=== PATIENT | male | born 1965 | race Caucasian/White ===

== ENCOUNTER 2017-01-27 12:58 | Inpatient (IN) | payer MEDICARE, BC ==
[~2017-01-27] VITALS: Ht 182.9 cm; Wt 111.8 kg
--- NOTE | ~2017-01-27 | HEMODYNAMI ---
PATIENT:RAE ARSHAD MEDICAL RECORD: [id number] : 61 LOCATION:[facility] D.[address] [facility] [id number] ADMISSION DATE: 01/27/17 Generatedon:01/29/201715:44 Patient name: RAE ARSHAD Patient #: [id number] : 1965 Date of study: 01/29/2017 Page: Of Hemodynamic Procedure Report Patient Data Patient Demographics Procedure consent was obtained First Name: RAE Gender: Male Last Name: JEANCARLOS : 1965 [facility] Initial: J Age: 51 year(s) Patient #: [id number] Race: SSN: [id number] Additional ID: [id number] Contact details Address: [address] [place] [address] State: [place] City: [place] Zip code: [address] Admission Admission Data Admission Date: 01/27/2017 Admission Time: 15:31 Arrival Date: 01/27/2017 Arrival Time: 15:31 Admit Source: Other Insurance Payor: Medicare Room #: D.2127 Weight (lbs.): 209.44 Weight (kg.): 95 Lab Results Lab Result Date: 01/29/2017 Lab Result Time: 0:00 Biochemistry Name Units Result Min Max BUN mg/dl 60 --(----)-* 7 18 Creatinine mg/dl 11.8 --(----)-* 0.6 1.3 CBC Name Units Result Min Max Hemoglobin g/dl 10.5 *-(----)-- 13.5 17.5 Procedure Procedure Types Cath Procedure Diagnostic Procedure LHC Coronaries only Aortic Root Angiography Miscellaneous Procedures Moderate Sedation up to 30 minutes Procedure Description Procedure Date Procedure Date: 01/29/2017 Procedure Start Time: 15:25 Procedure End Time: 15:39 Procedure Staff Name Function Thomas Han MD Performing Physician Cassidy Chu RT Scrub Santana Dotson RT Scrub Mariella Bonilla RN Nurse Wanda Ferreira RT Monitor Indication CHF Procedure Data Cath Procedure Fluoroscopy Diagnostic fluoroscopy Total fluoroscopy Time: 1.9 time: 1.9 min min Diagnostic fluoroscopy Total fluoroscopy dose: 897 dose: 897 mGy mGy Contrast Material Contrast Material Type Amount (ml) Isovue 300 105 Entry Location Entry Primary Successful Side Size Upsize Upsize Entry Closure Succes sful Closure Location (Fr) 1 (Fr) 2 (Fr) Remarks Device Remarks Femoral Right 5 Fr Exoseal artery Estimated blood loss: 5 ml Diagnostic catheters Device Type Used For End Catheter Placement Cordis 5Fr JL 4.0 Left Coronary Catheter (MP) Angiography Cordis 5Fr 3DRC Catheter Right Coronary (MP) Angiography Cordis 5Fr Pigtail LV Angiography Catheter (MP) Procedure Complications No complications Procedure Medications Medication Administration Route Dosage Oxygen NC 3 l/min Lidocaine 2% added to field 20 Heparin Flush Bag added to field 2 bags (1000units/500ml NS) 0.9% NaCl I.V. 100 ml/hr Versed I.V. 1 mg Fentanyl I.V. 50 mcg Versed I.V. 1 mg Fentanyl I.V. 50 mcg Versed I.V. 0.5 mg Hemodynamics Rest HGB: 10.5 (g/dl) Heart Rate: 76 (bpm) Snapshots Pre Cath Intra NCS Post Cath Vital Signs Time Heart Resp SPO2 etCO2 [id number] NIBP (mmHg) Rhythm Pain Sedation Rate (ipm) (%) (mmHg) (mmHg) Status Level (bpm) 15:11:04 75 18 97 0 0 150/94(115) NSR 0 (11) 10(A) , No pain 15:15:04 72 19 99 0 0 153/93(125) NSR 0 (11) 10(A) , No pain 15:19:01 73 21 97 0 0 134/89(111) NSR 0 (11) 9(A) , No pain 15:23:03 72 19 97 0 0 139/91(118) NSR 0 (11) 9(A) , No pain 15:27:11 72 19 98 0 0 142/84(111) NSR 0 (11) 9(A) , No pain 15:31:13 70 17 98 0 0 132/85(113) NSR 0 (11) 9(A) , No pain 15:35:16 73 16 96 0 0 126/86(109) NSR 0 (11) 9(A) , No pain 15:39:22 73 16 96 0 0 133/85(108) NSR 0 (11) 10(A) , No pain Medications Time Medication Route Dose Verified Delivered Reason Notes Effe ctiveness by by 15:12:38 Oxygen NC 3 Mariella Mariella used for l/min Irene Irene gate watch RN 15:12:45 Lidocaine 2% added 20ml Mariella Mariella used for to vial Irene Irene procedure field RN RN 15:12:53 Heparin Flush added 2 Mariella Mariella used for Bag to bags Irene Irene procedure (1000units/500ml field RN RN NS) 15:13:03 0.9% NaCl I.V. 100 Mariella Mariella used for ml/hr Irene Irene gate watch RN 15:18:36 Versed I.V. 1 mg Mariella Mariella for Irene Irene sedation RN RN 15:18:48 Fentanyl I.V. 50 Mariella Mariella for mcg Irene Irene sedation RN RN 15:23:23 Versed I.V. 1 mg Mariella Mariella for Irene Irene sedation RN RN 15:23:35 Fentanyl I.V. 50 Mariella Mariella for mcg Irene Irene sedation RN RN 15:27:44 Versed I.V. 0.5 Mariella Mariella for mg Irene Irene sedation RN special procedure technologist Log Time Note 14:50:10 Santana Dotson RT(R) sent for patient. Start room use. 14:57:50 Informed consent obtained and on chart 14:57:55 Diagnostic Cath Status : Elective 14:58:18 Indication : CHF 14:58:26 Admit Source: Other 14:58:30 Arrival Date: 01/27/2017 3:31:00 PM 14:58:37 Insurance Payor : Medicare 14:58:43 Patient Weight : 209.44 kg 15:00:01 Lab Result : BUN 60 mg/dl 15:00:01 Lab Result : Hemoglobin 10.5 g/dl 15:00:01 Lab Result : Creatinine 11.8 mg/dl 15:00:28 Time tracking: Regular hours 15:00:34 Plan of Care:Hemodynamics will remain stable., Cardiac rhythm will remain stable., Comfort level will be maintained., Respiratory function will remain adequate., Patient/ family verbilizes understanding of procedure., Procedure tolerated without complication., Recovers from procedure without complications.. 15:05:30 Patient received from Med II to CCL 1 Alert and oriented. Tansferred to table in Supine position. 15:05:32 Warm blankets applied, and naveen hugger turned on for patient comfort. 15:05:32 Correct patient and procedure confirmed by team. 15:05:32 ECG and BP/O2 sat monitors applied to patient. 15:10:08 Vital chart was started 15:10:10 Baseline sample Acquired. 15:10:13 Rhythm: sinus rhythm 15:10:15 Full Disclosure recording started 15:10:28 H&P Date Dictated: 01/27/2017 Within 30 days and on chart.. 15:10:29 Pre-procedure instructions explained to patient. 15:10:30 Pre-op teaching completed and patient verbalized understanding. 15:10:31 Family unavailable. 15:10:33 Patient NPO since Midnight. 15:10:44 Is the patient allergic to Iodine/contrast media? No. 15:10:46 Is patient on blood thinner?Yes 15:10:48 ACC The patient was administered the following blood thiners within the last 24 hours: ACCPlavix 15:10:50 Patient diabetic? Yes. 15:10:51 If diabetic: On Metformin? No 15:10:54 Previous problem with sedation/anesthesia? No ? 15:10:57 Snore? Yes 15:10:58 Sleep apnea? Yes 15:10:59 Deviated septum? No 15:10:59 Opens mouth fully? Yes 15:11:00 Sticks out tongue? Yes 15:11:03 Airway obstruction? No ? 15:11:05 Dentures? No ? 15:11:07 Pre procedure: right dorsailis pedis pulse 1+ Palpable, but thready & weak; easily obliterated 15:11:25 Pt has a RESERVED LEFT ARM. 15:11:34 IV patent on arrival in right forearm with 0.9% NaCl at KVO. 15:11:45 Lab results completed and on chart. 15:11:49 Right groin area was prepped with chlora-prep and draped in sterile fashion 15:11:50 Alarms reviewed by Kerry Wise 15:11:51 Sharps counted by scrub and verified by R.N. 15:11:55 Use device set Femoral Dx 15:11:56 Tegaderm 4 x 4 opened to sterile field. 15:11:58 Acist Hand Control opened to sterile field. 15:11:58 Acist Manifold opened to sterile field. 15:11:59 Acist Syringe opened to sterile field. 15:12:00 Bag Decanter opened to sterile field. 15:12:00 Medline Cath Pack opened to sterile field. 15:12:00 Terumo 5Fr Venus Sheath opened to sterile field. 15:12:01 St Ant 260cm J .035 wire opened to sterile field. 15:12:03 Diagnostic Infinity 5Fr Multipack catheter opened to sterile field. 15:12:38 Oxygen 3 l/min NC was administered by Mariella Bonilla RN; used for procedure; 15:12:45 Lidocaine 2% 20ml vial added to field was administered by Mariella Bonilla RN; used for procedure; 15:12:53 Heparin Flush Bag (1000units/500ml NS) 2 bags added to field was administered by Mariella Bonilla RN; used for procedure; 15:13:03 0.9% NaCl 100 ml/hr I.V. was administered by Mariella Bonilla RN; used for procedure; 15:17:51 Physician arrived 15:17:52 --------ALL STOP TIME OUT------ 15:17:53 Final Timeout: patient, procedure, and site verified with staff and physician. All members of the team are in agreement. 15:17:55 Right groin site verified by team. 15:17:58 Physical assessment completed. ASA score P 2 - A patient with mild systemic disease as per Thomas Han MD. 15:18:03 Sedation plan: IV Moderate Sedation Versed, Fentanyl 15:18:36 Versed 1 mg I.V. was administered by Mariella Bonilla RN; for sedation; 15:18:48 Fentanyl 50 mcg I.V. was administered by Mariella Bonilla RN; for sedation; 15:20:07 Zero performed for pressure channel P1 15:20:18 Zero performed for pressure channel P1 15:20:28 Zero performed for pressure channel P1 15:23:23 Versed 1 mg I.V. was administered by Mariella Bonilla RN; for sedation; 15::35 Fentanyl 50 mcg I.V. was administered by Mariella Bonilla RN; for sedation; 15::42 Procedure started. 15:25:45 Local anesthetic to right femoral artery with Lidocaine 2% by Thomas Han MD.INITIAL ACCESS ONLY 15:25:57 A 5 Fr sheath was inserted into the Right Femoral artery 15:27:14 A Cordis 5Fr JL 4.0 Catheter (MP) was advanced over the wire and used for Left Coronary Angiography. 15:27:44 Versed 0.5 mg I.V. was administered by Mariella Bonilla RN; for sedation; 15:30:10 LCA angiography performed. 15:30:15 Injector settings: Ml/sec: 3, Volume: 6, 15:33:04 Catheter removed. 15:33:10 A Cordis 5Fr 3DRC Catheter (MP) was advanced over the wire and used for Right Coronary Angiography. 15:34:11 RCA angiography performed. 15:34:32 Injector settings: Ml/sec: 3, Volume: 6, 15:34:56 Catheter removed. 15:35:02 A Cordis 5Fr Pigtail Catheter (MP) was advanced over the wire and used for LV Angiography. 15:35:37 Aortic Root visualized 15:35:42 Injector settings: Ml/sec: 10, Volume: 20, 15:36:52 Cordis 5Fr Exoseal opened to sterile field. 15:37:05 Sheath removed intact; hemostasis achieved with Exoseal to the Right Femoral artery. 15:37:08 Procedure ended.(Physican Out) 15:37:28 Fluoroscopy time 01.90 minutes. 15:37:34 Fluoroscopy dose: 897 mGy 15:37:34 Flurop Dose total: 897 15:37:40 Contrast amount:Isovue 300 105ml. 15:37:42 Sharps counted by scrub and verified by R.N. 15:37:50 Insertion/operative site no bleeding no hematoma. 15:37:53 Post-op/insertion site Right Femoral artery dressed using a 4 x 4 and Tegaderm. 15:37:57 Post right femoral artery:stable 15:37:59 Post Procedure Pulses reassessed and unchanged 15:38:05 Post procedure rhythm: unchanged. 15:38:41 Estimated blood loss: 5 ml 15:38:42 Post procedure instruction explained to patient.Patient verbalizes understanding. 15:38:43 Patient needs reinforcement of post procedure teaching. 15:38:59 Procedure type changed to Cath procedure, Diagnostic procedure, LHC, Coronaries only, Aortic Root Angiography, Miscellaneous Procedures, Moderate Sedation up to 30 minutes 15:39:00 Procedure and supply charges have been captured, reviewed, submitted and are correct. 15:39:06 Procedure Complication : No complications 15:39:08 Vital chart was stopped 15:39:09 See physician's report for complete and final results. 15:39:11 Report given to Med II. 15:39:14 Patient transfered to Med II with Stretcher. 15:39:17 Procedure ended. 15:39:17 Full Disclosure recording stopped 15:39:23 End room use (Document Last) Device Usage Item Name Manufacture Quantity Catalog Hospital Part Current Minimal Lo t# / Number Charge Number Stock Stock Serial# Code Tegaderm 4 3M 1 [id number] [id number] 5 x 4 Acist Hand Acist 1 52335 [id number] [id number] [id number] 5 Control [employer] Inc Acist Acist 1 02541 528102 092124 405643 5 Manifold Medical Systems Inc Acist Acist 1 86463 900648 030292 445149 20 Syringe Medical Systems Inc Bag Microtek 1 2002S 136693 90556 226808 5 Decanter Medical Inc. Medline Cardinal 1 [id number] 556052 12237 990978 5 Cath Pack Health Terumo 5Fr Terumo 1 [id number] 566341 783683 289409 [address] Ant St Ant 1 766989 729351 016481 383315 30 260cm J .035 wire Diagnostic Cardinal 1 [id number] 401257 19984 354067 30 Infinity Health 5Fr Multipack catheter Cordis 5Fr Cardinal 1 [id number] 5 JL 4.0 Health Catheter (MP) Cordis 5Fr Cardinal 1 801124 5 3DRC Health Catheter (MP) Cordis 5Fr Cardinal 1 319550 5 Pigtail Health Catheter (MP) Cordis 5Fr Cardinal 1 EX500 289104 539495 903404 10 Familytic Signature Audit Aragon Stage Time Signature Unsigned Intra-Procedure 01/29/2017 Wanda Ferreira 3:44:15 PM RT(R) Signatures Monitor : Wanda Ferreira RT Signature : Date : Time : [facility] [address] [place] [address]
[~2017-01-27 12:58] MED LIST: APRESOLINE50 MG PO; ASPIRIN325 MG PO; ATIVAN0.5 MG PO; CARDIZEM CD240 MG PO; CATAPRES-T1 PATCH.WK TD; COLACE100 MG PO; COMBIVENT INH14.7 GM INH; COREG25 MG PO; LANTUS INSULIN10 ML SC; LONITEN10 MG PO; MIRALAX17 GM PO; NEPHRO-VITE RX1 TAB PO; NEURONTIN 100100 MG PO; PAXIL20 MG PO; PLAVIX75 MG PO; RENVELA2.4 GM PO; SENSIPAR90 MG PO; TYLENOL 325 MG325 MG PO; ULTRAM50 MG PO; UROXATRAL10 MG PO; WELLBUTRIN75 MG PO; ZYLOPRIM100 MG PO
[2017-01-27 14:05] LABS: BASOPHILS 0.8 % (0-2); EOSINOPHILS 3.3 % (0-7); HEMATOCRIT 35.5 % (42.0-54.0); HEMOGLOBIN 11.8 g/dL (13.5-17.5); IMMATURE GRANULOCYTES 0.4 % (0-5); LYMPHOCYTES 4.7 % (15-50); MCH 31.8 pg (26.0-34.0); MCHC 33.2 g/dL (31.0-37.0); MCV 95.7 fL (80.0-100.0); MEAN PLATELET VOLUME 10.2 fL (7.4-10.4); MONOCYTES 11.1 % (2-11); NEUTROPHILS 79.7 % (40-80); RBC 3.71 10x6/uL (4.20-6.10); RDW 14.4 % (11.5-14.5); WBC 11.2 10x3/uL (4.8-10.8)
[2017-01-27 14:10] LABS: PLATELET COUNT 214 10x3/uL (130-400)
[2017-01-27 14:24] LABS: ALBUMIN 3.8 g/dL (3.4-5.0); ANION GAP 17.7 mmol/L (8-16); BILIRUBIN - TOTAL 0.9 mg/dL (0.2-1.3); CALCIUM 10.2 mg/dL (8.5-10.1); CARBON DIOXIDE 26.5 mmol/L (21.0-32.0); CREATININE - SERUM 10.8 mg/dL (0.6-1.3); POTASSIUM - SERUM 4.2 mmol/L (3.5-5.1); PROTEIN - SERUM 8.1 g/dL (6.4-8.2)
[2017-01-27 14:27] LABS: TROPONIN-I 0.056 ng/mL (0.000-0.060)
--- NOTE | 2017-01-27 17:53 | NUR ---
PT ARRIVED TO DIALYSIS SUITE VIA WHEEL CHAIR. AAOX3, VERBAL, O2@2L/NC, SAT 98%. PT TRANSFERRED TO CHAIR WITH MINIMAL ASSIST. NO COMPLAINTS.
[2017-01-27 20:00] VITALS: BP 176/104
[2017-01-27 21:58] VITALS: BP 176/104; BMI 26.2
[2017-01-27] MEDS ORDERED: TOPAMAX50 MG PO (22:21)
[2017-01-27] MEDS ORDERED: PEPCID20 MG PO (22:22)
[2017-01-27] MEDS ORDERED: SENSIPAR30 MG PO (22:22)
[2017-01-27] MEDS ORDERED: PAXIL40 MG PO (22:24)
[2017-01-27] MEDS ORDERED: BUPROPION HCL75 MG PO (22:24)
[2017-01-27] MEDS ORDERED: RENVELA800 MG PO (22:26)
--- NOTE | 2017-01-27 22:34 | NUR ---
PT ARRIVED VIA W/C FROM DIALYSIS AT 2043 HRS. NO DISTRESS NOTED. IV TO R HAND SL. ADMISSION ASSESSMENT, HISTORY AND HOME MED LIST COMPLETED AT THIS TIME. PT DOES NOT KNOW MEDS. STATES [facility] GETS THEM FOR HIM. WILL CONTACT [facility] IN AM. L FA AVF WITH GOOD BRUIT AND THRILL. LUNGS DIMINISHED IN BASES BILAT. O2 2LNC. MUMUR NOTED. WILL CONTINUE TO MONITOR. SR UP X2, CALL LIGHT WITHIN REACH.
[2017-01-28] VITALS: BP 110/66
--- NOTE | 2017-01-28 00:46 | NUR ---
VSS. PT DENIES ANY DISCOMFORT. WILL CONTINUE TO MONITOR.
--- NOTE | 2017-01-28 02:14 | NUR ---
PT RESTING WITH EYES CLOSED. RESP EVEN AND REGULAR. SR UP X2, CALL LIGHT WITHIN REACH.
[2017-01-28 04:00] VITALS: BP 114/65
--- NOTE | 2017-01-28 04:28 | NUR ---
PT RESTING WITH EYES CLOSED. RESP EVEN AND REGULAR. SR UP X2, CALL LIGHT WITHIN REACH.
--- NOTE | 2017-01-28 05:57 | NUR ---
VSS THIS AM. PT DENIES ANY DISCOMFORT. NEEDS MET; WILL CONTINUE TO MONITOR.
[2017-01-28 06:25] LABS: BASOPHILS 1.4 % (0-2); EOSINOPHILS 6.6 % (0-7); HEMATOCRIT 33.6 % (42.0-54.0); IMMATURE GRANULOCYTES 0.3 % (0-5); LYMPHOCYTES 9.4 % (15-50); MCH 31.3 pg (26.0-34.0); MCHC 32.7 g/dL (31.0-37.0); MCV 95.7 fL (80.0-100.0); MEAN PLATELET VOLUME 10.5 fL (7.4-10.4); MONOCYTES 11.7 % (2-11); NEUTROPHILS 70.6 % (40-80); PLATELET COUNT 205 10x3/uL (130-400); RBC 3.51 10x6/uL (4.20-6.10); RDW 14.4 % (11.5-14.5)
[2017-01-28 06:34] LABS: WBC 7.1 10x3/uL (4.8-10.8)
[2017-01-28 06:45] LABS: ANION GAP 17.5 mmol/L (8-16); CALCIUM 9.8 mg/dL (8.5-10.1); CARBON DIOXIDE 28.2 mmol/L (21.0-32.0); CREATININE - SERUM 9.7 mg/dL (0.6-1.3); POTASSIUM - SERUM 3.7 mmol/L (3.5-5.1)
[2017-01-28 08:00] VITALS: BP 143/89
--- NOTE | 2017-01-28 11:53 | NUR ---
PT IS AMBULATORY AND REFUSES TO WEAR SCDS.
[2017-01-28 12:00] VITALS: BP 113/78
--- NOTE | 2017-01-28 12:41 | NUR ---
PROVIDED PT WITH COFFEE REQUESTED. PT SITTING UP ON EDGE OF BED EATING LUNCH AND DENIES ANY CURRENT PAIN OR NEEDS AT THIS TIME. CL IN REACH, BED IN LOWEST, SIDE RAILS X2. WILL CPOC.
[2017-01-28 13:04] VITALS: Ht 182.9 cm; Wt 111.8 kg
--- NOTE | 2017-01-28 14:17 | NUR ---
Patient Name: RAE ARSHAD Admission Status: ER Accout number: [id number] Admission Date: 01-27-2017 : 1965 Admission Diagnosis: Attending: JO Current LOS: 1 Anticipated DC Date: 01-30-2017 Planned Disposition: Home Primary Insurance: MEDICARE A & B Discharge Planning Comments: * Is the patient Alert and Oriented? Yes 0 * How many steps to enter\exit or inside your home? 5 0 * PCP DR. KAUR 0 * Pharmacy [facility] [address] 0 * Preadmission Environment Home with Family 0 * ADLs Independent 0 * Equipment Walker 0 * Other Equipment NO MEDICAL EQUIPMENT PROVIDER PREFERNECE 0 * List name and contact numbers for known caregivers / representatives who currently or will assist patient after discharge: JC BRADSHAW, MOTHER, 0 * Community resources currently utilized Other 0 * Please name any agencies selected above. OUTPATIENT DIALYSIS, [facility], [facility], [address], [facility] 0 * Additional services required to return to the preadmission environment? No 0 * Can the patient safely return to the preadmission environment? Yes 0 * Has this patient been hospitalized within the prior 30 days at any hospital? No 0 CM RECEIVED DISCHARGE PLANNING ORDER AND ORDER TO ARRANGE 4X WEEK DIALYSIS. CM MET WITH PT IN ROOM TO DISCUSS DISCHARGE PLANNING AND NEEDS. PT REPORTS LIVING AT HOME INDEPENDENTLY WITH HIS MOTHER. PT HAS WALKER WITH 2 WHEELS HE USES ON MONDAYS BECAUSE THEY PULL SO MUCH FLUID OFF ON MONDAYS THAT HE HAS BALANCE ISSUES. PT GOES TO OUTPATIENT DIALYSIS AT [facility], [facility] AT 0600; PT RIDES [employer] [facility] TO AND FROM DIALYSIS. PT HAS NO MEDICAL EQUIPMENT PROVIDER PREFERENCE AND NO OUTSIDE SERVICES ASSISTING IN THE HOME. CM DISCUSSED AVAILABILITY OF HOME HEALTH, REHAB SERVICES AND MEDICAL EQUIPMENT. PT DENIES DISCHARGE NEEDS, REPORTS HIS MOTHER WILL PICK HIM UP FOR DISCHARGE HOME. IMPORTANT MESSAGE FROM MEDICARE PROVIDED AND EXPLAINED. CM CALLED PATIENT PATHWAYS COORDINATOR, KELLY MARTINEZ, , NOTIFIED OF ORDER TO RESUME DIALYSIS 4X PER WEEK, KELLY TO MAKE OUTPATIENT DIALYSIS ARRANGEMENTS. CM TO FOLLOW AND ASSIST NEEDED. User Experience Researcher: Chencho Baez
--- NOTE | 2017-01-28 17:30 | NUR ---
PT SITTING UP IN BED EATING DINNER. DENIES ANY CURRENT PAIN OR NEEDS STATES HE HAS HAD A GOOD DAY OVERALL. CL IN REACH, BED IN LOWEST, SIDE RAILS X2. WILL CPOC.
[2017-01-28 19:00] VITALS: BP 119/77
--- NOTE | 2017-01-28 19:23 | NUR ---
RECEIVED REPORT, WILL ASSUME CARE OF PT, PT DENIES ANY NEEDS AT THIS TIME, BED IS LOW, SRX2, CALL LIGHT IN REACH, WILL CONTINUE PLAN OF CARE
--- NOTE | 2017-01-28 23:23 | NUR ---
ASSESSMENT COMPLETE, SEE FLOWSHEET, PT SLEEPING ON L.SIDE, BED IS LOW, SRX2, CALL LIGHT IN REACH, WILL CONTINUE PLAN OF CARE
[2017-01-29] VITALS (9 sets, daily range): BP systolic 112–155; BP diastolic 34–86
[2017-01-29 05:37] LABS: BASOPHILS 1.5 % (0-2); EOSINOPHILS 7.9 % (0-7); HEMATOCRIT 32.4 % (42.0-54.0); HEMOGLOBIN 10.5 g/dL (13.5-17.5); IMMATURE GRANULOCYTES 0.3 % (0-5); LYMPHOCYTES 11.3 % (15-50); MCH 31.2 pg (26.0-34.0); MCHC 32.4 g/dL (31.0-37.0); MCV 96.1 fL (80.0-100.0); MEAN PLATELET VOLUME 10.5 fL (7.4-10.4); MONOCYTES 16.5 % (2-11); NEUTROPHILS 62.5 % (40-80); PLATELET COUNT 197 10x3/uL (130-400); RBC 3.37 10x6/uL (4.20-6.10); RDW 14.3 % (11.5-14.5); WBC 6.1 10x3/uL (4.8-10.8)
[2017-01-29 06:30] LABS: ANION GAP 17.3 mmol/L (8-16); CALCIUM 9.9 mg/dL (8.5-10.1); CARBON DIOXIDE 27.9 mmol/L (21.0-32.0); CREATININE - SERUM 11.8 mg/dL (0.6-1.3); PHOSPHOROUS 7.1 mg/dL (2.5-4.9); POTASSIUM - SERUM 4.2 mmol/L (3.5-5.1); THYROID STIMULATING HORMONE 1.75 uIU/mL (0.36-3.74)
--- NOTE | 2017-01-29 07:30 | NUR ---
INTRODUCED MYSELF TO PT PRIMARY RN FOR TODAYS SHIFT. AM ROUNDS COMPLETED. PT RESTING QUIETLY IN BED AT THIS TIME. CL IN REACH, BED IN LOWEST, SIDE RAILS X2. WILL CPOC.
--- NOTE | 2017-01-29 09:30 | NUR ---
PT LEAVING FOR DIALYSIS VIA W/C. PT DENIES ANY CURRENT PAIN OR NEEDS. WILL CTF.
[2017-01-29 11:17] LABS: HEPATITIS C ANTIBODY <0.1 (0.0-0.9)
--- NOTE | 2017-01-29 16:04 | NUR ---
PT BACK FROM [facility]. DRSG TO [facility]. NO S/S OF BLEEDING OR HEMATOMA NOTED. PERIPHERAL PULSES INTACT. VSS AND BEING RECORDED PER POST PROCEDURE POLICY. RR NONLABORED ON RA. PT IS TO LAY FLAT FOR 4 HOURS AND VERBALIZED UNDERSTANDING. CL IN REACH, BED IN LOWEST, SIDE RAILS X2. WILL CPOC.
--- NOTE | 2017-01-29 19:42 | NUR ---
RECEIVED REPORT, WILL ASSUME CARE OF PT, PT LAYING ON L.SIDE, DENIES ANY NEEDS, BED IS LOW, SRX2, CALL LIGHT IN REACH, WILL CONTINUE PLAN OF CARE
--- NOTE | 2017-01-30 03:30 | NUR ---
ASSESSMENT COMPLETE, SEE FLOWSHEET, PT SLEEPING, BED IS LOW, SRX2, CALL LIGHT IN REACH, WILL CONTINUE PLAN OF CARE
[2017-01-30 04:00] VITALS: BP 125/66
[2017-01-30 05:11] LABS: BASOPHILS 1.4 % (0-2); EOSINOPHILS 6.5 % (0-7); HEMATOCRIT 34.1 % (42.0-54.0); HEMOGLOBIN 11.1 g/dL (13.5-17.5); IMMATURE GRANULOCYTES 0.3 % (0-5); LYMPHOCYTES 7.9 % (15-50); MCH 31.3 pg (26.0-34.0); MCHC 32.6 g/dL (31.0-37.0); MCV 96.1 fL (80.0-100.0); MEAN PLATELET VOLUME 10.6 fL (7.4-10.4); MONOCYTES 15.2 % (2-11); NEUTROPHILS 68.7 % (40-80); PLATELET COUNT 209 10x3/uL (130-400); RBC 3.55 10x6/uL (4.20-6.10); RDW 14.1 % (11.5-14.5); WBC 7.2 10x3/uL (4.8-10.8)
[2017-01-30 05:27] LABS: ANION GAP 15.9 mmol/L (8-16); CALCIUM 8.3 mg/dL (8.5-10.1); CARBON DIOXIDE 29.3 mmol/L (21.0-32.0); CREATININE - SERUM 9.7 mg/dL (0.6-1.3); PHOSPHOROUS 5.6 mg/dL (2.5-4.9); POTASSIUM - SERUM 4.2 mmol/L (3.5-5.1)
--- NOTE | 2017-01-30 07:45 | NUR ---
AM ROUNDS COMPLETED. PT A&O RESTING QUIETLY IN BED. SHIFT ASSESSMENT COMPLETED, NO CHANGES NOTED FROM YESTERDAY. PT DENIES ANY CURRENT PAIN OR NEEDS. CL IN REACH, BED IN LOWEST, SIDE RAILS X2. WILL CPOC.
[2017-01-30 08:29] VITALS: BP 105/66
--- NOTE | 2017-01-30 09:23 | NUR ---
PROVIDED PT WITH MORNING MEDICATIONS. SOME DOSE CHANGES WERE DONE WITH MEDS AND EXPLAINED IT TO PT HE VERBALIZED UNDERSTANDING. PT SITTING UP IN BEDSIDE CHAIR RESTING QUIETLY. PT STATES HE SLEPT WELL. PERIPHERAL PULSES INTACT AND NORMAL. [facility] FROM CATH YESTERDAY STILL CDI AND NO S/S OF HEMATOMA NOTED. PT HASNT HAD A BM IN A COUPLE OF DAYS AND WAS PROVIDED WITH PRN STOOL SOFTNER. PT VOICED THANKS AND DENIES ANY CURRENT PAIN OR FURTHER NEEDS AT THIS TIME. CL IN REACH. WILL CPOC.
[2017-01-30 11:35] VITALS: BP 142/95
[2017-01-30 15:29] VITALS: BP 145/73
[2017-01-30 19:00] VITALS: BP 136/80
--- NOTE | 2017-01-30 19:26 | NUR ---
RECEIVED REPORT, WILL ASSUME CARE OF PT, PT LAYING IN BED, DENIES ANY NEEDS AT THIS TIME, CALL LIGHT IN REACH, WILL CONTINUE PLAN OF CARE
[2017-01-31] VITALS: BP 120/70
--- NOTE | 2017-01-31 03:39 | NUR ---
ASSESSMENT COMPLETE, SEE FLOWSHEET, PT SLEEPING, CALL LIGHT IN REACH, WILL CONTINUE PLAN OF CARE
[2017-01-31 06:19] LABS: BASOPHILS 1.5 % (0-2); EOSINOPHILS 7.4 % (0-7); HEMATOCRIT 31.3 % (42.0-54.0); HEMOGLOBIN 10.7 g/dL (13.5-17.5); IMMATURE GRANULOCYTES 0.3 % (0-5); LYMPHOCYTES 12.3 % (15-50); MCH 32.1 pg (26.0-34.0); MCHC 34.2 g/dL (31.0-37.0); MEAN PLATELET VOLUME 10.4 fL (7.4-10.4); MONOCYTES 13.7 % (2-11); NEUTROPHILS 64.8 % (40-80); PLATELET COUNT 206 10x3/uL (130-400); RBC 3.33 10x6/uL (4.20-6.10); RDW 14.1 % (11.5-14.5); WBC 7.2 10x3/uL (4.8-10.8)
[2017-01-31 06:45] LABS: ANION GAP 19.6 mmol/L (8-16); CALCIUM 8.9 mg/dL (8.5-10.1); CARBON DIOXIDE 25.8 mmol/L (21.0-32.0); CREATININE - SERUM 11.7 mg/dL (0.6-1.3); PHOSPHOROUS 6.9 mg/dL (2.5-4.9); POTASSIUM - SERUM 4.4 mmol/L (3.5-5.1)
--- NOTE | 2017-01-31 08:13 | NUR ---
AM ROUNDS - PT IS AWAKE AND SITTING ON THE SIDE OF THE BED. IV TO RIGHT HAND, SL. BED AT LOWEST POSITION. SIDE RAILS UP X2. CALL BARRAGAN IN USE/REACH. PT IS UP AD KAZ. NO NEEDS AT THIS TIME. WILL CONTINUE TO MONITOR
--- NOTE | 2017-01-31 08:59 | NUR ---
PT LEFT FLOOR VIA BED TO GO TO [facility].
[2017-01-31 09:12] VITALS: BP 162/93
--- NOTE | 2017-01-31 13:51 | NUR ---
Nutrition Follow Up: Chart reviewed. Pt is eating 83% meal avg on a renal ADA diet. No BM since admit. Meds and labs reviewed. Rec continue current diet. RD following.
--- NOTE | 2017-01-31 13:55 | OP ---
PATIENT NAME: RAE ARSHAD MEDICAL RECORD: [id number] :[birth year] LOCATION:D.M2 D.2107 ADMISSION DATE:01/27/17 SURGEON: DINO ZAMORA MD DATE OF OPERATION: 01/29/2017 PROCEDURE: Left heart catheterization, selective coronary angiography, right femoral artery approach. CATHETERS: A 5-Divehi sheath, 5/4 left and right Merry, 5/4 pig. The procedure was well tolerated. The patient returned to the yanes, sheath removed. ExoSeal device placed. FINDINGS: Left ventriculography in 30-degree MANCIA view, not performed. Aortic root injection shows normal size aortic root with minimal AI. CORONARY ANATOMY: LEFT MAIN: Left main is free of disease. LAD: Free of disease in the diagonal system. CIRCUMFLEX AND OM: There is OM2 that has about 70% stenosis in its proximal portion. RIGHT CORONARY ARTERY: Really more of a co-dominant system with a large marginal branch supplying parallel to the right coronary. The right coronary itself has about a 78% stenosis. IMPRESSION: Known critical , normal size aortic root. Possible graft to OM plus or minus right coronary artery as well. TRANSINT:[id number] Voice Confirmation ID: [id number] DOCUMENT ID: [id number] DINO ZAMORA MD at 1355 CC: [id number] DICTATION DATE: 01/29/17 1547 COAL HANDLING SUPERVISOR: 01/29/17 2145 ADM IN [facility] [address] [place] [address]
[2017-01-31 16:13] VITALS: BP 151/94
--- NOTE | 2017-01-31 18:15 | NUR ---
PT RESTING IN BED WITH NO NEEDS AT THIS TIME. WILL CONTINUE TO MONITOR
[2017-01-31 19:00] VITALS: BP 143/88
--- NOTE | 2017-01-31 19:00 | NUR ---
PT IN BED ATTENTION FOCUSED TOWARDS TELEVISION DENIES NEEDS AT THIS TIME WILL CONTINUE TO MONITOR
[2017-02-01] VITALS: BP 141/90
[2017-02-01 04:00] VITALS: BP 143/95
[2017-02-01 05:00] LABS: BASOPHILS 2.4 % (0-2); EOSINOPHILS 7.9 % (0-7); HEMATOCRIT 33.4 % (42.0-54.0); IMMATURE GRANULOCYTES 0.3 % (0-5); LYMPHOCYTES 15.5 % (15-50); MCH 30.9 pg (26.0-34.0); MCHC 32.9 g/dL (31.0-37.0); MCV 93.8 fL (80.0-100.0); MEAN PLATELET VOLUME 10.5 fL (7.4-10.4); NEUTROPHILS 60.9 % (40-80); PLATELET COUNT 220 10x3/uL (130-400); RBC 3.56 10x6/uL (4.20-6.10); RDW 13.8 % (11.5-14.5); WBC 6.7 10x3/uL (4.8-10.8)
[2017-02-01 05:19] LABS: ANION GAP 15.7 mmol/L (8-16); CALCIUM 9.1 mg/dL (8.5-10.1); CARBON DIOXIDE 29.5 mmol/L (21.0-32.0); CREATININE - SERUM 9.8 mg/dL (0.6-1.3); POTASSIUM - SERUM 4.2 mmol/L (3.5-5.1)
--- NOTE | 2017-02-01 07:45 | NUR ---
AM ROUNDING DONE WITH PATIENT SITTING IN CHAIR, DENIES NEEDS AT THIS TIME. ON HEART MONITOR SHOWING SR, HR 78. RIGHT HAND WITH SALINE LOCK. RESERVE LEFT ARM WITH AVF. ON ROOM AIR. PATIENT REPORTS THAT HE DOES NOT MAKE ANY URINE. WILL CPOC.
[2017-02-01 07:59] VITALS: BP 141/95
--- NOTE | 2017-02-01 08:41 | NUR ---
POC GLUCOSE THIS AM 107. LANTUS NOT GIVEN.
--- NOTE | 2017-02-01 11:29 | NUR ---
NURSE WENT IN TO TAKE VS AND FOUND PT ON THE FLOOR ON HIS KNEES. PT STATED "HIS LEGS GAVE OUT." NO APPARENT INJURY.
[2017-02-01 11:52] VITALS: BP 140/85
--- NOTE | 2017-02-01 15:45 | NUR ---
RESTING WITH EYES CLOSED ON RIGHT SIDE. RESP ARE EVEN AND NON LABORED. BED ALARM IS STILL SET.
[2017-02-01 16:12] VITALS: BP 117/72
[2017-02-01 19:00] VITALS: BP 149/98
--- NOTE | 2017-02-01 19:17 | NUR ---
PT IN CHAIR WATCHING TELEVISION PROVIDED DIET LEMON NOME PER REQUEST DENIES FURTHER NEEDS WILL CONTINUE TO MONITOR
[2017-02-02] VITALS: BP 135/89
[2017-02-02 04:00] VITALS: BP 131/95
--- NOTE | 2017-02-02 07:30 | NUR ---
REPORT RECIEVED. PT RESTING QUIELTY, RR EVEN AND UNLABORED. PT DENIES NEEDS AT THIS TIME. INTRODUCED SELF AND PLACED NAME ON WHITE BOARD, WILL CTM.
[2017-02-02 08:38] VITALS: BP 141/93
--- NOTE | 2017-02-02 12:25 | NUR ---
PT IN DIALYSIS.
--- NOTE | 2017-02-02 15:00 | NUR ---
PT RECIEVED FROM DIALYSIS. RR EVEN AND UNLABORED. PT DENIES NEEDS AT THIS TIME.
[2017-02-02 16:37] VITALS: BP 141/86
--- NOTE | 2017-02-02 18:00 | NUR ---
PT RESTING QUIETLY, RR EVEN AND UNLABORED, NO SIGNS OF DISTRESS. WILL GIVE REPORT ON PT CONDITION FOR THE DAY.
[2017-02-02 19:00] VITALS: BP 108/68
--- NOTE | 2017-02-02 19:08 | NUR ---
PT IN BED DENIES NEEDS AT THIS TIME WILL CONTINUE TO MONITOR
[2017-02-03] VITALS: BP 119/66
[2017-02-03 04:00] VITALS: BP 133/96
--- NOTE | 2017-02-03 07:45 | NUR ---
AM ROUNDS COMPLETED. INTRODUCED MYSELF TO PT PRIMARY RN FOR TODAYS SHIFT. PT A&O LYING BACK IN BED RESTING QUIETLY. SHIFT ASSESSMENT COMPLETED. PT STATES HE IS FEELING WELL OVERALL AND DENIES ANY CURRENT PAIN OR NEEDS AT THIS TIME. CL IN REACH, BED IN LOWEST, SIDE RAILS X2. WILL CPOC.
[2017-02-03 08:58] VITALS: BP 146/94
[2017-02-03 11:53] VITALS: BP 122/85
--- NOTE | 2017-02-03 12:04 | NUR ---
FSBS 101 NO COVERAGE REQUIRED PER SS. PT SITTING UP IN BEDSIDE CHAIR READY TO EAT LUNCH. PT HAD A SHOWER AND STATED HE ACCIDENTLY PULLED OUT HIS R.HAND PIV. WILL RESTART IV AFTER LUNCH REQUESTED BY PT. PT DENIES ANY FURTHER NEEDS AT THIS TIME. CL IN REACH. WILL CPOC.
--- NOTE | 2017-02-03 15:30 | NUR ---
PIV ATTEMPTED X2 VIA R.ARM WITHOUT SUCCESS. WILL ASK ANOTHER NURSE TO TRY. PT RESTING IN CHAIR AND DENIES ANY CURRENT NEEDS.
--- NOTE | 2017-02-03 15:57 | NUR ---
20 GAUGE IV PLACED TO RIGHT FOREARM. GOOD BLOOD RETURN, EASY FLUSH. TAPED, DATED AND SECURED. PATIENT TOLERATED IV PLACEMENT WELL. NO DISTRESS.
--- NOTE | 2017-02-03 16:33 | NUR ---
PT REFUSED DINNER AC FINGERSTICK AND STATES HE DOESNT CHECK BS AT HOME BUT OCCASIONALLY TWICE A DAY AND ITS ALWAYS IN RANGE. BLOOD SUGAR TRENDS HAVE BEEN IN RANGE SINCE ADMISSION AND TX OF LANTUS BID SO I WILL ALLOW HIM TO HOLD ON THIS STICK AND CONTINUE WITH PLAN OF CARE. PT SITTING UP IN BEDSIDE CHAIR READY FOR DINNER. CL IN REACH. WILL CPOC.
[2017-02-03 16:50] VITALS: BP 142/95
--- NOTE | 2017-02-03 18:21 | NUR ---
CLONIDINE PATCH APPLIED TO R.SHOULDER.
--- NOTE | 2017-02-03 18:23 | NUR ---
PT LYING IN BED ON HIS L.SIDE RESTING QUIETLY. PT STATES DINNER WAS GOOD AND DENIES ANY CURRENT PAIN OR NEEDS. WILL REPORT TO NIGHTSHIFT NURSE.
--- NOTE | 2017-02-03 19:49 | NUR ---
PT RESTING IN BED WITH COVERS PULLED OVER HIS HEAD. AWAKENS VERY EASILY. ALERT/ORIENTED. NONLABORED RESPIRATIONS ON ROOM AIR. SALINE LOCK TO RFA. RESERVE LEFT ARM FOR AVF. PT IS PENDING CABG SCHEDULED FOR Saturday WITH DR JAVED. NO NEEDS VOICED. SEE SHIFT ASSESSMENT AND CPOC.
[2017-02-03 20:00] VITALS: BP 123/78
--- NOTE | 2017-02-03 20:00 | NUR ---
TELEMETRY: 65/SR WITH 1ST DEGREE HB
--- NOTE | 2017-02-03 21:59 | NUR ---
BEDTIME MEDS GIVEN. FSBS 150, NO ACTION REQUIRED. IV LASIX ADMINISTERED. HS SNACK PROVIDED. XALATAN DROP TO EACH EYE. NO OTHER NEEDS. CPOC.
--- NOTE | 2017-02-03 22:03 | NUR ---
BEDTIME MEDS GIVEN. FSBS 133, NO SLIDING SCALE REQUIRED AND PT SAID HE WOULD PREFER TO NOT TAKE LANTUS ALSO. SALINE FLUSH TO PIV IN RFA. NO OTHER NEEDS. VSS. CPOC.
--- NOTE | 2017-02-03 23:33 | NUR ---
PT RESTING IN BED WITH NO DISTRESS. CALL LIGHT IN REACH. CPOC.
[2017-02-04] VITALS: BP 127/85
[2017-02-04 04:00] VITALS: BP 142/88
[2017-02-04 04:55] LABS: BASOPHILS 1.7 % (0-2); EOSINOPHILS 7.6 % (0-7); HEMATOCRIT 31.9 % (42.0-54.0); HEMOGLOBIN 10.7 g/dL (13.5-17.5); IMMATURE GRANULOCYTES 0.2 % (0-5); LYMPHOCYTES 14.8 % (15-50); MCH 31.2 pg (26.0-34.0); MCHC 33.5 g/dL (31.0-37.0); MEAN PLATELET VOLUME 10.4 fL (7.4-10.4); MONOCYTES 14.1 % (2-11); NEUTROPHILS 61.6 % (40-80); PLATELET COUNT 194 10x3/uL (130-400); RBC 3.43 10x6/uL (4.20-6.10); RDW 13.6 % (11.5-14.5); WBC 6.5 10x3/uL (4.8-10.8)
[2017-02-04 05:17] LABS: ALBUMIN 3.4 g/dL (3.4-5.0); ANION GAP 18.4 mmol/L (8-16); BILIRUBIN - TOTAL 0.5 mg/dL (0.2-1.3); CALCIUM 9.5 mg/dL (8.5-10.1); CARBON DIOXIDE 23.6 mmol/L (21.0-32.0); CREATININE - SERUM 11.6 mg/dL (0.6-1.3); MAGNESIUM - SERUM 2.5 mg/dL (1.8-2.4); PHOSPHOROUS 7.1 mg/dL (2.5-4.9); PROTEIN - SERUM 7.2 g/dL (6.4-8.2)
[2017-02-04 07:41] VITALS: BP 164/105
--- NOTE | 2017-02-04 07:59 | NUR ---
PT IN BED, AWAKE, CALL LIGHT IN PLACE, BED IN LOW POSITION. VITALS DONE. MONITOR SR WITH FIRST DEGREE BLOCK HR 73.
--- NOTE | 2017-02-04 09:55 | NUR ---
PT TAKEN TO DIALYSIS VIA BED
--- NOTE | 2017-02-04 13:43 | NUR ---
PT BACK TO ROOM FROM [place]. UP IN CHAIR EATING LUNCH. WILL ONTINUE TO MONITOR
--- NOTE | 2017-02-04 13:43 | NUR ---
PT BACK FROM DIALYSIS
[2017-02-04 16:00] VITALS: BP 135/97
--- NOTE | 2017-02-04 17:25 | NUR ---
PT EATING PM MEAL, DENIES NEEDS.
--- NOTE | 2017-02-04 19:10 | NUR ---
ALERT/AWAKE WATCHING TV. DENIES PAIN OR ANY NEEDS. L AVF WITH POSITIVE BRUIT/THRILL. TELEMETRY LEADS IN PLACE. ORIENTED TO CL FOR ANY NEEDS.
[2017-02-04 21:15] VITALS: BP 129/89
[2017-02-05 01:29] VITALS: BP 128/50
[2017-02-05 04:36] VITALS: BP 114/82
--- NOTE | 2017-02-05 07:43 | NUR ---
AM ROUNDING- RECEIVED REPORT FROM CANDLE WICKER NURSE JANELL. PT IS CURRENTLY SITTING UP ON SIDE OF BED WITH EYES OPEN RESTING. ON ROOM AIR. ON MONITOR SHOWING SR, HR 70 WTIH BBB AND FIRST DEGREE AV BLOCK PER LESLI IN TELEMETRY. IV SEEN TO RIGHT FOREARM THAT IS CURRENTLY SALINE LOCKED. RESERVE LEFT ARM FOR AVF (PT DIALYZES ON M, W, AND F) PER REPORT PT WILL DIALYZE TODAY. PT IS AWARE OF 1,000CC FLUID RESTRICTION. PT INFORMED TO LET THIS NURSE KNOW WHAT FLUID PT DRINKS TODAY ON SHIFT, PT AGREES. ON LOVENOX INJECTION FOR DVT PREVENTION. NO NEED AT THIS CURRENT TIME. INFORMED PT THAT HE WILL NEED TO BE SHAVED TODAY. WILL CONTINUE TO MONITOR AND CONTINUE WITH PLAN OF CARE.
[2017-02-05 08:00] VITALS: BP 132/94
--- NOTE | 2017-02-05 09:06 | NUR ---
BABAR FROM XRAY CALLED TO SEE WHEN PT IS GOING TO DIALYSIS SO SHE KNOWS WHEN TO COME DO XRAY. I INFORMED BABAR IN XRAY THAT PT IS GOING TO DIALYSIS RIGHT NOW. BABAR WITH XRAY STATES SHE WILL CALLBACK.
--- NOTE | 2017-02-05 09:07 | NUR ---
PT TO DIALYSIS VIA BED.
--- NOTE | 2017-02-05 09:38 | NUR ---
CALLED PHARMACY AND SPOKE WITH LIZBETH. INFORMED PHARMACY THAT ORDERED BACTROBAN OINTMENT IS TO BE GIVEN QHS ONCE ORDERED. ORDER STATES TO BE GIVEN AT 0846 HOWEVER ORDER SPECIFICALLY STATES TO GIVE AT NIGHT. LIZBETH IN PHARMACY STATES HE WILL RELAY INFORMATION TO PHARMACIST AND HAVE MEDICATION RE-TIMED ORDERED.
[2017-02-05 09:58] LABS: BASOPHILS 1.2 % (0-2); EOSINOPHILS 4.9 % (0-7); HEMATOCRIT 33.2 % (42.0-54.0); HEMOGLOBIN 11.1 g/dL (13.5-17.5); IMMATURE GRANULOCYTES 0.3 % (0-5); MCH 31.6 pg (26.0-34.0); MCHC 33.4 g/dL (31.0-37.0); MCV 94.6 fL (80.0-100.0); MEAN PLATELET VOLUME 10.3 fL (7.4-10.4); MONOCYTES 9.4 % (2-11); NEUTROPHILS 73.2 % (40-80); PLATELET COUNT 229 10x3/uL (130-400); RBC 3.51 10x6/uL (4.20-6.10); RDW 13.9 % (11.5-14.5); WBC 6.9 10x3/uL (4.8-10.8)
[2017-02-05 10:06] LABS: APTT 41.2 SECONDS (22.8-39.4); INR 1.14 (0.85-1.17); PROTIME 14.5 SECONDS (11.6-15.0)
--- NOTE | 2017-02-05 10:15 | NUR ---
0930- ADA, DR. JAVED'S NURSE ON UNIT. DAA GAVE ME CONSENT ORDERS PER DR. JAVED. WILL GET THEM SIGNED WHEN PT GETS BACK FROM DIALYSIS.
--- NOTE | 2017-02-05 10:17 | NUR ---
CLONIDINE PATCH ON ORDERED ("LEAVE CURRENT PATCH ON PRE-OP").
[2017-02-05 10:23] LABS: ALBUMIN 3.6 g/dL (3.4-5.0); ANION GAP 16.8 mmol/L (8-16); BILIRUBIN - TOTAL 0.51 mg/dL (0.2-1.3); CALCIUM 9.4 mg/dL (8.5-10.1); CARBON DIOXIDE 26.7 mmol/L (21.0-32.0); CREATININE - SERUM 10.1 mg/dL (0.6-1.3); PHOSPHOROUS 6.2 mg/dL (2.5-4.9); POTASSIUM - SERUM 4.5 mmol/L (3.5-5.1); PROTEIN - SERUM 8.2 g/dL (6.4-8.2); T4 THYROXIN - FREE 0.92 ng/dL (0.76-1.46); THYROID STIMULATING HORMONE 2.57 uIU/mL (0.36-3.74); URIC ACID 4.2 mg/dL (2.6-7.2)
--- NOTE | 2017-02-05 11:05 | NUR ---
Nutrition Follow Up: Pt is eating 98% meal avg on a renal ADA diet. Wt gain since admit noted. +BM 02/04/17. Meds and labs reviewed. Rec continue current diet. RD following.
[2017-02-05 12:37] LABS: COLD SCREEN @ 4 DEGREES NEGATIVE (NEGATIVE); COLD SCREEN ROOM TEMP NEGATIVE (NEGATIVE)
--- NOTE | 2017-02-05 14:09 | NUR ---
PT BACK FROM DIALYSIS VIA BED. PER JOSE ALBERTO IN DIALYSIS, THEY PULLED 5.5L OF FLUID OFF PT.
--- NOTE | 2017-02-05 14:25 | NUR ---
HEATING PAD APPLIED TO RIGHT GROIN ORDERED.
--- NOTE | 2017-02-05 14:39 | NUR ---
PT TO XRAY VIA WHEELCHAIR.
--- NOTE | 2017-02-05 15:03 | NUR ---
0830- DR. LUCILA CABALLERO NURSE ON UNIT. INFORMED ADA THAT PT IS ON PAXIL (ANTIDEPRESSANT). ABDIRAHMAN CABALLERO IS AWARE.
--- NOTE | 2017-02-05 15:04 | NUR ---
OLD CHARTS PLACED WITH PTS NEW CHART ORDERED IN DR. GAYTAN ORDERS.
--- NOTE | 2017-02-05 15:11 | NUR ---
PT BACK FROM [facility] VIA WHEELCHAIR.
[2017-02-05 16:00] VITALS: BP 104/76
--- NOTE | 2017-02-05 16:07 | NUR ---
CONSENTS FOR PROCEDURE SIGNED AND PLACED IN CHART. H & P ON CHART. CURRENT LIST OF MEDICATIONS PLACED ON CHART. EKG, XRAY, AND ECHO REPORT DONE AND PLACED IN CHART. WT AND HT ARE ON TOP OF CHART. ABDIRAHMAN CABALLERO (DR. GAYTAN NURSE) ALONG WITH DR. JAVED IN PTS ROOM PRIOR TO GETTING CONSENTS SIGNED. ABDIRAHMAN CABALLERO ASKED IF PT NEEDS HIBICLENS BATH TONIGHT AND IN AM, ADA STATES YES. ABDIRAHMAN CABALLERO ALREADY AWARE OF PT BEING ON PAXIL. WILL PASS THIS INFORMATION ALONG IN REPORT TO HEAT TREATING BLUER AND CONTINUE TO MONITOR.
--- NOTE | 2017-02-05 17:40 | NUR ---
PT IS CURRENTLY LAYING IN BED ON LEFT SIDE WITH EYES CLOSED RESTING. PT IS AWARE TO BE NPO AFTER MIDNIGHT. CONSENTS ARE SIGNED AND IN CHART. WILL CONTINUE TO MONITOR.
[2017-02-05 19:00] VITALS: BP 109/77
--- NOTE | 2017-02-05 20:44 | NUR ---
PT LYING IN BED RESTING COMFORTABLY, EASILY ROUSABLE TO VERBAL STIMULI, DENIES ANY NEEDS. CONTINUE TO MONITOR CLOSELY. PT UNDERSTANDS THAT HE IS NPO AFTER MIDNIGHT, AND DENIES ANY QUESTIONS ABOUT UPCOMING PROCEDURE. BED LOW, CALL LIGHT IN REACH, SIDE RAILS X 2, HOB FLAT.
--- NOTE | 2017-02-05 21:17 | NUR ---
PTS IV INFILTRATED DURING FLUSHING. IV REMOVED WITH CATH TIP INTACT, WILL RESITE. PT DENIES ANY NEEDS. CONTINUE TO MONITOR CLOSELY.
--- NOTE | 2017-02-05 23:34 | NUR ---
FROYLAN CORRECTIONAL COUNSELOR/CASE MANAGER CALLED @ 20:20: TO RELAY AN ORDER FROM DR. FAROOQ IN ANESTHESIA GIVEN TO HER R/T PT'S NITRO PASTE PRE-OP IN THE A.M. PER FROYLAN [place], NITRO PASTE TO BE PLACED RIGHT ON PTS BRACHIAL ARTERY PULSE. ORDER VERIFIED. NITRO PASTE WILL BE PLACED EXACTLY ON PTS BRACHIAL PULSE PER DR. FAROOQ.
[2017-02-06] VITALS (37 sets, daily range): BP systolic 91–186; BP diastolic 55–77
--- NOTE | 2017-02-06 01:43 | NUR ---
CECILLE VICENTE CLIPPED PT PER ORDER AND ASSISTED PT TO SHOWER FOR 1ST HIBICLENS BATH. PT BECAME WEAK AND SLID DOWN INTO THE FLOOR. PT DENIES ANY INJURIES, NO VISIBLE BRUISING, SKIN BREAKDOWN OR ANYTHING UNUSUAL SEEN AT THIS TIME. PT STATES HE IS NOT HURT, DID NOT HIT HIS HEAD, DENIES VISION CHANGES, DENIES DIZZINESS, DENIES PAIN. PT HAS BEEN TOLD TWICE BY ME THIS SHIFT THAT HE IS NOT TO AMBULATE OR EVEN ATTEMPT TO AMBULATE WITHOUT CALLING FOR ASSISTANCE FIRST. PT REFUSED TO LET CECILLE VICENTE STAY IN THE BATHROOM WITH HIM DURING THIS TIME. PT WAS ASSISTED BACK INTO BED X 2 ASSIST AND AGAIN TOLD THAT HE IS NOT TO AMBULATE OR TRANSFER WITHOUT ANY ASSISTANCE. THE BED ALARM WAS ON PRIOR TO THE SHOWER, AND THE BED ALARM IS ON NOW. PT VERBALLY STATED THAT HE WILL NOT ATTEMPT TO GET OUT OF BED WITHOUT CALLING FOR HELP FIRST. CECILLE VICENTE WAS TOLD THAT PT IS TO ALWAYS CALL FOR ASSISTANCE AND NEVER TO BE LEFT UNATTENDED R/T INCREASED FALL RISK. SAMANTHA, COLLEGE PROFESSOR, NOTIFIED. INCIDENT REPORT WILL BE FILED. FAMILY WILL BE CALLED AND NOTIFIED, ALONG WITH ADMITTING PHYSICIAN. PT DENIES ANY NEEDS AT THIS TIME. CONTINUE TO MONITOR PT CLOSELY. A SHOWER CHAIR AND BEDSIDE COMMODE WILL ALSO BE PLACED IN PTS ROOM FOR SAFETY MEASURES.
--- NOTE | 2017-02-06 02:29 | NUR ---
I HAVE ASKED PT FOR A URINE SAMPLE R/T UNCOLLECTED ORDER. PT STATES HE DOES NOT MAKE URINE. PT RESTING COMFORTABLY IN BED, BED ALARM ON, CALL LIGHT IN REACH. CONTINUE TO MONITOR CLOSELY.
--- NOTE | 2017-02-06 03:57 | NUR ---
PT HAS BEEN CLIPPED FROM CHIN TO TOES BY CECILLE VICENTE.
[2017-02-06 05:35] LABS: BASOPHILS 1.6 % (0-2); HEMATOCRIT 36.2 % (42.0-54.0); HEMOGLOBIN 12.1 g/dL (13.5-17.5); IMMATURE GRANULOCYTES 0.3 % (0-5); LYMPHOCYTES 11.6 % (15-50); MCH 31.8 pg (26.0-34.0); MCHC 33.4 g/dL (31.0-37.0); MCV 95.3 fL (80.0-100.0); MEAN PLATELET VOLUME 10.4 fL (7.4-10.4); MONOCYTES 12.3 % (2-11); NEUTROPHILS 67.2 % (40-80); PLATELET COUNT 252 10x3/uL (130-400); WBC 7.6 10x3/uL (4.8-10.8)
--- NOTE | 2017-02-06 06:03 | NUR ---
PT AWAKE, ALERT, ORIENTED, FAMILY AT BEDSIDE. I NOTIFIED HIS MOM AND BROTHER THAT PT DID FALL EARLIER THIS SHIFT. PT STILL DENIES ANY INJURIES OR COMPLICATIONS. PT HAS BEEN PRE-OP'D ORDERED, DENIES ANY NEEDS, REMAINS NPO SINCE MIDNIGHT, AND HAS A NEW 20 GAUGE IV TO RIGHT FOREARM. CONTINUE TO MONITOR PT CLOSELY. BED LOW, CALL LIGHT IN REACH, SIDE RAILS X 2, HOB 30 DEGREES, BED ALARM ON.
--- NOTE | 2017-02-06 06:25 | NUR ---
PT TAKEN VIA STRETCHER TO OR, FAMILY HAS ALL PERSONAL BELONGINGS. PRE-OP ASSESSMENT COMPLETE.
[2017-02-06 06:29] LABS: ANION GAP 18.1 mmol/L (8-16); CALCIUM 9.9 mg/dL (8.5-10.1); CARBON DIOXIDE 26.1 mmol/L (21.0-32.0); CREATININE - SERUM 8.5 mg/dL (0.6-1.3); PHOSPHOROUS 5.2 mg/dL (2.5-4.9); POTASSIUM - SERUM 4.2 mmol/L (3.5-5.1)
[2017-02-06 08:54] LABS: PLT FUNCT.(P2Y12) PLAVIX 256 PRU (194-418)
[2017-02-06 15:31] LABS: HEMOGLOBIN 10.4 g/dL (13.5-17.5); MCH 31.2 pg (26.0-34.0); MCHC 33.5 g/dL (31.0-37.0); MEAN PLATELET VOLUME 9.6 fL (7.4-10.4); RBC 3.33 10x6/uL (4.20-6.10); RDW 14.3 % (11.5-14.5)
[2017-02-06 15:36] LABS: ANION GAP 20.3 mmol/L (8-16); CALCIUM 8.3 mg/dL (8.5-10.1); CARBON DIOXIDE 22.8 mmol/L (21.0-32.0); CREATININE - SERUM 7.1 mg/dL (0.6-1.3)
[2017-02-06 15:37] LABS: APTT 46.4 SECONDS (22.8-39.4); PROTIME 17.1 SECONDS (11.6-15.0)
[2017-02-06 15:44] LABS: POTASSIUM - SERUM 5.1 mmol/L (3.5-5.1)
[2017-02-06 15:45] LABS: MCV 93.1 fL (80.0-100.0); WBC 14.8 10x3/uL (4.8-10.8)
--- NOTE | 2017-02-06 16:20 | NUR ---
PT RECEIVED TO ROOM VIA BED FROM O.R. MEDIASTINAL INCISION, DRESSING INTACT. CHEST TUBE X2. TEMP PACER, DDD 100, 10, 10. RIGHT LEG INCISIONS, DRESSING INTACT. JOHNNIE X1. PT VENTILATED. 8.0 TUBE AT 23CM. OGT. ROSALES. PT IS LEFT ARM RESERVE DUE TO AV FISTULA. BRUIT, THRILL. HAS RIGHT IJ SWAN, RIGHT SUBCLAVIAN CENTRAL LINE, RIGHT RADIAL ART LINE. SWAN IS AT 58CM. LOCKED POSITION.
--- NOTE | 2017-02-06 16:41 | NUR ---
Dialysis Coordinator: [facility]: [facility] Sat/Sat/Sat @ 6am. BMM GLO.
[2017-02-06 16:58] LABS: INR 1.4 (0.85-1.17)
--- NOTE | 2017-02-06 17:30 | NUR ---
FAMILY HAS BEEN IN TO SEE PATIENT. UPDATE PROVIDED. PHONE NUMBERS OBTAINED.
--- NOTE | 2017-02-06 18:50 | NUR ---
PT SBP DROPPING. FLUID CHALLENGE ORDERED. NS GIVEN, CALCIUM STARTED AND THEN ALBUMIN 100ML STARTED.
--- NOTE | 2017-02-06 19:25 | NUR ---
REPORT REC'D AND CARE ASSUMED, REC'D PT ON VENT VIA 8.0 ETT TAPED @ 23CM LIPLINE SEE FLOWSHEET FOR VENT SETTINGS, PT AWAKENS TO VERBAL STIMULI FOLLOWING COMMANDS AT THIS TIME, OGT TAPED SECURELY TO ETT PLACEMENT VERIFIED VIA SM AIR BOLUS AUSCULTATED OVER EPIGASTRIM, OGT TO MARAH MERCEDES DRSG CDI AT APPROX 55CM MANNIFOLD TO PROXIMAL INFUSION WITH NS @ 25CC/HR, DOPAMINE @ 31.5 CC OR 7.5 MCG/KG/MIN, ZINACEF @ 11.4CC/HR, INSULIN @ 4.5 UNITS/HR VIA DISTAL LIMB OF SWAN AND ALBUMIN INFUSING VIA PROXIMAL LIMB, RDLSCL DRSG CDI WITH BURETROL @ 5CC/HR AND NITROGLYCERIN ON HOLD, MIDSTERNAL DRSG CDI, SUBSTERNAL DRSG WITH CT'S X 2 TO 20CM H2O SUCTION, NO AIR LEAK NOTED, AND SANGUINOUS DRAINAGE PRESENT IN TUBING, EXTERNAL P/M DDD 100 AMA 10 VMA 10, CM-AV PACED AT 100, RIGHT RADIAL KIM WITH FLEXION BOARD IN USE, LINES LEVELED AND ZEROED WITH RETURN OF APPROPRIATE WAVEFORM, LEFT FOREARM AV FISTULA WITH PALPABLE THIRLL AND AUDIBLE BRUIT, CRIICORE ROSALES PATENT WITH SCANT AMOUNT OF YELLOW URINE, COBAN DRSG TO RIGHT LEG WITH JOHNNIE COMPRESSED X 1, MAMADOU AND SCD NOTED TO LEFT LEG, SCD ON, BILAT SOFT WRIST RESTRAINTS INTACT, 1:1 NURSE AT BS.
--- NOTE | 2017-02-06 19:50 | NUR ---
RT AT BS, PT FIO2 WEANED TO 40%
--- NOTE | 2017-02-06 20:40 | NUR ---
PT REPOSITIONED FOR COMFORT, RT AT BS RATE DECREASED TO 10, PT FOLLOWING COMMANDS.
--- NOTE | 2017-02-06 20:45 | NUR ---
EVENING MEDS GIVEN ORDERED, PT RESTING EYES CLOSED, CM-AV PACED, BP STABLE.
--- NOTE | 2017-02-06 21:15 | NUR ---
RT AT BS, PT CHANGED TO SIMV RATE 8 TV 700 FIO2 40% PEEP 5 PS 10, PT RESP RATE 10-12 AT THIS TIME.
--- NOTE | 2017-02-06 23:00 | NUR ---
REASSESSMENT COMPLETED, PT REMAINS ON VENT VIA SIMV, AWAKENS TO VERBAL STIMULI AND FOLLOWS COMMANDS, BUT GOES BACK TO SLEEP WITH RESP RATE 11 WITHOUT CONTINUOUS STIMULATION, ROUTINE MEDS GIVEN, LEVOPHED WEANED OFF, WEANING DOPAMINE TOLERATED, WILL CONT TO MONITOR CLOSELY FOR CHANGES.
[2017-02-07] VITALS (96 sets, daily range): BP systolic 96–129; BP diastolic 45–67
--- NOTE | 2017-02-07 00:30 | NUR ---
PT REPOSITIONED IN BED FOR COMFORT, PT APPEARS MORE AWAKE, RT AT BS TO PLACE PT ON CPAP, PT RESP RATE 11, BP STABLE.
--- NOTE | 2017-02-07 00:45 | NUR ---
PT RESTING EYES CLOSED ON CPAP, RESP RATE 11-14, O2 SAT 100%, WEANING DOPAMINE TOLERATED.
--- NOTE | 2017-02-07 01:36 | NUR ---
RT AT BS FOR ABG, PT RESTING EYES CLOSED, VSS.
--- NOTE | 2017-02-07 01:55 | NUR ---
NIF AND VC COMPLETED, PT EXTUBATED TO O2 2 4LITERS, ORAL CARE PROVIDED AND BILAT SOFT WRIST RESTRAINTS AND OGT DC'D, PT REPOSITIONED UP IN BED AND ONTO RIGHT SIDE SUPPORTED WITH PILLOW.
--- NOTE | 2017-02-07 02:15 | NUR ---
ICE CHIPS PROVIDED AT THIS TIME, PT DENIES NAUSEA OR PAIN, BP STABLE.
--- NOTE | 2017-02-07 03:40 | NUR ---
PT REPOSITIONED UP AND ONTO BACK FOR AM CXR, TOLERATED WELL, ICE CHIPS PROVIDED, PT DENIES PAIN OR NAUSEA.
--- NOTE | 2017-02-07 05:15 | NUR ---
PARTIAL BATH AND LINEN CHANGE PROVIDED, PT REPOSITIONED UP IN BED FOR COMFORT, VSS, ICE CHIPS PROVIDED, PT DENIES PAIN, BUPRENEX CORN SHELLER OPERATOR 10MCG/ML AVAILABLE, PT DENIES PAIN AT THIS TIME.
--- NOTE | 2017-02-07 05:55 | NUR ---
AM LAB DRAWN AND SENT TO LAB.
--- NOTE | 2017-02-07 06:00 | NUR ---
NO VISITORS IN AT THIS TIME.
[2017-02-07 06:29] LABS: ALBUMIN 3.8 g/dL (3.4-5.0); BILIRUBIN - TOTAL 0.8 mg/dL (0.2-1.3); CALCIUM 9.7 mg/dL (8.5-10.1); CARBON DIOXIDE 23.6 mmol/L (21.0-32.0); PROTEIN - SERUM 6.6 g/dL (6.4-8.2)
[2017-02-07 06:33] LABS: CREATININE - SERUM 9.1 mg/dL (0.6-1.3)
[2017-02-07 06:34] LABS: ANION GAP 20.3 mmol/L (8-16); POTASSIUM - SERUM 5.9 mmol/L (3.5-5.1)
--- NOTE | 2017-02-07 06:35 | NUR ---
DR. KAUR AT BS
--- NOTE | 2017-02-07 07:15 | NUR ---
REEPORT RECEIVED FROM ON CAR SUPERVISOR NURSE. FULL ASSESSMENT COMPLETE PER FLOWSHEET. CARE ASSUMED.
[2017-02-07 07:34] LABS: HEMATOCRIT 25.8 % (42.0-54.0); HEMOGLOBIN 8.5 g/dL (13.5-17.5); MCH 30.4 pg (26.0-34.0); MCHC 32.9 g/dL (31.0-37.0); MCV 92.1 fL (80.0-100.0); MEAN PLATELET VOLUME 10.9 fL (7.4-10.4); RBC 2.8 10x6/uL (4.20-6.10); RDW 15.8 % (11.5-14.5); WBC 12.7 10x3/uL (4.8-10.8)
--- NOTE | 2017-02-07 10:00 | NUR ---
DIALYSIS STARTED. WILL MONITOR.
--- NOTE | 2017-02-07 11:00 | NUR ---
DOPAMINE BEING TITRATED DOWN TOLERATED.
--- NOTE | 2017-02-07 12:49 | NUR ---
Nutrition Follow Up: Chart reviewed. Pt is POD 1 CABG. Diet has been advanced to clear liquids. +BM 02/04/17. Labs reviewed. Meds noted. Rec continue advancing TC. RD following.
--- NOTE | 2017-02-07 12:54 | NUR ---
Mr. Gabriel had bedside hemodialysis today via his left lower arm av fistula from 1000am until 1230pm. Average blood flow was 200 mls/minute as ordered. Net fluid removed was 1000 mls per orders. Post vital signs were: B/P:113/56, HR: 91, Temp: 98.3, Resps: 19. No problems.
--- NOTE | 2017-02-07 13:00 | NUR ---
IS COMPLETED WITH PT. PULLED 750-1000 ON IS. COUGH TRIGGERED. YAUNKER USED TO COLLECT AGUIRRE COLORED SPUTUM. WILL CONT TO ENCOURAGE.
--- NOTE | 2017-02-07 13:30 | NUR ---
COMPLETED DIALYSIS. VSS REMAINED STABLE. WILL GET ABG'S IN ONE HOUR.
--- NOTE | 2017-02-07 15:01 | NUR ---
Patient Name: RAE ARSHAD Encounter No: [id number] : 1965 Primary Insurance: MEDICARE A & B Anticipated DC Date: 01-29-2017 Planned Disposition: Home DCP follow-up note: Patient and family in agreement with discharge plan. No changes to plan. Case management will follow and assist as needed. Michelle Mcmillan
--- NOTE | 2017-02-07 15:15 | NUR ---
FAMILY AT BEDSIDE. UPDATE PROVIDED.
--- NOTE | 2017-02-07 15:40 | NUR ---
DR. JAVED AT BEDSIDE. STATED HE WANTED TO TRANSFUSE PT WITH TWO UNITS.
--- NOTE | 2017-02-07 16:00 | NUR ---
UNIT OF PRBC STARTED. VSS AT THIS TIME. WILL MONITOR.
--- NOTE | 2017-02-07 18:45 | NUR ---
UNIT OF BLOOD COMPLETE. NO TRANSFUSION REACTION NOTED. VS REMAINED STABLE.
--- NOTE | 2017-02-07 19:15 | NUR ---
PULLED UP IN BED WITH DAY SHIFT TEAM AND REPOSITIONED. RECONNECTED SWAN CONNECTED DUE TO COMING LOOSE. REPOSITIONED FOR COMFORT.
--- NOTE | 2017-02-07 21:25 | NUR ---
DR. JAVED CALLED AND MADE AWARE OF B/P IN THE 90'S SYSTOLIC. ABG RESULTS REPORTED. CURRENT HEMODYNAMICS INFORMED. NEW ORDERS TO INCREASE DOPAMINE TO 5MCG/KG/MIN. 2134: TURNED AND REPOSITIONED PER REQUEST TO LEFT SIDE. PA NUMBERS INCREASED. WILL MONITOR.
--- NOTE | 2017-02-07 23:05 | NUR ---
FSBS ASSESSED. NO CHANGE IN INSULIN GTT AT THIS TIME. REASSESSMENT COMPLETED. SEE ASSESSMENT FLOWSHEET. BREATHING TREATMENT IN PROGRESS. WANTING TO TURN MORE ONTO LEFT SIDE. PLACED A SECOND PILLOW BEHIND HIS BACK TO GET MORE ON HIS LEFT SIDE. WILL MONITOR.
--- NOTE | 2017-02-07 23:25 | NUR ---
REPORTED SOME NUMBNESS TO HIS LEFT LEG. REPOSITIONED LEG AND DECREASED HOB. WILL MONITOR.
[2017-02-08] VITALS (90 sets, daily range): BP systolic 98–128; BP diastolic 40–87
--- NOTE | 2017-02-08 | NUR ---
TURNED TO RT SIDE WITH ASSISTANCE WITH TWO PILLOWS. WILL MONITOR.
--- NOTE | 2017-02-08 01:50 | NUR ---
TURNED TO RT SIDE PER REQUEST. AFTER TURNING TO LEFT SIDE PA PRESSURES INCREASE. WANTS TO SIT UP ON SIDE OF BED. INFORMED OF BEDREST STATUS UNTIL LINES ARE PULLED. VERBALIZED UNDERSTANDING. WILL MONITOR.
--- NOTE | 2017-02-08 03:10 | NUR ---
BREATHING TREATMENT IN PROGRESS. ICE CHIPS GIVEN PER REQUEST. REASSESSMENT COMPLETED. SEE ASSESSMENT FOR DETAILS. I.S. COMPLETED 500-750ML. WILL MONITOR. 1:1 NURSING CARE IN PROGRESS.
--- NOTE | 2017-02-08 04:00 | NUR ---
RT UPPER THIGH INCISION DRSG CHANGED. UPPER ABD AREA OF CT & TPM WIRE INSERT SITE DRSG CHANGE COMPLETED. TOLERATED WELL. SITES WNL. WILL MONITOR.
--- NOTE | 2017-02-08 05:00 | NUR ---
SMALL CUP OF COFFEE GIVEN WITH FEW ICE CHIPS PER REQUEST TO COOL IT DOWN GIVEN. WILL MONITOR.
--- NOTE | 2017-02-08 05:43 | NUR ---
AM LABS DRAWN FROM RT RADIAL A-LINE. WANTED TO TURN TO LEFT SIDE. WITH ASSIST TURNED TO LEFT SIDE WITH 2 PILLOWS. WILL MONITOR.
[2017-02-08 06:15] LABS: BASOPHILS 0.5 % (0-2); EOSINOPHILS 3.9 % (0-7); HEMATOCRIT 25.8 % (42.0-54.0); HEMOGLOBIN 8.9 g/dL (13.5-17.5); IMMATURE GRANULOCYTES 0.2 % (0-5); LYMPHOCYTES 4.8 % (15-50); MCH 31.2 pg (26.0-34.0); MCHC 34.5 g/dL (31.0-37.0); MCV 90.5 fL (80.0-100.0); MEAN PLATELET VOLUME 10.3 fL (7.4-10.4); MONOCYTES 12.7 % (2-11); NEUTROPHILS 77.9 % (40-80); PLATELET COUNT 140 10x3/uL (130-400); RBC 2.85 10x6/uL (4.20-6.10); RDW 16.8 % (11.5-14.5); WBC 12.8 10x3/uL (4.8-10.8)
[2017-02-08 06:57] LABS: CALCIUM 9.5 mg/dL (8.5-10.1); CARBON DIOXIDE 23.9 mmol/L (21.0-32.0); CREATININE - SERUM 8.6 mg/dL (0.6-1.3); PHOSPHOROUS 6.3 mg/dL (2.5-4.9); POTASSIUM - SERUM 4.9 mmol/L (3.5-5.1)
[2017-02-08 06:58] LABS: ALBUMIN 3.3 g/dL (3.4-5.0); BILIRUBIN - TOTAL 0.63 mg/dL (0.2-1.3); PROTEIN - SERUM 6.7 g/dL (6.4-8.2)
--- NOTE | 2017-02-08 07:00 | NUR ---
DR. KAUR AT BEDSIDE.
--- NOTE | 2017-02-08 09:55 | NUR ---
0715-DR KAUR AT BEDSIDE-SPOKE WITH PT REGARDING STATUS AND PLAN OF TREATMENT 07-DR JAVED IN UNIT-PA/ CVP/ABP REZEROED TO CONFIRM WAVEFORM-SAME DONE WITH NO CHANGE 0745-RENAL SERVICES NOTIFIED BY DR JAVED OF NEED FOR HEMO DIALYSIS TODAY-PA 60/22-MEAN 38 0830-DIALYSIS SET-UP AT BEDSIDE IN PROGRESS 0850-NOTED ABP 98/48-FLORINEF PO GIVEN AND NEOSYNEPHRINE GTT AT 0.074/2.5ML STARTED FOR PRE DIALYSIS-CVP6- 0915-DIALYSIS STARTED UP-PRBC STARTED VIA DIALYSIS-NEOSYNEPHRINE AT 2.5ML/H 0930-ABP 142/67-CVP 4-PA 44/16-SVR 622-PRBC INFUSING-NEOSYNEPHRINE STOPPED 0950 ABP 144/72 CVP 3 PA 43/15-SVR 756-PRBC INFUSING-NTG STARTED AT 3ML/H 1000-ABP 110/67-CVP 3 PA 47/15
--- NOTE | 2017-02-08 11:12 | NUR ---
DIALYSIS IN PROGRESS-CVP READING 0-NTG AT 2.5ML/H -TFU523/66-PA 42/68
--- NOTE | 2017-02-08 13:58 | NUR ---
1250-DIALYSIS COMPLETED-RT NOTIFIED OF NEED FOR ABG IN 1HR-NTG INC TO 7.5ML/H
--- NOTE | 2017-02-08 18:24 | NUR ---
ORAL CARE PERFORMED WITH PERIDEX ORDERED
--- NOTE | 2017-02-08 18:38 | NUR ---
1600-DR JAVED AT BEDSIDE-PACER CHANGE TO VVI 60/0/10-NOTED SR ON MONITOR-PREMED 2MG VERSED IVP GIVEN BY DR JAVED-MEDIASTINAL CHEST TUBES PER PROTOCOL -SWAN MERRILL-D/C'D PER PROTOCOL-DOPAMINE INFUSING AT 5MCG/KG/MIN-NTG AT 9 ML/H-INSULIN PLACED ON HOLD-INFUSING IN R CVL-R IJ CORDIS D/C'D PER PROTOCOL-FOUND 2 SUTURE KNOTS AT CORDIS ENTRY SPOT-REMOVED -REMAINDER REMOVED WITHOUT DIFFICULTY-PER PROTOCOL-R RADIAL KIM D/C'D-HEMOSTASIS OBTAINED-NIBP IN PLACE ON R ARM -L ARM RESERVE-R LEG J MONDRAGON D/C'D WITH TIP INTACT-PER PROTOCOL-PACER WIRE DRG CHANGED BY DR JAVED -PACER WIRES INTACT-ORDER SENT FOR PHYSICAL THERAPY
--- NOTE | 2017-02-08 19:20 | NUR ---
REPORT RECVD. CARE ASSUMED. INITIAL ASSMNT COMPLETED. SEE FLOWSHEET FOR ALL FINDINGS. AWAKE AND AOX4. RESP SHALLOW, UNLABORED. LUNGS CTA, DIM IN HASES. SPO2 96% ON O2 AT 2LPM NC. OCC WEAK COUGH. PULLS 1000 ON IS. SR ON THE MONITOR. PULSES PALP. TEMP PM INTACT AT VVI 60. SENSING ONLY. TEDS/SCDS ON. STERNAL DRESSINGS CDI. ABD SOFT, BSA X4. BLADDER NON PALP. ANURIC. LEFT ARM FISTULA CDI. POSITIVE FOR BRUIT AND THRILL. INDOOR PLANT TECHNICIAN BUPRINEX PROVIDING PAIN CONTROL. HOB UP. REPOSITIONED FOR COMFORT. CONT CURRENT POC.
--- NOTE | 2017-02-08 21:30 | NUR ---
HS MEDS GIVEN NO DIFF. MINIMAL ASSIST TO REPOSITION. VSS. DENIES NEEDS. NO VISITORS. HOB UP. C/L IN REACH. CONT CURRENT POC.
--- NOTE | 2017-02-08 23:15 | NUR ---
REASSESSMENT COMPLETED. SEE FLOWSHEET FOR ALL FINDINGS. AWAKE AND AOX4. RESP SHALLOW, UNLABORED. LUNGS CTA, DIM IN HASES. SPO2 96% ON O2 AT 2LPM NC. OCC WEAK COUGH. PULLS 1000 ON IS. SR ON THE MONITOR. PULSES PALP. TEMP PM INTACT AT VVI 60. SENSING ONLY. TEDS/SCDS ON. STERNAL DRESSINGS CDI. ABD SOFT, BSA X4. BLADDER NON PALP. ANURIC. LEFT ARM FISTULA CDI. POSITIVE FOR BRUIT AND THRILL. VP CUSTOMER SERVICE BUPRINEX PROVIDING PAIN CONTROL. HOB UP. REPOSITIONED FOR COMFORT. CONT CURRENT POC.
[2017-02-09] VITALS (89 sets, daily range): BP systolic 91–140; BP diastolic 55–87
--- NOTE | 2017-02-09 01:05 | NUR ---
FSBS 90. INSULIN GTT HELD AT THIS VSS. SR ON THE MONITOR. DENIES NEEDS. HOB UP. C/L IN REACH. CONT CURRENT POC .
--- NOTE | 2017-02-09 03:30 | NUR ---
REASSESSMENT COMPLETED. SEE FLOWSHEET FOR ALL FINDINGS. RESTING. AOX4. RESP SHALLOW, UNLABORED. LUNGS CTA, DIM IN HASES. SPO2 96% ON O2 AT 2LPM NC. OCC WEAK COUGH. PULLS 1000 ON IS. SR ON THE MONITOR. PULSES PALP. TEMP PM INTACT AT VVI 60. SENSING ONLY. TEDS/SCDS ON. STERNAL DRESSINGS CDI. ABD SOFT, BSA X4. BLADDER NON PALP. ANURIC. LEFT ARM FISTULA CDI. POSITIVE FOR BRUIT AND THRILL. LIQUID SUGAR MELTER BUPRINEX PROVIDING PAIN CONTROL. HOB UP. REPOSITIONED FOR COMFORT. CONT CURRENT POC.
--- NOTE | 2017-02-09 05:15 | NUR ---
RESTING WITH EYES CLOSED. VSS. NO NEEDS VOICED. HOB UP. C/L IN REACH. PRINCIPAL SYSTEMS ENGINEER IN REACH. CONT CURRENT POC.
[2017-02-09 06:26] LABS: BASOPHILS 0.7 % (0-2); HEMATOCRIT 27.6 % (42.0-54.0); HEMOGLOBIN 9.4 g/dL (13.5-17.5); IMMATURE GRANULOCYTES 0.4 % (0-5); MCH 31.4 pg (26.0-34.0); MCHC 34.1 g/dL (31.0-37.0); MCV 92.3 fL (80.0-100.0); MEAN PLATELET VOLUME 9.9 fL (7.4-10.4); NEUTROPHILS 74.9 % (40-80); PLATELET COUNT 139 10x3/uL (130-400); RBC 2.99 10x6/uL (4.20-6.10); RDW 16.2 % (11.5-14.5); WBC 12.1 10x3/uL (4.8-10.8)
[2017-02-09 06:41] LABS: ALBUMIN 3.1 g/dL (3.4-5.0); ANION GAP 14.1 mmol/L (8-16); BILIRUBIN - TOTAL 0.7 mg/dL (0.2-1.3); CALCIUM 10.2 mg/dL (8.5-10.1); CARBON DIOXIDE 28.4 mmol/L (21.0-32.0); CREATININE - SERUM 7.8 mg/dL (0.6-1.3); PHOSPHOROUS 5.5 mg/dL (2.5-4.9); POTASSIUM - SERUM 4.5 mmol/L (3.5-5.1); PROTEIN - SERUM 6.7 g/dL (6.4-8.2)
--- NOTE | 2017-02-09 07:29 | NUR ---
recieved ASLEEP-RESP REG AND EVEN-NOTED SR ON [id number] 118/73-DOP AT 5MCG AND NTG AT 5ML/H FOR PARAMETER SYS<120-
--- NOTE | 2017-02-09 08:15 | NUR ---
REMAINS ASLEEP-SR ON [id number] 130/76-NTG GTT TITRATED TO 7.5ML TO MEET PARAMETER OF <120-RR 11
--- NOTE | 2017-02-09 10:32 | NUR ---
0930-AMBULATED IN RM WITH PHYSICAL THERAPY-ASSISTED TO BED-SET UP FOR DIALYSIS IN PROGRESS 1015-DIALYSIS STARTED
--- NOTE | 2017-02-09 11:55 | OP ---
PATIENT NAME: RAE ARSHAD MEDICAL RECORD: [id number] :61 LOCATION:[id number] ADMISSION DATE:01/27/17 SURGEON: CHRISTOPH JAVED MD DATE OF OPERATION: 02/06/2017 SURGEON: Christoph Javed MD ANESTHESIA: General endotracheal, Dr. Hodges. OPERATION PERFORMED: Aortic valve replacement utilizing a 27-mm St. Ant tissue valvular prosthesis. PREOPERATIVE DIAGNOSES: Critical aortic stenosis, congestive heart failure, occlusive coronary artery disease. POSTOPERATIVE DIAGNOSES: Critical aortic stenosis, congestive heart failure, occlusive coronary artery disease. INDICATION FOR OPERATION: Critical aortic stenosis. FINDINGS AT OPERATION: The patient had extremely dense pericarditis and adhesions throughout the pericardium. The coronary arteries were small and not found in the area of the posterolateral branch of the right and the second obtuse marginal coronary artery. The other vessels on the heart were extremely hard to identify including the left anterior descending. The saphenous vein was of good quality. DESCRIPTION OF PROCEDURE: After informed consent, adequate preoperative medication evaluation, the patient was brought to the operating room and placed on the table in the supine position. After induction of general endotracheal anesthesia and application of appropriate monitoring devices, the chest, neck, abdomen, and both legs were prepped and draped in a sterile field, utilizing Betadine scrub, alcohol, and Betadine solution. A Betadine-impregnated drape was also used. Saphenous vein was harvested from the right thigh and prepared for reverse saphenous vein graft. The leg was closed over drains utilizing 3-0 Vicryl and skin nhung. A median sternotomy incision was used and dissection carried down the fascia. Hemostasis maintained with electrocautery. Sternum was divided. Hemostasis was achieved. The pericardium was dense and thickened with chronic inflammation. An incision was made and incision had to be made with a knife. Once the epicardium was identified, the dissection was carried proximally and distally. Utilizing clamps, the pericardium was elevated. There were dense adhesions throughout the entire pericardium. The anterior adhesions were lysed as well as the right atrium and aorta. The patient was given a calculated dose of heparin, cannulated in a standard fashion utilizing 1 aortic, one two-stage cannula in the atrium and inferior vena cava. The patient was placed on cardiopulmonary bypass and the heart decompressed. The remainder of the adhesions were lysed over a long period of time. The patient was cooled to 32 degrees centigrade. A cross clamp was placed just proximal to the aortic cannula. The patient was given cardioplegic solution through the aortic root. The patient was given a cold induction and cold maintenance. The vent was placed in right superior pulmonary vein. The heart was elevated and attempts to find the posterolateral branch of the right or the posterior descending coronary artery was unsuccessful. Attempts were made from the second obtuse marginal which was also not found due to the dense adhesions on the epicardial surface. OPERATIVE REPORT [id number] RAE ARSHAD These 2 vessels were relatively small. Therefore, we proceeded with the aortic valve. The aorta was opened, the valve was examined, is extremely calcified trileaflet valve. The leaflets were removed and the annulus underwent extensive debridement. Care was taken not to lose any calcium. The aorta was irrigated. The aorta sized to a 27 St[address] Ant Trifecta. Circumferential valve sutures were then placed and then placed through the sewing ring of the valve. The valve lowered into position and secured. The valve was tested, there was no leak. The aorta was closed in 2 layers utilizing running 4-0 Prolene suture. All maneuvers to remove trapped air were performed. The patient was given warm cardioplegic reperfusion and controlled reperfusion. The patient rewarmed to 37 degrees centigrade. Two atrial and 2 ventricular pacing wires were placed on the heart and brought through the epigastric area. The patient was weaned cardiopulmonary bypass. After being stable off bypass, he was given a calculated dose of protamine to reverse the heparin. Hemostasis was achieved. A #40 right angle and #36 chest tubes were brought in through the epigastric area and placed in the mediastinum. The chest was again irrigated. Instrument count and sponge count were correct times 2. Chest was closed in layers utilizing #7 wire on the sternum, #2 Vicryl on the linea alba and pectoralis fascia. Subcutaneous tissue was approximated with 3-0 Vicryl and skin approximated with 3-0 subcuticular Vicryl. Sterile dressings were applied. The patient tolerated the procedure well and was transferred to the CV ICU in satisfactory condition. TRANSINT:[id number] Voice Confirmation ID: [id number] DOCUMENT ID: [id number] CHRISTOPH JAVED MD at 1157 CC: [id number] DICTATION DATE: 02/06/17 1631 SIGN LETTERER: 02/07/17 0053 ADM IN [facility] [address] [id number]
--- NOTE | 2017-02-09 13:49 | NUR ---
Mr. Gabriel had bedside hemodialysis today via his left lower arm av fistula from 1015 until 1315. Average blood flow was 300 mls/minute. Net fluid removed was 5000 mls. Post vital signs were: B/P: 113/60, HR: 89, Temp: 98.3, Resps: 19. No problems.
--- NOTE | 2017-02-09 17:37 | NUR ---
1430-AB DRAWN ORDERED-
--- NOTE | 2017-02-09 18:01 | NUR ---
ASSISTED UP TO CHAIR AND TOLERATED WELL -DOPAMINE REMAINS AT 3.5MCG/KG/MIN
--- NOTE | 2017-02-09 19:08 | NUR ---
ORAL CARE PERFORMED WITH PERIDEX ORDERED
--- NOTE | 2017-02-09 19:15 | NUR ---
REPORT RECVD. CARE ASSUMED. INITIAL ASSMNT COMPLETED. SEE FLOWSHEET FOR ALL FINDINGS. AWAKE AND AOX4. UP IN CHAIR AT BEDSIDE. RESP SHALLOW, UNLABORED. LUNGS CTA, DIM IN HASES. SPO2 96% ON O2 AT 2LPM NC. OCC WEAK COUGH. PULLS 1000 ON IS. SR ON THE MONITOR. PULSES PALP. TEMP PM INTACT AT VVI 60. SENSING ONLY. TEDS/SCDS ON. STERNAL DRESSINGS CDI. ABD SOFT, BSA X4. BLADDER NON PALP. ANURIC. LEFT ARM FISTULA CDI. POSITIVE FOR BRUIT AND THRILL. PAIN IS 3/10. C/L IN REACH. CONT CURRENT POC.
--- NOTE | 2017-02-09 23:15 | NUR ---
REASSESSMENT COMPLETED. SEE FLOWSHEET FOR ALL FINDINGS. AWAKE AND AOX4. RESP SHALLOW, UNLABORED. LUNGS CTA, DIM IN HASES. SPO2 96% ON RA. OCC WEAK COUGH. PULLS 1000 ON IS. SR ON THE MONITOR. PULSES PALP. TEMP PM INTACT AT VVI 60. SENSING ONLY. TEDS/SCDS ON. STERNAL DRESSINGS CDI. ABD SOFT, BSA X4. BLADDER NON PALP. ANURIC. LEFT ARM FISTULA CDI. POSITIVE FOR BRUIT AND THRILL. HOB UP. REPOSITIONED FOR COMFORT. DENIES NEEDS. CONT CURRENT POC.
[2017-02-10] VITALS (65 sets, daily range): BP systolic 82–122; BP diastolic 31–99
--- NOTE | 2017-02-10 01:05 | NUR ---
RESTING SIDE LYING WITH EYES CLOSED. VSS. NO NEEDS VOICED. HOB UP. BED ALARM ON . C/L IN REACH. CONT CURRENT POC.
--- NOTE | 2017-02-10 05:13 | NUR ---
REPOSITIONED FOR COMFORT. RIGHT LEG DRESSINGS CHANGED. VSS. NO NEEDS VOICED. HOB UP. BED ALARM ON. CONT CURRENT POC.
[2017-02-10 06:18] LABS: HEMATOCRIT 29.3 % (42.0-54.0); HEMOGLOBIN 9.7 g/dL (13.5-17.5); MCH 30.9 pg (26.0-34.0); MCHC 33.1 g/dL (31.0-37.0); MCV 93.3 fL (80.0-100.0); MEAN PLATELET VOLUME 10.2 fL (7.4-10.4); RBC 3.14 10x6/uL (4.20-6.10); RDW 16.2 % (11.5-14.5); WBC 13.3 10x3/uL (4.8-10.8)
[2017-02-10 06:38] LABS: BILIRUBIN - TOTAL 0.64 mg/dL (0.2-1.3); CREATININE - SERUM 7.7 mg/dL (0.6-1.3); PROTEIN - SERUM 7.2 g/dL (6.4-8.2)
--- NOTE | 2017-02-10 13:03 | NUR ---
0715-RECIEVED PER FLOW SHEET-AWAKE AND ALERT-SR ON MONITOR-R 2LCVL-DOPAMINE AT 3.5MCG/KG/MIN-N/S AT 5ML/H-INSULIN AT 3UNITS/H- 0830-UP FOR PHYSICAL THERAPY-AND AMBULATED ON ROOM AIR- 0930-SITTING UP IN CHAIR 1045-DR GARAY AT BEDSIDE-ORDER RECIEVED AND NOTED-INSULIN GTT STOPPED AND CHANGED TO LEVIMIR AND S/S AC AND HS 1215-DR JAVED IN UNIT-ORDER RECIEVED AND NOTED -DOPAMINE TO TITIRATE OFF OVER 12H -NIBP 100-120SYS
--- NOTE | 2017-02-10 17:59 | NUR ---
PROVIDED ORAL CARE PT TOLERATED WELL
--- NOTE | 2017-02-10 19:15 | NUR ---
REPORT RECVD. CARE ASSUMED. INITIAL ASSMNT COMPLETED. SEE FLOWSHEET FOR ALL FINDINGS. AWAKE AND AOX4. RESTING IN BED. RESP SHALLOW, UNLABORED. LUNGS CTA, DIM IN BASES. SPO2 96% ON RA. OCC WEAK COUGH. PULLS 1000 ON IS. SR ON THE MONITOR. PULSES PALP. TEMP PM INTACT AT VVI 60. SENSING ONLY. TEDS/SCDS ON. STERNAL DRESSINGS CDI. ABD SOFT, BSA X4. BLADDER NON PALP. ANURIC. LEFT ARM FISTULA CDI. POSITIVE FOR BRUIT AND THRILL. PAIN IS 3/10. C/L IN REACH. CONT CURRENT POC.
--- NOTE | 2017-02-10 21:10 | NUR ---
HS MEDS GIVEN. HS SNACK OFFERED. FSBS WITHIN PARAMETERS. DOPAMINE GTT WEANED OFF. SYS B/P WITHIN PARAMETERS. SR ON THE MONITOR. C/L IN REACH. CONT CURRENT POC.
--- NOTE | 2017-02-10 23:15 | NUR ---
REASSESSMENT COMPLETED. SEE FLOWSHEET FOR ALL FINDINGS. AWAKE AND AOX4. RESTING IN BED. RESP SHALLOW, UNLABORED. LUNGS CTA, DIM IN BASES. SPO2 96% ON RA. OCC WEAK COUGH. PULLS 1000 ON IS. SR ON THE MONITOR. PULSES PALP. TEMP PM INTACT AT VVI 60. SENSING ONLY. TEDS/SCDS ON. STERNAL DRESSINGS CDI. ABD SOFT, BSA X4. BLADDER NON PALP. ANURIC. LEFT ARM FISTULA CDI. POSITIVE FOR BRUIT AND THRILL. PAIN IS 3/10. C/L IN REACH. CONT CURRENT POC.
[2017-02-11] VITALS (24 sets, daily range): BP systolic 93–128; BP diastolic 42–81
--- NOTE | 2017-02-11 01:20 | NUR ---
RESTING IN BED. VSS. DENIES NEEDS. PRN ULTRAM EFFECTIVE WITH PAIN CONTROL. HOB UP. C/L IN REACH. CONT CURRENT POC.
--- NOTE | 2017-02-11 05:00 | NUR ---
UP TO BR FOR BM. MINIMAL ASSIST WITH BATH. ALL LINENS CHANGED. MINIMAL ASSIST TO AMB TO CHAIR AT BEDSIDE. VSS. SR ON THE MONITOR. SYS B/P WITHIN PARAMETERS. C/L IN REACH. CONT CURRENT POC.
[2017-02-11 06:37] LABS: HEMATOCRIT 29.5 % (42.0-54.0); HEMOGLOBIN 9.8 g/dL (13.5-17.5); MCH 31.1 pg (26.0-34.0); MCHC 33.2 g/dL (31.0-37.0); MCV 93.7 fL (80.0-100.0); MEAN PLATELET VOLUME 10.2 fL (7.4-10.4); RBC 3.15 10x6/uL (4.20-6.10); RDW 15.9 % (11.5-14.5); WBC 14.4 10x3/uL (4.8-10.8)
--- NOTE | 2017-02-11 07:00 | NUR ---
ASSESSMENT COMPLETE PER FLOW SHEET. SITTING UP IN CHAIR. VITAL SIGNS STABLE, NO NEEDS VOICED.
[2017-02-11 07:02] LABS: ALBUMIN 3.4 g/dL (3.4-5.0); ANION GAP 18.2 mmol/L (8-16); BILIRUBIN - TOTAL 0.6 mg/dL (0.2-1.3); CALCIUM 10.7 mg/dL (8.5-10.1); CARBON DIOXIDE 24.1 mmol/L (21.0-32.0); POTASSIUM - SERUM 4.3 mmol/L (3.5-5.1); PROTEIN - SERUM 7.4 g/dL (6.4-8.2)
[2017-02-11 07:03] LABS: PHOSPHOROUS 3.2 mg/dL (2.5-4.9)
--- NOTE | 2017-02-11 08:00 | NUR ---
UP TO RESTROOM WITH MINIMAL ASSIST. HAD LARGE BM AND ASSISTED BACK TO CHAIR.
--- NOTE | 2017-02-11 09:15 | NUR ---
AM MEDICATIONS GIVEN PER MAR WITHOUT PROBLEM.
--- NOTE | 2017-02-11 10:16 | NUR ---
Nutrition Follow Up: Pt is eating 100% meal avg on a renal ADA diet. Wt stable. +BM 02/11/17. Meds and labs reviewed. Rec continue current diet. RD following.
--- NOTE | 2017-02-11 11:30 | NUR ---
JO WITH P.T. ASSISTED PT TO AMBULATE 64FT AND BACK TO CHAIR. TOLERATED WELL.
--- NOTE | 2017-02-11 13:05 | NUR ---
SPOKE WITH DIALYSIS NURSE, THA, ABOUT ORDER FOR DIALYSIS TO BE DONE TODAY. RECEIVED CALL BACK FROM LAURITA TAYLOR APN. LAURITA STATED THAT HE WOULD NOT RECEIVE DIALYSIS TODAY AND THEY WOULD DO AN EXTRA TREATMENT THIS WEEK.
--- NOTE | 2017-02-11 13:15 | NUR ---
SITTING UP IN CHAIR. VITAL SIGNS STABLE. DENIES ANY NEEDS AT THIS TIME. WILL CONTINUE TO MONITOR.
--- NOTE | 2017-02-11 14:30 | NUR ---
Patient Name: RAE ARSHAD Encounter No: [id number] : 1965 Primary Insurance: MEDICARE A & B Anticipated DC Date: 01-29-2017 Planned Disposition: Home DCP follow-up note: Anticipate DC next 1-days. Waiting on HD schedule from [facility] with [facility] for 4 days per week. Patient and family in agreement with discharge plan. No changes to plan. Case management will follow and assist as needed. Michelle Mcmillan
--- NOTE | 2017-02-11 15:10 | NUR ---
JO WITH P.T. AT BEDSIDE. ASSISTED PT TO AMBULATE 119FT AND THEN HELPED BACK TO BED. TOLERATED WELL.
--- NOTE | 2017-02-11 17:25 | NUR ---
DINNER TRAY SERVED. ASSISTED PT TO SIDE OF BED TO EAT. NO OTHER NEEDS VOICED. VITAL SIGNS STABLE.
--- NOTE | 2017-02-11 19:20 | NUR ---
REPORT REC'D AND CARE ASSUMED, REC'D PT RESTING IN BED ON ROOM AIR WATCHING TV, AWAKE, ALERT, ORIENTED X 3, MIDSTERNAL DRSG CDI, RDLSCL DRSG CDI PORTS SALINE LOCKED, ABD SOFT, SUBSTERNAL DRSG WITH EXTERNAL P/M WIRES TAPED SECURELY, TEMP P/M VVI RATE 60 VMA 10, CM-SR @ 87, P/M SENSING, LEFT FOREARM AV FISTULA, PALPABLE THRILL AND AUDIBLE BRUIT, RIGHT LEG HARVEST SITES DRSG CDI, BILAT TEDS INTACT, PP WEAK TO PALPATION, SCDS OFF AT THIS TIME, SR UP X 2, PT DENIES PAIN OR NEEDS, CALL LIGHT IN REACH.
--- NOTE | 2017-02-11 20:40 | NUR ---
EVENING MEDS GIVEN, FSBS 168, 2 UNITS HUMALOG ADMINISTERED TO RIGHT ARM, PT DENIES FURTHER NEEDS.
--- NOTE | 2017-02-11 21:00 | NUR ---
NO VISITORS IN AT THIS TIME.
--- NOTE | 2017-02-11 23:00 | NUR ---
REASSESSMENT COMPLETED, PT RESTING NO LEFT SIDE EYES CLOSED, RESP EVEN AND UNLABORED, BP STABLE, PT DENIES PAIN, SR UP X 2, CALL LIGHT IN REACH.
[2017-02-12] VITALS (25 sets, daily range): BP systolic 96–134; BP diastolic 60–82
--- NOTE | 2017-02-12 01:23 | NUR ---
NO CHANGES IN STATUS AT THIS TIME.
--- NOTE | 2017-02-12 01:31 | NUR ---
PT AWAKE COMPLAINING OF TOOTHACHE, STATES " IT IS NOT CONSTANT BUT WHEN IT HURTS IT HURTS", TRAMADOL 50MG GIVEN PO FOR PAIN RATING "10" ON 0-10 PAIN SCALE, PT DOWN IN BED, DOES NOT WANT TO BE PULLED UP AT THIS TIME, VSS.
--- NOTE | 2017-02-12 03:40 | NUR ---
RADIOLOGY AT BS TO TAKE PT FOR PA AND LATERAL.
--- NOTE | 2017-02-12 04:15 | NUR ---
PT BACK FROM RADIOLOGY TO ROOM CVO2, PT ASSISTED X 2 RECLINER, CALL LIGHT IN REACH, PT INSTRUCTED NOT TO GET UP WITHOUT CALLING FOR ASSISTANCE, PT VERBALIZES UNDERSTANDING.
--- NOTE | 2017-02-12 05:00 | NUR ---
MIDSTERNAL DRSG LOOSE REMOVED INCISION PAINTED WITH BETADINE, SUBSTERNAL DRSG REMOVED PREVIOUS CT INSERTION SITES PAINTED WITH BETADINE, BIOPATCHES TO EXTERNAL P/M WIRE SITES, MEPILEX DRSG APPLIED TO MIDSTERNAL INCISION AND 4X4'S AND LARGE TEGADERMS APPLIED X 2 TO SUBSTERNAL AREA, PT TOLERATED WELL, ASSISTED TO RECLINE IN CHAIR, DENIES NEEDS.
--- NOTE | 2017-02-12 05:50 | NUR ---
PT SITTING ON SIDE OF BED, DID NOT CALL FOR ASSISTANCE, STATES " I GOT COLD IN THE CHAIR", ASSISTED PT BACK TO BED, EXPLAINED THAT PT WOULD BE RETURNING TO CHAIR FOR BREAKFAST, VERBALIZES UNDERSTANDING, AM LAB DRAWN FROM CVL AND SENT TO LAB, PT DENIES NEEDS, BED ALARM ON.
[2017-02-12 06:09] LABS: BASOPHILS 0.5 % (0-2); EOSINOPHILS 6.3 % (0-7); HEMATOCRIT 28.7 % (42.0-54.0); HEMOGLOBIN 9.4 g/dL (13.5-17.5); IMMATURE GRANULOCYTES 0.4 % (0-5); MCH 30.5 pg (26.0-34.0); MCHC 32.8 g/dL (31.0-37.0); MCV 93.2 fL (80.0-100.0); MEAN PLATELET VOLUME 10.2 fL (7.4-10.4); MONOCYTES 5.5 % (2-11); NEUTROPHILS 75.3 % (40-80); PLATELET COUNT 228 10x3/uL (130-400); RBC 3.08 10x6/uL (4.20-6.10); RDW 15.9 % (11.5-14.5); WBC 14.1 10x3/uL (4.8-10.8)
[2017-02-12 06:33] LABS: ANION GAP 23.4 mmol/L (8-16); CALCIUM 10.2 mg/dL (8.5-10.1); CARBON DIOXIDE 20.1 mmol/L (21.0-32.0); CREATININE - SERUM 11.6 mg/dL (0.6-1.3); PHOSPHOROUS 3.3 mg/dL (2.5-4.9); POTASSIUM - SERUM 4.5 mmol/L (3.5-5.1)
--- NOTE | 2017-02-12 07:00 | NUR ---
PT IN BED ALERT AND ORIENTED X3, VSS, NSR IN 80S, PUPILS EQUAL AND REACTIVE, ON ROOM AIR, R SUBCLAVIAN CVL SALINE LOCKED DRESSING CDI, TPM VVI 60, ALL STERNAL AND LEG DRESSINGS CDI, THRILL AND BRUIT PRESENT TO L FOREARM FISTULA, WILL CONTINUE TO MONITOR
--- NOTE | 2017-02-12 09:03 | NUR ---
PT UP IN BED FOR BREAKFAST, WALKED WITH PT, SOMEWHAT UNSTEADY UPON STANDING, VSS, WILL CONTINUE TO MONITOR
--- NOTE | 2017-02-12 10:27 | NUR ---
[facility] DC PER ORDER, TIP INTACT, PRESSURE HELD, DRESSING APPLIED, PT TOLERATED WELL, DAYOIES MIMI N
--- NOTE | 2017-02-12 12:40 | NUR ---
Rehab Note- Acute Rehab Prescreen order received. Visited with the patient, the patient is willing to participate in the required therapy, appears to be a good acute rehab candidate. Spoke with JUDITH Martinez and Dr Ernie Saha's nurse about the patient coming to [facility] acute rehab when medically stable and ready for discharge from the acute hospital. Will continue to follow at this time. Thank you for this referral! Tami Fierro RN Clinical Liaison, [facility] Re[facility]
--- NOTE | 2017-02-12 13:10 | NUR ---
PT MOVED TO BED, DIALYSIS NURSE IN ROOM TO BEGIN DIALYSIS, NO NEEDS NOTED
[2017-02-12 14:17] LABS: PLT FUNCT.(P2Y12) PLAVIX 188 PRU (194-418)
--- NOTE | 2017-02-12 15:00 | NUR ---
PT CONTINUES DIALYSIS, VSS, NO PAIN OR NEEDS NOTED, REPOSITIONED, WILL CONTINUE TO MONITOR
--- NOTE | 2017-02-12 17:00 | NUR ---
PT IN BED REPOSITIONED, VSS, DENIES PAIN, ALL DRESSINGS CDI, WILL CONTINUE TO MONITOR
--- NOTE | 2017-02-12 19:15 | NUR ---
PT ASSISTED TO BATHROOM, INSTRUCTED TO CALL FOR ASSISTANCE BEFORE RETURNING TO BED, VERBALIZES UNDERSTANDING.
--- NOTE | 2017-02-12 19:35 | NUR ---
PT ASSISTED BACK TO BED, GAIT STEADY, ALL MONITORS CONNECTED, MIDSTERNAL DRSG CDI, SUBSTERNAL DRSG CDI, EXTERNAL P/M VVI 60 VMA 10, CM-SR, P/M SENSING, PT DENIES PAIN AT THIS TIME, STATES "JUST SORE", RIGHT LEG DRSGS CDI, BILAT MAMADOU HOSE INTACT, PP WEAK TO PALPATION, PT DENIES NEEDS, SR UP X 2, CALL LIGHT IN REACH.
--- NOTE | 2017-02-12 20:40 | NUR ---
EVENING MEDS GIVEN, PT REFUSED STOOL SOFTENERS, FSBS 141 NO COVERAGE REQUIRED, PT COMPLAINS OF BEING COLD, WARM BLANKET PROVIDED.
--- NOTE | 2017-02-12 21:00 | NUR ---
NO VISITORS IN AT THIS TIME.
--- NOTE | 2017-02-12 23:00 | NUR ---
REASSESSMENT COMPLETED, PT RESTING IN BED EYES CLOSED, RESP EVEN AND UNLABORED, VSS, CM-SR, VISIBLE TO NURSES STATION.
[2017-02-13] VITALS (16 sets, daily range): BP systolic 102–120; BP diastolic 67–81
--- NOTE | 2017-02-13 01:05 | NUR ---
PT SITTING UP ON SIDE OF BED, STATES " I NEED TO GET OVER THERE TO THE CHAIR", PT ASSISTED OVER TO RECLINER, CALL LIGHT IN REACH, PT INSTRUCTED TO CALL FOR ASSISTANCE BEFORE ATTEMPTING TO RETURN TO BED, VERBALIZES UNDERSTANDING.
--- NOTE | 2017-02-13 02:30 | NUR ---
PT ASSISTED BACK TO BED AND REPOSITIONED UP IN BED COMFORT, DENIES FURTHER NEEDS.
--- NOTE | 2017-02-13 03:50 | NUR ---
RADIOLOGY AT BS TO TAKE PT FOR PA AND LATERAL, PT ASSISTED TO WHEELCHAIR X 2 ASSISTS.
--- NOTE | 2017-02-13 04:10 | NUR ---
PT RETURNED FROM RADIOLOGY WISHES TO RETURN TO BED, STATES " I WANT TO SLEEP UNTIL SUN UP", PT REPOSITIONED UP IN BED, CALL LIGHT IN REACH, SR UP X 2, BED IN LOW POSITION.
--- NOTE | 2017-02-13 06:10 | NUR ---
LAB AT FOR AM LAB DRAW.
--- NOTE | 2017-02-13 06:20 | NUR ---
DR. KAUR AT BS, NEW ORDERS REC'D, PT DENIES NEEDS AT THIS TIME.
[2017-02-13 06:49] LABS: BASOPHILS 0.4 % (0-2); EOSINOPHILS 5.9 % (0-7); HEMATOCRIT 27.6 % (42.0-54.0); HEMOGLOBIN 8.9 g/dL (13.5-17.5); IMMATURE GRANULOCYTES 0.8 % (0-5); LYMPHOCYTES 12.9 % (15-50); MCH 30.4 pg (26.0-34.0); MCHC 32.2 g/dL (31.0-37.0); MCV 94.2 fL (80.0-100.0); MEAN PLATELET VOLUME 10.3 fL (7.4-10.4); MONOCYTES 5.2 % (2-11); NEUTROPHILS 74.8 % (40-80); PLATELET COUNT 231 10x3/uL (130-400); RBC 2.93 10x6/uL (4.20-6.10); RDW 15.8 % (11.5-14.5); WBC 11.2 10x3/uL (4.8-10.8)
[2017-02-13 06:58] LABS: ANION GAP 17.8 mmol/L (8-16); CALCIUM 9.6 mg/dL (8.5-10.1); CARBON DIOXIDE 25.3 mmol/L (21.0-32.0); CREATININE - SERUM 9.3 mg/dL (0.6-1.3); PHOSPHOROUS 3.6 mg/dL (2.5-4.9); POTASSIUM - SERUM 4.1 mmol/L (3.5-5.1)
--- NOTE | 2017-02-13 07:15 | NUR ---
PT UP IN CHAIR, ALERT AND ORIENTED, RESPIRATIONS EVEN, VSS, ALL DRESSINGS CDI, TPM VVI 60, L FOREARM FISTULA BRUIT AND THRILL PRESENT, PULSES PALPABLE, DENIES PAIN, WILL CONTINUE TO MONITOR
--- NOTE | 2017-02-13 09:12 | NUR ---
PT UP IN CHAIR, EATING BREAKFAST, VSS, TOOK MEDS WITHOUT DIFFICULTY, VSS, DENIES PAIN, WILL CONTINUE TO MONITOR
[2017-02-13] MEDS ORDERED: HEMOCYTE PLUS C1 CAP PO (10:11)
[2017-02-13] MEDS ORDERED: ASPIRIN81 MG PO (10:12)
--- NOTE | 2017-02-13 11:00 | NUR ---
PT UP IN CHAIR, REPOSITIONS SELF, VSS, DENIES PAIN AND ALL NEEDS, WILL CONTINUE TO MONITOR
--- NOTE | 2017-02-13 12:56 | NUR ---
Reviewed patient's chart for IRF. He meets criteria for the acute rehab and will be accepted when physician feels he is medically stable to discharge to rehab. Discussed with the CM Michelle Mcmillan RN. Celine Ortega RN Clinical Liaison, Rehab
--- NOTE | 2017-02-13 12:57 | NUR ---
PT IN BED, TPM WIRES DC'D BY [facility]SON NURSE, NO SIGNS OF BLEEDING, VSS, DENIES PAIN, WILL CONTINUE TO MONITOR
--- NOTE | 2017-02-13 13:18 | NUR ---
SPOKE WITH SHANE IN REHAB DEPT, AWARE OF DC AND AWAITING A ROOM FOR PT
--- NOTE | 2017-02-13 14:59 | NUR ---
REPORT CALLED TO SUNG IN REHAB, WILL GO TO ROOM 1111B, AWAITING ROOM TO BE CLEANED,
--- NOTE | 2017-02-13 15:38 | NUR ---
PT ALERT AND ORIENTED, VSS, RESPIRATIONS EVEN, DENIES PAIN AND ALL NEEDS, DISCUSSED [facility] DC ORDERS AND WOUND CARE WITH SUNG IN REHAB.
--- NOTE | 2017-02-14 07:04 | DS ---
PATIENT:RAE GABRIEL :[birth year] MEDICAL RECORD: [id number] DISCHARGE SUMMARY ADMISSION DATE: 01/27/17 DISCHARGE DATE: 02/13/17 HISTORY OF PRESENT ILLNESS: Mr. Gabriel is a 51-year-old white male with end-stage renal disease, chronic dialysis, and chronic volume overload, admitted with another episode of shortness of breath and volume overload. HOSPITAL COURSE: The patient was emergently dialyzed. However, he only had initial UF of 2 liters and subsequently had an echocardiogram done that revealed a very tight aortic stenosis seen by cardiology doctors, [facility], and [facility] and was taken to the drop crew laborer where he was confirmed to have a very tight aortic stenosis along with diffuse coronary artery disease, seen by Dr. Klein who recommended an aortic valve replacement as well as coronary artery bypass grafting. Subsequently, he was taken to surgery where he was found to have a chronic pericarditis and Dr. Klein was unable to find any target vessels due to his chronic pericarditis. Therefore, he did not have coronary artery bypass grafting; however, he did have aortic valve repair. Postoperatively, he did well in the cardiovascular intensive care unit and now will be moved to rehab for continued physical therapy. DISCHARGE DIAGNOSES: 1. Biventricular congestive heart failure on the basis of coronary artery disease and aortic valvular stenosis. 2. Status post aortic valve replacement. 3. End-stage renal disease. 4. Chronic dialysis. 5. Chronic erythropoietin dependent anemia. PLAN: The patient will be transferred today to rehab. We will continue to follow him there. He will continue his current meds, diet and dialysis schedule. TRANSINT:[id number] Voice Confirmation ID: [id number] DOCUMENT ID: [id number] KHADRA KAUR MD at 0704 CC: [id number] DICTATION DATE: 02/13/17 0619 URINALYSIS TECHNICIAN: 02/13/17 0635 DIS IN 02/13/[id number] [place] [address]
--- NOTE | 2017-02-14 12:22 | TEE ---
PATIENT:RAE ARSHAD MEDICAL RECORD: [id number] LOCATION:[address] [place] [address] AGE OF PATIENT: 51 ADMISSION DATE: 01/27/17 SEX: M REFERRING PHYSICIAN: INTERPRETING PHYSICIAN: ANDREAS BOLTON MD TRANSESOPHAGEAL ECHOCARDIOGRAM MICKY CHARGE Y INDICATIONS: CABG/AVR PREMEDICATIONS: PATIENT'S RESPONSE PROCEDURE DOPPLER MEASUREMENTS: LVIT LA PA 201 RA LVOT 102 RVOT 93.0 Asc. Ao 538 AV Gradient Peak 116.0 AV Mean 75.0 AV Area 0.7 MV Gradient Peak 14.0 MV Mean 4.8 MV Area INTERPRETATION: LVd: 4.1 cm LVs: 2.5 cm Doppler: 2-D: COLOR FLOW DOPPLER NORMAL SALINE STUDY: MISCELLANOUS: DIAGNOSIS: PLAN: District Agent:3 Dr. Han Manager Pacu: Jw BANSAL COMMENTS: DATE OF SERVICE: 02/06/2017 Transesophageal echo evaluation of valvular structures during bypass surgery and aortic valve replacement. FINDINGS: 1. Left ventricular chamber size is within normal limits. Left ventricular systolic function is normal. Overall ejection fraction estimated at 55%. 2. Left atrium, right atrium, and right ventricle chamber sizes are within TRANSESOPHAGEAL ECHOCARDIOGRAM REPORT [id number] RAE ARSHAD normal limits. 3. Valvular structures: Aortic valve demonstrates severe calcific aortic stenosis; however, this is not a new finding. The patient is set for aortic valve replacement. The remaining valvular structures have normal structure and motion. 4. Doppler interrogation elsewise reveals moderate mitral regurgitation, [id number] aortic insufficiency. No other valvular insufficiency or stenosis. 5. No evidence of pericardial effusion or left ventricular thrombus. TRANSINT:[id number] Voice Confirmation ID: [id number] DOCUMENT ID: [id number] at 1222 CC: [id number] DICTATION DATE: 02/06/17 1056 SECOND COOK AND BAKER: 02/06/17 1140 DIS IN 02/13/[address] [address]
== END 2017-02-13 15:40 | DRG 216 ==
LOC: D.ER 12:58 → D.CVICU 15:31 → D.M2 15:31 → D.CVICU 02-06 11:25
PROVIDERS: Internal Medicine Cardiovascular Disease; Internal Medicine Interventional Cardiology; Internal Medicine Nephrology; Physician Assistant; ADMIT Internal Medicine Nephrology
PROC: 5A1D60Z (ICD-10-PCS; 2017-01-27)
PROC: B2151ZZ Fluoroscopy of Left Heart using Low Osmolar Contrast (ICD-10-PCS; 2017-01-29)
PROC: 02RF0JZ Replacement of Aortic Valve with Synthetic Substitute, Open Approach (ICD-10-PCS; 2017-01-29)
PROC: 4A023N7 Measurement of Cardiac Sampling and Pressure, Left Heart, Percutaneous Approach (ICD-10-PCS; 2017-01-29)
PROC: B2111ZZ Fluoroscopy of Multiple Coronary Arteries using Low Osmolar Contrast (ICD-10-PCS; principal; 2017-01-29 12:00)
PROC: B245ZZ4 Ultrasonography of Left Heart, Transesophageal (ICD-10-PCS; 2017-02-06)
DX: I35.0 Nonrheumatic aortic (valve) stenosis (principal); N18.6 End stage renal disease; I16.9 Hypertensive crisis, unspecified; I13.2 Hypertensive heart and chronic kidney disease with heart failure and with stage 5 chronic kidney disease, or end stage renal disease; I31.9 Disease of pericardium, unspecified; I25.10 Atherosclerotic heart disease of native coronary artery without angina pectoris; I50.9 Heart failure, unspecified; Z91.19 Patient's noncompliance with other medical treatment and regimen; E83.39 Other disorders of phosphorus metabolism; E11.22 Type 2 diabetes mellitus with diabetic chronic kidney disease; E11.40 Type 2 diabetes mellitus with diabetic neuropathy, unspecified; D63.1 Anemia in chronic kidney disease; F32.9 Major depressive disorder, single episode, unspecified; Z86.73 Personal history of transient ischemic attack (TIA), and cerebral infarction without residual deficits; Z79.4 Long term (current) use of insulin

== ENCOUNTER 2017-02-13 14:46 | Inpatient (IN) | payer MEDICARE, BC ==
[~2017-02-13] VITALS: Ht 182.9 cm; Wt 122.4 kg
[~2017-02-13 14:46] MED LIST changes: +ASPIRIN81 MG PO; +BUPROPION HCL75 MG PO; +HEMOCYTE PLUS C1 CAP PO; +PAXIL40 MG PO; +PEPCID20 MG PO; +RENVELA800 MG PO; +SENSIPAR30 MG PO; +TOPAMAX50 MG PO
--- NOTE | 2017-02-13 15:50 | NUR ---
PT ARRIVED TO UNIT AT THIS TIME VIA WHEELCHAIR ACCOMPANIED BY HOSPTAL STAFF. PT ALERT AND ORIENTED. DENIES ANY NEEDS. NO ACUTE DISTRESS NOTED. WILL CONTINUE PLAN OF CARE.
[2017-02-13 17:03] VITALS: BP 125/76; BMI 33.4
--- NOTE | 2017-02-13 17:10 | NUR ---
UP IN BED WATCHNG TV AT THIS TIME. NO ACUTE DISTRESS NOTED. WILL CONTINUE PLAN OF CARE.
--- NOTE | 2017-02-13 20:15 | NUR ---
PT. IN BED LYING ON HIS LEFT SIDE WITH EYES CLOSED AND RESP. EVEN. PT. AWAKENS EASILY FOR ASSESSMENT. NO VOICED NEEDS AT THIS TIME. CALL LIGHT WITHIN REACH.
[2017-02-13 20:45] VITALS: BP 101/64
--- NOTE | 2017-02-13 23:51 | NUR ---
PT. IN BED LYING ON HIS LEFT SIDE WITH EYES CLOSED AND RESP. DEEP AND EVEN. CALL LIGHT WITHIN REACH ON HIS BEDSIDE TABLE NEXT TO BED.
[2017-02-14 00:30] VITALS: BP 102/68
--- NOTE | 2017-02-14 03:18 | NUR ---
PT. REMAINS ON HIS LEFT SIDE WITH EYES CLOSED AND RESP. EVEN. CALL LIGHT ALSO REMAINS ON HIS BEDSIDE TABLE.
--- NOTE | 2017-02-14 05:14 | NUR ---
PT. WAS UNABLE TO SAFELY STAND TO GET AM WEIGHT THIS MORNING. INSTRUCTED PT. WILL HAVE THE THERAPIST HELP WITH DAILY WEIGHT WHEN THEY COME TO DO HIS EVAL. PT. AGREEABLE AND UNDERSTANDS.
[2017-02-14 06:04] VITALS: BP 102/62
--- NOTE | 2017-02-14 07:39 | NUR ---
SITTING UP IN BED ALERT AND ORIENTED. CALL LIGHT WITHIN REACH. OFFERS NO COMPLAINTS DENIES PAIN. WILL CONTINUE TO MONITOR
[2017-02-14 10:07] VITALS: Ht 182.9 cm; Wt 122.4 kg
--- NOTE | 2017-02-14 12:18 | NUR ---
SITTING UP IN WHEELCHAIR EATING LUNCH. C/O GENERALIZED PAIN AND REQUEST PAIN MEDS. ADMINISTERED 50MG ULTRAM PER REQUEST. OFFERS NO OTHER COMPLAINTS. CALL LIGHT WITHIN REACH. WILL CONTINUE TO MONITOR
--- NOTE | 2017-02-14 12:23 | NUR ---
EATING LUNCH. DENIES NEEDS OR C/O.
[2017-02-14 13:00] VITALS: BP 106/60
--- NOTE | 2017-02-14 13:30 | NUR ---
TRANSPORTED TO DIALYSIS VIA WHEELCHAIR.
[2017-02-14 18:28] VITALS: BP 119/71
--- NOTE | 2017-02-14 20:11 | NUR ---
PT IS RESTING QUIETLY IN BED WITH EYES OPEN. ALERT AND ORIENTED X 3. DENIES PAIN OR DISCOMFORT. INCISIONS TO CHEST AND ABD. ARE CDI. NO DRAINAGE NOTED. LEFT ARM FISTULA NOTED WITH GOOD BRUITT AND THRILL. SR'S ARE UP X 2 IN BED. CALL LIGHT AND BEDSIDE TABLE ARE WITHIN EASY REACH.
--- NOTE | 2017-02-14 22:01 | NUR ---
PT IS RESTING IN BED WITH EYES OPEN. NO NEEDS VOICED.
--- NOTE | 2017-02-14 23:52 | NUR ---
RESTING QUIETLY IN BED WITH EYES CLOSED.
[2017-02-14 23:55] VITALS: BP 91/53
--- NOTE | 2017-02-15 04:28 | NUR ---
UP IN W/C PROPELLING SELF AROUND UNIT. STATES "I ALWAYS GET UP AROUND 3 AM". FISTULA TO LEFT FA..
[2017-02-15 05:23] VITALS: BP 110/73
--- NOTE | 2017-02-15 05:59 | NUR ---
PT IS SITTING ON THE SIDE OF HIS BED. STATES HE CANNOT GO BACK TO SLEEP AFTER BEING WOKE UP SEVERAL TIMES THIS AM.
[2017-02-15 06:10] LABS: BASOPHILS 1.1 % (0-2); EOSINOPHILS 6.6 % (0-7); HEMATOCRIT 27.6 % (42.0-54.0); HEMOGLOBIN 8.9 g/dL (13.5-17.5); IMMATURE GRANULOCYTES 0.4 % (0-5); LYMPHOCYTES 15.3 % (15-50); MCH 30.7 pg (26.0-34.0); MCHC 32.2 g/dL (31.0-37.0); MCV 95.2 fL (80.0-100.0); MEAN PLATELET VOLUME 10.3 fL (7.4-10.4); MONOCYTES 4.9 % (2-11); NEUTROPHILS 71.7 % (40-80); RDW 15.6 % (11.5-14.5); WBC 9.2 10x3/uL (4.8-10.8)
[2017-02-15 06:13] LABS: PLATELET COUNT 289 10x3/uL (130-400)
[2017-02-15 07:22] LABS: ANION GAP 16.8 mmol/L (8-16); CALCIUM 9.5 mg/dL (8.5-10.1); CARBON DIOXIDE 26.9 mmol/L (21.0-32.0); CREATININE - SERUM 8.6 mg/dL (0.6-1.3); PHOSPHOROUS 4.2 mg/dL (2.5-4.9); POTASSIUM - SERUM 3.7 mmol/L (3.5-5.1)
[2017-02-15 12:10] VITALS: BP 110/66
--- NOTE | 2017-02-15 14:54 | NUR ---
PT CURRENTLY IN DIALYSIS.
[2017-02-15 18:13] VITALS: BP 120/78
--- NOTE | 2017-02-15 19:43 | NUR ---
PT IS SITTING IN HIS WC IN HIS ROOM. ALERT AND ORIENTED X 3. DENIES ACUTE PAIN OR DISCOMFORT AT THIS TIME. NO NEEDS VOICED. INCISIONS TO CHEST, ABD, AND RIGHT LEG ARE CDI. NO DRAINAGE NOTED. LEFT ARM FISTULA NOTED WITH GOOD BRUITT AND THRILL. CALL LIGHT AND BEDSIDE TABLE ARE WITHIN EASY REACH.
--- NOTE | 2017-02-15 22:22 | NUR ---
PT RESTING IN BED WITH EYES OPEN. NO DISTRESS NOTED.
[2017-02-15 23:51] VITALS: BP 105/68
--- NOTE | 2017-02-16 00:05 | NUR ---
RESTING IN BED, EYES CLOSED. AUDIBLE RESPIRATIONS ARE UNLABORED.
--- NOTE | 2017-02-16 00:20 | NUR ---
PT SITTING ON THE SIDE OF HIS BED IN THE DARK. NO NEEDS VOICED.
--- NOTE | 2017-02-16 03:47 | NUR ---
RESTING IN BED WITH EYES CLOSED.
[2017-02-16 05:48] VITALS: BP 89/51
--- NOTE | 2017-02-16 10:00 | NUR ---
PT DOWN IN THERAPY GYM. PT AM MEDS ADMINISTERED. PT DENEIS NEEDS AT THIS TIME.
[2017-02-16 11:56] VITALS: BP 115/70
--- NOTE | 2017-02-16 15:50 | NUR ---
PT RESTING, EYES CLOSED. RR EVEN AND UNLABORED. WCTM.
[2017-02-16 18:19] VITALS: BP 115/70
--- NOTE | 2017-02-16 19:20 | NUR ---
PT IN BED WITH HOB UP FOR COMOFRT. WATCHING TV. ALERT AND ORIENTED. DIALYSIS M,W,F. RESERVE LEFT ARM. NO O2. NO IV. LEFT ARM FISTULA. BED IN LOWEST POSITION AND CALL LIGHT WITHIN REACH.
--- NOTE | 2017-02-16 20:20 | NUR ---
PT IN BED WITH HOB UP FOR COMFORT. EYES CLOSED. CHEST RISING AND FALLING. BED IN LOWEST POSITION AND CALL LIGHT WITHIN REACH.
--- NOTE | 2017-02-16 23:20 | NUR ---
PT IN BED WITH HOB UP FOR COMFORT. EYES CLOSED. CHEST RISING AND FALLING. BED IN LOWEST POSITION AND CALL LIGHT WITHIN REACH.
--- NOTE | 2017-02-17 00:15 | NUR ---
RESTING QUIETLY IN BED, EYES CLOSED.
[2017-02-17 00:31] VITALS: BP 111/76
--- NOTE | 2017-02-17 04:15 | NUR ---
PT LYING IN BED. EYES CLOSED. RESPIRATIONS EVEN AND UNLABORED. BED IN LOWEST POSTION AND CALL LIGHT WITHIN REACH.
[2017-02-17 05:32] VITALS: BP 92/61
--- NOTE | 2017-02-17 07:41 | NUR ---
SITTING UP IN WHEELCHAIR WATCHING TV. OFFERS NO COMPLAINTS. ALERT AND ORIENTED X4. CALL LIGHT WITHIN REACH. WILL CONTINUE TO MONITOR
--- NOTE | 2017-02-17 09:40 | NUR ---
SITTING UP IN BED RESTING QUIELTY WATCHING TV. OFFERS NO COMPLAINTS. CALL LIGHT WITHIN REACH. WILL CONTINUE TO MONITOR
[2017-02-17 11:53] VITALS: BP 96/62
--- NOTE | 2017-02-17 14:32 | NUR ---
SITTING UP IN BED RESTING. OFFERS NO COMPLAINTS. DENIES PAIN. CALL LIGHT WITHIN REACH. WILL CONTINUE TO MONITOR
--- NOTE | 2017-02-17 18:22 | NUR ---
RESTING QUIETLY IN BED. DENIES NEEDS. CALL LIGHT IN REACH
[2017-02-17 18:49] VITALS: BP 106/79
--- NOTE | 2017-02-17 19:30 | NUR ---
PT IS UP IN WC IN HIS ROOM FILLING OUT HIS MENU. ALERT AND ORIENTED X 3. DENIES ANY PAIN OR DISCOMFORT AT THIS TIME. NO NEEDS VOICED. LEFT ARM FISTULA NOTED WITH GOOD BRUITT AND THRILL. CALL LIGHT AND BEDSIDE TABLE ARE WITHIN EASY REACH.
--- NOTE | 2017-02-17 20:58 | NUR ---
PT IS WATCHING TV IN HIS ROOM. NO NEEDS VOICED.
--- NOTE | 2017-02-17 23:19 | NUR ---
PT RESTING IN BED WITH EYES CLOSED.
[2017-02-18 00:01] VITALS: BP 113/51
--- NOTE | 2017-02-18 01:28 | NUR ---
PT IN BED WITH HOB SLIGHTLY ELEVATED. EYES CLOSED AND RESP. EVEN. CALL LIGHT WITHIN REACH.
--- NOTE | 2017-02-18 01:40 | NUR ---
UP IN ROOM IN W/C. NO COMPLAINTS AT THIS TIME.
--- NOTE | 2017-02-18 02:50 | NUR ---
PT IS UP IN WC PROPELLING SELF IN THE HALLS. STATES: " I JUST CANT SLEEP. IM FINE."
[2017-02-18 05:29] VITALS: BP 107/72
[2017-02-18 05:46] LABS: BASOPHILS 0.9 % (0-2); HEMATOCRIT 29.9 % (42.0-54.0); HEMOGLOBIN 9.4 g/dL (13.5-17.5); IMMATURE GRANULOCYTES 0.3 % (0-5); LYMPHOCYTES 7.7 % (15-50); MCH 30.2 pg (26.0-34.0); MCHC 31.4 g/dL (31.0-37.0); MCV 96.1 fL (80.0-100.0); MEAN PLATELET VOLUME 10.2 fL (7.4-10.4); MONOCYTES 7.6 % (2-11); NEUTROPHILS 77.5 % (40-80); PLATELET COUNT 313 10x3/uL (130-400); RBC 3.11 10x6/uL (4.20-6.10); RDW 15.7 % (11.5-14.5); WBC 12.9 10x3/uL (4.8-10.8)
[2017-02-18 05:56] LABS: ANION GAP 20.2 mmol/L (8-16); CALCIUM 8.9 mg/dL (8.5-10.1); CARBON DIOXIDE 26.4 mmol/L (21.0-32.0); CREATININE - SERUM 10.9 mg/dL (0.6-1.3); POTASSIUM - SERUM 4.6 mmol/L (3.5-5.1)
--- NOTE | 2017-02-18 06:04 | NUR ---
PT UP IN WC PROPELLING SELF IN THE HALLS. NO COMPLAINT VOICED.
--- NOTE | 2017-02-18 07:41 | NUR ---
SITTING UP IN W/C IN ROOM WAITING ON BREAKFAST. DENIES NEEDS. INCISION TO CHEST IS INTACT WITH FEW SMALL SCABS.
--- NOTE | 2017-02-18 07:49 | NUR ---
SITTING UP IN BED RESTING QUIETLY. BED IN LOWEST POSITION. CALL LIGHT IN REACH
[2017-02-18 12:18] VITALS: BP 112/74
[2017-02-18 18:11] VITALS: BP 114/68
--- NOTE | 2017-02-18 18:14 | NUR ---
SITTING IN W/C IN ROOM. JUST HAVE PT PAIN MEDICATION PER HIS REQUEST.
--- NOTE | 2017-02-18 20:30 | NUR ---
SITTING UP IN ROOM IN W/C. DENIES NEEDS.
[2017-02-18 20:41] VITALS: BP 110/57
--- NOTE | 2017-02-18 21:40 | NUR ---
Dialysis Coordinator: [facility]: [facility] Mon/Wed/Fri. Patient expected to return to home clinic at discharge from hospital. Medical records forwarded to the home unit for their records. ARLENE CODY.
--- NOTE | 2017-02-18 22:45 | NUR ---
PT. SITTING IN W/C CONVERSING WITH STAFF. ASSESSMENT COMPLETED. NO VOICED NEEDS AT THIS TIME. CALL LIGHT WITHIN REACH.
[2017-02-19 00:17] VITALS: BP 114/69
--- NOTE | 2017-02-19 04:15 | NUR ---
PT. IN BED LYING ON HIS LEFT SIDE. EYES CLOSED AND RESP. DEEP AND EVEN. CALL LIGHT WITHIN REACH.
[2017-02-19 06:01] VITALS: BP 110/70
--- NOTE | 2017-02-19 08:00 | NUR ---
SHIFT ASSMT COMPLETED.UP OOB TO CHAIR FOR BREAKFAST.INCISIONS INTACT.BREAKFAST GIVEN.
--- NOTE | 2017-02-19 12:00 | NUR ---
SITTING UP EATING LUNCH.
[2017-02-19 12:54] VITALS: BP 98/68
--- NOTE | 2017-02-19 13:36 | NUR ---
Nutrition Follow Up: Pt is eating 94% meal avg on a renal diet. Wt gain noted. +BM 02/18/17. Labs and meds reviewed. Rec continue current diet. RD following.
--- NOTE | 2017-02-19 16:00 | NUR ---
RESTING QUIETLY.CL IN REACH.
--- NOTE | 2017-02-19 18:07 | RHP ---
PATIENT: RAE ARSHAD MEDICAL RECORD: [id number] ACCOUNT: [id number] LOCATION:[facility]1117 : 61 ADMISSION DATE: 02/13/17 REHABILITATION HISTORY AND PHYSICAL EXAMINATION POST ADMISSION PHYSICIAN EXAMINATION Post-admission Physical Examination and History and Physical DATE OF ADMISSION: 02/13/2017 ADMITTING DIAGNOSES: Critical illness myopathy HISTORY OF PRESENT ILLNESS: The patient is a 51-year-old gentleman admitted with critical illness myopathy. He is status post aortic valve replacement due to severe aortic stenosis, end-stage renal disease and he is hemodialysis dependent. OTHER PAST MEDICAL HISTORY: Includes diabetes, congestive heart failure, chronic pericarditis, chronic volume overload, peripheral vascular disease, neuropathy and history of CVA. He was admitted to the hospital on January 27 with shortness of breath and volume overload. Chest x-ray showed congestive failure, cardiomegaly, pulmonary edema and fluid overload. He was emergently dialyzed. An echocardiogram was done, which showed a very tight aortic stenosis. He was seen by cardiology, was taken to the label cutter and was confirmed to have very severe aortic stenosis along with coronary artery disease. Dr. Klein was consulted and recommended aortic valve replacement as well as coronary artery bypass grafting. He was taken to surgery on February 06 and found to have chronic pericarditis. Dr. Klein was unable to find any vessels do this; therefore, he did not have coronary artery bypass grafting; however, he did have aortic valve replacement. Prior to surgery, he was independent with ADLs and mobility. He dialyzes at [facility] dialysis on Saturday, Saturday, Saturday, he rides a [employer] bus to and from dialysis, occasionally uses a walker after dialysis due to weakness. Currently, he is moderate to max assist for ADLs and mobility. He is wearing oxygen concentrator, tires easily, gets short of breath easily. He has proximal muscle weakness and difficulty arising from a chair or bed to a standing position, he wants to regain his strength and hopefully return home and get back to his prior level of functioning. COMORBIDITIES: Include status post aortic valve replacement, cardiomegaly, pulmonary edema, hypoxia, orthopnea, hypertensive crisis, hypertension, pericarditis, end-stage renal disease, hemodialysis dependency, biventricular CHF, electrolyte abnormalities, history of CVA, depression and cochlear implants. PAST MEDICAL HISTORY: Significant for CVA, neuropathy, cochlear problems, diabetes, peripheral vascular disease and depression. PAST SURGICAL HISTORY: Includes surgery on his foot, his arm. He has had a dialysis catheter placed and AVR replacement now. ALLERGIES: No known drug allergies. CURRENT MEDICATIONS: Include heparin 2000 units prior to dialysis. He is on a 500 units per hour pump, he is on topiramate or Topamax 25 mg b.i.d., Paxil 20 mg daily, Neurontin 100 mg b.i.d., Wellbutrin 75 mg daily, sevelamer 2.4 grams HISTORY AND PHYSICAL [id number] JEANCARLOS,RAE J t.i.d. with meals, polyethylene glycol 17 grams in 8 ounce of water daily, Lantus 10 units daily, folic acid 1 tab daily, Plavix 75 mg daily, Sensipar 30 mg daily. He is on aspirin chewable 81 mg daily, allopurinol 100 mg daily, tramadol 50 mg q.6 hours p.r.n. He is on Lantus 15 units at bedtime along with his a.m. dosage. He is on Pepcid 20 mg b.i.d., Colace 200 mg b.i.d. and Combivent as needed. HABITS: No tobacco use. FAMILY HISTORY: Noncontributory. SOCIAL HISTORY: The patient hopes to return back home and get back to his prior level of functioning. REVIEW OF SYSTEMS: GENERAL: Does complain of weakness. HEENT: Denies cold, cough, or congestion. CARDIOVASCULAR: Denies chest pain. PHYSICAL EXAMINATION: VITAL SIGNS: Stable, afebrile. GENERAL: Elderly gentleman in no acute distress, alert upon exam, he appears much older than his stated age of 51. HEENT: Normocephalic and atraumatic. Mucosa moist. NECK: Supple. No lymphadenopathy. LUNGS: Clear at this time. HEART: Regular rate and rhythm. ABDOMEN: Benign. EXTREMITIES: No clubbing, cyanosis or edema. NEUROLOGIC: Intact. He has been seen today by nephrology already. ASSESSMENT: This is a 51-year-old gentleman admitted to the rehab with a working diagnosis of critical illness myopathy. The patient has potential to make improvement. We instituted the following multidisciplinary therapies including to, but not limited to physical, occupational, respiratory, speech, nutritional services, prosthetics and orthotics. Given his complex condition and risk for more complications, rehabilitation services cannot be provided at a lower level of care such as a retirement facility. PLAN: 1. Admit to [facility] rehab for intensive inpatient therapy to include the following disciplines: A. Physical therapy to improve gait, all transfer skills and bed mobility to a modified independent level. B. Occupational therapy to improve activities of daily living to a modified independent level. C. Case management to assist with discharge planning and placement options. D. Nutrition to assist with nutritional needs. E. Rehabilitation nursing to assist in monitoring the patient's underlying medical conditions and to assist with any type of bowel or bladder management. 2. The patient's current medication and medical care will be continued. 3. The patient will be placed on standard fall precautions. 4. The patient's estimated length of stay is approximately 7-10 days. 5. Discuss this patient during care team staff meeting this week. HISTORY AND PHYSICAL [id number] RAE ARSHAD TRANSINT:[id number] Voice Confirmation ID: [id number] DOCUMENT ID: [id number] MICHELLE notes whether there has been none or any medical/functional change since admission: - No change since prescreen. MICHELLE attests patient continues to be appropriate for IRF: - Continues to be appropriate. PATRICK ABDI MD at 1807 CC: [id number] DICTATION DATE: 02/14/17 1619 AIR BREAKER OPERATOR: 02/14/17 1702 ADM IN [id number] [place] [address]
[2017-02-19 18:09] VITALS: BP 100/67
--- NOTE | 2017-02-19 19:15 | NUR ---
PT. SITTING UP IN W/C AND WATCHING TV. NO VOICED NEEDS. ASSESSMENT COMPLETED. CALL LIGHT WITHIN REACH.
[2017-02-19 19:45] VITALS: BP 118/79
--- NOTE | 2017-02-19 23:10 | NUR ---
PT. SITTING ON THE SIDE OF HIS BED WATCHING TV. NO VOICED NEEDS AND HIS CALL LIGHT IS WITHIN REACH.
[2017-02-20 00:30] VITALS: BP 86/55
--- NOTE | 2017-02-20 03:04 | NUR ---
PT. IN BED LYING ON HIS LEFT SIDE. EYES CLOSED AND RESP. EVEN. CALL LIGHT WITHIN REACH.
[2017-02-20 05:52] LABS: BASOPHILS 1.1 % (0-2); EOSINOPHILS 6.2 % (0-7); HEMATOCRIT 27.1 % (42.0-54.0); HEMOGLOBIN 8.7 g/dL (13.5-17.5); IMMATURE GRANULOCYTES 0.2 % (0-5); LYMPHOCYTES 9.3 % (15-50); MCH 30.6 pg (26.0-34.0); MCHC 32.1 g/dL (31.0-37.0); MCV 95.4 fL (80.0-100.0); MEAN PLATELET VOLUME 10.3 fL (7.4-10.4); MONOCYTES 8.9 % (2-11); NEUTROPHILS 74.3 % (40-80); PLATELET COUNT 257 10x3/uL (130-400); RBC 2.84 10x6/uL (4.20-6.10); RDW 15.5 % (11.5-14.5); WBC 8.5 10x3/uL (4.8-10.8)
[2017-02-20 06:10] VITALS: BP 106/68
[2017-02-20 06:15] LABS: ANION GAP 15.5 mmol/L (8-16); CREATININE - SERUM 9.9 mg/dL (0.6-1.3); PHOSPHOROUS 4.9 mg/dL (2.5-4.9); POTASSIUM - SERUM 4.5 mmol/L (3.5-5.1)
--- NOTE | 2017-02-20 08:00 | NUR ---
SHIFT ASSMT COMPLETED.INCISIONS TO CHEST AND RT LEG INTACT.UP OOB AND DRESSED.BREAKFAST TRAY GIVEN.
--- NOTE | 2017-02-20 12:00 | NUR ---
SITTING UP IN WC.LUNCH GIVEN.DENIES NEEDS.
[2017-02-20 13:17] VITALS: BP 116/77
--- NOTE | 2017-02-20 15:15 | NUR ---
TO HD/WC.
--- NOTE | 2017-02-20 16:39 | NUR ---
SPOKE WITH ADA JEAN BAPTISTE'S NURSE;STATED OK TO GIVE PROAMATINE.
[2017-02-20 18:00] VITALS: BP 127/72
--- NOTE | 2017-02-20 19:30 | NUR ---
PT RETURNED FROM DIALYSIS AT THIS TIME. ALERT AND ORIENTED X 3. DENIES ACUTE DISCOMFORT. NO NEEDS VOICED. INCISIONS TO CHEST ABD, AND RIGHT LEG ARE CDI. NO DRAINAGE NOTED. LEFT ARM FISTULA NOTED WITH GOOD BRUITT AND THRILL. SR'S ARE UP X 3 WHILE IN BED. CALL LIGHT AND BEDSIDE TABLE ARE WITHIN EASY REACH.
--- NOTE | 2017-02-20 22:00 | NUR ---
PT IS UP IN WC PROPELLING THE REHAB HALLS. NO NEEDS VOICED.
--- NOTE | 2017-02-21 00:01 | NUR ---
PT IS RESTING QUIETLY IN BED WITH EYES CLOSED. RESPS ARE EVEN AND UNLABORED. NO ACUTE DISTRESS NOTED.
[2017-02-21 00:10] VITALS: BP 101/68
--- NOTE | 2017-02-21 03:09 | NUR ---
RESTING IN BED WITH EYES CLOSED.
--- NOTE | 2017-02-21 04:10 | NUR ---
RESTING IN BED WITH EYES CLOSED. NO S/S OF DISTRESS OBSERVED. HOB ELEVATED TO 30 DEGRESS. CALL LIGHT AND OVERBED TABLE IN REACH.
[2017-02-21 05:26] VITALS: BP 107/61
--- NOTE | 2017-02-21 06:22 | NUR ---
PT INFORMED OF HAVING TO WAIT A FEW MINUTES ON HIS SHOWER THIS AM , DUE TO WAITING ON HOUSEKEEPING TO DELIVER TOWELS. PT STATED HE WAS NOT GOING TO TAKE A SHOWER THIS MORNING ANYWAY.
[2017-02-21 06:23] LABS: ANION GAP 15.2 mmol/L (8-16); CALCIUM 9.3 mg/dL (8.5-10.1); CARBON DIOXIDE 29.1 mmol/L (21.0-32.0); CREATININE - SERUM 7.9 mg/dL (0.6-1.3); POTASSIUM - SERUM 4.3 mmol/L (3.5-5.1)
--- NOTE | 2017-02-21 07:24 | NUR ---
ASSESSMENT DONE. DENIES NEEDS AT THIS TIME.
[2017-02-21 12:00] VITALS: BP 131/86
[2017-02-21 17:09] VITALS: BP 126/70
--- NOTE | 2017-02-21 17:11 | NUR ---
WITHOUT CHANGES OR DISTRESS NOTED AT THIS TIME. DENIES NEEDS.
--- NOTE | 2017-02-21 19:00 | NUR ---
RECIEVED PRPELLING SELF AROUND NURSING STATION. PLEASAANT AND SMILING. NO S/S OF DISTRESS OBSERVED.
[2017-02-21 20:31] VITALS: BP 121/76
--- NOTE | 2017-02-21 21:41 | NUR ---
UP SITTING IN W/C IN ROOM. PLEASANT AND COOPERATIVE. TAKES MEDICATION WITHOUT DIFFICULTY. DENIES ANY PAIN. FSBS MONITORED. CALL LIGHT AND OVERBED TABLE IN REACH.
[2017-02-22 00:09] VITALS: BP 122/71
--- NOTE | 2017-02-22 02:06 | NUR ---
RESTING IN BED WITH EYES CLOSED. NO S/S OF DISTRESS OBSERVED. HOB ELEVATED AND SIDE RAILS UP X2. CALL LIGHT AND OVERBED TABLE IN REACH.
[2017-02-22 06:08] VITALS: BP 106/68
--- NOTE | 2017-02-22 06:16 | NUR ---
CBG 64 THIS AM.ASYMPTOMATIC. STATES " I FEEL FINE". PLEASANT COOPERATIVE AND TALKATVE. GAVE MILK AND 2 PKS OF GRAHMCRACKER. WILL RECHECK CBG.
[2017-02-22 06:31] LABS: BASOPHILS 1.6 % (0-2); EOSINOPHILS 7.2 % (0-7); HEMATOCRIT 28.9 % (42.0-54.0); HEMOGLOBIN 9.2 g/dL (13.5-17.5); IMMATURE GRANULOCYTES 0.3 % (0-5); LYMPHOCYTES 8.9 % (15-50); MCH 30.8 pg (26.0-34.0); MCHC 31.8 g/dL (31.0-37.0); MCV 96.7 fL (80.0-100.0); MEAN PLATELET VOLUME 10.2 fL (7.4-10.4); MONOCYTES 12.6 % (2-11); NEUTROPHILS 69.4 % (40-80); PLATELET COUNT 256 10x3/uL (130-400); RBC 2.99 10x6/uL (4.20-6.10); WBC 7.3 10x3/uL (4.8-10.8)
[2017-02-22 06:44] LABS: ANION GAP 16.2 mmol/L (8-16); CALCIUM 8.6 mg/dL (8.5-10.1); CARBON DIOXIDE 28.3 mmol/L (21.0-32.0); CREATININE - SERUM 9.8 mg/dL (0.6-1.3); PHOSPHOROUS 5.2 mg/dL (2.5-4.9); POTASSIUM - SERUM 4.5 mmol/L (3.5-5.1)
--- NOTE | 2017-02-22 07:35 | NUR ---
REC'D IN REPORT PT HAS DEVELOPED RASH. DR KAUR IN TO SEE PT. DR NOTIFIED OF RASH.
--- NOTE | 2017-02-22 08:50 | NUR ---
AM MEDS ADMINISTERED. PT KELLEN NEEDS AT THIS TIME. BED LOW. CLIN REACH.
[2017-02-22 12:33] VITALS: BP 125/76
--- NOTE | 2017-02-22 12:34 | NUR ---
PT TAKEN TO DIALYSIS. PT EATING LUNCH IN DIALYSIS.
[2017-02-22 17:58] VITALS: BP 138/85
--- NOTE | 2017-02-22 19:30 | NUR ---
PT. SITTING UP IN W/C IN HALLWAY VISITING W/STAFF. ESCORTED TO ROOM. ASSESSMENT COMPLETED. NO VOICED NEEDS AND HIS CALL LIGHT IS WITHIN REACH.
--- NOTE | 2017-02-22 23:07 | NUR ---
PT. IN BED LYING ON HIS LEFT SIDE. EYES CLOSED AND RESP. EVEN. CALL LIGHT WITHIN REACH.
[2017-02-23 00:39] VITALS: BP 133/82
--- NOTE | 2017-02-23 03:00 | NUR ---
PT. IN BED LYING ON HIS LEFT SIDE WITH EYES CLOSED AND RESP. EVEN. CALL LIGHT WITHIN REACH.
[2017-02-23 05:30] VITALS: BP 128/77
[2017-02-23 06:39] LABS: BASOPHILS 1.6 % (0-2); HEMATOCRIT 28.6 % (42.0-54.0); HEMOGLOBIN 9.1 g/dL (13.5-17.5); IMMATURE GRANULOCYTES 0.4 % (0-5); LYMPHOCYTES 8.8 % (15-50); MCH 30.8 pg (26.0-34.0); MCHC 31.8 g/dL (31.0-37.0); MCV 96.9 fL (80.0-100.0); MEAN PLATELET VOLUME 10.1 fL (7.4-10.4); MONOCYTES 14.1 % (2-11); NEUTROPHILS 68.1 % (40-80); PLATELET COUNT 244 10x3/uL (130-400); RBC 2.95 10x6/uL (4.20-6.10); RDW 15.9 % (11.5-14.5); WBC 6.8 10x3/uL (4.8-10.8)
[2017-02-23 06:49] LABS: ANION GAP 12.8 mmol/L (8-16); CALCIUM 8.9 mg/dL (8.5-10.1); CARBON DIOXIDE 29.7 mmol/L (21.0-32.0); POTASSIUM - SERUM 4.5 mmol/L (3.5-5.1)
--- NOTE | 2017-02-23 06:56 | NUR ---
RECEIVED CALL FROM RIRIAnonymess WITH A COURTESY REPORT OF A BS OF 54. GAVE PT. APPLE JUICE AND BALTAZAR CRACKERS.
--- NOTE | 2017-02-23 08:00 | NUR ---
SITTING UP IN WC.DENIES NEEDS.CL IN REACH.
[2017-02-23 12:00] VITALS: BP 129/87
--- NOTE | 2017-02-23 12:00 | NUR ---
NAPPING,LUNCH GIVEN.CL IN REACH.
--- NOTE | 2017-02-23 16:00 | NUR ---
RESTING QUIETLY.CL IN REACH.DENIES NEEDS.
[2017-02-23 17:51] VITALS: BP 108/70
--- NOTE | 2017-02-23 20:00 | NUR ---
PT IS RESTING QUIETLY IN BED WITH EYES CLOSED. AWOKE EASILY TO VERBAL STIMULI. INCISIONS TO CHEST, ABD, AND RIGHT LEG ARE ALL CDI. NO DRAINAGE NOTED, AND HEALING WELL. LEFT ARM FISTULA NOTED WITH GOOD BRUITT AND THRILL. PT DENIES NEEDS. SR'S ARE UP X 2 IN BED. CALL LIGHT AND BEDSIDE TABLE ARE WITHIN EASY REACH.
--- NOTE | 2017-02-23 20:01 | NUR ---
PT. IN BED WITH HOB UP FOR COMFORT AND IS WATCHING TV. NO VOICED NEEDS AND HIS CALL LIGHT IS WITHIN REACH.
--- NOTE | 2017-02-23 21:33 | NUR ---
PT IS RESTING QUIETLY IN BED WITH EYES CLOSED.
[2017-02-24 00:19] VITALS: BP 107/59
--- NOTE | 2017-02-24 00:23 | NUR ---
RESTING IN BED WITH EYES CLOSED.
--- NOTE | 2017-02-24 04:19 | NUR ---
PT RESTING IN BED WITH EYES CLOSED. NO DISTRESS NOTED.
[2017-02-24 05:57] VITALS: BP 112/63
--- NOTE | 2017-02-24 09:00 | NUR ---
PATIENT IS ALERT/ORIENT X4 PATIENT HAS SIGNED A BED/CHAIR ALARM WAVIOR. GLUCOSE LEVEL 73. LANTUS INJECTION GIVEN THIS AM.
[2017-02-24 11:54] VITALS: BP 121/79
--- NOTE | 2017-02-24 13:55 | NUR ---
PATIENT ON A 1,000CC FLUID RESTRICTION. PATIENT HAS HAD OVE 650CC INTAKE. THIS NURSE HAS TALKED TO PATIENT IN REGARDS TO FLUID RESTRICTION. PATIENT HAS BEEN A DAILYSIS PATIENT FOR MANY YEARS. NONCOMPLINT WITH FLUID INTAKE.
[2017-02-24 18:23] VITALS: BP 128/73
--- NOTE | 2017-02-24 19:40 | NUR ---
PT. IN BED WITH HOB UP FOR COMFORT AND WATCHING TV. ASSESSMENT COMPLETED. NO VOICED NEEDS AT THIS TIME AND HIS CALL LIGHT IS WITHIN REACH.
[2017-02-24 19:55] VITALS: BP 137/87
--- NOTE | 2017-02-24 23:30 | NUR ---
PT. IN BED LYING ON HIS LEFT SIDE. EYES CLOSED AND RESP. EVEN. CALL LIGHT WITHIN REACH.
[2017-02-25 00:45] VITALS: BP 122/77
--- NOTE | 2017-02-25 03:07 | NUR ---
PT. IN BED LYING ON HIS LEFT SIDE WITH EYES CLOSED AND RESP. EVEN. CALL LIGHT WITHIN REACH.
[2017-02-25 05:07] VITALS: BP 134/81
[2017-02-25] MEDS ORDERED: Topamax PO (08:31)
[2017-02-25] MEDS ORDERED: PAXIL10 MG PO (08:31)
[2017-02-25] MEDS ORDERED: MIDODRINE HCL2.5 MG PO (08:31)
[2017-02-25] MEDS ORDERED: LANTUS INSULIN10 ML SC ×2 (08:32)
--- NOTE | 2017-02-25 10:20 | NUR ---
SITTING IN THERAPY GYM WORKING WITH Rios
[2017-02-25 10:37] VITALS: BP 133/86
[2017-02-25 18:20] VITALS: BP 115/60
--- NOTE | 2017-02-25 18:22 | NUR ---
ULTRA SOUND CALLED AND SAID THEY DO NOT DO BLADDER ULTRA SOUNDS, THE NURSES DO THEM ON THE FLOOR. A BLADDER SCAN WAS DONE ON PT WHILE HE WAS LAYING DOWN AND SCAN REVEALED NO URINE NOTED IN BLADDER.
--- NOTE | 2017-02-25 18:23 | NUR ---
URINE CULTURE ORDERED BUT PT DOES NOT MAKE ANY URINE. HE HAD DIALYSIS MWF
--- NOTE | 2017-02-25 18:35 | NUR ---
HE REMAINS GROSSLY NON COMPLIANT WITH FLUID RESTRICTION. NURSE REMINDED HIM OF FLUID RESTRICTION TO WHICH HE REPLIED "I NEVER PAY ATTENTION TO THAT"
--- NOTE | 2017-02-25 19:05 | NUR ---
PT IN BED WITH HOB UP FOR COMFORT. WATCHING TV. ALERT & ORIENTED, BUT FORGETFUL. DIALYSIS M,W,F. LEFT ARM FISTULA, LEFT ARM RESERVE. VITALS Q6H. DAILY WEIGHT. FSBS BID. 1000CC FLUID RESTRICTION, NONCOMPLIANT. BED/CHAIR ALARM WAIVER. BED IN LOWEST POSITION AND CALL LIGHT WITHIN REACH.
--- NOTE | 2017-02-25 21:45 | NUR ---
RESTING QUIETLY IN BED, EYES CLOSED.
[2017-02-25 23:46] VITALS: BP 126/84
--- NOTE | 2017-02-26 01:45 | NUR ---
PT LYING IN BED. EYES CLOSED. CHEST RISING AND FALLING. BED IN LOWEST POSITION AND CALL LIGHT WITHIN REACH.
--- NOTE | 2017-02-26 05:23 | NUR ---
PT UP IN BED WITH HOB UP FOR COMOFRT. WATCHING TV. BED IN LOWEST POSITION AND CALL LIGHT WITHIN REACH.
[2017-02-26 06:10] VITALS: BP 114/78
[2017-02-26 06:49] LABS: BASOPHILS 1.4 % (0-2); EOSINOPHILS 6.9 % (0-7); HEMATOCRIT 29.6 % (42.0-54.0); HEMOGLOBIN 9.4 g/dL (13.5-17.5); IMMATURE GRANULOCYTES 0.2 % (0-5); LYMPHOCYTES 10.7 % (15-50); MCH 30.6 pg (26.0-34.0); MCHC 31.8 g/dL (31.0-37.0); MCV 96.4 fL (80.0-100.0); MEAN PLATELET VOLUME 9.7 fL (7.4-10.4); MONOCYTES 12.5 % (2-11); NEUTROPHILS 68.3 % (40-80); RBC 3.07 10x6/uL (4.20-6.10); WBC 5.5 10x3/uL (4.8-10.8)
[2017-02-26 06:51] LABS: PLATELET COUNT 185 10x3/uL (130-400)
[2017-02-26 07:08] LABS: ANION GAP 13.1 mmol/L (8-16); CALCIUM 9.4 mg/dL (8.5-10.1); CARBON DIOXIDE 28.7 mmol/L (21.0-32.0); CREATININE - SERUM 9.4 mg/dL (0.6-1.3); PHOSPHOROUS 4.9 mg/dL (2.5-4.9); POTASSIUM - SERUM 4.8 mmol/L (3.5-5.1)
--- NOTE | 2017-02-26 08:17 | NUR ---
EATING BREAKFAST. CALL LIGHT IN REACH
[2017-02-26 11:45] VITALS: BP 124/76
--- NOTE | 2017-02-26 12:05 | NUR ---
SITTING IN W/C IN ROOM EATING LUNCH. SCHEDULED TO GO HOME TODAY.
--- NOTE | 2017-02-26 13:21 | NUR ---
PATIENT DISCHARGING HOME WITH FAMILY. [facility]PHEN AT HOME WILL FOLLOW WITH PATIENT AT HOME. NO NEW DME NEEDED AT THIS TIME. PATIENT WILL CONTINUE WITH SAME HD DAYS ( - @ 6:00AM AT [facility] ) DR. KAUR WILL SEE PATIENT AT HD CLINIC AND DR. JAVED 03/28/17 @ 10:45, [facility] OUTPATIENT 03/28/17 @ 9:45 FOR LAB AND XRAY. PATIENT CHOICE FORM FOR HOME HEALTH AND IMFM FORM SIGNED, EXPLAINED AND FILED IN CHART.
--- NOTE | 2017-02-26 16:02 | NUR ---
REVIEWED DISCHARGE INSTRUCTIONS AND MEDICATIONS WITH PATIENT. CHART COPY SIGNED AND COPY GIVEN TO PATIENT. NO CONCERNS VOICED. MEDICATIONS CALLED INTO [facility] ON [address]. TRANSPORTED VIA WHEELCHAIR OUT TO FRONT ACCOMPANIED BY FAMILY. BUCKLED UP IN FRONT OF PERSONAL VEHICLE AND PERSONAL BELONGINGS GIVEN TO FAMILY.
== END 2017-02-26 16:05 | disposition home health service (06) | DRG 91 ==
LOC: D.REHAB 14:46
PROVIDERS: Internal Medicine Nephrology; ADMIT Emergency Medicine
PROC: 5A1D60Z (ICD-10-PCS; principal; 2017-02-14)
DX: G72.81 Critical illness myopathy (principal); N18.6 End stage renal disease; I13.2 Hypertensive heart and chronic kidney disease with heart failure and with stage 5 chronic kidney disease, or end stage renal disease; J81.1 Chronic pulmonary edema; I31.9 Disease of pericardium, unspecified; Z95.2 Presence of prosthetic heart valve; I50.9 Heart failure, unspecified; Z99.2 Dependence on renal dialysis; R09.02 Hypoxemia; R06.01 Orthopnea; E87.8 Other disorders of electrolyte and fluid balance, not elsewhere classified; F32.9 Major depressive disorder, single episode, unspecified

== ENCOUNTER → 2017-03-28 09:54 | Outpatient (CLI) | payer MEDICARE, BC ==
[2017-02-14 10:07] VITALS: BMI 33.3
[~2017-03-28 09:54] MED LIST changes: +MIDODRINE HCL2.5 MG PO; +PAXIL10 MG PO; +Topamax PO
[2017-03-28 10:40] LABS: HEMATOCRIT 34.9 % (42.0-54.0); HEMOGLOBIN 10.9 g/dL (13.5-17.5); MCH 29.9 pg (26.0-34.0); MCHC 31.2 g/dL (31.0-37.0); MCV 95.6 fL (80.0-100.0); MEAN PLATELET VOLUME 9.6 fL (7.4-10.4); RBC 3.65 10x6/uL (4.20-6.10); WBC 6.2 10x3/uL (4.8-10.8)
[2017-03-28 11:02] LABS: ALBUMIN 3.3 g/dL (3.4-5.0); ANION GAP 13.3 mmol/L (8-16); BILIRUBIN - TOTAL 0.6 mg/dL (0.2-1.3); CALCIUM 8.7 mg/dL (8.5-10.1); CARBON DIOXIDE 29.8 mmol/L (21.0-32.0); CREATININE - SERUM 7.4 mg/dL (0.6-1.3); POTASSIUM - SERUM 4.1 mmol/L (3.5-5.1); PROTEIN - SERUM 7.9 g/dL (6.4-8.2)
== END | disposition home or self-care (01) ==
LOC: D.RAD 08:00
PROVIDERS: Internal Medicine Cardiovascular Disease
DX: J91.8 Pleural effusion in other conditions classified elsewhere (principal); D64.9 Anemia, unspecified

== ENCOUNTER 2017-06-11 20:16 | Emergency (ER) | payer MEDICARE, BC ==
[2017-02-14 10:07] VITALS: BMI 33.3
[2017-06-11 21:02] LABS: BASOPHILS 0.9 % (0-2); EOSINOPHILS 5.9 % (0-7); HEMATOCRIT 39.5 % (42.0-54.0); HEMOGLOBIN 12.6 g/dL (13.5-17.5); IMMATURE GRANULOCYTES 0.2 % (0-5); LYMPHOCYTES 10.2 % (15-50); MCH 30.1 pg (26.0-34.0); MCHC 31.9 g/dL (31.0-37.0); MCV 94.5 fL (80.0-100.0); MEAN PLATELET VOLUME 10.1 fL (7.4-10.4); MONOCYTES 17.3 % (2-11); NEUTROPHILS 65.5 % (40-80); PLATELET COUNT 218 10x3/uL (130-400); RBC 4.18 10x6/uL (4.20-6.10); RDW 16.6 % (11.5-14.5); WBC 9.1 10x3/uL (4.8-10.8)
[2017-06-11 21:28] LABS: ANION GAP 16.8 mmol/L (8-16); BILIRUBIN - TOTAL 0.57 mg/dL (0.2-1.3); CALCIUM 9.2 mg/dL (8.5-10.1); CARBON DIOXIDE 28.8 mmol/L (21.0-32.0); CREATININE - SERUM 11.4 mg/dL (0.6-1.3); PROTEIN - SERUM 8.5 g/dL (6.4-8.2)
[2017-06-11 21:34] LABS: POTASSIUM - SERUM 7.6 mmol/L (3.5-5.1)
== END 2017-06-12 18:35 | disposition home or self-care (01) ==
LOC: D.ER 20:16
PROVIDERS: Family Medicine
DX: R53.1 Weakness (principal); E87.5 Hyperkalemia; I12.0 Hypertensive chronic kidney disease with stage 5 chronic kidney disease or end stage renal disease; N18.6 End stage renal disease; D64.9 Anemia, unspecified

== ENCOUNTER 2017-09-08 21:14 | Inpatient (IN) | payer MEDICARE, BC ==
[~2017-09-08] VITALS: Ht 182.9 cm; Wt 112.9 kg
[2017-09-08 21:43] LABS: BASOPHILS 1.2 % (0-2); EOSINOPHILS 6.1 % (0-7); HEMATOCRIT 43.9 % (42.0-54.0); HEMOGLOBIN 14.9 g/dL (13.5-17.5); IMMATURE GRANULOCYTES 0.2 % (0-5); LYMPHOCYTES 11.4 % (15-50); MCH 32.3 pg (26.0-34.0); MCHC 33.9 g/dL (31.0-37.0); MCV 95.2 fL (80.0-100.0); MEAN PLATELET VOLUME 10.4 fL (7.4-10.4); MONOCYTES 10.7 % (2-11); NEUTROPHILS 70.4 % (40-80); RBC 4.61 10x6/uL (4.20-6.10); RDW 15.2 % (11.5-14.5); WBC 9.1 10x3/uL (4.8-10.8)
[2017-09-08 21:44] LABS: PLATELET COUNT 150 10x3/uL (130-400)
[2017-09-08 22:07] LABS: ALBUMIN 4.2 g/dL (3.4-5.0); BILIRUBIN - TOTAL 0.53 mg/dL (0.2-1.3); CALCIUM 9.2 mg/dL (8.5-10.1); CARBON DIOXIDE 22.5 mmol/L (21.0-32.0); PROTEIN - SERUM 8.9 g/dL (6.4-8.2)
[2017-09-08 22:34] LABS: POTASSIUM - SERUM 7.5 mmol/L (3.5-5.1)
[2017-09-08 22:35] LABS: MAGNESIUM - SERUM 2.9 mg/dL (1.8-2.4)
[2017-09-08] MEDS ORDERED: TOPAMAX50 MG PO (23:33)
[2017-09-09 00:11] VITALS: BP 128/56
[2017-09-09 00:31] VITALS: BMI 34.5
[2017-09-09 01:47] LABS: ANION GAP 25.6 mmol/L (8-16); CALCIUM 9.1 mg/dL (8.5-10.1); CARBON DIOXIDE 22.5 mmol/L (21.0-32.0); CREATININE - SERUM 14.1 mg/dL (0.6-1.3)
[2017-09-09 01:49] LABS: POTASSIUM - SERUM 7.1 mmol/L (3.5-5.1)
[2017-09-09 05:50] VITALS: BP 143/79
[2017-09-09 06:53] LABS: ANION GAP 25.7 mmol/L (8-16); CALCIUM 8.8 mg/dL (8.5-10.1); CARBON DIOXIDE 22.9 mmol/L (21.0-32.0); CREATININE - SERUM 14.4 mg/dL (0.6-1.3)
[2017-09-09 06:54] LABS: POTASSIUM - SERUM 5.6 mmol/L (3.5-5.1)
[2017-09-09 07:40] VITALS: BP 142/80
[2017-09-09 14:21] VITALS: Ht 182.9 cm; Wt 112.9 kg
[2017-09-09 14:57] VITALS: BP 136/72
[2017-09-09 19:00] VITALS: BP 110/71
[2017-09-10 04:00] VITALS: BP 143/91
[2017-09-10 05:49] LABS: BASOPHILS 1.1 % (0-2); EOSINOPHILS 6.5 % (0-7); HEMATOCRIT 41.7 % (42.0-54.0); HEMOGLOBIN 13.9 g/dL (13.5-17.5); IMMATURE GRANULOCYTES 0.1 % (0-5); LYMPHOCYTES 10.8 % (15-50); MCH 31.8 pg (26.0-34.0); MCHC 33.3 g/dL (31.0-37.0); MCV 95.4 fL (80.0-100.0); MEAN PLATELET VOLUME 10.4 fL (7.4-10.4); MONOCYTES 9.4 % (2-11); NEUTROPHILS 72.1 % (40-80); PLATELET COUNT 133 10x3/uL (130-400); RBC 4.37 10x6/uL (4.20-6.10); WBC 7.4 10x3/uL (4.8-10.8)
[2017-09-10 06:24] LABS: ALBUMIN 3.6 g/dL (3.4-5.0); BILIRUBIN - TOTAL 0.5 mg/dL (0.2-1.3); CALCIUM 8.2 mg/dL (8.5-10.1); CARBON DIOXIDE 28.1 mmol/L (21.0-32.0); CREATININE - SERUM 10.9 mg/dL (0.6-1.3); PROTEIN - SERUM 7.9 g/dL (6.4-8.2)
[2017-09-10 06:28] LABS: ANION GAP 21.7 mmol/L (8-16)
[2017-09-10 06:30] LABS: PHOSPHOROUS 10.6 mg/dL (2.5-4.9); POTASSIUM - SERUM 2.8 mmol/L (3.5-5.1)
[2017-09-10 08:04] VITALS: BP 136/88
[2017-09-10 15:06] VITALS: BP 131/70
== END 2017-09-10 19:17 | disposition home or self-care (01) | DRG 640 ==
LOC: D.ER 21:14 → D.M2 23:12
PROVIDERS: Emergency Medicine; Internal Medicine Nephrology
PROC: 5A1D70Z Performance of Urinary Filtration, Intermittent, Less than 6 Hours Per Day (ICD-10-PCS; principal; 2017-09-09)
DX: E87.5 Hyperkalemia (principal); N18.6 End stage renal disease; I13.2 Hypertensive heart and chronic kidney disease with heart failure and with stage 5 chronic kidney disease, or end stage renal disease; I16.9 Hypertensive crisis, unspecified; E11.22 Type 2 diabetes mellitus with diabetic chronic kidney disease; I50.9 Heart failure, unspecified; Z99.2 Dependence on renal dialysis; E11.40 Type 2 diabetes mellitus with diabetic neuropathy, unspecified; K21.9 Gastro-esophageal reflux disease without esophagitis; F32.9 Major depressive disorder, single episode, unspecified; Z87.891 Personal history of nicotine dependence; I25.10 Atherosclerotic heart disease of native coronary artery without angina pectoris; Z95.2 Presence of prosthetic heart valve; E11.51 Type 2 diabetes mellitus with diabetic peripheral angiopathy without gangrene

== ENCOUNTER 2017-12-08 19:56 | Inpatient (IN) | payer MEDICARE, BC ==
[~2017-12-08] VITALS: Ht 182.9 cm; Wt 109.8 kg
--- NOTE | ~2017-12-08 | DS ---
PATIENT:RAE GABRIEL :61 MEDICAL RECORD: [id number] DISCHARGE SUMMARY ADMISSION DATE: 12/08/17 DISCHARGE DATE: 12/11/17 HISTORY OF PRESENT ILLNESS: Mr. Gabriel is a 52-year-old white male with end-stage renal disease, poor dietary compliance, who has recurrent admissions with volume overload and hyperkalemia. He has recently been reduced due to improved behavior to 3 times a week dialysis, seen monthly in the dialysis unit and stable. Current history dates to the evening of admission with progression of weakness and inability to walk, some shortness of breath, comes to Emergency Room with finding of a potassium of 7.3. The patient underwent emergent medical, followed by dialysis. The patient was admitted for the above. HOSPITAL COURSE: The patient underwent emergent medical and dialysis treatment for his hyperkalemia. Following that, he was markedly improved. He was begun on Veltassa therapy and will resume 4 time a week dialysis. He had no other major intercurrent issues during this admission. His last potassium at the time of discharge was 4.5 and he was reviewed about the risks of hyperkalemia. DISCHARGE DIAGNOSES: 1. Acute hyperkalemia due to dietary indiscretion, now resolved. 2. Mild pulmonary edema biventricular due to increased fluid intake. 3. End-stage renal disease. 4. Poor compliance. 5. Chronic anemia. PLAN: The patient will be discharged today. He will be seen weekly in the dialysis unit. I will see him next week. He will now be elevated to 4 time a week dialysis schedule. His discharge meds will be Veltassa 8.4 daily, amlodipine 10 bedtime, Renagel 1600 t.i.d., allopurinol 100 mg daily, Nephro-Hudson 1 daily, Lantus 5 units daily, Sensipar 30 mg daily, Pepcid 20 mg b.i.d., Topamax 50 b.i.d., Paxil 10 bedtime, Wellbutrin 75 b.i.d., baby aspirin 1 daily, Plavix 75 mg daily. TRANSINT:[id number] Voice Confirmation ID: [id number] DOCUMENT ID: [id number] KHADRA KAUR MD at 0653 CC: [id number] DICTATION DATE: 12/11/17 0746 EARLY INTERVENTION SPECIALIST: 12/11/17 1155 DIS IN 12/11/17 [facility] [address] [place] [address]
[2017-12-08 21:33] LABS: BASOPHILS 0.6 % (0-2); EOSINOPHILS 3.9 % (0-7); HEMATOCRIT 44.3 % (42.0-54.0); IMMATURE GRANULOCYTES 0.3 % (0-5); LYMPHOCYTES 5.7 % (15-50); MCH 34.4 pg (26.0-34.0); MCHC 33.9 g/dL (31.0-37.0); MCV 101.6 fL (80.0-100.0); MEAN PLATELET VOLUME 10.7 fL (7.4-10.4); NEUTROPHILS 78.5 % (40-80); RBC 4.36 10x6/uL (4.20-6.10); RDW 13.6 % (11.5-14.5); WBC 16.2 10x3/uL (4.8-10.8)
[2017-12-08 21:34] LABS: PLATELET COUNT 194 10x3/uL (130-400)
[2017-12-08 21:46] VITALS: BP 143/93
[2017-12-08 21:48] LABS: ALBUMIN 4.2 g/dL (3.4-5.0); ALKALINE PHOSPHATASE 102 U/L (46-116); ALT (SGPT) 14 U/L (10-68); CALC OSMOLALITY 288 mosm/kg (275-300); CALCIUM 7.9 mg/dL (8.5-10.1); CARBON DIOXIDE 22.7 mmol/L (21.0-32.0); CHLORIDE - SERUM 92 mmol/L (98-107); CREATINE KINASE 69 UL (21-232); GLUCOSE 123 mg/dL (74-106); PROTEIN - SERUM 9.1 g/dL (6.4-8.2); SODIUM 132 mmol/L (136-145); UREA NITROGEN 77 mg/dL (7-18); eGFR NON AFRICAN AMERICAN 4 mL/min (90-120)
[2017-12-08 22:12] LABS: POTASSIUM - SERUM 7.3 mmol/L (3.5-5.1); TROPONIN-I < 0.017 ng/mL (0.000-0.060)
[2017-12-09] VITALS (20 sets, daily range): BP systolic 143–188; BP diastolic 84–119; Ht 182.9 cm; Wt 109.8 kg
[2017-12-09] MEDS ORDERED: RENVELA800 MG PO (02:39)
[2017-12-09 06:25] LABS: ANION GAP 26.2 mmol/L (8-16); CARBON DIOXIDE 22.8 mmol/L (21.0-32.0)
[2017-12-10 00:02] VITALS: BP 141/87
[2017-12-10 05:59] LABS: BASOPHILS 0.8 % (0-2); EOSINOPHILS 6.6 % (0-7); HEMATOCRIT 37.8 % (42.0-54.0); HEMOGLOBIN 12.7 g/dL (13.5-17.5); IMMATURE GRANULOCYTES 0.2 % (0-5); LYMPHOCYTES 11.9 % (15-50); MCH 33.3 pg (26.0-34.0); MCHC 33.6 g/dL (31.0-37.0); MEAN PLATELET VOLUME 10.5 fL (7.4-10.4); MONOCYTES 13.4 % (2-11); NEUTROPHILS 67.1 % (40-80); PLATELET COUNT 162 10x3/uL (130-400); RBC 3.81 10x6/uL (4.20-6.10); RDW 13.6 % (11.5-14.5)
[2017-12-10 06:00] LABS: MCV 99.2 fL (80.0-100.0); WBC 9.7 10x3/uL (4.8-10.8)
[2017-12-10 06:07] VITALS: BP 143/97
[2017-12-10 06:16] LABS: ANION GAP 20.6 mmol/L (8-16); CALCIUM 7.6 mg/dL (8.5-10.1); CARBON DIOXIDE 24.6 mmol/L (21.0-32.0); CREATININE - SERUM 11.5 mg/dL (0.6-1.3); PHOSPHOROUS 8.2 mg/dL (2.5-4.9)
[2017-12-10 06:22] LABS: POTASSIUM - SERUM 4.2 mmol/L (3.5-5.1)
[2017-12-10 11:23] VITALS: BP 125/84
[2017-12-10 15:09] VITALS: BP 142/89
[2017-12-10 20:52] VITALS: BP 136/92
[2017-12-11 01:42] VITALS: BP 161/104
[2017-12-11 06:13] VITALS: BP 135/99
[2017-12-11 06:48] LABS: ANION GAP 22.4 mmol/L (8-16); CALCIUM 7.3 mg/dL (8.5-10.1); CARBON DIOXIDE 23.1 mmol/L (21.0-32.0); CREATININE - SERUM 13.4 mg/dL (0.6-1.3); POTASSIUM - SERUM 4.5 mmol/L (3.5-5.1)
[2017-12-11 06:52] LABS: PHOSPHOROUS 11.3 mg/dL (2.5-4.9)
[2017-12-11 07:11] LABS: BASOPHILS 1.7 % (0-2); EOSINOPHILS 13.2 % (0-7); HEMATOCRIT 37.7 % (42.0-54.0); HEMOGLOBIN 12.9 g/dL (13.5-17.5); IMMATURE GRANULOCYTES 0.1 % (0-5); LYMPHOCYTES 12.1 % (15-50); MCH 33.4 pg (26.0-34.0); MCHC 34.2 g/dL (31.0-37.0); MCV 97.7 fL (80.0-100.0); MEAN PLATELET VOLUME 10.9 fL (7.4-10.4); MONOCYTES 12.7 % (2-11); NEUTROPHILS 60.2 % (40-80); PLATELET COUNT 159 10x3/uL (130-400); RBC 3.86 10x6/uL (4.20-6.10); RDW 13.3 % (11.5-14.5); WBC 7.7 10x3/uL (4.8-10.8)
[2017-12-11 08:17] VITALS: BP 140/91
[2017-12-11] MEDS ORDERED: NORVASC10 MG PO (12:05)
[2017-12-11] MEDS ORDERED: VELTASSA8.4 GM PO (12:06)
== END 2017-12-11 15:50 | disposition home or self-care (01) | DRG 640 ==
LOC: D.ER 19:56 → D.ICU 23:17 → D.EDHOLD 23:17 → D.M2 23:17 → D.ICU 12-09 01:02 → D.M2 12-09 19:31
PROVIDERS: Emergency Medicine; Internal Medicine Nephrology
PROC: 5A1D70Z Performance of Urinary Filtration, Intermittent, Less than 6 Hours Per Day (ICD-10-PCS; principal; 2017-12-09)
DX: E87.5 Hyperkalemia (principal); N18.6 End stage renal disease; I13.2 Hypertensive heart and chronic kidney disease with heart failure and with stage 5 chronic kidney disease, or end stage renal disease; E11.22 Type 2 diabetes mellitus with diabetic chronic kidney disease; I50.9 Heart failure, unspecified; Z99.2 Dependence on renal dialysis; Z91.11 Patient's noncompliance with dietary regimen; Z86.73 Personal history of transient ischemic attack (TIA), and cerebral infarction without residual deficits; I45.10 Unspecified right bundle-branch block

== ENCOUNTER → 2018-01-06 11:31 | Outpatient (CLI) | payer MEDICARE, BC ==
[2017-12-09 08:58] VITALS: BMI 32.8
[~2018-01-06 11:31] MED LIST changes: +NORVASC10 MG PO; +VELTASSA8.4 GM PO
== END | disposition home or self-care (01) ==
LOC: D.US 11:00
DX: M79.632 Pain in left forearm (principal)

== ENCOUNTER 2018-08-03 20:35 | Inpatient (IN) | payer MEDICARE, BC ==
[~2018-08-03] VITALS: Ht 182.9 cm; Wt 113.6 kg
[2018-08-03 21:15] LABS: BASOPHILS 0.4 % (0-2); EOSINOPHILS 1.3 % (0-7); HEMATOCRIT 42.4 % (42.0-54.0); HEMOGLOBIN 14.1 g/dL (13.5-17.5); IMMATURE GRANULOCYTES 0.4 % (0-5); LYMPHOCYTES 5.7 % (15-50); MCHC 33.3 g/dL (31.0-37.0); MCV 99.3 fL (80.0-100.0); MEAN PLATELET VOLUME 10.4 fL (7.4-10.4); MONOCYTES 6.8 % (2-11); NEUTROPHILS 85.4 % (40-80); PLATELET COUNT 162 10x3/uL (130-400); RBC 4.27 10x6/uL (4.20-6.10); RDW 14.1 % (11.5-14.5); WBC 14.4 10x3/uL (4.8-10.8)
[2018-08-03 21:23] LABS: INR 1.19 (0.85-1.17); PROTIME 14.6 SECONDS (11.6-15.0)
[2018-08-03 21:24] LABS: APTT 31.7 SECONDS (22.8-39.4)
[2018-08-03 21:27] LABS: ALBUMIN 3.8 g/dL (3.4-5.0); ALKALINE PHOSPHATASE 86 U/L (46-116); ALT (SGPT) 12 U/L (10-68); BILIRUBIN - TOTAL 0.44 mg/dL (0.2-1.3); CALC OSMOLALITY 298 mosm/kg (275-300); CALCIUM 8.6 mg/dL (8.5-10.1); CARBON DIOXIDE 21.4 mmol/L (21.0-32.0); CHLORIDE - SERUM 95 mmol/L (98-107); CREATININE - SERUM 11.6 mg/dL (0.6-1.3); POTASSIUM - SERUM 4.5 mmol/L (3.5-5.1); PROTEIN - SERUM 8.4 g/dL (6.4-8.2); SODIUM 136 mmol/L (136-145); UREA NITROGEN 71 mg/dL (7-18); eGFR NON AFRICAN AMERICAN 5 mL/min (90-120)
[2018-08-03 21:32] LABS: GLUCOSE 199 mg/dL (74-106)
[2018-08-03 21:40] LABS: CKMB 1.4 U/L (0.0-3.6); CREATINE KINASE 67 UL (21-232); PRO BNP 17514 pg/mL (0-125)
[2018-08-03 21:59] VITALS: BP 142/93
[2018-08-03 22:28] VITALS: BP 125/93
[2018-08-03 23:35] VITALS: BP 120/76
[2018-08-03 23:50] VITALS: BP 124/80
--- NOTE | 2018-08-04 00:35 | NUR ---
PT ARRIVEDVIA W/C FROM ER WITH DX OF PNEUMONIA, ESRD. O2 2LNC. NO DISTRESS NOTED. ZITHROMAX INFUSING ON ARRIVAL. LFA FISTULA WITH GOOG BRUIT AND THRILL. TELEMETRY NOT AVAILABLE AT THIS TIME. CALL LIGHT WITHIN REACH.
[2018-08-04] MEDS ORDERED: LEVEMIR IN100 UNITS/ SC ×2 (00:49→00:50)
[2018-08-04] MEDS ORDERED: ZYLOPRIM100 MG PO (01:05)
[2018-08-04] MEDS ORDERED: CARDIZEM120 MG PO (01:07)
[2018-08-04] MEDS ORDERED: COREG6.25 MG PO (01:07)
[2018-08-04] MEDS ORDERED: LIPITOR20 MG PO (01:08)
[2018-08-04] MEDS ORDERED: LONITEN10 MG PO (01:09)
[2018-08-04] MEDS ORDERED: PEPCID AC20 MG PO (01:11)
[2018-08-04] MEDS ORDERED: BUPROPION HCL75 MG PO (01:14)
[2018-08-04] MEDS ORDERED: CARDIZEM CD240 MG PO (01:17)
[2018-08-04 01:22] VITALS: BP 124/81; BMI 35.9
--- NOTE | 2018-08-04 01:30 | NUR ---
ADMISSION ASSESSMENT, HISTORY AND HOME MED LIST COMPLETED. PT DENIES ANY DISCOMFORT. IV TO RFA SL. DISTAL DIGIT OF 3RD AND 4TH FINGER ON R HAND MISSING. LFA AVF WITH GOOD BRUIT AND THRILL. SR UP X1, CALL LIGHT WITHIN REACH.
--- NOTE | 2018-08-04 03:12 | NUR ---
PT RESTING WITH EYES CLOSED. RESP EVEN AND REGULAR. SR UP X2, CALL LIGHT WITHIN REACH.
[2018-08-04 03:45] VITALS: BP 127/81
--- NOTE | 2018-08-04 04:09 | NUR ---
PT RESTING WITH EYES CLOSED. RESP EVEN AND REGULAR. SR UP X1, CALL LIGHT WITHIN REACH.
[2018-08-04 05:47] LABS: BASOPHILS 0.7 % (0-2); EOSINOPHILS 1.4 % (0-7); HEMATOCRIT 38.6 % (42.0-54.0); HEMOGLOBIN 12.7 g/dL (13.5-17.5); IMMATURE GRANULOCYTES 0.2 % (0-5); LYMPHOCYTES 10.7 % (15-50); MCH 32.7 pg (26.0-34.0); MCHC 32.9 g/dL (31.0-37.0); MCV 99.5 fL (80.0-100.0); MEAN PLATELET VOLUME 10.3 fL (7.4-10.4); PLATELET COUNT 159 10x3/uL (130-400); RBC 3.88 10x6/uL (4.20-6.10); RDW 14.3 % (11.5-14.5); WBC 11.1 10x3/uL (4.8-10.8)
--- NOTE | 2018-08-04 06:13 | NUR ---
VSS THROUGHOUT NIGHT. PT DENIED ANY DISCOMFORT. NEEDS MET; WILL CONTINUE TO MONITOR.
[2018-08-04 06:44] LABS: CALCIUM 7.8 mg/dL (8.5-10.1); CARBON DIOXIDE 18.7 mmol/L (21.0-32.0); CREATININE - SERUM 12.6 mg/dL (0.6-1.3); POTASSIUM - SERUM 4.7 mmol/L (3.5-5.1)
[2018-08-04 08:51] VITALS: BP 147/87
--- NOTE | 2018-08-04 09:34 | NUR ---
SPOKE WITH SALVATORE FROM PHARMACY AND ASKED IF I COULD GET THE HERON AND LANG AND SHE STATED SHE WILL TELL THEM.
--- NOTE | 2018-08-04 10:47 | NUR ---
NO TELEMETRY MONITORS AVAILABLE.
[2018-08-04 12:39] VITALS: BP 119/76
[2018-08-04 13:46] VITALS: Ht 182.9 cm; Wt 113.6 kg
--- NOTE | 2018-08-04 14:41 | NUR ---
PT TAKEN TO DIALYSIS VIA WC.
[2018-08-04 20:00] VITALS: BP 109/79
--- NOTE | 2018-08-04 21:40 | NUR ---
AMBULATING IN ROOM. ADMIN SCHED MEDS AND INSULINS FOR BS 247. GAVE DIABETIC SNACK OF VANILLA WAFTERS AND APPLESAUCE. STATED HE WAS HOT, ADJ THE THERMOSTAT DOWN COOLER FOR HIM. NO OTHER NEEDS VOICED.
[2018-08-05] VITALS: BP 125/61; BP 138/92
--- NOTE | 2018-08-05 02:30 | NUR ---
RESTING WITH EYES CLOSED. RR 18 EVEN U/L. NO S/S OF DISCOMFORT. BED IS LOW WITH SR UP X2, CL IN REACH.
[2018-08-05 04:00] VITALS: BP 132/81
--- NOTE | 2018-08-05 05:30 | NUR ---
SITTING ON SIDE OF BED. DENIES ANY NEEDS.
[2018-08-05 09:57] VITALS: BP 148/79
[2018-08-05 18:48] VITALS: BP 121/71
[2018-08-05 20:00] VITALS: BP 126/82
--- NOTE | 2018-08-06 03:57 | NUR ---
RN NOTE: PATIENT RESTING COMFORTABLY IN BED. RESPIRATIONS ARE EVEN AND UNLABORED. NO S/S OF DISTRESS. NO C/O PAIN. CALL LIGHT WITHIN REACH. WILL CPOC.
[2018-08-06 04:00] VITALS: BP 134/88
[2018-08-06 06:46] LABS: BASOPHILS 0.6 % (0-2); EOSINOPHILS 3.2 % (0-7); HEMATOCRIT 36.5 % (42.0-54.0); HEMOGLOBIN 12.4 g/dL (13.5-17.5); IMMATURE GRANULOCYTES 0.4 % (0-5); LYMPHOCYTES 7.4 % (15-50); MCH 33.2 pg (26.0-34.0); MCV 97.9 fL (80.0-100.0); MONOCYTES 10.3 % (2-11); NEUTROPHILS 78.1 % (40-80); PLATELET COUNT 175 10x3/uL (130-400); RBC 3.73 10x6/uL (4.20-6.10); RDW 13.8 % (11.5-14.5); WBC 10.3 10x3/uL (4.8-10.8)
[2018-08-06 07:16] LABS: ANION GAP 24.8 mmol/L (8-16); CALCIUM 8.4 mg/dL (8.5-10.1); CARBON DIOXIDE 21.1 mmol/L (21.0-32.0); CREATININE - SERUM 11.7 mg/dL (0.6-1.3); POTASSIUM - SERUM 3.9 mmol/L (3.5-5.1)
--- NOTE | 2018-08-06 07:46 | NUR ---
ROUNDING DONE WITH PATIENT SITTING ON SIDE OF BED, DENIES NEEDS AT THIS TIME. GLASSES ON. RESEVR. LEFT ARM WITH AVF, + BRUIT AND THRILL. RIGHT FA PIV SEEN WITH SALINE LOCK AND ORANGE SWAB CAP IN USE. ON ROOM AIR. FOR DIALYSIS TODAY.
--- NOTE | 2018-08-06 08:43 | NUR ---
TO DIALYSIS VIA WHEELCHAIR WITH LAURITA TAYLOR APN.
--- NOTE | 2018-08-06 09:42 | MORECARE ---
CASE MANAGEMENT DISCHARGE SUMMARY PATIENT: RAE ARSHAD UNIT: [id number] ADM DATE: 08/03/18 AGE: 53 : 61 SEX: M ROOM/BED: D.2140 AUTHOR: NIC RIVERA PHYSICIAN: REFERRING PHYSICIAN: RAFFI POSADAS MD DATE OF SERVICE: 08/06/18 Discharge Plan Patient Name: RAE ARSHAD Facility: [facility]:[place] : 1965 Planned Disposition: Home Anticipated Discharge Date: 08/06/18 Discharge Date: Expected LOS: 3 Initial Reviewer: [email or web address] Initial Review Date: 08/06/2018 Generated: 08/06/18 10:42 am Coverage Notice Reviewer: [email or web address] - Chencho Baez Notice Issued Date-Time: 08/06/2018 8:40 Notice Type: IM Discharge Notice Notice Delivered To: Patient Relationship to Patient: Sock Liner Name: Delivery Method: HAND - Hand Delivered Lianet Days: Prior Verbal Notification: Recipient Understood Notice: Yes Recipient Signature: Yes Med Rec Note Co-signed by Attending: Coverage Notice Comment: Patient Name: RAE ARSHAD Page [phone] at 0942 All edits/amendments must be made on the electronic document DICTATION DATE: 08/06/18940 LUMBER PULLER: TEENA 08/06/18940 RPT#: [id number] DC DATE: STATUS: ADM IN [place] [place] [address] [place] [address] END OF REPORT
--- NOTE | 2018-08-06 09:49 | MORECARE ---
CASE MANAGEMENT DISCHARGE SUMMARY PATIENT: RAE ARSHAD UNIT: [id number] ADM DATE: 08/03/18 AGE: 53 : 61 SEX: M ROOM/BED: D.2140 AUTHOR: MIGUEL,DOC PHYSICIAN: REFERRING PHYSICIAN: RAFFI POSADAS MD DATE OF SERVICE: 08/06/18 Discharge Plan Patient Name: RAE ARSHAD Facility: [facility]:[place] : 1965 Planned Disposition: Home Anticipated Discharge Date: 08/06/18 Discharge Date: Expected LOS: 3 Initial Reviewer: [email or web address] Initial Review Date: 08/06/2018 Generated: 08/06/18 10:49 am DCPIA - Discharge Planning Initial Assessment Updated by DOUG: Chencho Baez on 08/06/18 9:43 am * Is the patient Alert and Oriented? Yes * How many steps to enter\exit or inside your home? * PCP DR. KAUR * Pharmacy [facility] * Preadmission Environment Home with Family * ADLs Independent * Equipment Walker * Other Equipment [facility] - MEDICAL EQUIPMENT PROVIDER * List name and contact numbers for known caregivers / representatives who currently or will assist patient after discharge: JC BRADSHAW, MOTHER, GEOVANY ARSHAD, BROTHER, * Verbal permission to speak to the caregivers and representatives has been obtained from the patient. N/A * Community resources currently utilized Other * Please name any agencies selected above. OUTPATIENT DIALYSIS, [facility], MWF, 0600, [facility] (PAYING FOR SERVICE, DOES NOT HAVE MEDICAID) * Additional services required to return to the preadmission environment? No * Can the patient safely return to the preadmission environment? Yes * Has this patient been hospitalized within the prior 30 days at any hospital? No Coverage Notice Reviewer: [id number] - Chencho Baez Notice Issued Date-Time: 08/06/2018 8:40 Notice Type: IM Discharge Notice Notice Delivered To: Patient Relationship to Patient: Fire Investigation Manager Name: Delivery Method: HAND - Hand Delivered Lianet Days: Prior Verbal Notification: Recipient Understood Notice: Yes Recipient Signature: Yes Med Rec Note Co-signed by Attending: Coverage Notice Comment: Last DP export: 08/06/18 8:42 am Patient Name: RAE ARSHAD Page [phone] at 0949 All edits/amendments must be made on the electronic document DICTATION DATE: 08/06/18947 MAINTENANCE PARTS TECHNICIAN: TEENA 08/06/18947 RPT#: [id number] DC DATE: STATUS: ADM IN [facility] [address] [place] [address] END OF REPORT
--- NOTE | 2018-08-06 09:57 | MORECARE ---
CASE MANAGEMENT DISCHARGE SUMMARY PATIENT: RAE ARSHAD UNIT: [id number] ADM DATE: 08/03/18 AGE: 53 : 61 SEX: M ROOM/BED: D.2140 AUTHOR: NIC RIVERA PHYSICIAN: REFERRING PHYSICIAN: RAFFI POSADAS MD DATE OF SERVICE: 08/06/18 Discharge Plan Patient Name: RAE ARSHAD Facility: [facility]:[place] : 1965 Planned Disposition: Home Anticipated Discharge Date: 08/06/18 Discharge Date: Expected LOS: 3 Initial Reviewer: [email or web address] Initial Review Date: 08/06/2018 Generated: 08/06/18 10:57 am Comments DCP- Discharge Planning Updated by [email or web address]: Chencho Baez on 08/06/18 8:[address] Patient Name: RAE ARSHAD Admission Status: ER Accout number: [id number] Admission Date: 08-03-2018 : 1965 Admission Diagnosis:COUGH Attending: RAFFI POSADAS Current LOS: 3 Anticipated DC Date: 08-06-2018 Planned Disposition: Home Primary Insurance: MEDICARE A & B Discharge Planning Comments: CM MET WITH PT IN ROOM TO DISCUSS DISCHARGE PLANNING AND NEEDS. PT REPORTS LIVING AT HOME INDEPENDENTLY WITH HIS MOTHER AND ADULT BROTHER. PT HAS WALKER THAT HE USES SOMETIME, MEDICAL EQUIPMENT PROVIDER IS [employer]. PT HAS NO OUTSIDE SERVICES ASSISTING IN THE HOME. PT GOES TO OUTPATIENT DIALYSIS AT [facility], MWF, 0600, UTILIZES MEDICAID TRANSPORT ORTA PAY PATIENT. CM DISCUSSED AVAILABILITY OF HOME HEALTH, REHAB SERVICES AND MEDICAL EQUIPMENT. PT DENIES DISCHARGE NEEDS, REPORTS HE WILL BE TAKING [facility] ([facility]) BUS FOR DISCHARGE HOME TODAY. IMPORTANT MESSAGE FROM MEDICARE PROVIDED AND EXPLAINED. CM CALLED MEDICAID TRANSPORTATION, , SPOKE TO KEN WHO INFORMED CM THAT ALL THAT WE NEED TO DO IS CALL AND THEY WILL COME AND DRAWING CHECKER, THEY KNOW PT VERY WELL. SENIOR MANAGER QUALITY ASSURANCE NURSE NOTIFIED. CALL MEDICAID TRANSPORTATION, , WHEN PT IS READY FOR DRAWING CHECKER TODAY FOR TRANSPORT HOME. Quantitative Research Analyst: Chencho Baez DCPIA - Discharge Planning Initial Assessment Updated by [email or web address]: Chencho Baez on 08/06/18 9:43 am * Is the patient Alert and Oriented? Yes * How many steps to enter\exit or inside your home? * PCP DR. KAUR * Pharmacy [facility] ON [address] * Preadmission Environment Home with Family * ADLs Independent * Equipment Walker * Other Equipment [facility] - MEDICAL EQUIPMENT PROVIDER * List name and contact numbers for known caregivers / representatives who currently or will assist patient after discharge: JC BRADSHAW, MOTHER, GEOVANY ARSHAD, BROTHER, * Verbal permission to speak to the caregivers and representatives has been obtained from the patient. N/A * Community resources currently utilized Other * Please name any agencies selected above. OUTPATIENT DIALYSIS, [facility], MWF, 0600, [facility] (PAYING FOR SERVICE, DOES NOT HAVE MEDICAID) * Additional services required to return to the preadmission environment? No * Can the patient safely return to the preadmission environment? Yes * Has this patient been hospitalized within the prior 30 days at any hospital? No Coverage Notice Reviewer: [id number] Barbara Baez Notice Issued Date-Time: 08/06/2018 8:40 Notice Type: IM Discharge Notice Notice Delivered To: Patient Relationship to Patient: Automobile Contract Clerk Name: Delivery Method: HAND - Hand Delivered Lianet Days: Prior Verbal Notification: Recipient Understood Notice: Yes Recipient Signature: Yes Med Rec Note Co-signed by Attending: Coverage Notice Comment: Last DP export: 08/06/18 8:49 am Patient Name: RAE ARSHAD Page 40931 at 0957 All edits/amendments must be made on the electronic document DICTATION DATE: 08/06/18955 ELECTROTHERAPIST: TEENA 08/06/18955 RPT#: [id number] DC DATE: STATUS: ADM IN [facility] [address] [place] [address] END OF REPORT
[2018-08-06] MEDS ORDERED: ZPAK PO (11:27)
--- NOTE | 2018-08-06 12:27 | NUR ---
PATIENT IS STILL IN DIALYSIS.
--- NOTE | 2018-08-06 13:43 | NUR ---
STILL IN DIALYSIS.
--- NOTE | 2018-08-06 14:33 | NUR ---
STILL OFF FLOOR IN DIALYSIS.
--- NOTE | 2018-08-06 15:01 | NUR ---
RETURNS FROM DIALYSIS.
--- NOTE | 2018-08-06 15:34 | NUR ---
SALINE LOCK REMOVED WITH CATH TIP INTACT. VERBAL AND WRITTEN DISCHARGE GIVEN TO PATIENT. AWAITING [facility] FOR TRANSPORT.
--- NOTE | 2018-08-06 15:58 | NUR ---
DISCHARGED HOME VIA WHEELCHAIR PER [facility] BUS.
== END 2018-08-06 15:58 | disposition home or self-care (01) | DRG 291 ==
LOC: D.ER 20:35 → D.M2 22:43 → D.EDHOLD 22:43 → D.M2 23:48
PROVIDERS: Family Medicine; Internal Medicine Nephrology; ADMIT Internal Medicine Nephrology; ATTEND Internal Medicine Nephrology
PROC: 5A1D70Z Performance of Urinary Filtration, Intermittent, Less than 6 Hours Per Day (ICD-10-PCS; principal; 2018-08-04)
DX: I50.9 Heart failure, unspecified (principal); J18.9 Pneumonia, unspecified organism; N18.6 End stage renal disease; E11.22 Type 2 diabetes mellitus with diabetic chronic kidney disease; Z99.2 Dependence on renal dialysis; E11.40 Type 2 diabetes mellitus with diabetic neuropathy, unspecified; I73.9 Peripheral vascular disease, unspecified; F32.9 Major depressive disorder, single episode, unspecified; Z86.73 Personal history of transient ischemic attack (TIA), and cerebral infarction without residual deficits

== ENCOUNTER 2018-09-14 20:54 | Inpatient (IN) | payer MEDICARE, BC ==
[~2018-09-14] VITALS: Ht 182.9 cm; Wt 119.3 kg
--- NOTE | ~2018-09-14 | HEMODYNAMI ---
PATIENT:RAE ARSHAD MEDICAL RECORD: [id number] : 61 [id number] ADMISSION DATE: 09/14/18 Generatedon:09/19/201812:43 Patient name: RAE ARSHAD Patient #: [id number] SSN: [id number] : 1965 Date of study: 09/19/2018 Page: Of Hemodynamic Procedure Report Patient Data Patient Demographics Procedure consent was obtained First Name: RAE Gender: Male Last Name: JEANCARLOS : 1965 [facility] Initial: Sánchez Age: 53 year(s) Patient #: [id number] Race: SSN: [id number] Additional ID: [id number] Contact details [address]: [address] [place] [address] State: [place] City: [place] Zip code: [address] Admission Admission Data Admission Date: 09/14/2018 Admission Time: 22:42 Room #: D.2104 Procedure Procedure Types Cath Procedure Diagnostic Procedure MICKY Procedure Description Procedure Date Procedure Date: 09/19/2018 Procedure Start Time: 12:14 Procedure Staff Name Function Hermes Gray MD Performing Physician Santana Dotson RT Monitor Kartik Polk RN Nurse Pradip Durbin Jr BUSINESS SERVICES VICE PRESIDENT Additional personnel Robert Bills Drier And Evaporator Operator Yanet Adams RT Monitor Procedure Medications Medication Administration Route Dosage Oxygen etCO2 Nasal cannula 2 l/min Refer to Anesthesia Notes for Sedation Medications Hemodynamics Rest Heart Rate: 75 (bpm) Snapshots Pre Cath Intra NCS Post Cath Vital Signs Time Heart Resp SPO2 etCO2 NIBP (mmHg) Rhythm Pain Sedation Rate (ipm) (%) (mmHg) Status Level (bpm) 12:34:06 76 20 96 28.4 167/104(135) NSR 0 (11) 10(A) , No pain 12:38:24 75 25 97 28.3 151/108(134) NSR 0 (11) 10(A) , No pain 12:43:23 77 16 97 29.8 Measuring NSR 0 (11) 10(A) , No pain Medications Time Medication Route Dose Verified Delivered Reason Notes Effective ness by by 12:39:19 Oxygen etCO2 2 Hermes Verdugo used for Nasal l/min Marina Polk rug dyer helper cannula 12:39:29 Refer to Hermes Verdugo Anesthesia Marina Polk RN Notes for Sedation Medications Procedure Log Time Note 12:10:31 Santana Dotson RT(R) sent for patient. Start room use. 12:19:31 Time tracking: Regular hours (M-F 7:00 - 5:00) 12:19:35 Plan of Care:Hemodynamics will remain stable., Cardiac rhythm will remain stable., Comfort level will be maintained., Respiratory function will remain adequate., Patient/ family verbilizes understanding of procedure., Procedure tolerated without complication., Recovers from procedure without complications.. 12:32:38 Patient arrived from Med II to CCL 3. Patient remains on bed/stretcher for procedure. 12:32:41 Warm blankets applied, and naveen hugger turned on for patient comfort. 12:32:41 Correct patient and procedure confirmed by team. 12:32:44 Signed procedure consent form obtained from patient. 12:32:49 ECG and BP/O2 sat monitors applied to patient. 12:32:58 Vital chart was started 12:33:23 Pradip Durbin Jr, CRNA present and monitoring patient for TIVA. 12:33:34 Baseline sample Acquired. 12:33:37 Rhythm: sinus rhythm 12:33:39 Full Disclosure recording started 12:34:06 H&P Date Dictated: 09/14/2018 Within 30 days and on chart.. 12:34:07 Pre-procedure instructions explained to patient. 12:34:07 Pre-op teaching completed and patient verbalized understanding. 12:34:09 Family unavailable. 12:34:11 Patient NPO since Breakfast. 12:34:13 Is the patient allergic to Iodine/contrast media? No. 12:34:31 Is patient on blood thinner?Unknown 12:34:33 Patient diabetic? Yes. 12:34:34 If diabetic: On Metformin? Unknown 12:34:45 Previous problem with sedation/anesthesia? No ? 12:34:46 Snore? Yes 12:34:47 Sleep apnea? Yes 12:34:50 Deviated septum? No 12:34:51 Opens mouth fully? Yes 12:34:52 Sticks out tongue? Yes 12:35:00 Airway obstruction? Yes COPD 12:35:06 Dentures? Yes IN 12:35:09 Patient pain scale 0/10 ?. 12:35:14 IV patent on arrival in right forearm with 0.9% NaCl at O. 12:35:16 Lab results completed and on chart. 12:35:37 Robert Bills Cleat Layer present for MICKY. 12:36:36 --------ALL STOP TIME OUT------ 12:36:36 Final Timeout: patient, procedure, and site verified with staff and physician. All members of the team are in agreement. 12:36:53 Fire Safety Assessment: C--Open oxygen or nitrous oxide is being used. 12:36:57 Physical assessment completed. ASA score P 4 - A patient with severe systemic disease that is a constant threat to life as per Hermes Gray MD. 12:37:00 Sedation plan: TIVA Medication:Propofol 12:39:19 Oxygen 2 l/min etCO2 Nasal cannula was administered by Kartik Polk RN; used for procedure; 12:39:29 Refer to Anesthesia Notes for Sedation Medications was administered by Kartik Polk RN; ; 12:42:12 procedure cancelled by anesthesia and Dr. Gray, DUE TO PATIENT NOT KEPT NPO 12:43:55 Vital chart was stopped Signature Audit Koppel Stage Time Signature Unsigned Intra-Procedure 09/19/2018 Yanet 12:43:51 PM Counts RT(R) Signatures Monitor : Santana Dotson RT Signature : Date : Time : Monitor : Yanet Signature : Counts RT Date : Time : [place] [address] [place] [address]
--- NOTE | ~2018-09-14 | DS ---
PATIENT:RAE GABRIEL :[birth year] MEDICAL RECORD: [id number] DISCHARGE SUMMARY ADMISSION DATE: 09/14/18 DISCHARGE DATE: HISTORY OF PRESENT ILLNESS: Mr. Gabriel is a 53-year-old white male with end-stage renal disease and poor dietary compliance on dialysis 4 times weekly due to his large interdialytic volume gains, was admitted short of breath and was admitted with development of shortness of breath. HOSPITAL COURSE: The patient underwent recurrent acute dialysis. His initial blood cultures were positive for Staph epi. He has a history of a prosthetic aortic valve and was begun on vancomycin therapy. His initial 2D echocardiogram was negative for any have evidence of endocarditis. Consulted by Dr. Brennan of infectious disease who recommended repeat cultures and MICKY. Consequently had a MICKY done by Dr. Han that was essentially negative. His second set of blood cultures were negative at 6 days. At the time of discharge, he was down approximating his dry weight. He was not short of breath and his telemetry strips were stable. DISCHARGE DIAGNOSES: 1. Shortness of breath, probably on the basis of volume overload in a hemodialysis patient. 2. Positive blood culture with Staphylococcus epidermidis a probable contaminant with negative echocardiography. 3. End-stage renal disease. 4. Diabetes mellitus. 5. Chronic anemia. 6. History of hypertension. PLAN: The patient will be discharged today. He will be in dialysis tomorrow. He will resume his dialysis schedule. DISCHARGE MEDICATIONS: Will be Levemir 20 at bedtime, Levemir 20 every morning. He will have Renvela 3200 t.i.d., folic acid 1 daily, minoxidil 5 b.i.d., allopurinol 100 mg daily, Lipitor 20 mg daily, Wellbutrin 75 bedtime, Pepcid 20 b.i.d., Neurontin 200 b.i.d., Coreg 6.25 b.i.d., diltiazem 240 b.i.d., hydralazine on a p.r.n. basis. TRANSINT:[id number] Voice Confirmation ID: [id number] DOCUMENT ID: [id number] KHADRA KAUR MD CC: [id number] DICTATION DATE: 09/23/18621 GASSER MACHINE OPERATOR: 09/23/18 08 [facility] IN [place] [address] [place] [address]
--- NOTE | ~2018-09-14 | HEMODYNAMI ---
PATIENT:RAE ARSHAD MEDICAL RECORD: [id number] : [birth year] [id number] ADMISSION DATE: 09/14/18 Generatedon:09/22/201815:59 Patient name: RAE ARSHAD Patient #: [id number] SSN: [id number] : 1965 Date of study: 09/22/2018 Page: Of Hemodynamic Procedure Report Patient Data Patient Demographics Procedure consent was obtained First Name: RAE Gender: Male Last Name: JEANCARLOS : 1965 [facility] Initial: Sánchez Age: 53 year(s) Patient #: [id number] Race: SSN: [id number] Additional ID: [id number] Contact details Address: [address] [place] [address] State: [place] City: [place] Zip code: [address] Admission Admission Data Admission Date: 09/14/2018 Admission Time: 22:42 Room #: D2104 Procedure Procedure Types Cath Procedure Diagnostic Procedure MICKY Procedure Description Procedure Date Procedure Date: 09/22/2018 Procedure Start Time: 15:47 Procedure End Time: 15:58 Procedure Staff Name Function Thomas Li MD Performing Physician Santana Dotson RT Monitor Wanda Ferreira RT Scrub Kartik Polk RN Nurse Courtney Aleman CRNA Additional personnel Gómez Fuentes Senior Environmental Practice Leader Kierra Franco Senior Environmental Practice Leader Procedure Data Cath Procedure Fluoroscopy Diagnostic fluoroscopy Total fluoroscopy Time: 0 time: 0 min min Diagnostic fluoroscopy Total fluoroscopy dose: 0 dose: 0 mGy mGy Contrast Material Contrast Material Type Amount (ml) Isovue 300 0 Estimated blood loss: 0 ml Procedure Complications No complications Hemodynamics Rest Heart Rate: 77 (bpm) Snapshots Pre Cath Intra NCS Post Cath Vital Signs Time Heart Resp SPO2 etCO2 NIBP (mmHg) Rhythm Pain Sedation Rate (ipm) (%) (mmHg) Status Level (bpm) 15:42:29 74 15 95 0 148/91(126) NSR 0 (11) 10(A) , No pain 15:46:47 78 30 92 0 Aborted NSR 0 (11) 10(A) , No pain 15:50:38 79 23 92 0 130/66(96) NSR 0 (11) 10(A) , No pain 15:54:55 77 14 97 0 115/68(89) NSR 0 (11) 10(A) , No pain 15:57:50 68 14 98 0 109/66(80) NSR 0 (11) 10(A) , No pain Procedure Log Time Note 15:36:01 Santana Dotson RT(R) sent for patient. Start room use. 15:36:02 Time tracking: Regular hours (M-F 7:00 - 5:00) 15:36:09 Plan of Care:Hemodynamics will remain stable., Cardiac rhythm will remain stable., Comfort level will be maintained., Respiratory function will remain adequate., Patient/ family verbilizes understanding of procedure., Procedure tolerated without complication., Recovers from procedure without complications.. 15:38:40 Patient received from Med II to [facility] 3 Alert and oriented. Tansferred to table in Supine position. 15:38:41 Warm blankets applied, and naveen hugger turned on for patient comfort. 15:38:42 Correct patient and procedure confirmed by team. 15:38:44 Signed procedure consent form obtained from patient. 15:38:45 ECG and BP/O2 sat monitors applied to patient. 15:41:17 Vital chart was started 15:41:18 Baseline sample Acquired. 15:41:40 Rhythm: atrial fibrillation 15:41:43 Full Disclosure recording started 15:41:47 H&P Date Dictated: 09/22/2018 New H&P dictated by physician.. 15:41:49 Pre-procedure instructions explained to patient. 15:41:49 Pre-op teaching completed and patient verbalized understanding. 15:41:52 Family unavailable. 15:41:53 Patient NPO since Midnight. 15:41:55 Is the patient allergic to Iodine/contrast media? No. 15:41:56 Was the patient premedicated? Yes 15:42:10 Patient diabetic? Yes. 15:42:11 If diabetic: On Metformin? No 15:42:14 Previous problem with sedation/anesthesia? No ? 15:42:16 Snore? Yes 15:42:17 Sleep apnea? No 15:42:18 Deviated septum? No 15:42:19 Opens mouth fully? Yes 15:42:20 Sticks out tongue? Yes 15:42:22 Airway obstruction? No ? 15:42:25 Dentures? No ? 15:42:29 Pre procedure: right dorsailis pedis pulse 2+ Normal; easily identifiable; not easily obliterated 15:42:32 Pre procedure: left dorsailis pedis pulse 2+ Normal; easily identifiable; not easily obliterated 15:42:34 Patient pain scale 0/10 ?. 15:42:40 IV patent on arrival in left forearm with 0.9% NaCl at [facility]. 15:42:42 Lab results completed and on chart. 15:42:49 Alarms reviewed by RRanjit N. 15:42:49 Sharps counted by scrub and verified by R.N. 15:43:13 ACC The patient was administered the following blood thiners within the last 24 hours: ACCLovenox 15:43:22 Physician arrived 15:43:23 --------ALL STOP TIME OUT------ 15:43:23 Final Timeout: patient, procedure, and site verified with staff and physician. All members of the team are in agreement. 15:43:31 Fire Safety Assessment: A--An alcohol-based skin anteseptic being used preoperatively., C--Open oxygen or nitrous oxide is being used., D--An ESU, laser, or fiber-optic light is being used. 15:43:42 Physical assessment completed. ASA score P 4 - A patient with severe systemic disease that is a constant threat to life as per Thomas Li MD. 15:43:47 Sedation plan: TIVA Medication:Propofol 15:47:04 Courtney Aleman CRNA present and monitoring patient for TIVA. 15:47:08 Procedure started. 15:47:09 MICKY started. 15:47:26 Gómez Gina Window Shade Ring Sewer present for MICKY. 15:55:50 MICKY completed. 15:55:55 Procedure ended.(Physican Out) 15:56:08 Fluoroscopy time 00.00 minutes. 15:56:11 Fluoroscopy dose: 0 mGy 15:56:11 Flurop Dose total: 0 15:56:15 Contrast amount:Isovue 300 0ml. 15:56:25 Sharps counted by scrub and verified by R.N. 15:56:28 Insertion/operative site no bleeding no hematoma. 15:56:30 Post Procedure Pulses reassessed and unchanged 15:56:33 Post procedure rhythm: unchanged. 15:56:38 Estimated blood loss: 0 ml 15:56:43 Post procedure instruction explained to patient.Patient verbalizes understanding. 15:56:43 Patient needs reinforcement of post procedure teaching. 15:57:06 Procedure and supply charges have been captured, reviewed, submitted and are correct. 15:57:19 Procedure Complication : No complications 15:57:34 Vital chart was stopped 15:57:38 See physician's report for complete and final results. 15:57:50 Report given to Med II. 15:58:01 Procedure ended. 15:58:01 Full Disclosure recording stopped 15:58:06 End room use (Document Last) Signature Audit Beaver Stage Time Signature Unsigned Intra-Procedure 09/22/2018 Wanda Ferreira 3:59:10 PM RT(R) Signatures Monitor : Santana Dotson RT Signature : Date : Time : [place] [id number] [place] [address]
[~2018-09-14 20:54] MED LIST changes: +CARDIZEM120 MG PO; +COREG6.25 MG PO; +LEVEMIR IN100 UNITS/ SC; +LIPITOR20 MG PO; +PEPCID AC20 MG PO; +ZPAK PO
[2018-09-14 21:41] LABS: BASOPHILS 0.8 % (0-2); EOSINOPHILS 3.4 % (0-7); HEMATOCRIT 40.6 % (42.0-54.0); IMMATURE GRANULOCYTES 0.3 % (0-5); LYMPHOCYTES 7.3 % (15-50); MCH 33.9 pg (26.0-34.0); MCHC 34.5 g/dL (31.0-37.0); MCV 98.3 fL (80.0-100.0); MEAN PLATELET VOLUME 10.5 fL (7.4-10.4); MONOCYTES 6.5 % (2-11); NEUTROPHILS 81.7 % (40-80); PLATELET COUNT 207 10x3/uL (130-400); RBC 4.13 10x6/uL (4.20-6.10); RDW 15.2 % (11.5-14.5)
[2018-09-14 21:46] LABS: INR 1.18 (0.85-1.17); PROTIME 14.4 SECONDS (11.6-15.0)
[2018-09-14 21:47] LABS: APTT 32.4 SECONDS (22.8-39.4)
[2018-09-14 22:05] LABS: ALKALINE PHOSPHATASE 105 U/L (46-116); ALT (SGPT) 20 U/L (10-68); BILIRUBIN - TOTAL 0.41 mg/dL (0.2-1.3); CALC OSMOLALITY 298 mosm/kg (275-300); CALCIUM 7.6 mg/dL (8.5-10.1); CARBON DIOXIDE 21.8 mmol/L (21.0-32.0); CHLORIDE - SERUM 91 mmol/L (98-107); CREATININE - SERUM 11.5 mg/dL (0.6-1.3); POTASSIUM - SERUM 3.8 mmol/L (3.5-5.1); PROTEIN - SERUM 8.8 g/dL (6.4-8.2); SODIUM 133 mmol/L (136-145); UREA NITROGEN 88 mg/dL (7-18); eGFR NON AFRICAN AMERICAN 5 mL/min (90-120)
[2018-09-14 22:10] LABS: CKMB 2.4 U/L (0.0-3.6); CREATINE KINASE 108 UL (21-232); PRO BNP 12772 pg/mL (0-125); TROPONIN-I 0.021 ng/mL (0.000-0.060)
[2018-09-14 22:12] LABS: GLUCOSE 207 mg/dL (74-106)
[2018-09-14 22:35] VITALS: BP 153/101
[2018-09-14 23:23] VITALS: BP 192/72
--- NOTE | 2018-09-14 23:53 | NUR ---
REPORT RECEIVED FROM MURPHY PERRY RN, PT ARRIVED TO FLOOR BY WHEELCHAIR. VITALS STABLE. ORIENTED TO ROOM. DENIES FURTHER NEEDS AT THIS TIME. CALL LIGHT IN REACH. WILL CTM.
--- NOTE | 2018-09-15 03:09 | NUR ---
I have reviewed this patient and I concur with the Shift Assessment completed by the Licensed Practical Nurse today this shift.
--- NOTE | 2018-09-15 03:25 | NUR ---
ADMISSION ASSESSMENT COMPLETED AT THIS TIME. PT ALERT/ORIENTED AND RESTING WITH NO DISTRESS.
[2018-09-15 03:26] VITALS: BP 192/72; BMI 36.0
[2018-09-15 04:00] VITALS: BP 134/64
[2018-09-15 07:53] VITALS: BP 144/88
--- NOTE | 2018-09-15 07:53 | NUR ---
PT STATES HE HAS ALREADY TAKEN HIS AM HOME MEDS.
[2018-09-15 11:19] VITALS: BP 116/75
--- NOTE | 2018-09-15 12:19 | NUR ---
I have reviewed this patient and I concur with the Shift Assessment completed by the Licensed Practical Nurse today this shift.
[2018-09-15 12:44] VITALS: BMI 35.9
--- NOTE | 2018-09-15 13:02 | NUR ---
SPOKE WITH IVA FRANCIS ABOUT DR. PUTNAM'S NOTE ABOUT STARTING LOVENOX AND HD TOMORROW ALSO BUT IT NOT BEING ORDERED AND PT'S HOME MEDS NOT BEING RESTARTED. SHE STATES ORDER LOVENOX SUBQ 30 DAILY AND RESTART BP MEDS, NEURONTIN, AND LEVEMIR AND SHE WILL LET THE NURSE PRACTIONER KNOW TO LOOK OVER HIS CHART ABOUT THE HD TOMORROW.
[2018-09-15 14:46] VITALS: BP 126/73
--- NOTE | 2018-09-15 17:04 | NUR ---
PT SITTING ON SIDE OF BED. EATING DINNER TRAY BEFORE BEING TAKEN DOWN TO HD.
--- NOTE | 2018-09-15 17:15 | NUR ---
PT TAKEN TO DIALYSIS VIA WC.
--- NOTE | 2018-09-15 19:32 | NUR ---
PT NOT IN ROOM AT THIS TIME. PT IS UP AD KAZ AND A WALKIE TALKIE.
--- NOTE | 2018-09-15 20:52 | NUR ---
PT STILL NOT IN ROOM AT THIS TIME. NOTIFIED, IT INFRASTRUCTURE ARCHITECT, CHARGE NURSE AND SECURITY.
--- NOTE | 2018-09-15 21:05 | NUR ---
PT IN DIALYSIS. WILL CPOC. CL IN REACH, BED IN LOW, SR UP X2.
--- NOTE | 2018-09-15 21:43 | NUR ---
DIALYSIS NURSE STATES PT PUT OUT 5 1/2 LITERS. VSS. RICHIE FROM DIALYSIS REPORTED THAT PT TOOK A BUNCH OF MEDS WHILE IN DIALYSIS. PT STATES THAT HER DIALYSIS NURSE IN OUTPATIENT USUALLY GIVES HER THIS MEDS. I ASKED THE PT WHAT MEDS HE TOOK, PT STATES "I DON'T KNOW, I JUST TAKE THEM." PT STATES I DON'T WANT TO TAKE ANYMORE MEDICINE FROM THE HOSPITAL, BE CAUSE THEY ARE SO EXPENSIVE, AND THAT IS WHY I TAKE MY OWN MEDS FROM HOME. HELD PT MEDS AT THIS TIME. PT FSBS 166. 1OUNITS OF LEVEMIR GIVEN. PT CURRENLTY RESTING IN BED . VSS BP 116/76, P 95, SPO2 95, RR 18, T.98.9. CL IN REACH, BED IN LOW, SR UP X2.
--- NOTE | 2018-09-16 00:01 | NUR ---
FIELD NURSE CASE MANAGER REPORT PT TEMP 100.1 REASSESED TEMP. NOW 100.4. 1 TAB 325MG TYLENOL GIVEN AT THIS TIME. WILL CTM.
--- NOTE | 2018-09-16 00:34 | NUR ---
REASSESS PT TEMP. PT TEMP NOW 98.7 WILL CPOC. CL IN REACH, BED IN LOW, SR UP X2. PT CURRENTLY RESTING IN BED WITH EYES CLOSE.
[2018-09-16 00:59] VITALS: BP 113/81
[2018-09-16 05:49] VITALS: BP 98/60
--- NOTE | 2018-09-16 07:00 | NUR ---
RECEIVED REPORT. ASSUMED CARE OF PATIENT. CALL LIGHT WITHIN REACH. NO DISTRESS. PATIENT REPORTS THAT STATED HE WILL NOT GET DIALYSIS THIS AM DUE TO HIS BLOOD PRESSURE BEING LOW. DENIES PAIN OR NEEDS AT THIS TIME.
--- NOTE | 2018-09-16 09:23 | NUR ---
PATIENT SITTING IN CHAIR AT BEDSIDE. PATIENT CONSUMED AM MEAL AND TOOK MEDICATION WITHOUT DIFFICULTY. NO DIALYSIS TODAY PER DR. KAUR.
[2018-09-16 10:25] VITALS: BP 142/88
--- NOTE | 2018-09-16 11:54 | NUR ---
PATIENT SITTING IN CHAIR AT BEDSIDE WITH ATTENTION TOWARD TELEVISION. NO DISTRESS. DENIES NEEDS.
[2018-09-16 15:55] VITALS: BP 146/87
--- NOTE | 2018-09-16 16:00 | NUR ---
SHOWER COMPLETE. NO DISTRESS. DENIES NEEDS.
[2018-09-16 18:30] VITALS: BP 140/84
--- NOTE | 2018-09-16 18:40 | NUR ---
PATIENT SITTING TO SIDE OF BED. CALL LIGHT WITHIN REACH. NO DISTRESS. DENIES NEEDS AT THIS TIME.
[2018-09-16 20:48] VITALS: BP 141/80
--- NOTE | 2018-09-16 21:35 | NUR ---
RECIEVED BEDSIDE REPORT. VSS, [id number]. RR EVEN AND UNLABORED. NO S/S OF RR DISTRESS. PT HAD NO DIALYSIS TODAY, DUE TO LOW BP. PT CURRENTLY RESTING IN BED. ALLM MEDS GIVEN AT THIS TIME WILL CPOC. CL IN REACH, BED IN LOW SR UP X2.
--- NOTE | 2018-09-16 22:10 | NUR ---
PT C/O IV LEAKING. REMOVED THE IV, CLEAN THE SITE AND APPLIED A 2X2 GAUZE AND TAPE. RE START A NEW IV ON PT'S RIGHT FORE ARM 20G. PT TOLERATE WELL. PT FSBS 200 10 UNITS OF LEVEMIR GIVEN AT THIS TIME. WILL CPOC. CL IN REACH, BED HEATHER LOW, SR UP X2.
[2018-09-17 00:47] VITALS: BP 130/80
[2018-09-17 04:00] VITALS: BP 105/73
[2018-09-17 06:24] LABS: ANION GAP 23.5 mmol/L (8-16); CARBON DIOXIDE 21.6 mmol/L (21.0-32.0); PHOSPHOROUS 7.7 mg/dL (2.5-4.9); POTASSIUM - SERUM 4.1 mmol/L (3.5-5.1); VANCOMYCIN - RANDOM 9.7 ug/mL (10.0-20.0)
[2018-09-17 06:31] LABS: BASOPHILS 0.9 % (0-2); EOSINOPHILS 4.7 % (0-7); HEMATOCRIT 38.4 % (42.0-54.0); HEMOGLOBIN 13.2 g/dL (13.5-17.5); IMMATURE GRANULOCYTES 0.4 % (0-5); LYMPHOCYTES 8.6 % (15-50); MCH 33.7 pg (26.0-34.0); MCHC 34.4 g/dL (31.0-37.0); MEAN PLATELET VOLUME 11.2 fL (7.4-10.4); MONOCYTES 11.3 % (2-11); NEUTROPHILS 74.1 % (40-80); PLATELET COUNT 189 10x3/uL (130-400); RBC 3.92 10x6/uL (4.20-6.10); RDW 14.9 % (11.5-14.5)
[2018-09-17 11:00] VITALS: BP 133/85
--- NOTE | 2018-09-17 13:04 | NUR ---
Nutrition follow-up: Diet: Renal PO intake 100% of last 3 meals Labs reviewed Wt: 261# No BM charted since admit RDN following.
[2018-09-17 15:52] VITALS: BP 131/71
[2018-09-17 17:28] VITALS: Ht 182.9 cm; Wt 119.3 kg
[2018-09-17 18:17] VITALS: BP 142/84
--- NOTE | 2018-09-17 19:45 | NUR ---
RECIEVED BEDSIDE REPORT. ROUNDS COMPLETED. VSS, AAOX4. 6 1/2 LITERS DIALYZED TODAY. PT ABDOMEN APPEARS FIRM AND DISTENDED. PT STATES "I A HAVE BEEN UP AND WALKING ALL DAY" DENIES ANY FURTHER NEED AT THIS TIME. WILL CPOC. CL IN REACH.
[2018-09-17 20:00] VITALS: BP 135/91
--- NOTE | 2018-09-17 22:00 | NUR ---
MEDS GIVEN. PT FSBS 211. 12UNITS LEVEMIR GIVEN PER PROVIDERS ORDER. WILL CPOC.
[2018-09-18] VITALS: BP 123/62
[2018-09-18 04:00] VITALS: BP 114/66
[2018-09-18 05:34] LABS: BASOPHILS 1.6 % (0-2); EOSINOPHILS 6.3 % (0-7); HEMATOCRIT 35.4 % (42.0-54.0); HEMOGLOBIN 12.1 g/dL (13.5-17.5); IMMATURE GRANULOCYTES 0.4 % (0-5); LYMPHOCYTES 12.9 % (15-50); MCH 33.2 pg (26.0-34.0); MCHC 34.2 g/dL (31.0-37.0); MCV 97.3 fL (80.0-100.0); MEAN PLATELET VOLUME 10.8 fL (7.4-10.4); MONOCYTES 13.4 % (2-11); NEUTROPHILS 65.4 % (40-80); PLATELET COUNT 198 10x3/uL (130-400); RBC 3.64 10x6/uL (4.20-6.10); RDW 14.6 % (11.5-14.5)
[2018-09-18 05:43] LABS: WBC 8.2 10x3/uL (4.8-10.8)
[2018-09-18 06:00] LABS: ANION GAP 21.5 mmol/L (8-16); CREATININE - SERUM 10.4 mg/dL (0.6-1.3); PHOSPHOROUS 8.2 mg/dL (2.5-4.9); POTASSIUM - SERUM 3.5 mmol/L (3.5-5.1); VANCOMYCIN - RANDOM 14.2 ug/mL (10.0-20.0)
--- NOTE | 2018-09-18 07:10 | NUR ---
REPORT RECEIVED FROM DIVISION FIELD INSPECTOR AND PATIENT CARE ASSUMED. PATIENT SITTING UP IN BEDSIDE CHAIR. PATIENT IS AWAKE, ALERT AND ORIENTED X 4. VSS. PATIENT DENIES ANY NEEDS OR PAIN. WILL CONTINUE WITH PLAN OF CARE. CALL LIGHT IN REACH.
[2018-09-18 07:26] VITALS: BP 145/90
[2018-09-18 11:30] VITALS: BP 139/77
[2018-09-18 11:44] VITALS: BP 139/77
--- NOTE | 2018-09-18 15:53 | NUR ---
PATIENT SITTNG UP IN BEDSIDE CHAIR WATCHING TV. PATIENT DENIES ANY NEEDS OR PAIN. WILL CONTINUE TO MONITOR. CALL LIGHT IN REACH.
--- NOTE | 2018-09-18 18:41 | NUR ---
DIALYSIS COORDINATOR: [facility] [address].
[2018-09-18 20:00] VITALS: BP 151/85
--- NOTE | 2018-09-18 20:06 | NUR ---
RECIEVED BEDSIDE REPORT. ROUNDS COMPLETED. VSS, AAOX4. RR EVEN AND UNLABORED. PT SITTING UP INN BED. REQUESTED FOR STOMACH ULCER MEDICINE. PT DENEIS ANY FURTHER NEEDS AT THIS TIME WILL CTM.
[2018-09-19 04:00] VITALS: BP 122/95
[2018-09-19 04:47] LABS: EOSINOPHILS 5.4 % (0-7); HEMOGLOBIN 12.7 g/dL (13.5-17.5); IMMATURE GRANULOCYTES 0.3 % (0-5); LYMPHOCYTES 7.5 % (15-50); MCH 33.4 pg (26.0-34.0); MCHC 34.3 g/dL (31.0-37.0); MCV 97.4 fL (80.0-100.0); MEAN PLATELET VOLUME 10.5 fL (7.4-10.4); MONOCYTES 14.1 % (2-11); NEUTROPHILS 71.7 % (40-80); PLATELET COUNT 200 10x3/uL (130-400); RDW 14.6 % (11.5-14.5)
[2018-09-19 04:57] LABS: WBC 10.7 10x3/uL (4.8-10.8)
[2018-09-19 05:12] LABS: ANION GAP 24.3 mmol/L (8-16); CALCIUM 7.7 mg/dL (8.5-10.1); CARBON DIOXIDE 21.1 mmol/L (21.0-32.0); CREATININE - SERUM 12.7 mg/dL (0.6-1.3); VANCOMYCIN - RANDOM 21.7 ug/mL (10.0-20.0)
[2018-09-19 05:19] LABS: PHOSPHOROUS 10.7 mg/dL (2.5-4.9); POTASSIUM - SERUM 4.4 mmol/L (3.5-5.1)
--- NOTE | 2018-09-19 05:34 | NUR ---
HELD PT VANCOMYCIN. PT'S RANDOM VANC TROUGH 21.7. WILL CPOC.
--- NOTE | 2018-09-19 07:29 | NUR ---
PT AWAKE AND ORIENTED. BAGS PACKED, SAID HE'S READY TO GO AFTER DIALYSIS. TOLD PT HE HAS NO D/C ORDERS AT THIS TIME, BUT I WILL LET HIM KNOW SOON I KNOW ANYTHING. CL IN REACH .SRX2. NO FURTHER COMLAINTS/CONCERNS AT THIS TIME.
[2018-09-19 07:44] VITALS: BP 111/86
[2018-09-19 16:12] VITALS: BP 144/99
--- NOTE | 2018-09-19 19:26 | NUR ---
PATIENT IN RECLINER. NO COMPLAINTS AT THIS TIME. NO DISTRESS NOTED.
[2018-09-19 21:01] VITALS: BP 151/59
--- NOTE | 2018-09-19 22:35 | NUR ---
PATIENT LAYING IN BED. NO COMPLAINTS AT THIS TIME. NO DISTRESS NOTED.
[2018-09-20] VITALS (7 sets, daily range): BP systolic 117–162; BP diastolic 67–97
--- NOTE | 2018-09-20 02:58 | NUR ---
I have reviewed this patient and I concur with the Shift Assessment completed by the Licensed Practical Nurse today this shift.
[2018-09-20 05:22] LABS: ANION GAP 21.9 mmol/L (8-16); CREATININE - SERUM 11.5 mg/dL (0.6-1.3); PHOSPHOROUS 8.5 mg/dL (2.5-4.9); POTASSIUM - SERUM 3.9 mmol/L (3.5-5.1); VANCOMYCIN - RANDOM 16.5 ug/mL (10.0-20.0)
--- NOTE | 2018-09-20 07:14 | NUR ---
PT ASLEEP, DID NOT WAKE I ENTERED. DID NOT FURTHER DISTURB AT THIS TIME. CL IN REACH, SRX2
--- NOTE | 2018-09-20 18:05 | NUR ---
I have reviewed this patient and I concur with the Shift Assessment completed by the Licensed Practical Nurse today this shift.
--- NOTE | 2018-09-20 20:50 | NUR ---
SITTING IN RECLINER. ALERT/ORIENTED X4. ADMIN SCHED PO MEDS AND LEVEMIR INSULIN 15 UNITS PER ORDER. CHECKED BS AT 251. DID NOT WANT A SNACK. STATED HE HAD EATEN A PIE.
--- NOTE | 2018-09-21 02:37 | NUR ---
RESTING WITH EYES CLOSED. RR 18 EVEN U/L ON ROOM AIR. NO S/S OF DISCOMFORT. CL IN REACH.
[2018-09-21 05:45] LABS: BASOPHILS 1.5 % (0-2); EOSINOPHILS 7.2 % (0-7); HEMATOCRIT 35.5 % (42.0-54.0); HEMOGLOBIN 12.3 g/dL (13.5-17.5); IMMATURE GRANULOCYTES 0.4 % (0-5); LYMPHOCYTES 9.2 % (15-50); MCH 33.5 pg (26.0-34.0); MCHC 34.6 g/dL (31.0-37.0); MCV 96.7 fL (80.0-100.0); MEAN PLATELET VOLUME 10.7 fL (7.4-10.4); MONOCYTES 14.9 % (2-11); NEUTROPHILS 66.8 % (40-80); PLATELET COUNT 216 10x3/uL (130-400); RBC 3.67 10x6/uL (4.20-6.10); RDW 14.3 % (11.5-14.5); WBC 10.2 10x3/uL (4.8-10.8)
[2018-09-21 05:51] VITALS: BP 132/80
[2018-09-21 06:10] LABS: ANION GAP 24.3 mmol/L (8-16); CALCIUM 8.3 mg/dL (8.5-10.1); CARBON DIOXIDE 20.1 mmol/L (21.0-32.0); CREATININE - SERUM 13.2 mg/dL (0.6-1.3); POTASSIUM - SERUM 4.4 mmol/L (3.5-5.1); VANCOMYCIN - RANDOM 18.7 ug/mL (10.0-20.0)
--- NOTE | 2018-09-21 07:31 | NUR ---
PT AWAKE AND ORIENTED, HAS NO COMPLAINTS OR CONCERNS AT THIS TIME. CL IN REACH, SRX2.
[2018-09-21 09:54] VITALS: BP 156/92
--- NOTE | 2018-09-21 10:38 | MORECARE ---
CASE MANAGEMENT DISCHARGE SUMMARY PATIENT: RAE ARSHAD UNIT: [id number] ADM DATE: 09/14/18 AGE: 53 : 61 SEX: M ROOM/BED: D.2104 AUTHOR: NIC RIVERA PHYSICIAN: REFERRING PHYSICIAN: KHADRA KAUR MD DATE OF SERVICE: 09/21/18 Discharge Plan Patient Name: RAE ARSHAD [facility] [facility] 1965 Planned Disposition: Home Anticipated Discharge Date: 09/23/18 Discharge Date: Expected LOS: 9 Initial Reviewer: [email or web address] Initial Review Date: 09/21/2018 Generated: 09/21/18 11:38 am DCPIA - Discharge Planning Initial Assessment Updated by [email or web address]: Kimberly Zapata on 09/21/18 10:37 am * Is the patient Alert and Oriented? Yes * How many steps to enter\exit or inside your home? * PCP DR. KAUR * Pharmacy [facility] * Preadmission Environment Home with Family * ADLs Partial Dependent * Partial ADLs (Assistance needed) Medication Management * Equipment CPAP Shower Chair Walker * Other Equipment PATIENT DOES NOT HAVE A GLUCOMETER STATED DR. KAUR KNOWS THIS * List name and contact numbers for known caregivers / representatives who currently or will assist patient after discharge: JC BRADSHAW [facility] [place] [phone] * Verbal permission to speak to the caregivers and representatives has been obtained from the patient. Yes * Community resources currently utilized Other * Please name any agencies selected above. HD ON MWF 4 HOURS AND THURS AT [facility] * Additional services required to return to the preadmission environment? Yes * Can the patient safely return to the preadmission environment? Yes * Has this patient been hospitalized within the prior 30 days at any hospital? No Patient Name: RAE ARSHAD Page [phone] at 1038 All edits/amendments must be made on the electronic document DICTATION DATE: 09/21/18 1037 OTHER SPORTS COACH OR INSTRUCTOR: TEENA 09/21/18 1037 RPT#: [id number] DC DATE: STATUS: ADM IN [facility] [address] [place] [address] END OF REPORT
--- NOTE | 2018-09-21 10:45 | MORECARE ---
CASE MANAGEMENT DISCHARGE SUMMARY PATIENT: RAE ARSHAD UNIT: [id number] ADM DATE: 09/14/18 AGE: 53 : 61 SEX: M ROOM/BED: D.2104 AUTHOR: NIC RIVERA PHYSICIAN: REFERRING PHYSICIAN: KHADRA KAUR MD DATE OF SERVICE: 09/21/18 Discharge Plan Patient Name: RAE ARSHAD Facility: [facility]:[place] : 1965 Planned Disposition: Home Anticipated Discharge Date: 09/23/18 Discharge Date: Expected LOS: 9 Initial Reviewer: [email or web address] Initial Review Date: 09/21/2018 Generated: 09/21/18 11:45 am Comments DCP- Discharge Planning Updated by [email or web address]: Kimberly Zapata on 09/21/18 9:[address] Patient Name: RAE ARSHAD Admission Status: ER Accout number: [id number] Admission Date: 09-14-2018 : 1965 Admission Diagnosis:FLUID OVERLOAD, UNSPECIFIED Attending: KHADRA KAUR Current LOS: 7 Anticipated DC Date: 09-23-2018 Planned Disposition: Home Primary Insurance: MEDICARE A & B Discharge Planning Comments: CM MET WITH PATIENT REGARDING D/C NEEDS AND PLANS. PATIENT STATED HIS FAMILY WILL DRIVE HIM HOME OR THE [facility] BUS. PATIENT HAS 5 STEPS TO ENTER HOME AND NO STAIRS INSIDE. PATIENT STATED HE IS INDEPENDENT WITH HIS CARE AND HAS A WALKER, SHOWER CHAIR, AND CPAP AT HOME. PATIENT STATED HE DOES NOT HAVE A GLUCOMETER AND DR. KAUR KNOWS THAT. PATIENTS PCP IS DR. KAUR AND PHARMACY IS [facility] ON [address] PATIENT REFUSED HOME HEALTH AND FORM SIGNED ALSO THE IMM WAS SERVED. CM WILL CONTINUE TO FOLLOW PATIENT WITH D/C NEEDS AND PLANS. [facility] [address] Floor Sweeper: Kimberly Zapata DCPIA - Discharge Planning Initial Assessment Updated by [id number]: Kimberly Zapata on 09/21/18 10:37 am * Is the patient Alert and Oriented? Yes * How many steps to enter\exit or inside your home? * PCP DR. KAUR * Pharmacy [facility] [address] * Preadmission Environment Home with Family * ADLs Partial Dependent * Partial ADLs (Assistance needed) Medication Management * Equipment CPAP Shower Chair Walker * Other Equipment PATIENT DOES NOT HAVE A GLUCOMETER STATED DR. KAUR KNOWS THIS * List name and contact numbers for known caregivers / representatives who currently or will assist patient after discharge: JC BRADSHAW [facility] [phone] * Verbal permission to speak to the caregivers and representatives has been obtained from the patient. Yes * Community resources currently utilized Other * Please name any agencies selected above. HD ON MWF 4 HOURS AND THURS AT [facility] * Additional services required to return to the preadmission environment? Yes * Can the patient safely return to the preadmission environment? Yes * Has this patient been hospitalized within the prior 30 days at any hospital? No Coverage Notice Reviewer: [id number] Barbara Zapata Notice Issued Date-Time: 09/21/2018 9:08 Notice Type: IM Discharge Notice Notice Delivered To: Patient Relationship to Patient: Production Supply Equipment Tender Name: Delivery Method: HAND - Hand Delivered Linaet Days: Prior Verbal Notification: Recipient Understood Notice: Yes Recipient Signature: Yes Med Rec Note Co-signed by Attending: Coverage Notice Comment: Reviewer: [id number] Barbara Zapata Notice Issued Date-Time: 09/21/2018 9:08 Notice Type: Patient Choice Letter Notice Delivered To: Patient Relationship to Patient: Production Supply Equipment Tender Name: Delivery Method: HAND - Hand Delivered Lianet Days: Prior Verbal Notification: Recipient Understood Notice: Yes Recipient Signature: Yes Med Rec Note Co-signed by Attending: Coverage Notice Comment: REFUSAL OF HOME HEALTH FORM SIGNED Last DP export: 09/21/18 9:38 a Patient Name: RAE ARSHAD Page [phone] at 1045 All edits/amendments must be made on the electronic document DICTATION DATE: 09/21/18 1045 STOCK DRIER TENDER: TEENA 09/21/18 1045 RPT#: [id number] DC DATE: STATUS: [facility] [address] [place] [address] END OF REPORT
[2018-09-21 12:46] VITALS: BP 175/94
--- NOTE | 2018-09-21 13:36 | NUR ---
I have reviewed this patient and I concur with the Shift Assessment completed by the Licensed Practical Nurse today this shift.
[2018-09-21 18:31] VITALS: BP 134/73
--- NOTE | 2018-09-21 18:40 | NUR ---
NPO SIGN ON DOOR. PT AWARE. NO COMPLAINTS/CONCNERNS, CL IN REACH, SRX1
--- NOTE | 2018-09-21 19:15 | NUR ---
ALERT/AWAKE ORIENTED X4. AMBULATING IN ROOM. DENIES PAIN OR ANY NEEDS. IV IN RT FA INTACT SL. TELEMETRY SHOWS 72 SR. LT ARM FISTULA NOTED WITH A POSITIVE BRUIT/THRILL. REQUESTED DOOR CLOSED.
[2018-09-21 20:07] VITALS: BP 143/91
--- NOTE | 2018-09-21 21:10 | NUR ---
RETURNING TO BED FROM BATHROOM. STATED HE HAD A SHOWER. ADMIN SCHED MEDS AND LEVEMIR INSULIN 15 UNITS FOR BS 224. REATTACHED TELEMETRY LEADS.
[2018-09-22 00:02] VITALS: BP 162/94
--- NOTE | 2018-09-22 01:56 | NUR ---
LYING ON RIGHT SIDE WITH EYES CLOSED. RR 18 EVEN U/L ON ROOM AIR. NO SIGNS OR SYMPTOMS OF DISCOMFORT. BED IS LOW WITH CALL LIGHT IN [facility].
[2018-09-22 04:49] LABS: HEMOGLOBIN 12.3 g/dL (13.5-17.5); MCH 33.9 pg (26.0-34.0); MCHC 35.1 g/dL (31.0-37.0); MCV 96.4 fL (80.0-100.0); MEAN PLATELET VOLUME 10.2 fL (7.4-10.4); PLATELET COUNT 188 10x3/uL (130-400); RBC 3.63 10x6/uL (4.20-6.10); RDW 14.3 % (11.5-14.5); WBC 9.7 10x3/uL (4.8-10.8)
[2018-09-22 04:54] LABS: ANION GAP 23.2 mmol/L (8-16); CALCIUM 8.5 mg/dL (8.5-10.1); CARBON DIOXIDE 22.6 mmol/L (21.0-32.0); CREATININE - SERUM 14.6 mg/dL (0.6-1.3); POTASSIUM - SERUM 4.8 mmol/L (3.5-5.1); VANCOMYCIN - RANDOM 22.2 ug/mL (10.0-20.0)
[2018-09-22 06:01] VITALS: BP 146/92
--- NOTE | 2018-09-22 06:17 | NUR ---
FLUSHED IV. ASSISTED INTO GOWN FOR PROCEDURE TODAY.
--- NOTE | 2018-09-22 07:14 | NUR ---
CALLED RIRI IN DIALYSIS AND TOLD HIM THAT DR CANALES WANTS HIM DONE FIRST FOR DIALYSIS BEFORE MICKY. HE SAID THAT HE WILL TELL THEM WHEN THEY GET HERE. PATIENT IS SITTING ON SIDE OF BED, OBESE. GLASSES ON. PATIENT STATES HE IS SHORT OF BREATH. ON ROOM AIR. O2 SAT IS 91%. PLACED ON 2L PER NC. NOW O2 SAT IS 98%. ON HEART MONITOR SHOWING CAF, HR 54. RES. LEFT ARM WITH AVF, + BRUIT AND THRILL. RIGHT FA PIV SEEN WITH SALINE LOCK.
[2018-09-22 07:48] VITALS: BP 132/68
--- NOTE | 2018-09-22 08:25 | NUR ---
I CALLED AGAIN TO DIALYSIS AND SPOKE WITH LEI. SHE SAID THAT SHE WILL GET IT GOING.
[2018-09-22 08:36] LABS: EOSINOPHILS 4 % (0-7); LYMPHOCYTES 3 % (15-50); MONOCYTES 10 % (2-11); NEUTROPHILS 81 % (40-80)
[2018-09-22 08:37] LABS: PLATELET ESTIMATE NORMAL
--- NOTE | 2018-09-22 08:59 | NUR ---
TO DIALYSIS VIA WHEELCHAIR.
--- NOTE | 2018-09-22 09:20 | NUR ---
BED LINENS CHANGED.
--- NOTE | 2018-09-22 10:54 | NUR ---
Nutrition Follow Up: Pt is NPO past MN Previously on Renal diet with 100% intake of meals Reviewed labs: BG 201 Once medically able to advance diet recommend a Renal ADA diet Weight 286lb today RD following per protocol
--- NOTE | 2018-09-22 12:07 | NUR ---
STILL IN DIALYSIS.
--- NOTE | 2018-09-22 12:41 | NUR ---
LEI FROM DIALYSIS TO CALL AND TELL ME THAT SHE TOOK 6 LITERS OFF PATIENT AND HE IS READY TO COME BACK.
--- NOTE | 2018-09-22 12:46 | NUR ---
RETURNS FROM DIALYSIS, STILL NPO FOR MICKY.
--- NOTE | 2018-09-22 12:50 | NUR ---
NO WHEEZES HEARD TO LUNGS NOW POST DIALYSIS.
--- NOTE | 2018-09-22 14:29 | NUR ---
PATIENT IS STILL NPO AWAITING MICKY. I CALLED MANAGEMENT COORDINATOR AND SPOKE TO ABDIRAHMAN MOLINA TO SEE HOW MUCH LONGER. HE SAID THAT DR BOLTON IS IN CLINIC AND WILL ASK DR ZAMORA IF HE CAN DO THE PROCEDURE. THIS IS RELAYED TO THE PATIENT. AWAITING CALL BACK.
[2018-09-22 14:41] VITALS: BP 147/89
--- NOTE | 2018-09-22 15:19 | NUR ---
ABDIRAHMAN MOLINA TO CALL ME AND TELL ME THAT DR ZAMORA WILL DO PROCEDURE TODAY. THIS IS RELAYED TO THE PATIENT. STILL NPO.
--- NOTE | 2018-09-22 15:37 | NUR ---
TO RESEARCH ENGINEER VIA BED FOR MICKY.
--- NOTE | 2018-09-22 16:18 | NUR ---
1615-RETURNS FROM DYE MIXER POST MICKY. NPO FOR ONE HOUR.
--- NOTE | 2018-09-22 16:55 | NUR ---
WALKED IN TO CHECK PATIENT POST MICKY AND HE IS SITTING UP IN THE BED EATING HIS SUPPER TRAY. I TOOK IT FROM HIM HE IS SUPPOSE TO BE NPO X 1 HOUR (NOT TILL 1714 CAN HE EAT).
--- NOTE | 2018-09-22 17:18 | NUR ---
ASSISTED TO SIDE OF BED FOR SUPPER. EVENING MEDS GIVEN.
--- NOTE | 2018-09-22 19:10 | NUR ---
LYING IN BED. ALERT/ORIENTED X3. DENIES ANY NEEDS OR DISCOMFORTS.
--- NOTE | 2018-09-22 20:40 | NUR ---
ADMIN SCHED PO MEDS AND LEVEMIR INSULIN 20 UNITS FOR BS 254. DENIES ANY NEEDS.
[2018-09-22 21:48] VITALS: BP 119/63
[2018-09-23 01:34] VITALS: BP 105/62
[2018-09-23 05:55] VITALS: BP 142/92
[2018-09-23 06:32] LABS: ANION GAP 22.8 mmol/L (8-16); CALCIUM 8.4 mg/dL (8.5-10.1); CARBON DIOXIDE 23.8 mmol/L (21.0-32.0); CREATININE - SERUM 12.2 mg/dL (0.6-1.3); PHOSPHOROUS 8.9 mg/dL (2.5-4.9); POTASSIUM - SERUM 4.6 mmol/L (3.5-5.1)
[2018-09-23 06:34] LABS: BASOPHILS 1.1 % (0-2); EOSINOPHILS 4.8 % (0-7); HEMATOCRIT 33.9 % (42.0-54.0); HEMOGLOBIN 11.5 g/dL (13.5-17.5); IMMATURE GRANULOCYTES 0.2 % (0-5); LYMPHOCYTES 7.1 % (15-50); MCH 33.1 pg (26.0-34.0); MCHC 33.9 g/dL (31.0-37.0); MCV 97.7 fL (80.0-100.0); MEAN PLATELET VOLUME 10.5 fL (7.4-10.4); MONOCYTES 13.9 % (2-11); NEUTROPHILS 72.9 % (40-80); PLATELET COUNT 215 10x3/uL (130-400); RBC 3.47 10x6/uL (4.20-6.10); RDW 14.7 % (11.5-14.5); WBC 9.1 10x3/uL (4.8-10.8)
--- NOTE | 2018-09-23 07:32 | NUR ---
ROUNDING DONE WITH PATIENT DRESSED IN STREET CLOTHES AWAITNG DISCHAGE. GLASSES ON. OBESE ABDOMEN. ON HEART MONITOR SHOWING CAF, HR 75. ON ROOM AIR. LEFT AVF WITH + BRUIT AND THRILL. SALONE LOCK PIV SEEN TO RIGHT FA.
[2018-09-23 08:07] VITALS: BP 155/98
--- NOTE | 2018-09-23 09:41 | MORECARE ---
CASE MANAGEMENT DISCHARGE SUMMARY PATIENT: RAE ARSHAD UNIT: [id number] ADM DATE: 09/14/18 AGE: 53 : 61 SEX: M ROOM/BED: D.2104 AUTHOR: NIC RIVERA PHYSICIAN: REFERRING PHYSICIAN: KHADRA KAUR MD DATE OF SERVICE: 09/23/18 Discharge Plan Patient Name: RAE ARSHAD Facility[facility]:[place] : 1965 Planned Disposition: Home Anticipated Discharge Date: 09/23/18 Discharge Date: Expected LOS: 9 Initial Reviewer: [id number] Initial Review Date: 09/21/2018 Generated: 09/23/18 10:41 am Comments DCP- Discharge Planning Updated by [email or web address]: Kimberly Zapata on 09/21/18 9:[address] Patient Name: RAE ARSHAD Admission Status: ER Accout number: [id number] Admission Date: 09-14-2018 : 1965 Admission Diagnosis:FLUID OVERLOAD, UNSPECIFIED Attending: KHADRA KAUR Current LOS: 7 Anticipated DC Date: 09-23-2018 Planned Disposition: Home Primary Insurance: MEDICARE A & B Discharge Planning Comments: CM MET WITH PATIENT REGARDING D/C NEEDS AND PLANS. PATIENT STATED HIS FAMILY WILL DRIVE HIM HOME OR THE [employer] BUS. PATIENT HAS 5 STEPS TO ENTER HOME AND NO STAIRS INSIDE. PATIENT STATED HE IS INDEPENDENT WITH HIS CARE AND HAS A WALKER, SHOWER CHAIR, AND CPAP AT HOME. PATIENT STATED HE DOES NOT HAVE A GLUCOMETER AND DR. KAUR KNOWS THAT. PATIENTS PCP IS DR. KAUR AND PHARMACY IS [facility] ON [address] PATIENT REFUSED HOME HEALTH AND FORM SIGNED ALSO THE IMM WAS SERVED. CM WILL CONTINUE TO FOLLOW PATIENT WITH D/C NEEDS AND PLANS. [facility] [address] Non Morse Intercept Technician: Kimberly Zapata DCPIA - Discharge Planning Initial Assessment Updated by [id number]: Kimberly Zapata on 09/21/18 10:37 am * Is the patient Alert and Oriented? Yes * How many steps to enter\exit or inside your home? * PCP DR. KAUR * Pharmacy [facility] [address] * Preadmission Environment Home with Family * ADLs Partial Dependent * Partial ADLs (Assistance needed) Medication Management * Equipment CPAP Shower Chair Walker * Other Equipment PATIENT DOES NOT HAVE A GLUCOMETER STATED DR. KAUR KNOWS THIS * List name and contact numbers for known caregivers / representatives who currently or will assist patient after discharge: JC BRADSHAW [facility] [place] [phone] * Verbal permission to speak to the caregivers and representatives has been obtained from the patient. Yes * Community resources currently utilized Other * Please name any agencies selected above. HD ON MWF 4 HOURS AND THURS AT [facility] * Additional services required to return to the preadmission environment? Yes * Can the patient safely return to the preadmission environment? Yes * Has this patient been hospitalized within the prior 30 days at any hospital? No Coverage Notice Reviewer: [id number] Barbara Zapata Notice Issued Date-Time: 09/21/2018 9:08 Notice Type: IM Discharge Notice Notice Delivered To: Patient Relationship to Patient: Rail Detector Car Operator Name: Delivery Method: HAND - Hand Delivered Lianet Days: Prior Verbal Notification: Recipient Understood Notice: Yes Recipient Signature: Yes Med Rec Note Co-signed by Attending: Coverage Notice Comment: Reviewer: [id number] Barbara Zapata Notice Issued Date-Time: 09/21/2018 9:08 Notice Type: Patient Choice Letter Notice Delivered To: Patient Relationship to Patient: Rail Detector Car Operator Name: Delivery Method: HAND - Hand Delivered Lianet Days: Prior Verbal Notification: Recipient Understood Notice: Yes Recipient Signature: Yes Med Rec Note Co-signed by Attending: Coverage Notice Comment: REFUSAL OF HOME HEALTH FORM SIGNED Last DP export: 09/21/18 9:45 a Patient Name: RAE ARSHAD Page [phone] at 0941 All edits/amendments must be made on the electronic document DICTATION DATE: 09/23/18940 CYLINDER PRESS FEEDER: TEENA 09/23/18940 RPT#: [id number] DC DATE: STATUS: ADM IN [facility] [address] [place] [address] END OF REPORT
--- NOTE | 2018-09-23 11:47 | NUR ---
HEART MONITOR TURNED IN PATIENT IS BEING DISCHARGED.
--- NOTE | 2018-09-23 11:49 | MORECARE ---
CASE MANAGEMENT DISCHARGE SUMMARY PATIENT: RAE ARSHAD UNIT: [id number] ADM DATE: 09/14/18 AGE: 53 : 61 SEX: M ROOM/BED: D.2104 AUTHOR: NIC RIVERA PHYSICIAN: REFERRING PHYSICIAN: KHADRA KAUR MD DATE OF SERVICE: 09/23/18 Discharge Plan Patient Name: RAE ARSHAD Facility: [facility]:[place] : 1965 Planned Disposition: Home Anticipated Discharge Date: 09/23/18 Discharge Date: Expected LOS: 9 Initial Reviewer: [email or web address] Initial Review Date: 09/21/2018 Generated: 09/23/18 12:49 pm Comments DCP- Discharge Planning Updated by [email or web address]: Chencho Baez on 09/23/18 10:[address] Patient Name: RAE ARSHAD Encounter No: [id number] : 1965 Primary Insurance: MEDICARE A & B Anticipated DC Date: 09-23-2018 Planned Disposition: Home DCP follow-up note: CM MET WITH PT IN ROOM TO DISCUSS DISCHARGE NEEDS AND PLANNING. CM DISCUSSED AVAILABILITY OF HOME HEALTH, REHAB SERVICES AND MEDICAL EQUIPMENT. PT DECLINES HOME HEALTH BUT WOULD LIKE OUTPATIENT PHYSICAL THERAPY. CM REVIEWED CHART, PT IS UP INDEPENDENTLY. CM SPOKE TO PENNY TAYLOR WHO INFORMED CM THAT PT IS INDEPENDENT AND WALKING AROUND THE HOSPITAL WITHOUT PROBLEM OR DEVICE; PT DOES NOT QUALIFY FOR REHAB. CM NOTIFIED PT. PT CALLING A FRIEND TO PICK HIM UP TODAY FOR TRANSPORT HOME AT DISCHARGE. PT DENIES DISCHARGE NEEDS. KARLI Porter DCP- Discharge Planning Updated by [id number]: Kimberly Zapata on 09/21/18 9:[address] Patient Name: RAE ARSHAD Admission Status: ER Accout number: [id number] Admission Date: 09-14-2018 : 1965 Admission Diagnosis:FLUID OVERLOAD, UNSPECIFIED Attending: KHADRA KAUR Current LOS: 7 Anticipated DC Date: 09-23-2018 Planned Disposition: Home Primary Insurance: MEDICARE A & B Discharge Planning Comments: CM MET WITH PATIENT REGARDING D/C NEEDS AND PLANS. PATIENT STATED HIS FAMILY WILL DRIVE HIM HOME OR THE [place] BUS. PATIENT HAS 5 STEPS TO ENTER HOME AND NO STAIRS INSIDE. PATIENT STATED HE IS INDEPENDENT WITH HIS CARE AND HAS A WALKER, SHOWER CHAIR, AND CPAP AT HOME. PATIENT STATED HE DOES NOT HAVE A GLUCOMETER AND DR. KAUR KNOWS THAT. PATIENTS PCP IS DR. KAUR AND PH[facility]Y IS [facility] [address] PATIENT REFUSED HOME HEALTH AND FORM SIGNED ALSO THE IMM WAS SERVED. CM WILL CONTINUE TO FOLLOW PATIENT WITH D/C NEEDS AND PLANS. [facility] [address] Factory Expert: Kimberly Zapata DCPIA - Discharge Planning Initial Assessment Updated by [id number]: Kimberly Zapata on 09/21/18 10:37 am * Is the patient Alert and Oriented? Yes * How many steps to enter\exit or inside your home? * PCP DR. KAUR * Pharmacy [facility] [address] * Preadmission Environment Home with Family * ADLs Partial Dependent * Partial ADLs (Assistance needed) Medication Management * Equipment CPAP Shower Chair Walker * Other Equipment PATIENT DOES NOT HAVE A GLUCOMETER STATED DR. KAUR KNOWS THIS * List name and contact numbers for known caregivers / representatives who currently or will assist patient after discharge: JC BRADSHAW [facility] [place] [phone] * Verbal permission to speak to the caregivers and representatives has been obtained from the patient. Yes * Community resources currently utilized Other * Please name any agencies selected above. HD ON MWF 4 HOURS AND THURS AT [facility] * Additional services required to return to the preadmission environment? Yes * Can the patient safely return to the preadmission environment? Yes * Has this patient been hospitalized within the prior 30 days at any hospital? No Coverage Notice Reviewer: [id number] Barbara Zapata Notice Issued Date-Time: 09/21/2018 9:08 Notice Type: IM Discharge Notice Notice Delivered To: Patient Relationship to Patient: Director Inpatient Headache Program Name: Delivery Method: HAND - Hand Delivered Lianet Days: Prior Verbal Notification: Recipient Understood Notice: Yes Recipient Signature: Yes Med Rec Note Co-signed by Attending: Coverage Notice Comment: Reviewer: [id number] Barbara Zapata Notice Issued Date-Time: 09/21/2018 9:08 Notice Type: Patient Choice Letter Notice Delivered To: Patient Relationship to Patient: Director Inpatient Headache Program Name: Delivery Method: HAND - Hand Delivered Lianet Days: Prior Verbal Notification: Recipient Understood Notice: Yes Recipient Signature: Yes Med Rec Note Co-signed by Attending: Coverage Notice Comment: REFUSAL OF HOME HEALTH FORM SIGNED Last DP export: 09/23/18 8:41 a Patient Name: RAE ARSHAD Page [phone] at 1149 All edits/amendments must be made on the electronic document DICTATION DATE: 09/23/18 114 REAL TIME TRADER: TEENA 09/23/18 1149 RPT#: [id number] DC DATE: STATUS: ADM IN [facility] [address] [place] [address] END OF REPORT
--- NOTE | 2018-09-23 12:09 | NUR ---
PATIENT HAS BEEN INFORMED OF DISCHARGE.
--- NOTE | 2018-09-23 12:36 | NUR ---
PATIENT STATES THAT HE IS WAITING ON HIS BROTHER FOR HIS RIDE. STATES THAT HE DOES NOT GET OFF WORK UNTIL 5 PM.
--- NOTE | 2018-09-23 13:46 | NUR ---
VERBAL AND WRITTEN DISCHARGE INSTRUCTIONS GIVEN TO PATIENT. PATIENT TELLS ME NOW THAT HE IS RIDING THE [employer] BUS. I INFORMED JUDITH MAYORGA AND HE CALLED THEM. SALINE LOCK REMOVED WITH CATH TIP INTACT.
--- NOTE | 2018-09-23 13:54 | NUR ---
DISCHARGED HOME VIA WHEELCHAIR.
--- NOTE | 2018-09-23 14:10 | MORECARE ---
CASE MANAGEMENT DISCHARGE SUMMARY PATIENT: RAE ARSHAD UNIT: [id number] ADM DATE: 09/14/18 AGE: 53 : 61 SEX: M ROOM/BED: D.2104 AUTHOR: MIGUEL,DOC PHYSICIAN: REFERRING PHYSICIAN: KHADRA KAUR MD DATE OF SERVICE: 09/23/18 Discharge Plan Patient Name: RAE ARSHAD Facility: [facility]:[place] : 1965 Planned Disposition: Home Anticipated Discharge Date: 09/23/18 Discharge Date: 09/23/2018 Expected LOS: 9 Initial Reviewer: [id number] Initial Review Date: 09/21/2018 Generated: 09/23/18 3:09 pm Comments DCP- Discharge Planning Updated by [id number]: Chencho Baez on 09/23/18 1:[address] Patient Name: RAE ARSHAD Encounter No: [id number] : 1965 Primary Insurance: MEDICARE A & B Anticipated DC Date: 09-23-2018 Planned Disposition: Home DCP follow-up note: BEDSIDE NURSE INFORMED CM THAT PT COULD NOT FIND A RIDE TO GET HOME AND REQUESTED CM CALL MEDICAID TRANSPORTATION. PT PAYS FOR MEDICAID BUS TRANSPORT MONTHLY AND IS NOT MEDICAID ELIGIBLE. 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 CM NOTIFIED BEDSIDE NURSE AND PT THAT THE VAN WILL PICK PT UP [place] [address]. Chencho Baez, KARLI SCHREIBER DCP- Discharge Planning Updated by [id number]: Chencho Baez on 09/23/18 10:[address] Patient Name: RAE ARSHAD Encounter No: [id number] : 1965 Primary Insurance: MEDICARE A & B Anticipated DC Date: 09-23-2018 Planned Disposition: Home DCP follow-up note: CM MET WITH PT IN ROOM TO DISCUSS DISCHARGE NEEDS AND PLANNING. CM DISCUSSED AVAILABILITY OF HOME HEALTH, REHAB SERVICES AND MEDICAL EQUIPMENT. PT DECLINES HOME HEALTH BUT WOULD LIKE OUTPATIENT PHYSICAL THERAPY. CM REVIEWED CHART, PT IS UP INDEPENDENTLY. CM SPOKE TO PENNY TAYLOR WHO INFORMED CM THAT PT IS INDEPENDENT AND WALKING AROUND THE HOSPITAL WITHOUT PROBLEM OR DEVICE; PT DOES NOT QUALIFY FOR REHAB. CM NOTIFIED PT. PT CALLING A FRIEND TO PICK HIM UP TODAY FOR TRANSPORT HOME AT DISCHARGE. PT DENIES DISCHARGE NEEDS. Chencho Baez, CASE MANAGEMENT DCP- Discharge Planning Updated by [email or web address]: Kimberly Zapata on 09/21/18 9:[address] Patient Name: RAE ARSHAD Admission Status: ER Accout number: [id number] Admission Date: 09-14-2018 : 1965 Admission Diagnosis:FLUID OVERLOAD, UNSPECIFIED Attending: KHADRA KAUR Current LOS: 7 Anticipated DC Date: 09-23-2018 Planned Disposition: Home Primary Insurance: MEDICARE A & B Discharge Planning Comments: CM MET WITH PATIENT REGARDING D/C NEEDS AND PLANS. PATIENT STATED HIS FAMILY WILL DRIVE HIM HOME OR THE [address] BUS. PATIENT HAS 5 STEPS TO ENTER HOME AND NO STAIRS INSIDE. PATIENT STATED HE IS INDEPENDENT WITH HIS CARE AND HAS A WALKER, SHOWER CHAIR, AND CPAP AT HOME. PATIENT STATED HE DOES NOT HAVE A GLUCOMETER AND DR. KAUR KNOWS THAT. PATIENTS PCP IS DR. KAUR AND PH[facility] [address] PATIENT REFUSED HOME HEALTH AND FORM SIGNED ALSO THE IMM WAS SERVED. CM WILL CONTINUE TO FOLLOW PATIENT WITH D/C NEEDS AND PLANS. [facility] [address] Special Education Teacher: Kimberly Zapata DCPIA - Discharge Planning Initial Assessment Updated by [id number]: Kimberly Zapata on 09/21/18 10:37 am * Is the patient Alert and Oriented? Yes * How many steps to enter\exit or inside your home? * PCP DR. KAUR * [facility] [address] * Preadmission Environment Home with Family * ADLs Partial Dependent * Partial ADLs (Assistance needed) Medication Management * Equipment CPAP Shower Chair Walker * Other Equipment PATIENT DOES NOT HAVE A GLUCOMETER STATED DR. KAUR KNOWS THIS * List name and contact numbers for known caregivers / representatives who currently or will assist patient after discharge: JC BRADSHAW [facility] [phone] * Verbal permission to speak to the caregivers and representatives has been obtained from the patient. Yes * Community resources currently utilized Other * Please name any agencies selected above. HD ON MWF 4 HOURS AND THURS [facility] [address] [facility] * Additional services required to return to the preadmission environment? Yes * Can the patient safely return to the preadmission environment? Yes * Has this patient been hospitalized within the prior 30 days at any hospital? No Coverage Notice Reviewer: [id number] Zapata Notice Issued Date-Time: 09/21/2018 9:08 Notice Type: IM Discharge Notice Notice Delivered To: Patient Relationship to Patient: Substation Operator Name: Delivery Method: HAND - Hand Delivered Linaet Days: Prior Verbal Notification: Recipient Understood Notice: Yes Recipient Signature: Yes Med Rec Note Co-signed by Attending: Coverage Notice Comment: Reviewer: [email or web address] Zapata Notice Issued Date-Time: 09/21/2018 9:08 Notice Type: Patient Choice Letter Notice Delivered To: Patient Relationship to Patient: Substation Operator Name: Delivery Method: HAND - Hand Delivered Lianet Days: Prior Verbal Notification: Recipient Understood Notice: Yes Recipient Signature: Yes Med Rec Note Co-signed by Attending: Coverage Notice Comment: REFUSAL OF HOME HEALTH FORM SIGNED Last DP export: 09/23/18 10:49 a Patient Name: RAE ARSHAD Page [phone] at 1410 All edits/amendments must be made on the electronic document DICTATION DATE: 09/23/181408 FOOD BEVERAGE SERVER: TEENA 09/23/18 140 RPT#: [id number] DC DATE:09/23/18 STATUS: DIS IN [facility] [address] [place] [address] END OF REPORT
--- NOTE | 2018-09-24 13:33 | TEE ---
PATIENT:RAE ARSHAD MEDICAL RECORD: [id number] LOCATION:D.M2 D.210 AGE OF PATIENT: 53 ADMISSION DATE: 09/14/18 SEX: M REFERRING PHYSICIAN: INTERPRETING PHYSICIAN: DINO ZAMORA MD TRANSESOPHAGEAL ECHOCARDIOGRAM Date: 09/22/18 MICKY CHARGE Y INDICATIONS: EVALUATE FOR VEGETATION PREMEDICATIONS: PATIENT'S RESPONSE PROCEDURE DOPPLER MEASUREMENTS: LVIT LA PA 132 RA LVOT 162 RVOT 95 Asc. Ao 215 AV Gradient Peak 18.43 AV Mean 10.23AV Area 2.9 MV Gradient Peak 21.26 MV Mean 7.45 MV Area INTERPRETATION: Doppler: 2-D: COLOR FLOW DOPPLER NORMAL SALINE STUDY: MISCELLANOUS: DIAGNOSIS: PLAN: Orthopaedic Technologist:3 Dr. Han Category Development Analyst: 1 RICHIE BANSAL COMMENTS: DATE OF SERVICE: 09/22/2018 TRANSESOPHAGEAL NOTE After general sedation via TIVA via anesthesia, transesophageal Omniplane probe placed in the distal esophagus and proximal stomach without difficulty. FINDINGS: As follows; LVH is present. LV internal dimensions are normal. Wall motion is normal. EF is greater than or equal to 55%. Tissue prosthetic aortic TRANSESOPHAGEAL ECHOCARDIOGRAM REPORT [id number] RAE ARSHAD valve is well visualized. This has good valve excursion. No evidence of vegetation. Left atrium appears dilated. The left atrial appendage is well visualized with good contractility. No evidence of thrombus. Mitral valve again well visualized with sdac-hp-adjadohu MR, but no evidence of vegetation. Right-sided chambers appear grossly normal. Mild TR. No evidence of vegetation in right-sided valves. TRANSINT:[id number] Voice Confirmation ID: [id number] DOCUMENT ID: [id number] at 1333 CC: [id number] DICTATION DATE: 09/22/18 1614 BODY COMPONENT ENGINEER: 09/22/18 1741 DIS IN 09/23/18 [place] [id number] [place] [id number]
== END 2018-09-23 13:54 | disposition home or self-care (01) | DRG 871 ==
LOC: D.ER 20:54 → D.M2 22:42 → D.SDCHOLD 09-16 14:58 → D.M2 09-16 15:01
PROVIDERS: Family Medicine; Internal Medicine Nephrology; ADMIT Internal Medicine Nephrology; ATTEND Internal Medicine Nephrology
PROC: 5A1D70Z Performance of Urinary Filtration, Intermittent, Less than 6 Hours Per Day (ICD-10-PCS; principal; 2018-09-15)
DX: A41.9 Sepsis, unspecified organism (principal); J18.9 Pneumonia, unspecified organism; J81.0 Acute pulmonary edema; N18.6 End stage renal disease; I13.2 Hypertensive heart and chronic kidney disease with heart failure and with stage 5 chronic kidney disease, or end stage renal disease; E11.22 Type 2 diabetes mellitus with diabetic chronic kidney disease; I50.9 Heart failure, unspecified; E11.51 Type 2 diabetes mellitus with diabetic peripheral angiopathy without gangrene; F32.9 Major depressive disorder, single episode, unspecified; I25.10 Atherosclerotic heart disease of native coronary artery without angina pectoris; E87.5 Hyperkalemia; Z86.73 Personal history of transient ischemic attack (TIA), and cerebral infarction without residual deficits; Z72.0 Tobacco use

== ENCOUNTER 2019-01-08 06:19 | Emergency (ER) | payer MEDICARE, BC ==
[2018-09-17 17:28] VITALS: Ht 182.9 cm; Wt 113.6 kg
[~2019-01-08] VITALS: Ht 182.9 cm; Wt 113.6 kg
[2019-01-08 07:25] LABS: EOSINOPHILS 2.4 % (0-7); HEMATOCRIT 39.6 % (42.0-54.0); HEMOGLOBIN 13.3 g/dL (13.5-17.5); IMMATURE GRANULOCYTES 0.3 % (0-5); LYMPHOCYTES 9.7 % (15-50); MCH 32.5 pg (26.0-34.0); MCHC 33.6 g/dL (31.0-37.0); MCV 96.8 fL (80.0-100.0); MEAN PLATELET VOLUME 11.3 fL (7.4-10.4); MONOCYTES 13.1 % (2-11); NEUTROPHILS 73.5 % (40-80); RBC 4.09 10x6/uL (4.20-6.10); RDW 14.6 % (11.5-14.5)
[2019-01-08 07:30] LABS: APTT 32.1 SECONDS (22.8-39.4); INR 1.47 (0.85-1.17); PROTIME 17.2 SECONDS (11.6-15.0)
[2019-01-08 07:47] LABS: ALKALINE PHOSPHATASE 44 U/L (46-116); ALT (SGPT) 10 U/L (10-68); BILIRUBIN - TOTAL 0.54 mg/dL (0.2-1.3); CALC OSMOLALITY 285 mosm/kg (275-300); CARBON DIOXIDE 19.6 mmol/L (21.0-32.0); CHLORIDE - SERUM 100 mmol/L (98-107); CKMB 1.1 U/L (0.0-3.6); CREATINE KINASE 89 UL (21-232); CREATININE - SERUM 7.3 mg/dL (0.6-1.3); GLUCOSE 93 mg/dL (74-106); MAGNESIUM - SERUM 1.9 mg/dL (1.8-2.4); POTASSIUM - SERUM 3.5 mmol/L (3.5-5.1); PROTEIN - SERUM 6.6 g/dL (6.4-8.2); SODIUM 136 mmol/L (136-145); TROPONIN-I 0.033 ng/mL (0.000-0.060); UREA NITROGEN 53 mg/dL (7-18); eGFR NON AFRICAN AMERICAN 8 mL/min (90-120)
[2019-01-08 07:48] LABS: PLATELET COUNT 160 10x3/uL (130-400)
[2019-01-08 07:54] LABS: CALCIUM 6.7 mg/dL (8.5-10.1)
[2019-01-08 10:47] VITALS: BP 102/64
== END 2019-01-08 10:48 | disposition home or self-care (01) ==
LOC: D.ER 06:19
PROVIDERS: Family Medicine
DX: R55 Syncope and collapse (principal); I95.9 Hypotension, unspecified; S01.81XA Laceration without foreign body of other part of head, initial encounter; Z86.73 Personal history of transient ischemic attack (TIA), and cerebral infarction without residual deficits; E11.9 Type 2 diabetes mellitus without complications; I50.9 Heart failure, unspecified; F17.210 Nicotine dependence, cigarettes, uncomplicated; W18.30XA Fall on same level, unspecified, initial encounter

== ENCOUNTER → 2019-05-28 | Emergency (ER) | payer MEDICARE, BC ==
[~2019-05-28] VITALS: Ht 182.9 cm; Wt 111.4 kg
[2019-05-28 07:43] VITALS: Ht 182.9 cm; Wt 111.4 kg
[2019-05-28 08:16] LABS: BASOPHILS 0.3 % (0-2); EOSINOPHILS 0.1 % (0-7); HEMATOCRIT 46.3 % (42.0-54.0); HEMOGLOBIN 15.5 g/dL (13.5-17.5); IMMATURE GRANULOCYTES 0.3 % (0-5); LYMPHOCYTES 3.4 % (15-50); MCH 34.9 pg (26.0-34.0); MCHC 33.5 g/dL (31.0-37.0); MCV 104.3 fL (80.0-100.0); MEAN PLATELET VOLUME 10.6 fL (7.4-10.4); MONOCYTES 7.1 % (2-11); NEUTROPHILS 88.8 % (40-80); PLATELET COUNT 192 10x3/uL (130-400); RBC 4.44 10x6/uL (4.20-6.10); RDW 16.1 % (11.5-14.5); WBC 19.3 10x3/uL (4.8-10.8)
[2019-05-28 08:23] LABS: ALBUMIN 3.8 g/dL (3.4-5.0); ANION GAP 26.1 mmol/L (8-16); BILIRUBIN - TOTAL 0.8 mg/dL (0.2-1.3); CARBON DIOXIDE 19.8 mmol/L (21.0-32.0); CREATININE - SERUM 13.8 mg/dL (0.6-1.3); PROTEIN - SERUM 8.6 g/dL (6.4-8.2)
[2019-05-28 08:44] LABS: POTASSIUM - SERUM 6.9 mmol/L (3.5-5.1)
[2019-05-28 09:38] VITALS: BP 131/84
== END ==
LOC: D.ER 07:41
PROVIDERS: Family Medicine
DX: Z91.15 Patient's noncompliance with renal dialysis (principal); E87.5 Hyperkalemia; E11.22 Type 2 diabetes mellitus with diabetic chronic kidney disease; I12.0 Hypertensive chronic kidney disease with stage 5 chronic kidney disease or end stage renal disease; N18.6 End stage renal disease; N17.9 Acute kidney failure, unspecified; Z99.2 Dependence on renal dialysis; Z72.0 Tobacco use; K21.9 Gastro-esophageal reflux disease without esophagitis; Z95.5 Presence of coronary angioplasty implant and graft

== ENCOUNTER 2019-06-07 21:42 | Inpatient (IN) | payer MEDICARE, BC ==
[~2019-06-07] VITALS: Ht 182.9 cm; Wt 118.4 kg
--- NOTE | ~2019-06-07 | HEMODYNAMI ---
PATIENT:RAE ARSHAD MEDICAL RECORD: [id number] : 61 [facility] [id number] ADMISSION DATE: 06/07/19 Generatedon:06/09/201915:19 Patient name: RAE ARSHAD Patient #: [id number] : 1965 Date of study: 06/09/2019 Page: Of Hemodynamic Procedure Report Patient Data Patient Demographics Procedure consent was obtained First Name: RAE Gender: Male Last Name: JEANCARLOS : 1965 [facility] Initial: Sánchez Age: 53 year(s) Patient #: [id number] Race: SSN: [id number] Additional ID: [id number] Contact details Address: [address] [place] [address] State: [place] City: [place] Zip code: [address] Past Medical History Allergies: No known allergies Admission Admission Data Admission Date: 06/07/2019 Admission Time: 23:39 Admit Source: Other Room #: D.2 Lab Results Lab Result Date: 06/09/2019 Lab Result Time: 0:00 Biochemistry Name Units Result Min Max BUN mg/dl 63 --(----)-* 7 18 Creatinine mg/dl 10.6 --(----)-* 0.6 1.3 eGFR ml/min 5 *-(----)-- 90 120 NONAFRICAN Troponin l ng/ml 1.496 --(----)-* 0 0.06 CBC Name Units Result Min Max Hematocrit % 42.7 --(*---)-- 42 54 Hemoglobin g/dl 13.8 --(*---)-- 13.5 17.5 Procedure Procedure Types Cath Procedure Diagnostic Procedure LHC Coronaries only Aortic Root Angiography Sedation Charges Moderate Sedation up to 45 minutes PCI Procedure Coronary Stent Coronary Stent Initial PTCA PTCA Additional Hemochron ACT Test Procedure Description Procedure Date Procedure Date: 06/09/2019 Procedure Start Time: 14:11 Procedure End Time: 15:17 Procedure Staff Name Function Thomas Li MD Performing Physician Cassidy Chu RT Monitor Ira Akbar RT Monitor Laurel Knight RN Nurse Maria A Miranda RT Scrub Santana Dotson RT Scrub Procedure Data Cath Procedure Fluoroscopy Diagnostic fluoroscopy Total fluoroscopy Time: time: 12.6 min 12.6 min Diagnostic fluoroscopy Total fluoroscopy dose: dose: 2738 mGy 2738 mGy Contrast Material Contrast Material Type Amount (ml) Isovue 370 234 Entry Location Entry Primary Successful Side Size Upsize Upsize Entry Closure Succes sful Closure Location (Fr) 1 (Fr) 2 (Fr) Remarks Device Remarks Femoral Left 5 Fr artery Femoral Right 5 Fr 7 Fr Exoseal artery Short Estimated blood loss: 10 ml Diagnostic catheters Device Type Used For End Catheter Placement MULTIPACK JL 4.0 5Fr Procedure catheter MULTIPACK 3DRC 5Fr Procedure catheter MULTIPACK Pigtail 5 Fr Procedure catheter Procedure Complications No complications Procedure Medications Medication Administration Route Dosage 0.9% NaCl I.V. Oxygen etCO2 Nasal cannula 2 l/min Lidocaine 2% added to field 20 Heparin Flush Bag added to field 2 bags (1000units/500ml NS) Versed I.V. 2 mg Fentanyl I.V. 50 mcg Fentanyl I.V. 50 mcg Versed I.V. 2 mg Heparin Bolus I.V. 5000 units Integrilin (Bolus I.V. 10.7 ml 2mg/ml) Plavix P.O. 600 mg Hemodynamics Rest HGB: 13.8 (g/dl) Heart Rate: 110 (bpm) Snapshots Pre Cath Intra NCS Post Cath Vital Signs Time Heart Resp SPO2 etCO2 NIBP (mmHg) Rhythm Pain Sedation Rate (ipm) (%) (mmHg) Status Level (bpm) 13:30:25 98 16 100 31 138/92(110) NSR 0 (11) 10(A) , No pain 13:34:33 101 23 99 24.9 128/98(109) NSR 0 (11) 10(A) , No pain 13:38:41 98 20 98 24.2 134/93(118) NSR 0 (11) 10(A) , No pain 13:42:51 98 18 95 28 125/93(105) NSR 0 (11) 10(A) , No pain 13:47:33 95 19 94 28.7 133/93(106) NSR 0 (11) 10(A) , No pain 13:51:41 95 17 94 29.5 127/94(102) NSR 0 (11) 10(A) , No pain 13:55:45 93 19 95 26.4 120/91(104) NSR 0 (11) 10(A) , No pain 13:59:53 94 18 96 28.7 124/85(102) NSR 0 (11) 10(A) , No pain 14:04:03 94 18 96 24.2 125/85(103) NSR 0 (11) 10(A) , No pain 14:08:11 94 18 96 23.4 113/88(98) NSR 0 (11) 10(A) , No pain 14:12:14 93 17 96 24.2 120/89(96) NSR 0 (11) 9(A) , No pain 14:16:22 93 18 97 26.4 118/86(104) NSR 0 (11) 9(A) , No pain 14:20:30 95 16 96 24.2 113/84(100) NSR 0 (11) 9(A) , No pain 14:24:36 94 14 97 24.9 110/82(97) NSR 0 (11) 9(A) , No pain 14:28:38 92 14 96 24.9 122/91(101) NSR 0 (11) 9(A) , No pain 14:32:46 89 15 96 20.4 116/81(97) NSR 0 (11) 9(A) , No pain 14:36:53 90 17 96 28 105/70(89) NSR 0 (11) 9(A) , No pain 14:40:59 91 17 95 23.4 96/73(81) NSR 0 (11) 9(A) , No pain 14:45:03 92 18 97 22.6 97/68(84) NSR 0 (11) 9(A) , No pain 14:49:00 88 16 97 27.9 113/85(96) NSR 0 (11) 9(A) , No pain 14:53:10 88 16 95 28.7 113/73(97) NSR 0 (11) 9(A) , No pain 14:57:18 86 16 95 27.2 110/78(83) NSR 0 (11) 9(A) , No pain 15:01:26 86 17 96 13.6 95/74(84) NSR 0 (11) 10(A) , No pain 15:05:24 86 16 96 9.8 113/83(93) NSR 0 (11) 10(A) , No pain 15:09:29 86 24 99 22.6 97/79(89) NSR 0 (11) 10(A) , No pain 15:13:29 19 98 26.4 112/77(92) NSR 0 (11) 10(A) , No pain 15:17:35 86 13 98 27.9 122/89(100) NSR 0 (11) 10(A) , No pain Medications Time Medication Route Dose Verified Delivered Reason Notes Effectiveness by by 13:29:42 0.9% NaCl I.V. kvo Thomas Laurel used for [facility] procedure MD GARY 13:29:48 Oxygen etCO2 2 Thomas Laurel used for Nasal l/min [facility] procedure cannula MD GARY 13:29:54 Lidocaine 2% added 20ml Thomas Guzman for local to vial [facility] anesthetic field MD GREEN 13:29:57 Heparin Flush added 2 Thomas Thomas used for Bag to bags [facility] procedure (1000units/500ml field MD GREEN NS) 14:08:03 Fentanyl I.V. 50 Thomas Laurel for sedation mcg [facility] Knight MD, RN 14:08:54 Versed I.V. 2 mg Thomas Laurel for sedation [facility] Knight MD, RN 14:33:30 Fentanyl I.V. 50 Thomas Laurel for sedation [facility] [place] [facility] Brady Knight MD, RN 14:33:34 Versed I.V. 2 mg Thomas Laurel for sedation [facility] Brady Knight MD, RN 14:33:40 Heparin Bolus I.V. 5000 Thomas Laurel for verif ied units [facility] anticoagulation with Dr. MD GARY [facility] 14:33:53 Integrilin I.V. 10.7 Thomas Laurel for 10.7m L (Bolus 2mg/ml) ml [facility] antiplatelet given via MD GARY therapy one vial of 20mg/10ml Integrilin. No second vial needed. 15:05:07 Plavix P.O. [address] mg [facility] Knight antiplatelet RN therapy Procedure Log Time Note 12:50:07 Lab results completed and on chart. 12:50:12 Stress Test: no; N/A ? 12:50:15 Risk of Mortality: 1.1 12:50:19 Risk of blood transfusion: 1.6 12:50:23 Risk of HEATHER: 18.3 12:50:30 Informed consent obtained and on chart 12:50:44 Diagnostic Cath Status : Urgent 12:51:29 Admit Source: Other 12:51:32 Procedure Status Urgent Heart Cath (IP). 12:51:37 Time tracking: Regular hours (M-F 7:00 - 5:00) 12:51:43 Plan of Care:Hemodynamics will remain stable., Cardiac rhythm will remain stable., Comfort level will be maintained., Respiratory function will remain adequate., Patient/ family verbilizes understanding of procedure., Procedure tolerated without complication., Recovers from procedure without complications.. 13:15:40 Lab Result : Hemoglobin 13.8 g/dl 13:15:40 Lab Result : eGFR NONAFRICAN 5 ml/min 13:15:40 Lab Result : Troponin l 1.496 ng/ml 13:15:40 Lab Result : BUN 63 mg/dl 13:15:40 Lab Result : Creatinine 10.6 mg/dl 13:15:40 Lab Result : Hematocrit 42.7 % 13:15:57 Cassidy Chu RT(R) sent for patient. Start room use. 13:23:28 Patient received from Med II to CCL 1 Alert and oriented. Tansferred to table in Supine position. 13:23:29 Warm blankets applied, and naveen hugger turned on for patient comfort. 13:23:30 Correct patient and procedure confirmed by team. 13:23:31 ECG and BP/O2 sat monitors applied to patient. 13:23:34 Pre-procedure instructions explained to patient. 13:23:35 Pre-op teaching completed and patient verbalized understanding. 13:23:37 Family in waiting room. 13:23:39 Patient NPO since Midnight. 13:23:45 Is the patient allergic to Iodine/contrast media? No. 13:23:48 Was the patient premedicated? Yes 13:27:21 Is patient on blood thinner?No 13:27:24 Patient diabetic? Yes. 13:27:26 If diabetic: On Metformin? No 13:27:28 ----Pre-sedation anethsthesia assessment.---- 13:27:32 Previous problem with sedation/anesthesia? No ? 13:27:36 Snore? Yes 13:27:41 Sleep apnea? Yes 13:27:43 Deviated septum? No 13:27:44 Opens mouth fully? Yes 13:27:46 Sticks out tongue? Yes 13:27:48 Airway obstruction? No ? 13:27:50 Dentures? No ? 13:29:26 Pre procedure: right dorsailis pedis pulse 1+ Palpable, but thready & weak; easily obliterated 13:29:27 Vital chart was started 13:29:31 Patient pain scale 0/10 ?. 13:29:36 IV patent on arrival in right hand with 0.9% NaCl at KVO. 13:29:42 0.9% NaCl kvo I.V. was administered by Laurel Knight RN; used for procedure; Verbal order read back and verified. 13:29:48 Oxygen 2 l/min etCO2 Nasal cannula was administered by Laurel Knight RN; used for procedure; Verbal order read back and verified. 13:29:50 Patient allergic to No known allergies 13:29:54 Lidocaine 2% 20ml vial added to field was administered by Thomas Li MD; for local anesthetic; Verbal order read back and verified. 13:29:56 Alarms reviewed by R. N. 13:29:57 Heparin Flush Bag (1000units/500ml NS) 2 bags added to field was administered by Thomas Li MD; used for procedure; Verbal order read back and verified. 13:29:57 Sharps counted by scrub and verified by R.N. 13:30:03 Full Disclosure recording started 13:30:56 Baseline sample Acquired. 13:35:40 Use device set Femoral Dx 13:35:41 ACIST Syringe (27503) opened to sterile field. 13:35:42 Bag Decanter (2002) opened to sterile field. 13:35:43 Medline Cath Pack ([id number]) opened to sterile field. 13:35:44 ACIST Hand Control (33248) opened to sterile field. 13:35:45 ACIST Manifold (85664) opened to sterile field. 13:35:46 DIAGNOSTIC Multipack 5Fr catheter set ([id number]) opened to sterile field. 13:35:47 EXOSEAL 5Fr (EX500) opened to sterile field. 13:35:48 SHEATH 5FR Monroe (UPV157) opened to sterile field. 13:36:18 Rhythm: sinus tachycardia 13:39:59 H&P Date Dictated: 06/07/2019 New H&P dictated by physician.. 14:07:44 --------ALL STOP TIME OUT------ 14:07:45 Final Timeout: patient, procedure, and site verified with staff and physician. All members of the team are in agreement. 14:07:48 Right groin site verified by team. 14:07:53 Fire Safety Assessment: A--An alcohol-based skin anteseptic being used preoperatively., C--Open oxygen or nitrous oxide is being used., D--An ESU, laser, or fiber-optic light is being used. 14:08:01 Physical assessment completed. ASA score P 2 - A patient with mild systemic disease as per Thomas Li MD. 14:08:03 Fentanyl 50 mcg I.V. was administered by Laurel Knight RN; for sedation; Verbal order read back and verified. 14:08:05 5) <15 or on dialysis Very severe, or end stage kidney failure. 14:08:11 Maximum allowable contrast dose (3.7 X eGFR X 0.75)14 ml. 14:08:20 Sedation plan: IV Moderate Sedation Medication:Versed, Fentanyl 14:08:54 Versed 2 mg I.V. was administered by Laurel Knight RN; for sedation; Verbal order read back and verified. 14:11:41 Procedure started. 14:11:45 Local anesthetic to right femoral artery with Lidocaine 2% by Thomas Li MD.INITIAL ACCESS ONLY 14:14:21 j wire used for inital access. 14:15:57 A MULTIPACK JL 4.0 5Fr catheter was advanced over the wire and used for Procedure. 14:16:29 LCA angiography performed. 14:18:31 Catheter removed. 14:19:20 A MULTIPACK 3DRC 5Fr catheter was advanced over the wire and used for Procedure. 14:19:53 RCA angiography performed. 14:21:33 CLARK to LAD angiography performed. 14:21:54 Catheter removed. 14:22:05 A MULTIPACK Pigtail 5 Fr catheter was advanced over the wire and used for Procedure. 14:25:49 Aortic Root visualized 14:27:05 NO LV DONE. 14:27:09 Catheter removed. 14:27:11 Proceeding to intervention. 14:27:26 A 5 Fr sheath was inserted into the Left Femoral artery 14:30:11 Local anesthetic to left femerol artery with Lidocaine 2% by Thomas Li MD.ADDITIONAL ACCESS 14:32:13 A 5 Fr sheath was inserted into the Right Femoral artery 14:32:19 Sheath upsized to a 7 Fr Short. 14:32:24 SHEATH 7FR Monroe (TBO908) opened to sterile field. 14:32:26 WHISPER 300cm guide wire ([id number]) opened to sterile field. 14:32:27 WHISPER 300cm guide wire ([id number]) opened to sterile field. 14:32:28 INFLATOR Merit BasixCompak (WO0396) opened to sterile field. 14:33:30 Fentanyl 50 mcg I.V. was administered by Laurel Knight RN; for sedation; Verbal order read back and verified. 14:33:34 Versed 2 mg I.V. was administered by Laurel Knight RN; for sedation; Verbal order read back and verified. 14:33:40 Heparin Bolus 5000 units I.V. was administered by Laurel Knight RN; for anticoagulation; verified with Dr. Han Verbal order read back and verified. 14:33:53 Integrilin (Bolus 2mg/ml) 10.7 ml I.V. was administered by Laurel Knight RN; for antiplatelet therapy; 10.7mL given via one vial of 20mg/10ml Integrilin. No second vial needed. Verbal order read back and verified. 14:34:42 GUIDE 7FR EBU 3.5 catheter ([id number]) opened to sterile field. 14:34:49 7 Fr EBU 3.5 guide catheter was inserted over the wire 14:36:07 WHISPER 300 wire advanced. 14:36:17 Wire advanced across lesion. 14:36:56 Pre PCI Site: [place] pLAD has 99% stenosis. 14:39:53 2ND WIRE ADNVACED ACROSS DIAG.. 14:41:25 Inflate balloon Inflation number: 1 A EMERGE OTW 3.0 x 15 balloon ([id number]) was prepped and advanced across the 1st Diag , then inflated to 10 TED for 0:00 (min:sec) . 14:42:01 Inflation number: 2 The EMERGE OTW 3.0 x 15 balloon ([id number]) was reinflated across the 1st Diag , to 10 TED for 0:00 (min:sec) . 14:42:27 Balloon removed over the wire. 14:44:44 Inflation number: 1 The EMERGE OTW 3.0 x 15 balloon ([id number]) was reinflated across the Prox LAD , to 14 TED for 0:00 (min:sec) . 14:45:23 Balloon removed over the wire. 14:46:06 WIRE REMOVED FROM DIAG. 14:55:07 Inflate balloon Inflation number: 1 A EMERGE OTW 2.0 x 20 balloon ([id number]) was prepped and advanced across the Dist LAD , then inflated to 10 TED for 0:00 (min:sec) . 14:57:01 Balloon removed over the wire. 15:00:50 Place stent Inflation Number: 2 A INTEGRITY 4.0 x 18 stent ([id number]) was prepped and advanced across the Prox LAD . The stent was deployed at 12 TED for 0:00 (min:sec) . 15:02:26 Stent catheter was removed intact over wire. 15:02:26 Wire removed. 15:02:27 Guide catheter removed. 15:02:55 EXOSEAL 7Fr (EX700) opened to sterile field. 15:02:56 EXOSEAL 5Fr (EX500) opened to sterile field. 15:03:13 Sheath removed intact; hemostasis achieved with Exoseal to the Right Femoral artery. 15:04:20 Fluoroscopy time 12.60 minutes. 15:04: Fluoroscopy dose: 2738 mGy 15:: Flurop Dose total: 2738 15:04:43 Dose Area Product 603969 mGy/cm. 15:04:53 Contrast amount:Isovue 370 234ml. 15:04:56 Maximum allowable dose exceeded? Yes. 15:04:57 Sharps counted by scrub and verified by R.N. 15:05:07 Plavix 600 mg P.O. was administered by Laurel Knight RN; for antiplatelet therapy; Verbal order read back and verified. 15:07:18 5FR SHEATH TO LEFT SIDE CHANGED OUT DUE TO KINK IN SHEATH TO ANOTHER 5FR SHEATH. 15:07:45 SHEATH 5FR Monroe (SDL049) opened to sterile field. 15:08:39 [place] TO DEPLOY 5FR EXOSEAL WILL PULL AND HOLD MANUAL PRESSURE ON LT SIDE AND FEMSTOP.. 15:08:42 ACT drawn and resulted at 236 seconds. (normal therapeutic range 180-240 seconds). 15:08:57 Procedure ended.(Physican Out) 15:09:26 FEMSTOP Gold (O79255) opened to sterile field. 15:09:40 Post right femoral artery:stable, soft, clean and dry 15:10:05 Post Procedure Pulses reassessed and unchanged 15:10:10 Post procedure: right dorsailis pedis pulse 1+ Palpable, but thready & weak; easily obliterated. 15:10:14 Post-procedure physical assessment completed. ASA score P 2 - A patient with mild systemic disease as per Thomas Li MD. 15:10:17 Post procedure rhythm: unchanged. 15:10:20 Estimated blood loss: 10 ml 15:10:22 Post procedure instruction explained to patient.Patient verbalizes understanding. 15:10:24 Patient needs reinforcement of post procedure teaching. 15:12:19 Procedure type changed to Cath procedure, Diagnostic procedure, C, Coronaries only, Aortic Root Angiography, Sedation Charges, Moderate Sedation up to 45 minutes, PCI procedure, Coronary Stent, Coronary Stent Initial, PTCA, PTCA Additional, Hemochron ACT Test 15:14:13 Procedure Complication : No complications 15:14:17 [facility] Findings: MVD- PCI performed (see procedure note) 15:14:20 Operative report dictated upon procedure completion. 15:14:21 See physician's report for complete and final results. 15:17:12 Femstop placed over the left femerol artery at 162 mmHg. Hemostasis achieved. 15:17:20 Procedure and supply charges have been captured, reviewed, submitted and are correct. 15:17:21 Vital chart was stopped 15:17:24 Report given to [facility] II. 15:17:27 Patient transfered to [facility] with Bed. 15:17:29 Procedure ended. 15:17:29 Full Disclosure recording stopped 15:18:07 End room use (Document Last) 15:18:19 End room use (Document Last) 15:18:53 End room use (Document Last) Intervention Summary Intervention Notes Time ActionType Lesion and Equipment Action# Pressure Duration Attributes Used 14:41:25 Inflate 1st Diag EMERGE OTW 1 10 00:00 balloon 3.0 x 15 balloon ([id number]) 14:42:01 Reinflate 1st Diag EMERGE OTW 2 10 00:00 balloon 3.0 x 15 balloon ([id number]) 14:44:44 Reinflate Prox LAD EMERGE OTW 1 14 00:00 balloon 3.0 x 15 balloon ([id number]) 14:55:07 Inflate Dist LAD EMERGE OTW 1 10 00:00 balloon 2.0 x 20 balloon ([id number]) 15:00:50 Place stent Prox LAD INTEGRITY 2 12 00:00 4.0 x 18 stent ([id number]) Device Usage Item Name Manufacture Quantity Catalog Number Hospital Part Current Min imal Lot# / Charge Number Stock Stock Serial# Code ACIST Acist 1 04169 054251 534340 502582 20 Syringe Medical (12950) Systems Inc Bag Decanter Microtek 1 2002S 674204 65274 225305 5 (2001S) Medical Inc. Medline Cath Medline 1 [id number] 848471 99904 062100 5 Pack ([id number]) ACIST Hand Acist 1 23214 973031 538467 795644 5 Control Medical (51932) Systems Inc ACIST Acist 1 96391 890054 097753 241653 5 Manifold Medical (20113) Systems Inc DIAGNOSTIC Cardinal 1 [id number] 561651 64987 380211 30 Multipack Health 5Fr catheter set (UY2956) EXOSEAL 5Fr Cardinal 2 EX500 773915 416921 013170 10 (EX500) Health SHEATH 5FR Terumo 2 UUK309 986238 637725 763581 5 Monroe (DRI349) MULTIPACK JL Cardinal 1 328446 5 4.0 5Fr Health catheter MULTIPACK Cardinal 1 572241 5 3DRC 5Fr Health catheter MULTIPACK Cardinal 1 723435 5 Pigtail 5 Fr Health catheter SHEATH 7FR Terumo 1 ENR393 108688 506440 632942 5 Monroe (BSC404) WHISPER Brewer 2 [id number] 247469 161840 105388 5 300cm guide Vascular wire ([id number]) INFLATOR Merit 1 EC8292 845964 557856 693957 15 [facility] Medical BasixCompak (CH9529) GUIDE 7FR Medtronic 1 [id number] 983834 105342 645207 0 EBU 3.5 catheter ([id number]) EMERGE OTW Rollins 1 [id number] 669126 082346 331461 5 [id number] 3.0 x 15 Scientific balloon ([id number]) EMERGE OTW Rollins 1 [id number] 885940 021019 546088 5 [id number] 2.0 x 20 Scientific balloon ([id number]) INTEGRITY Medtronic 1 [id number] 781378 898904 220250 5 [id number] 4.0 x 18 stent ([id number]) EXOSEAL 7Fr Cardinal 1 EX700 664280 805237 774922 5 (EX700) Health FEMSTOP Gold St Ant 1 [id number] 518721 636814 612449 5 ([id number]) Signature Audit [place] Stage Time Signature Unsigned Intra-Procedure 06/09/2019 Ira Akbar 3:18:19 PM RT(R) Intra-Procedure 06/09/2019 Laurel Knight 3:18:53 PM RN Intra-Procedure 06/09/2019 Thomas Paz 3:19:14 PM [facility] [address] [place] [address]
[2019-06-07 22:20] LABS: BASOPHILS 0.4 % (0-2); HEMATOCRIT 43.4 % (42.0-54.0); HEMOGLOBIN 14.3 g/dL (13.5-17.5); IMMATURE GRANULOCYTES 0.3 % (0-5); LYMPHOCYTES 4.5 % (15-50); MCH 34.9 pg (26.0-34.0); MCHC 32.9 g/dL (31.0-37.0); MCV 105.9 fL (80.0-100.0); MONOCYTES 7.8 % (2-11); PLATELET COUNT 167 10x3/uL (130-400); RDW 16.3 % (11.5-14.5); WBC 12.9 10x3/uL (4.8-10.8)
[2019-06-07 22:22] LABS: CALC OSMOLALITY 287 mosm/kg (275-300); CALCIUM 8.6 mg/dL (8.5-10.1); CARBON DIOXIDE 21.9 mmol/L (21.0-32.0); CHLORIDE - SERUM 92 mmol/L (98-107); CREATININE - SERUM 11.3 mg/dL (0.6-1.3); POTASSIUM - SERUM 4.5 mmol/L (3.5-5.1); SODIUM 131 mmol/L (136-145); UREA NITROGEN 70 mg/dL (7-18); eGFR NON AFRICAN AMERICAN 5 mL/min (90-120)
[2019-06-07 22:24] LABS: APTT 31.1 SECONDS (22.8-39.4); INR 1.26 (0.85-1.17); PROTIME 15.3 SECONDS (11.6-15.0)
[2019-06-07 22:25] LABS: GLUCOSE 170 mg/dL (74-106)
[2019-06-07 22:44] LABS: ALBUMIN 3.5 g/dL (3.4-5.0); ALKALINE PHOSPHATASE 63 U/L (46-116); ALT (SGPT) 23 U/L (10-68); BILIRUBIN - TOTAL 0.85 mg/dL (0.2-1.3); CKMB 4.2 U/L (0.0-3.6); CREATINE KINASE 77 UL (21-232); PROTEIN - SERUM 8.1 g/dL (6.4-8.2)
[2019-06-07 22:45] VITALS: BP 111/83
[2019-06-07 22:45] LABS: PRO BNP 64162 pg/mL (0-125)
[2019-06-07 22:48] LABS: TROPONIN-I 1.122 ng/mL (0.000-0.060)
--- NOTE | 2019-06-07 23:45 | NUR ---
PT AWAKE AND ALERT. NO S/S OF ACUTE DISTRESS NOTED. PT UPDATED ON PLAN OF CARE.
--- NOTE | 2019-06-08 00:40 | NUR ---
ADMITED BY WC TO ROOM TWO BED LOW AND LOCKED AND CALL LIGHT PROVIDED EFFORTS FOR COMFORT AND SCDS REFUSED TELE ESTABLISHED
[2019-06-08] MEDS ORDERED: LEVEMIR FL100 UNIT/1 SC ×2 (01:13→01:14)
[2019-06-08 03:15] VITALS: BP 129/93
[2019-06-08 04:25] VITALS: BP 89/59
[2019-06-08 05:07] LABS: EOSINOPHILS 2.3 % (0-7); HEMATOCRIT 42.3 % (42.0-54.0); HEMOGLOBIN 13.7 g/dL (13.5-17.5); IMMATURE GRANULOCYTES 0.2 % (0-5); LYMPHOCYTES 14.8 % (15-50); MCH 34.5 pg (26.0-34.0); MCHC 32.4 g/dL (31.0-37.0); MCV 106.5 fL (80.0-100.0); MEAN PLATELET VOLUME 10.9 fL (7.4-10.4); MONOCYTES 9.6 % (2-11); NEUTROPHILS 72.1 % (40-80); PLATELET COUNT 177 10x3/uL (130-400); RBC 3.97 10x6/uL (4.20-6.10); RDW 16.3 % (11.5-14.5); WBC 9.7 10x3/uL (4.8-10.8)
[2019-06-08 05:47] LABS: ANION GAP 22.6 mmol/L (8-16); CALCIUM 8.5 mg/dL (8.5-10.1); CARBON DIOXIDE 23.1 mmol/L (21.0-32.0); CREATININE - SERUM 12.1 mg/dL (0.6-1.3); MAGNESIUM - SERUM 2.3 mg/dL (1.8-2.4); POTASSIUM - SERUM 4.7 mmol/L (3.5-5.1)
[2019-06-08 05:50] LABS: TROPONIN-I 1.393 ng/mL (0.000-0.060)
--- NOTE | 2019-06-08 07:19 | NUR ---
PT SITTING UP ON SIDE OF BED. AXO. DENIES NEEDS OR PAIN AT THIS TIME. RR EVEN AND UNLABORED ON 2L NC. BED IN LOWEST POSITION. CALL LIGHT WITHIN REACH. WILL CONTINUE TO MONITOR.
[2019-06-08 08:00] VITALS: BP 110/86
--- NOTE | 2019-06-08 09:32 | NUR ---
PT DEEMED FALL RISK. UPON WALKING INTO ROOM TO PLACE BED ALARM ON, PT REFUSED. WAIVER SIGNED AND PLACED IN CHART.
--- NOTE | 2019-06-08 09:59 | NUR ---
PT LEFT FOR DIALYSIS VIA WHEELCHAIR
[2019-06-08 13:16] VITALS: Ht 182.9 cm; Wt 118.4 kg
[2019-06-08 17:42] VITALS: BP 119/84
--- NOTE | 2019-06-08 17:45 | NUR ---
I have reviewed this patient and I concur with the Shift Assessment completed by the Licensed Practical Nurse today this shift.
--- NOTE | 2019-06-08 19:05 | NUR ---
AWAKE AND ALERT AND DENIES NEEDS AT THIS TIME TELEMETRY HAS BEEN REAPPLIED BED LOW AND LOCKED CALL LIGHT IS WITH PT
[2019-06-08 20:30] VITALS: BP 112/89
[2019-06-09 00:25] VITALS: BP 95/66
[2019-06-09 04:27] VITALS: BP 118/93
[2019-06-09 06:39] LABS: BASOPHILS 1.2 % (0-2); EOSINOPHILS 3.4 % (0-7); HEMATOCRIT 42.7 % (42.0-54.0); HEMOGLOBIN 13.8 g/dL (13.5-17.5); IMMATURE GRANULOCYTES 0.4 % (0-5); LYMPHOCYTES 15.5 % (15-50); MCH 34.5 pg (26.0-34.0); MCHC 32.3 g/dL (31.0-37.0); MCV 106.8 fL (80.0-100.0); MEAN PLATELET VOLUME 10.7 fL (7.4-10.4); MONOCYTES 11.4 % (2-11); NEUTROPHILS 68.1 % (40-80); PLATELET COUNT 158 10x3/uL (130-400); RDW 16.6 % (11.5-14.5); WBC 9.6 10x3/uL (4.8-10.8)
[2019-06-09 06:42] LABS: ANION GAP 21.8 mmol/L (8-16); CALCIUM 8.3 mg/dL (8.5-10.1); CARBON DIOXIDE 25.2 mmol/L (21.0-32.0); CREATININE - SERUM 10.6 mg/dL (0.6-1.3); PHOSPHOROUS 5.7 mg/dL (2.5-4.9)
--- NOTE | 2019-06-09 07:10 | NUR ---
PATIENT LAYING IN BED AWAKE, ALERT AND ORIENTED X 4. PATIENT IS STABLE AND VSS. PATIENT DENIES ANY NEEDS OR PAIN. INSTRUCTED PATIENT THAT A URINE SPECIMEN IS NEEDED. AT BS. WILL CONTINUE WITH PLAN OF CARE. SR UP X2 BED IN LOW POSITIOPN AND CALL LIGHT IN REACH.
[2019-06-09 09:04] LABS: CHOL - HDL RATIO 2.3 ratio (2.3-4.9); LDL-HDL RATIO 0.9 ratio (1.5-3.5)
--- NOTE | 2019-06-09 09:15 | NUR ---
PATIENT IS STABLE AND VSS. PATIENT TO DIALYSIS VIA WC ACCOMPANIED BY HOSPITAL STAFF.
--- NOTE | 2019-06-09 10:42 | NUR ---
PATIENT IS STABLE AND VSS. PATIENT NPO AWAITING HEART CATH. PATIENT DENIES ANY NEEDS OR PAIN. WILL CONTINUE TO MONITOR. SR UP X 2 BED IN LOW POSITION AND CALL LIGHT IN REACH.
[2019-06-09 11:01] VITALS: BP 109/71
--- NOTE | 2019-06-09 12:50 | NUR ---
PATIENT RETURNED FROM DIALYSIS. PATIENT IS STABLE AND VSS. PER CATH TEAM PATIENT PREOP ACCORDING TO MELODY. SR UP X 2 BED IN LOW POSTION AND CALL LIGHT IN REACH.
--- NOTE | 2019-06-09 13:15 | NUR ---
PATIENT IS STABLE AND VSS. PATIENT TO DIALYSIS VIA HOPSITAL BED ACCOMPANIED BY MEASUREMENT AND VERIFICATION ENGINEER TEAM.
--- NOTE | 2019-06-09 15:30 | NUR ---
PATIENT RETURNED TO ROOM VIA HOSPITAL BED ACCOMPANIED BY ROOM SERVICE ASSOCIATE TEAM. PATIENT WITH EYES CLOSED AND BREATHING EVENLY. PATIENT AROUSES TO VOICE EASILY. RT GROIN DRESSING C/D/I. LT GROIN WITH FEMSTOP IN PLACE C/D./I. ADAL PEDAL PULSES PRESENT. FREQUENT VITALS SET UP. WILL CONTINUE TO MONITOR. SR UP X 2 BED IN LOW POSITION AND CALL LIGHT IN PLACE.
--- NOTE | 2019-06-09 17:30 | NUR ---
PATIENT CONTINUES TO LAY FLAT WITH EYES CLOSED AND BREATHING EVENLY . PATIENT AROUSES TO VOICE EASILY. VSS. PATIENT DENIES ANY PAIN OR NEEDS. RT GROIN DSG C/D/I. NO SIGNS OF HEMATOMA, BLEEDING OR BRUISING. ATTMEPTED TO DECREASE AIR IN FEMSTOP. HAD IMMEDIATE BRIGHT RED BLOOD. IMMEDIATLEY INCREASED AIR BACK TO 78. NO SIGN S OF BLEEDING, BRUISING OR HEMATOMA NOTED. WILL CONTINUE TO MONITOR. SR UPX 2 BED IN LOW POSITION AND CALL LIGHT IN REACH.
--- NOTE | 2019-06-09 18:30 | NUR ---
PATIENT CONTINUES TO LAY FLAT WITH BOTH LEGS STRAIGHT . RT GROIN DRSG C/D/I. LT GROIN WITH FEMSTOP. ATTEMPTED TO TO REMOVE 20 CC OF AIR AND BRIGHT RED BLEEDING STARTED. IMMEDIATELY REINFLATED TO 78. NO BLEEDING, BRUISNG OR HEMATOMA NOTED. WILL CONTINUE TO MONITOR. SR UP X 2 BED IN LOW POSTION AND CALL LIGHT IN REACH.
--- NOTE | 2019-06-09 19:11 | NUR ---
PT LAYING FLAT IN BED FEMSTOP IN PLACE BANDAGE TO RT GROIN DRY AND INTACT BED LOW AND LOCKED CALL LIGHT WITH PT DENIES OTHER NEEDS IN ONE HOUR I WILL SLOWLY BEGIN TO RELIEVE PRESSURE FROM FEM STOP
[2019-06-09 20:00] VITALS: BP 119/77
--- NOTE | 2019-06-09 22:07 | NUR ---
HAVE BEEN SLOWLY DECREASING PRESSURE THIS SHIFT AND NOW HAVE COMPLETELY REMOVED FEMSTOP NO ACTIVE BLEEDING COVERED WITH DRY STERILE GUAZE
--- NOTE | 2019-06-10 00:30 | NUR ---
DRSG TO BOTH GROINS REMAIN DRY AND INTACT
[2019-06-10 00:40] VITALS: BP 173/91; BP 98/64
--- NOTE | 2019-06-10 02:35 | NUR ---
I have reviewed this patient and I concur with the Shift Assessment completed by the Licensed Practical Nurse today this shift.
[2019-06-10 05:43] VITALS: BP 113/84
[2019-06-10 06:25] LABS: EOSINOPHILS 3.4 % (0-7); HEMATOCRIT 39.9 % (42.0-54.0); HEMOGLOBIN 12.8 g/dL (13.5-17.5); IMMATURE GRANULOCYTES 0.2 % (0-5); LYMPHOCYTES 8.8 % (15-50); MCH 34.3 pg (26.0-34.0); MCHC 32.1 g/dL (31.0-37.0); MEAN PLATELET VOLUME 11.2 fL (7.4-10.4); MONOCYTES 11.3 % (2-11); NEUTROPHILS 75.3 % (40-80); PLATELET COUNT 161 10x3/uL (130-400); RBC 3.73 10x6/uL (4.20-6.10); RDW 16.6 % (11.5-14.5); WBC 8.8 10x3/uL (4.8-10.8)
[2019-06-10 06:37] LABS: ANION GAP 19.4 mmol/L (8-16); CARBON DIOXIDE 25.7 mmol/L (21.0-32.0); CREATININE - SERUM 9.6 mg/dL (0.6-1.3); PHOSPHOROUS 5.9 mg/dL (2.5-4.9); POTASSIUM - SERUM 4.1 mmol/L (3.5-5.1)
[2019-06-10 07:54] VITALS: BP 102/70
--- NOTE | 2019-06-10 09:10 | OP ---
PATIENT NAME: RAE ARSHAD MEDICAL RECORD: [id number] :61 LOCATION:D.M2 D.2102 ADMISSION DATE:06/07/19 SURGEON: DINO ZAMORA MD DATE OF OPERATION: 06/09/2019 PROCEDURE: Left heart catheterization, selective coronary angiography, right femoral artery approach. CATHETERS: A 5-Togolese sheath, 5/4 left and right Merry, 5/4 pig. The procedure was well tolerated and the patient returned to yanes, sheath moved. 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 AORTIC ROOT: Aortic root injection shows no bypass grafts and mild AI. CLARK injection shows a patent CLARK, this attaches to no coronary artery. CORONARY ANATOMY: LEFT MAIN: Left main basically tapers to an ostial stenosis, the LAD, and ramus branch, both greater than 90+ percent. CIRCUMFLEX: Free of disease. RIGHT CORONARY ARTERY: Somewhat codominant system has moderate disease throughout its course. IMPRESSION: Critical disease of the ramus, LAD. DESCRIPTION OF PROCEDURE: After a 5-Togolese sheath was exchanged for a 7-Togolese sheath using an EBU guide catheter and double wired with a Whisper wire placed down the ramus and Whisper wire placed down the LAD proper. Next a 3.0 x 15 balloon was placed down the ramus/high diagonal inflated up to 15 atmospheres, showed marked improvement in flow and proximal lesion was 10%. This entire apparatus was withdrawn and we placed a 4.0 x 15 mm Integrity nondrug eluting stent up to 14 atmospheres in the proximal LAD. Final angiography shows no snow plowing into the high D1 ramus branch with marked improvement of flow and less than 10% residual. The LAD itself less than 90% stenosis, no significant residual in the area of stenting. Sheath closed with ExoSeal device. Plavix was loaded in the lab. TRANSINT:[id number] Voice Confirmation ID: [id number] DOCUMENT ID: [id number] DINO ZAMORA MD at 0910 CC: [id number] DICTATION DATE: 06/09/19 1518 INDUSTRIAL ENGINEERING: 06/10/19 0242 ADM IN [place] [id number] [place] [address]
[2019-06-10 14:57] VITALS: BP 124/93
--- NOTE | 2019-06-10 17:36 | MORECARE ---
CASE MANAGEMENT DISCHARGE SUMMARY PATIENT: RAE ARSHAD UNIT: [id number] ADM DATE: 06/07/19 AGE: 53 : 61 SEX: M ROOM/BED: D.2102 AUTHOR: NIC RIVERA PHYSICIAN: REFERRING PHYSICIAN: CHET JOHNSON DO DATE OF SERVICE: 06/10/19 Discharge Plan Patient Name: RAE ARSHAD Facility: [facility]:[place] : 1965 Planned Disposition: Home Anticipated Discharge Date: 06/11/19 Discharge Date: Expected LOS: 4 Initial Reviewer: [email or web address] Initial Review Date: 06/10/2019 Generated: 06/10/19 6:36 pm DCPIA - Discharge Planning Initial Assessment Updated by [email or web address]: Chencho Baez on 06/10/19 5:36 pm * Is the patient Alert and Oriented? Yes * How many steps to enter\exit or inside your home? NONE * PCP DR. KAUR * Pharmacy [facility] [address] * Preadmission Environment Home with Family * ADLs Independent * Equipment CPAP Shower Chair Walker * Other Equipment NO MEDICAL EQUIPMENT PROVIDER PREFERENCE * List name and contact numbers for known caregivers / representatives who currently or will assist patient after discharge: JC BRADSHAW, MOTHER, * Verbal permission to speak to the caregivers and representatives has been obtained from the patient. N/A * Community resources currently utilized Other * Please name any agencies selected above. OUTPATIENT DIALYSIS, [facility]DC, MWF, [facility] * Additional services required to return to the preadmission environment? No * Can the patient safely return to the preadmission environment? Yes * Has this patient been hospitalized within the prior 30 days at any hospital? No Patient Name: RAE ARSHAD Page [phone] at 1736 All edits/amendments must be made on the electronic document DICTATION DATE: 06/10/191735 HEBREW TEACHER: TEENA 06/10/191735 RPT#: [id number] DC DATE: STATUS: ADM IN [facility] [address] [id number] END OF REPORT
--- NOTE | 2019-06-10 17:44 | MORECARE ---
CASE MANAGEMENT DISCHARGE SUMMARY PATIENT: RAE ARSHAD UNIT: [id number] ADM DATE: 06/07/19 AGE: 53 : 61 SEX: M ROOM/BED: D.2102 AUTHOR: MIGUEL,DOC PHYSICIAN: REFERRING PHYSICIAN: CHET JOHNSON DO DATE OF SERVICE: 06/10/19 Discharge Plan Patient Name: RAE ARSHAD Facility: [facility]:[place] : 1965 Planned Disposition: Home Anticipated Discharge Date: 06/11/19 Discharge Date: Expected LOS: 4 Initial Reviewer: [email or web address] Initial Review Date: 06/10/2019 Generated: 06/10/19 6:44 pm Comments DCP- Discharge Planning Updated by [email or web address]: Chencho Baez on 06/10/19 4:[address] Patient Name: RAE ARSHAD Admission Status: ER Accout number: [id number] Admission Date: 06-07-2019 : 1965 Admission Diagnosis: Attending: ELIESER Current LOS: 3 Anticipated DC Date: 06-11-2019 Planned Disposition: Home Primary Insurance: MEDICARE A & B Discharge Planning Comments: CM MET WITH PT IN ROOM TO DISCUSS DISCHARGE PLANNING AND NEEDS. PT REPORTS LIVING AT HOME INDEPENDENTLY WITH HIS FAMILY. PT HAS CPAP, SHOWER CHAIR AND WALKER WITH NO MEDICAL EQUIPMENT PROVIDER PREFERENCE. PT HAS NO OUTSIDE SERVICES ASSISTING IN THE HOME. CM DISCUSSED AVAILABILITY OF HOME HEALTH, REHAB SERVICES AND MEDICAL EQUIPMENT. PT RIDES SCAT BUS TO DIALYSIS AT [facility] ON AND THURSDAYS. PT DENIES DISCHARGE NEEDS, REPORTS HE WILL HAVE FAMILY PICK HIM UP OR FAMILY WILL PICK HIM UP FOR DISCHARGE HOME. IMPORTANT MESSAGE FROM MEDICARE PROVIDED AND EXPLAINED. Software Applications Architect: Checnho Baez DCPIA - Discharge Planning Initial Assessment Updated by [email or web address]: Chencho Baez on 06/10/19 5:36 pm * Is the patient Alert and Oriented? Yes * How many steps to enter\exit or inside your home? NONE * PCP DR. KAUR * Pharmacy [facility] [address] * Preadmission Environment Home with Family * ADLs Independent * Equipment CPAP Shower Chair Walker * Other Equipment NO MEDICAL EQUIPMENT PROVIDER PREFERENCE * List name and contact numbers for known caregivers / representatives who currently or will assist patient after discharge: JC BRADSHAW, MOTHER, * Verbal permission to speak to the caregivers and representatives has been obtained from the patient. N/A * Community resources currently utilized Other * Please name any agencies selected above. OUTPATIENT DIALYSIS, ORDC, MWF, [facility] * Additional services required to return to the preadmission environment? No * Can the patient safely return to the preadmission environment? Yes * Has this patient been hospitalized within the prior 30 days at any hospital? No Coverage Notice Reviewer: [id number] Barbara Baez Notice Issued Date-Time: 06/10/2019 14:55 Notice Type: IM Discharge Notice Notice Delivered To: Patient Relationship to Patient: Supervisor Public Message Service Name: Delivery Method: HAND - Hand Delivered Lianet Days: Prior Verbal Notification: Recipient Understood Notice: Yes Recipient Signature: Yes Med Rec Note Co-signed by Attending: Coverage Notice Comment: Last DP export: 06/10/19 4:36 pm Patient Name: RAE ARSHAD Page [phone] at 1744 All edits/amendments must be made on the electronic document DICTATION DATE: 06/10/191743 DICTAPHONE TRANSCRIBER: TEENA 06/10/191743 RPT#: [id number] DC DATE: STATUS: ADM IN [facility] [address] [place] [address] END OF REPORT
[2019-06-10 20:00] VITALS: BP 116/76
--- NOTE | 2019-06-10 22:00 | NUR ---
RPEORT RECIEVD AND ROUNDING COMPLETE. PATIENT IN SHOWER AT THIS TIME. PATIENT STATES HE IS FINE AN NEEDS NO ASSISTANCE.
[2019-06-10 23:30] VITALS: BP 104/68
[2019-06-11 04:00] VITALS: BP 128/92
[2019-06-11 06:21] LABS: BASOPHILS 1.2 % (0-2); EOSINOPHILS 5.6 % (0-7); HEMATOCRIT 42.7 % (42.0-54.0); HEMOGLOBIN 13.7 g/dL (13.5-17.5); IMMATURE GRANULOCYTES 0.5 % (0-5); LYMPHOCYTES 14.9 % (15-50); MCH 34.4 pg (26.0-34.0); MCHC 32.1 g/dL (31.0-37.0); MCV 107.3 fL (80.0-100.0); MEAN PLATELET VOLUME 11.4 fL (7.4-10.4); MONOCYTES 11.5 % (2-11); NEUTROPHILS 66.3 % (40-80); PLATELET COUNT 191 10x3/uL (130-400); RBC 3.98 10x6/uL (4.20-6.10); RDW 16.9 % (11.5-14.5); WBC 8.2 10x3/uL (4.8-10.8)
[2019-06-11 06:40] LABS: ANION GAP 18.9 mmol/L (8-16); CALCIUM 8.4 mg/dL (8.5-10.1); CARBON DIOXIDE 26.6 mmol/L (21.0-32.0); CREATININE - SERUM 9.1 mg/dL (0.6-1.3); PHOSPHOROUS 5.3 mg/dL (2.5-4.9); POTASSIUM - SERUM 3.5 mmol/L (3.5-5.1)
--- NOTE | 2019-06-11 07:13 | NUR ---
REPORT RECEVED FROM MANAGER POOL AND PATIENT CARE ASSUMED. PATIENT KAWAKE, ALERT AND ORIENTED X 4. PATIENT AMB IN ROOM. PATIENT STATES HE GOING HOME TODAY AND READY TO GO. WILL CFONTINUE WITH PLAN OF CARE.
--- NOTE | 2019-06-11 07:46 | NUR ---
NO FLU SHOT SEEN ON ADMIT STATUS. WHEN QUESTIONED, PATIENT STATES HE GOT ONE IN THE DIALYSIS UNIT.
[2019-06-11] MEDS ORDERED: BAYER CHEWABLE81 MG PO (08:12)
[2019-06-11 08:27] VITALS: BP 125/94
--- NOTE | 2019-06-11 09:08 | NUR ---
PATIENT IS STABLE AND VSS. PATIENT DENIES ANY NEEDS OR PAIN. ORDERS RECIEVED FOR DC. WRITTEN AND VERBAL INSTRUCTIONS GIVEN TO PT AND PT VERBALIZES UNDERSTANDING AND SIGNED PAPERS. IV DCD WITHOUT DIFFICULTY WITH ENTIRE CATHETER INTCT. AND PRESSURE DSG APPILED. PATIENT TO FRONT DOOR VIA WC ACCOMPANIED BY HOSPITAL STAFF TO PRIVATE VEHICLE DRIVEN BY FAMILY MEMBER. PATIENT IS DCD HOME FOR SELF CARE.
--- NOTE | 2019-06-11 12:14 | MORECARE ---
CASE MANAGEMENT DISCHARGE SUMMARY PATIENT: RAE ARSHAD UNIT: [id number] ADM DATE: 06/07/19 AGE: 53 : 61 SEX: M ROOM/BED: D.2102 AUTHOR: NIC RIVERA PHYSICIAN: REFERRING PHYSICIAN: CHET JOHNSON DO DATE OF SERVICE: 06/11/19 Discharge Plan Patient Name: RAE ARSHAD Facility: [facility]:[place] : 1965 Planned Disposition: Home Anticipated Discharge Date: 06/11/19 Discharge Date: 06/11/2019 Expected LOS: 4 Initial Reviewer: [email or web address] Initial Review Date: 06/10/2019 Generated: 06/11/19 1:13 pm Comments DCP- Discharge Planning Updated by [id number]: Chencho Baez on 06/10/19 4:[address] Patient Name: RAE ARSHAD Admission Status: ER Accout number: [id number] Admission Date: 06-07-2019 : 1965 Admission Diagnosis: Attending: ELIESER Current LOS: 3 Anticipated DC Date: 06-11-2019 Planned Disposition: Home Primary Insurance: MEDICARE A & B Discharge Planning Comments: CM MET WITH PT IN ROOM TO DISCUSS DISCHARGE PLANNING AND NEEDS. PT REPORTS LIVING AT HOME INDEPENDENTLY WITH HIS FAMILY. PT HAS CPAP, SHOWER CHAIR AND WALKER WITH NO MEDICAL EQUIPMENT PROVIDER PREFERENCE. PT HAS NO OUTSIDE SERVICES ASSISTING IN THE HOME. CM DISCUSSED AVAILABILITY OF HOME HEALTH, REHAB SERVICES AND MEDICAL EQUIPMENT. PT RIDES SCAT BUS TO DIALYSIS AT [facility] ON AND THURSDAYS. PT DENIES DISCHARGE NEEDS, REPORTS HE WILL HAVE FAMILY PICK HIM UP OR FAMILY WILL PICK HIM UP FOR DISCHARGE HOME. IMPORTANT MESSAGE FROM MEDICARE PROVIDED AND EXPLAINED. Veterinarian Assistant: Chencho Baez DCPIA - Discharge Planning Initial Assessment Updated by [email or web address]: Chencho Baez on 06/10/19 5:36 pm * Is the patient Alert and Oriented? Yes * How many steps to enter\exit or inside your home? NONE * PCP DR. KAUR * Pharmacy [facility] [address] * Preadmission Environment Home with Family * ADLs Independent * Equipment CPAP Shower Chair Walker * Other Equipment NO MEDICAL EQUIPMENT PROVIDER PREFERENCE * List name and contact numbers for known caregivers / representatives who currently or will assist patient after discharge: JC BRADSHAW, MOTHER, * Verbal permission to speak to the caregivers and representatives has been obtained from the patient. N/A * Community resources currently utilized Other * Please name any agencies selected above. OUTPATIENT DIALYSIS, [facility]DC, MWF, [facility] * Additional services required to return to the preadmission environment? No * Can the patient safely return to the preadmission environment? Yes * Has this patient been hospitalized within the prior 30 days at any hospital? No Coverage Notice Reviewer: [email or web address] Barbara Baez Notice Issued Date-Time: 06/10/2019 14:55 Notice Type: IM Discharge Notice Notice Delivered To: Patient Relationship to Patient: Ventilation Equipment Tender Name: Delivery Method: HAND - Hand Delivered Lianet Days: Prior Verbal Notification: Recipient Understood Notice: Yes Recipient Signature: Yes Med Rec Note Co-signed by Attending: Coverage Notice Comment: Last DP export: 06/10/19 4:44 pm Patient Name: RAE ARSHAD Page [phone] at 1214 All edits/amendments must be made on the electronic document DICTATION DATE: 06/11/19 1213 POLITICAL RESEARCH SCIENTIST: TEENA 06/11/19 1213 RPT#: [id number] DC DATE:06/11/19 STATUS: DIS IN [facility] [address] [place] [address] END OF REPORT
== END 2019-06-11 09:05 | disposition home or self-care (01) | DRG 248 ==
LOC: D.ER 21:42 → D.M2 23:39
PROVIDERS: Family Medicine; Internal Medicine Interventional Cardiology; ADMIT Internal Medicine; ATTEND Internal Medicine
PROC: B2181ZZ Fluoroscopy of Left Internal Mammary Bypass Graft using Low Osmolar Contrast (ICD-10-PCS; 2019-06-09)
PROC: B2111ZZ Fluoroscopy of Multiple Coronary Arteries using Low Osmolar Contrast (ICD-10-PCS; 2019-06-09)
PROC: 02703DZ Dilation of Coronary Artery, One Artery with Intraluminal Device, Percutaneous Approach (ICD-10-PCS; principal; 2019-06-09 13:15)
PROC: 4A023N7 Measurement of Cardiac Sampling and Pressure, Left Heart, Percutaneous Approach (ICD-10-PCS; 2019-06-09 13:15)
DX: I21.A1 Myocardial infarction type 2 (principal); J18.9 Pneumonia, unspecified organism; N18.6 End stage renal disease; I13.2 Hypertensive heart and chronic kidney disease with heart failure and with stage 5 chronic kidney disease, or end stage renal disease; E11.22 Type 2 diabetes mellitus with diabetic chronic kidney disease; Z99.2 Dependence on renal dialysis; I50.9 Heart failure, unspecified; I34.0 Nonrheumatic mitral (valve) insufficiency; I25.10 Atherosclerotic heart disease of native coronary artery without angina pectoris; Z86.73 Personal history of transient ischemic attack (TIA), and cerebral infarction without residual deficits; Z72.0 Tobacco use

== ENCOUNTER 2019-11-08 21:16 | Inpatient (IN) | payer MEDICARE, BC ==
[~2019-11-08] VITALS: Ht 182.9 cm; Wt 111.4 kg
--- NOTE | ~2019-11-08 | HEMODYNAMI ---
PATIENT:RAE ARSHAD MEDICAL RECORD: [id number] : 61 LOCATION[id number] ADMISSION DATE: 11/08/19 Generatedon:11/10/20198:31 Patient name: RAE ARSHAD Patient #: [id number] : 1965 Date of study: 11/10/2019 Page: Of Hemodynamic Procedure Report Patient Data Patient Demographics Procedure consent was obtained First Name: RAE Gender: Male Last Name: JEANCARLOS : 1965 [facility] Initial: J Age: 54 year(s) Patient #: [id number] Race: SSN: [id number] Additional ID: [id number] Contact details Address: [address] [place] [address] State: [place] City: [place] Zip code: [address] Past Medical History Allergies: No known allergies Admission Admission Data Admission Date: 11/08/2019 Admission Time: 22:36 Arrival Date: 11/10/2019 Arrival Time: 0:00 Admit Source: Other Insurance Payor: Medicare Room #: D.2139 [facility] #: [id number] Height (in.): 72 BSA: 2.38 (m2) Height (cm.): 182.88 BMI: 35.13 (kg/m2) Weight (lbs.): 259 Weight (kg.): 117.48 Lab Results Lab Result Date: 11/10/2019 Lab Result Time: 0:00 Biochemistry Name Units Result Min Max BUN mg/dl 81 --(----)-* 7 18 Creatinine mg/dl 13.6 --(----)-* 0.6 1.3 eGFR ml/min 4 *-(----)-- 90 120 NONAFRICAN Troponin l ng/ml 0.381 --(----)-* 0 0.06 CBC Name Units Result Min Max Hematocrit % 41 -*(----)-- 42 54 Hemoglobin g/dl 13.3 -*(----)-- 13.5 17.5 Procedure Procedure Types Cath Procedure Diagnostic Procedure [facility] w/Coronaries Aortic Root Angiography Sedation Charges Moderate Sedation up to 15 minutes Procedure Description Procedure Date Procedure Date: 11/10/2019 Procedure Start Time: 8:09 Procedure End Time: 8:29 Procedure Staff Name Function Edgar Christina MD Performing Physician Ira Akbar RT Monitor Mino Espinoza RN Nurse Wanda Ferreira RT Scrub Procedure Data Cath Procedure Fluoroscopy Diagnostic fluoroscopy Total fluoroscopy Time: 2.6 time: 2.6 min min Diagnostic fluoroscopy Total fluoroscopy dose: 775 dose: 775 mGy mGy Contrast Material Contrast Material Type Amount (ml) Isovue 370 81 Entry Location Entry Primary Successful Side Size Upsize Upsize Entry Closure Succes sful Closure Location (Fr) 1 (Fr) 2 (Fr) Remarks Device Remarks Femoral Right 5 Fr Exoseal artery Estimated blood loss: 5 ml Diagnostic catheters Device Type Used For End Catheter Placement MULTIPACK JL 4.0 5Fr Procedure catheter MULTIPACK 3DRC 5Fr Procedure catheter MULTIPACK Pigtail 5 Fr Procedure catheter Procedure Complications No complications Procedure Medications Medication Administration Route Dosage Oxygen etCO2 Nasal cannula 3 l/min Lidocaine 2% added to field 20 Heparin Flush Bag added to field 2 bags (1000units/500ml NS) 0.9% NaCl I.V. Versed I.V. 1 mg Fentanyl 25 mcg Versed I.V. 0.5 mg Hemodynamics Rest BSA: 2.38 (m2) HGB: 13.3 (g/dl) O2 Consumption: Estimated: 269.89 (ml/min) O2 Co nsumption indexed: Estimated:113.4 (ml/min/m) Heart Rate: 57 (bpm) Snapshots Pre Cath Intra NCS Post Cath Vital Signs Time Heart Resp SPO2 etCO2 NIBP (mmHg) Rhythm Pain Sedation Rate (ipm) (%) (mmHg) Status Level (bpm) 8:03:21 103 29 96 21.5 Measuring NSR 0 (11) 10(A) , No pain 8:03:41 100 24 98 19.2 148/115(131) NSR 0 (11) 10(A) , No pain 8:08:09 110 29 95 14 162/78(125) NSR 0 (11) 10(A) , No pain 8:12:36 102 21 94 23.7 153/111(129) NSR 0 (11) 9(A) , No pain 8:16:52 100 28 92 11.1 131/110(119) NSR 0 (11) 9(A) , No pain 8:21:45 107 28 93 9.6 145/97(114) NSR 0 (11) 9(A) , No pain 8:26:38 106 24 96 15.5 146/112(122) NSR 0 (11) 10(A) , No pain Medications Time Medication Route Dose Verified Delivered Reason Notes Effe ctiveness by by 8:03:40 Oxygen etCO2 3 Edgar Buffie used for Nasal l/min Sanford Espinoza RN procedure cannula 8:03:45 Lidocaine 2% added 20ml Edgar Edgar for local to vial Sanford Christina MD anesthetic field 8:03:51 Heparin Flush added 2 Edgar Edgar used for Bag to bags Sanford Christina MD procedure (1000units/500ml field NS) 8:04:01 0.9% NaCl I.V. kvo Edgar Buffie Per ml/hr Sanford Espinoza RN physician 8:06:12 Versed I.V. 1 mg Edgar Buffie for Sanford Espinoza RN sedation 8:14:37 Fentanyl 25 Edgar Buffie mcg Sanford Espinoza RN 8:14:42 Versed I.V. 0.5 Edgar Buffie for mg Sanford Espinoza RN sedation Procedure Log Time Note 7:39:53 Informed consent obtained and on chart 7:42:00 Mino Espinoza RN sent for patient. Start room use. 7:42:33 Diagnostic Cath Status : Urgent 7:43:27 Arrival Date: 11/10/2019 12:00:00 AM 7:43:28 Admit Source: Other 7:43:31 Patient Height : 72 inches 7:43:35 Patient Weight : 259 lbs 7:43:47 Insurance Payor : Medicare 7:44:48 Lab Result : Hemoglobin 13.3 g/dl 7:44:48 Lab Result : eGFR NONAFRICAN 4 ml/min 7:44:48 Lab Result : BUN 81 mg/dl 7:44:48 Lab Result : Creatinine 13.6 mg/dl 7:44:48 Lab Result : Hematocrit 41 % 7:45:56 Patient allergic to No known allergies 7:46:03 Procedure Status Urgent Heart Cath (IP). 7:48:45 Stress Test: no; N/A ? 7:48:47 Risk of Mortality: 3.2 7:48:52 Risk of blood transfusion: 2.9 7:48:56 Risk of HEATHER: 24.4 7:49:02 Lab results completed and on chart. 7:49:16 Lab Result : Troponin l 0.381 ng/ml 7:49:32 H&P Date Dictated: 11/08/2019 Within 30 days and on chart.. 7:49:33 Pre-procedure instructions explained to patient. 7:49:33 Pre-procedure instructions explained to patient. 7:49:35 Pre-op teaching completed and patient verbalized understanding. 7:49:38 Family in patients room. 7:49:40 Patient NPO since Midnight. 7:49:41 Is the patient allergic to Iodine/contrast media? No. 7:49:43 Was the patient premedicated? N/A 7:49:53 Time tracking: Regular hours (M-F 7:00 - 5:00) 7:49:58 Plan of Care:Hemodynamics will remain stable., Cardiac rhythm will remain stable., Comfort level will be maintained., Respiratory function will remain adequate., Patient/ family verbilizes understanding of procedure., Procedure tolerated without complication., Recovers from procedure without complications.. 7:50:08 Patient received from Med II to CCL 1 Alert and oriented. Tansferred to table in Supine position. 7:50:09 Warm blankets applied, and naveen hugger turned on for patient comfort. 7:50:10 Correct patient and procedure confirmed by team. 7:50:10 ECG and BP/O2 sat monitors applied to patient. 7:50:48 Is patient on blood thinner?No 7:50:50 Patient diabetic? Yes. 7:50:52 If diabetic: On Metformin? No 7:50:54 ----Pre-sedation anethsthesia assessment.---- 7:50:57 Previous problem with sedation/anesthesia? No ? 7:50:58 Snore? Yes 7:50:59 Sleep apnea? Yes 7:51:00 Deviated septum? No 7:51:01 Opens mouth fully? Yes 7:51:02 Sticks out tongue? Yes 7:51:06 Airway obstruction? Yes CHF 7:51:08 Dentures? No ? 7:51:12 Alarms reviewed by R. N. 7:51:13 Sharps counted by scrub and verified by R.N. 8:00:31 Injector settings: Ml/sec: 3, Volume: 6, 8:01:33 Vital chart was started 8:01:42 Baseline sample Acquired. 8:01:43 Full Disclosure recording started 8:01:48 Rhythm: sinus rhythm 8:01:57 Patient pain scale 0/10 ?. 8:02:02 IV patent on arrival in right hand with 0.9% NaCl at [facility]. 8:02:08 Right groin area was prepped with chlora-prep and draped in sterile fashion 8:02:29 Use device set Femoral Dx 8:02:31 ACIST Syringe ([id number]) opened to sterile field. 8:02:31 Bag Decanter (2002S) opened to sterile field. 8:02:32 Medline Cath Pack ([id number]) opened to sterile field. 8:02:33 ACIST Hand Control (05795) opened to sterile field. 8:02:34 ACIST Manifold (57613) opened to sterile field. 8:02:35 DIAGNOSTIC Multipack 5Fr catheter set ([id number]) opened to sterile field. 8:02:36 SHEATH 5FR [place] ([id number]) opened to sterile field. 8:02:36 EMERALD Guide Wire (661-966) opened to sterile field. 8:02:44 --------ALL STOP TIME OUT------ 8:02:45 Final Timeout: patient, procedure, and site verified with staff and physician. All members of the team are in agreement. 8:02:46 Right groin site verified by team. 8:02:55 Fire Safety Assessment: A--An alcohol-based skin anteseptic being used preoperatively., C--Open oxygen or nitrous oxide is being used., D--An ESU, laser, or fiber-optic light is being used. 8:02:58 Physical assessment completed. ASA score P 3 - A patient with severe systemic disease as per Edgar Christina MD. 8:03:02 5) <15 or on dialysis Very severe, or end stage kidney failure. 8:03:04 Maximum allowable contrast dose (3.7 X eGFR X 0.75)11 ml. 8:03:09 Sedation plan: IV Moderate Sedation Medication:Versed, Fentanyl 8:03:40 Oxygen 3 l/min etCO2 Nasal cannula was administered by Mino Espinoza RN; used for procedure; Verbal order read back and verified. 8:03:45 Lidocaine 2% 20ml vial added to field was administered by Edgar Christina MD; for local anesthetic; Verbal order read back and verified. 8:03:51 Heparin Flush Bag (1000units/500ml NS) 2 bags added to field was administered by Edgar Christina MD; used for procedure; Verbal order read back and verified. 8:04:01 0.9% NaCl kvo ml/hr I.V. was administered by Mino Espinoza RN; Per physician; Verbal order read back and verified. 8:06:12 Versed 1 mg I.V. was administered by Mino Espinoza RN; for sedation; Verbal order read back and verified. 8:07:19 Procedure started. 8:09:50 Local anesthetic to right femoral artery with Lidocaine 2% by Edgar Christina MD.INITIAL ACCESS ONLY 8:13:31 A 5 Fr sheath was inserted into the Right Femoral artery 8:13:41 J WIRE USED FOR ACCESS OF THE SHEATH. 8:13:58 A MULTIPACK JL 4.0 5Fr catheter was advanced over the wire and used for Procedure. 8:14:37 Fentanyl 25 mcg was administered by Mino Espinoza RN; ; Verbal order read back and verified. 8:14:42 Versed 0.5 mg I.V. was administered by Mino Espinoza RN; for sedation; Verbal order read back and verified. 8:15:27 LCA angiography performed. 8:15:29 Pt having increased sob, and work of breathing noted, denies CP at this time. 8:15:53 Injector settings: Ml/sec: 3, Volume: 6, 8:18:15 Catheter exchanged over wire. 8:19:06 A MULTIPACK 3DRC 5Fr catheter was advanced over the wire and used for Procedure. 8:19:19 RCA angiography performed. 8:19:22 Injector settings: Ml/sec: 3, Volume: 6, 8:19:40 ACCDominant side:Co-Dominant 8:20:27 Catheter exchanged over wire. 8:20:51 A MULTIPACK Pigtail 5 Fr catheter was advanced over the wire and used for Procedure. 8::36 Injector settings: Ml/sec: 10, Volume: 30, 8:21:40 Aortic Root visualized 8:23:58 Catheter removed. 8:24:05 EXOSEAL 5Fr (EX500) opened to sterile field. 8:25:23 Sheath removed intact; hemostasis achieved with Exoseal to the Right Femoral artery. 8:25:25 Procedure ended.(Physican Out) 8:25:34 Fluoroscopy time 02.60 minutes. 8:25:39 Fluoroscopy dose: 775 mGy 8:25:39 Flurop Dose total: 775 8:25:47 Dose Area Product 72987 mGy/cm. 8:25:50 Contrast amount:Isovue 370 81ml. 8:25:52 Maximum allowable dose exceeded? Yes. 8:25:54 Sharps counted by scrub and verified by R.N. 8:25:59 Post-op/insertion site Right Femoral artery dressed using a 4 x 4 and Tegaderm. 8:26:04 Post right femoral artery:stable, soft, clean and dry 8:26:06 Post Procedure Pulses reassessed and unchanged 8:26:10 Post procedure: right dorsailis pedis pulse 2+ Normal; easily identifiable; not easily obliterated. 8:27:13 Post-procedure physical assessment completed. ASA score P 3 - A patient with severe systemic disease as per Edgar Christina MD. 8:27:58 Post procedure rhythm: unchanged. 8:28:01 Estimated blood loss: 5 ml 8:28:02 Post procedure instruction explained to patient.Patient verbalizes understanding. 8:28:02 Patient needs reinforcement of post procedure teaching. 8:28:22 Procedure type changed to Cath procedure, Diagnostic procedure, LHC, C w/Coronaries, Aortic Root Angiography, Sedation Charges, Moderate Sedation up to 15 minutes 8:28:38 Procedure and supply charges have been captured, reviewed, submitted and are correct. 8:28:41 Procedure Complication : No complications 8:28:48 [facility] Findings: MVD- MD will discuss options w/ pt 8:28:50 Operative report dictated upon procedure completion. 8:28:50 See physician's report for complete and final results. 8:28:53 Report given to [facility]. 8:28:57 Patient transfered to [facility] with Bed. 8:29:32 Vital chart was stopped 8:29:35 Procedure ended. 8:29:35 Full Disclosure recording stopped 8:30:38 End room use (Document Last) 8:30:49 End room use (Document Last) 8:31:07 End room use (Document Last) Device Usage Item Name Manufacture Quantity Catalog Hospital Part Current Minimal L ot# / Number Charge Number Stock Stock Serial# Code ACIST Acist 1 17045 431999 [id number] 20 Syringe Medical (02605) Systems Inc Bag Microtek 1 192519 80954 301771 5 Decanter Medical Inc. () Medline Medline 1 [id number] 543518 62266 [id number] 5 Cath Pack ([id number]) ACIST Hand Acist 1 33600 317008 378896 878511 5 Control Medical (82338) Systems Inc ACIST Acist 1 00410 590233 109513 804486 5 Manifold Medical (29611) Systems Inc DIAGNOSTIC Cardinal 1 [id number] 971298 58197 034927 30 Multipack Health 5Fr catheter set (UV2336) SHEATH 5FR Terumo 1 [id number] 614428 974900 049861 5 [place] ([id number]) EMERALD Cardinal 1 502-455 407037 086935 559580 5 Guide Wire Health (502-455) MULTIPACK Cardinal 1 701339 5 JL 4.0 5Fr Health catheter MULTIPACK Cardinal 1 267185 5 3DRC 5Fr Health catheter MULTIPACK Cardinal 1 [id number] 5 Pigtail 5 Health Fr catheter EXOSEAL 5Fr Cardinal 1 EX500 123697 [id number] [id number] 10 (EX500) Health Signature Audit [place] Echo Stage Time Signature Unsigned Intra-Procedure 11/10/2019 Ira Akbar 8:30:49 AM RT(R) Intra-Procedure 11/10/2019 Mino Espinoza RN 8:31:07 AM Intra-Procedure 11/10/2019 Edgar Christina MD 8:31:[address] [place] [address]
--- NOTE | ~2019-11-08 | HEMODYNAMI ---
PATIENT:RAE ARSHAD MEDICAL RECORD: [id number] : 61 [id number] ADMISSION DATE: 11/08/19 Generatedon:11/11/201916:07 Patient name: RAE ARSHAD Patient #: [id number] : 1965 Date of study: 11/11/2019 Page: Of Hemodynamic Procedure Report Patient Data Patient Demographics Procedure consent was obtained First Name: RAE Gender: Male Last Name: JEANCARLOS : 1965 [facility] Initial: J Age: 54 year(s) Patient #: [id number] Race: SSN: [id number] Additional ID: [id number] Contact details Address: [address] [place] [address] State: [place] City: [place] Zip code: [address] Past Medical History Allergies: No known allergies Admission Admission Data Admission Date: 11/08/2019 Admission Time: 22:36 Arrival Date: 11/10/2019 Arrival Time: 0:00 Admit Source: Other Insurance Payor: Medicare Room #: D.2139 [facility] #: [id number] Height (in.): 72 BSA: 2.38 (m2) Height (cm.): 182.88 BMI: 35.13 (kg/m2) Weight (lbs.): 259 Weight (kg.): 117.48 Lab Results Lab Result Date: 11/10/2019 Lab Result Time: 0:00 Biochemistry Name Units Result Min Max BUN mg/dl 81 --(----)-* 7 18 Creatinine mg/dl 13.6 --(----)-* 0.6 1.3 eGFR ml/min 4 *-(----)-- 90 120 NONAFRICAN Troponin l ng/ml 0.381 --(----)-* 0 0.06 CBC Name Units Result Min Max Hematocrit % 41 -*(----)-- 42 54 Hemoglobin g/dl 13.3 -*(----)-- 13.5 17.5 Procedure Procedure Types Cath Procedure PCI Procedure PTCA PTCA Initial x2 Procedure Description Procedure Date Procedure Date: 11/11/2019 Procedure Start Time: 15:00 Procedure End Time: 15:43 Procedure Staff Name Function Edgar Christina MD Performing Physician Wanda Ferreira RT Monitor Ira Akbar RT Scrub Mino Espinoza RN Nurse Procedure Data Cath Procedure Fluoroscopy Diagnostic fluoroscopy Total fluoroscopy Time: 9.9 time: 9.9 min min Diagnostic fluoroscopy Total fluoroscopy dose: dose: 1893 mGy 1893 mGy Contrast Material Contrast Material Type Amount (ml) Isovue 300 116 Entry Location Entry Primary Successful Side Size Upsize Upsize Entry Closure Succes sful Closure Location (Fr) 1 (Fr) 2 (Fr) Remarks Device Remarks Femoral Left 7 Fr Exoseal artery Short Estimated blood loss: 5 ml Procedure Complications No complications Procedure Medications Medication Administration Route Dosage Oxygen 8 l/min Lidocaine 2% added to field 20 Heparin Flush Bag added to field 2 bags (1000units/500ml NS) 0.9% NaCl I.V. Refer to Anesthesia Notes for Sedation Medications Heparin Bolus I.V. 13428 units Nitroglycerin IC/IA I.C. 100 mcg Integrilin (Bolus I.V. 10.7 ml 2mg/ml) Plavix P.O. 600 mg Morphine I.V. 2 mg Zofran I.V. 4 mg Integrilin Drip I.V. drip 9.4 ml/hr (75mg/100ml) Hemodynamics Rest BSA: 2.38 (m2) HGB: 13.3 (g/dl) O2 Consumption: Estimated: 301.93 (ml/min) O2 Co nsumption indexed: Estimated:126.86 (ml/min/m) Heart Rate: 93 (bpm) Snapshots Pre Cath Intra NCS Post Cath Vital Signs Time Heart Resp SPO2 etCO2 NIBP (mmHg) Rhythm Pain Status Sedation Rate (ipm) (%) (mmHg) Level (bpm) 14:31:22 106 21 98 29.2 144/113(126) NSR 0 (11) , No 10(A) pain 14:36:03 91 20 99 29.2 143/109(124) NSR 0 (11) , No 10(A) pain 14:40:13 91 19 98 29.9 143/106(124) NSR 0 (11) , No 10(A) pain 14:44:53 99 20 100 29.2 148/112(130) NSR 0 (11) , No 10(A) pain 14:49:38 104 20 99 28.4 147/109(128) NSR 0 (11) , No 10(A) pain 14:54:23 91 19 99 28.5 148/110(131) NSR 0 (11) , No 10(A) pain 14:59:07 106 21 99 29.2 146/111(124) NSR 0 (11) , No 10(A) pain 15:03:17 95 23 97 22.5 130/102(118) NSR 0 (11) , No 9(A) pain 15:07:23 92 21 98 15.7 127/99(116) NSR 0 (11) , No 9(A) pain 15:11:27 93 21 98 11.2 119/92(102) NSR 0 (11) , No 9(A) pain 15:15:31 91 18 97 6 109/87(95) NSR 0 (11) , No 9(A) pain 15:19:32 107 19 97 3 109/80(92) NSR 0 (11) , No 9(A) pain 15:24:07 96 19 97 10.5 112/91(100) NSR 0 (11) , No 9(A) pain 15:28:08 110 19 98 7.5 116/86(103) NSR 0 (11) , No 9(A) pain 15:32:43 108 23 98 23.2 119/91(103) NSR 0 (11) , No 9(A) pain 15:37:15 95 20 99 21 125/95(106) NSR 0 (11) , No 9(A) pain 15:41:19 95 24 99 30 120/94(112) NSR 0 (11) , No 10(A) pain 15:48:11 93 17 99 24.7 131/102(117) NSR 4 (11) , 10(A) Distressing Medications Time Medication Route Dose Verified Delivered Reason Notes Effectiveness by by 14:42:54 Oxygen NC- 8 Edgar Buffie used for simple l/min Sanford Espinoza overnight babysitter mask 14:43:00 Lidocaine 2% added 20ml Edgar Edgar for local to vial Sanford Christina MD anesthetic field 14:43:08 Heparin Flush added 2 bags Edgar Edgar used for Bag to Sanford Christina MD procedure (1000units/500ml field NS) 14:43:18 0.9% NaCl I.V. kvo Edgar Buffie Per physician ml/hr Sanford Espinoza RN 14:43:29 Refer to Edgar Buffie Anesthesia Notes Sanford Espinoza RN for Sedation Medications 15:07:43 Heparin Bolus I.V. 10,000 Edgar Buffie for verif ied units Sanford Espinoza RN anticoagulation with dr christina 15:18:41 Nitroglycerin I.C. 100 Edgar Edgar for IC/IA mcg Sanford Christina MD vasodilation 15:34:05 Integrilin I.V. 10.7 Edgar Buffie for waste d (Bolus 2mg/ml) ml Sanford Espinoza RN antiplatelet 9.3 ml therapy of vial 15:42:40 Plavix P.O. 600 mg Edgar Buffie for Sanford Espinoza RN antiplatelet therapy 15:52:48 Morphine I.V. 2 mg Edgar Buffie for chest pain Sanford Espinoza RN 15:54:42 Zofran I.V. 4 mg Edgar Buffie Per physician for Sanford Espinoza RN nausea 15:57:46 Integrilin Drip I.V. 9.4 Edgar Buffie for to ru n (75mg/100ml) drip ml/hr Sanford Espinoza RN antiplatelet for 12 therapy hrs Procedure Log Time Note 13:59:36 Patient Height : 72 inches 13:59:36 Patient Weight : 259 lbs 14:09:29 Informed consent obtained and on chart 14:09:34 Diagnostic Cath Status : Urgent 14:10:28 Procedure Status Urgent Heart Cath (IP). 14:10:30 Mino Espinoza RN sent for patient. Start room use. 14:10:31 Time tracking: Regular hours (M-F 7:00 - 5:00) 14:10:36 Plan of Care:Hemodynamics will remain stable., Cardiac rhythm will remain stable., Comfort level will be maintained., Respiratory function will remain adequate., Patient/ family verbilizes understanding of procedure., Procedure tolerated without complication., Recovers from procedure without complications.. 14:19:25 Patient received from Med II to CCL 2 Alert and oriented. Tansferred to table in Supine position. 14:19:26 Warm blankets applied, and naveen hugger turned on for patient comfort. 14:19:27 Correct patient and procedure confirmed by team. 14:19:27 ECG and BP/O2 sat monitors applied to patient. 14:30:22 Vital chart was started 14:37:31 Baseline sample Acquired. 14:37:33 Rhythm: sinus rhythm 14:37:35 Full Disclosure recording started 14:37:39 H&P Date Dictated: 11/11/2019 Within 30 days and on chart.. 14:37:40 Pre-procedure instructions explained to patient. 14:37:41 Pre-op teaching completed and patient verbalized understanding. 14:37:42 Family unavailable. 14:37:44 Patient NPO since Midnight. 14:37:46 Is the patient allergic to Iodine/contrast media? No. 14:37:47 Was the patient premedicated? Yes 14:37:50 Is patient on blood thinner?No 14:39:03 Patient diabetic? Yes. 14:39:04 If diabetic: On Metformin? No 14:39:07 Previous problem with sedation/anesthesia? No ? 14:39:13 Snore? Yes 14:39:14 Sleep apnea? Yes 14:39:15 Deviated septum? No 14:39:16 Opens mouth fully? Yes 14:39:16 Sticks out tongue? Yes 14:39:22 Airway obstruction? Yes CHF 14:39:41 Dentures? No ? 14:39:45 Pre procedure: right dorsailis pedis pulse 2+ Normal; easily identifiable; not easily obliterated 14:39:47 Pre procedure: left dorsailis pedis pulse 2+ Normal; easily identifiable; not easily obliterated 14:39:49 Patient pain scale 0/10 ?. 14:39:55 IV patent on arrival in right forearm with 0.9% NaCl at [facility]. 14:39:59 Lab results completed and on chart. 14:40:03 Risk of Mortality: 0.4 14:40:07 Risk of blood transfusion: 1.6 14:40:17 Risk of HEATHER: 20.0 14:40:37 Left groin area was prepped with chlora-prep and draped in sterile fashion 14:40:38 Alarms reviewed by Antonio. N. 14:40:38 Sharps counted by scrub and verified by R.N. 14:40:50 Physician arrived 14:42:54 Oxygen 8 l/min NC- simple mask was administered by Mino Espinoza RN; used for procedure; Verbal order read back and verified. 14:43:00 Lidocaine 2% 20ml vial added to field was administered by Edgar Christina MD; for local anesthetic; Verbal order read back and verified. 14:43:08 Heparin Flush Bag (1000units/500ml NS) 2 bags added to field was administered by Edgar Christina MD; used for procedure; Verbal order read back and verified. 14:43:18 0.9% NaCl kvo ml/hr I.V. was administered by Mino Espinoza RN; Per physician; Verbal order read back and verified. 14:43:29 Refer to Anesthesia Notes for Sedation Medications was administered by Mino Espinoza RN; ; Verbal order read back and verified. 14:56:33 --------ALL STOP TIME OUT------ 14:56:33 Final Timeout: patient, procedure, and site verified with staff and physician. All members of the team are in agreement. 14:56:35 Left groin site verified by team. 14:56:37 Fire Safety Assessment: A--An alcohol-based skin anteseptic being used preoperatively., C--Open oxygen or nitrous oxide is being used., D--An ESU, laser, or fiber-optic light is being used. 14:56:40 Physical assessment completed. ASA score P 2 - A patient with mild systemic disease as per Edgar Christina MD. 14:56:44 5) <15 or on dialysis Very severe, or end stage kidney failure. 14:56:47 Maximum allowable contrast dose (3.7 X eGFR X 0.75)11 ml. 14:56:52 Sedation plan: TIVA Medication:Propofol 14:58:16 Use device set Acist 14:58:17 ACIST Syringe (15145) opened to sterile field. 14:58:17 ACIST Hand Control (67413) opened to sterile field. 14:58:18 ACIST Manifold (23327) opened to sterile field. 14:58:44 SHEATH 7FR Bendena (ETH867) opened to sterile field. 14:58:45 INFLATOR Merit Slava (LU0543) opened to sterile field. 14:58:45 WHISPER 300cm guide wire ([id number]) opened to sterile field. 14:58:46 WHISPER 300cm guide wire ([id number]) opened to sterile field. 14:58:46 GUIDE 7FR EBU 3.5 catheter ([id number]) opened to sterile field. 14:59:20 EMERALD Guide Wire (502-455) opened to sterile field. 15:00:50 Procedure started. 15:00:54 Local anesthetic to left femerol artery with Lidocaine 2% by Edgar Christina MD.INITIAL ACCESS ONLY 15:01:04 A 7 Fr Short sheath was inserted into the Left Femoral artery 15:03:55 7 Fr ebu 3.5 guide catheter was inserted over the wire 15:04:06 ACC Pre-intervention BENNY Flow is 3. 15:04:12 Pre PCI Site: [place] pLAD has 95% stenosis. 15:06:00 bmw wire advanced. 15:07:43 Heparin Bolus 10,000 units I.V. was administered by Mino Espinoza RN; for anticoagulation; verified with dr christina Verbal order read back and verified. 15:08:54 TUBING High Pressure Extension Tubing (Sanford) ([id number]) opened to sterile field. 15:12:13 one Bmw wire advanced down LAD; another Bmw wire advanced down LCX 15:15:39 Inflate balloon Inflation number: 1 A EMERGE OTW 3.5 x 15 balloon ([id number]) was prepped and advanced across the Prox LAD 95, then inflated to 8 TED for 0:10 (min:sec) . 15:16:06 Inflation number: 2 The EMERGE OTW 3.5 x 15 balloon ([id number]) was reinflated across the Prox LAD , to 10 TED for 0:10 (min:sec) . 15:16:35 Inflation number: 3 The EMERGE OTW 3.5 x 15 balloon ([id number]) was reinflated across the Prox LAD , to 12 TED for 0:10 (min:sec) . 15:18:31 Balloon removed over the wire. 15:18:41 Nitroglycerin IC/IA 100 mcg I.C. was administered by Edgar Christina MD; for vasodilation; Verbal order read back and verified. 15:21:44 Inflation number: 4 The EMERGE OTW 3.5 x 15 balloon ([id number]) was reinflated across the Prox LAD 95, to 13 TED for 0:10 (min:sec) . 15:22:12 Inflation number: 5 The EMERGE OTW 3.5 x 15 balloon ([id number]) was reinflated across the Prox LAD , to 12 TED for 0:10 (min:sec) . 15:24:42 Balloon removed over the wire. 15:30:37 Inflate balloon Inflation number: 1 A EMERGE OTW 3.0 x 12 balloon ([id number]) was prepped and advanced across the Prox CX 90, then inflated to 13 TED for 0:10 (min:sec) . 15:32:10 Balloon removed over the wire. 15:32:10 Wire removed. 15:32:11 Guide catheter removed. 15:32:22 Sheath removed intact; hemostasis achieved with Exoseal to the Left Femoral artery. 15:32:31 Procedure ended.(Physican Out) 15:33:53 Fluoroscopy time 09.90 minutes. 15:34:05 Integrilin (Bolus 2mg/ml) 10.7 ml I.V. was administered by Mino Espinoza RN; for antiplatelet therapy; wasted 9.3 ml of vial Verbal order read back and verified. 15:41:14 Flurop Dose total: 1893 15:41:14 Fluoroscopy dose: 1893 mGy 15:41:19 Dose Area Product 65795 mGy/cm. 15:41:32 Contrast amount:Isovue 300 116ml. 15:41:50 Maximum allowable dose exceeded? Yes. 15:41:51 Sharps counted by scrub and verified by R.N. 15:42:03 Insertion/operative site no bleeding no hematoma. 15:42:06 Post-op/insertion site Left Femoral artery dressed using a 4 x 4 and Tegaderm. 15:42:07 Post Procedure Pulses reassessed and unchanged 15:42:10 Post procedure rhythm: unchanged. 15:42:12 Estimated blood loss: 5 ml 15:42:13 Post procedure instruction explained to patient.Patient verbalizes understanding. 15:42:14 Patient needs reinforcement of post procedure teaching. 15:42:20 ACT drawn and resulted at out of range high seconds. (normal therapeutic range 180-240 seconds). 15:42:29 Procedure type changed to Cath procedure, PCI procedure, PTCA, PTCA Initial x2 15:42:40 Plavix 600 mg P.O. was administered by Mino Espinoza RN; for antiplatelet therapy; Verbal order read back and verified. 15:42:47 Procedure and supply charges have been captured, reviewed, submitted and are correct. 15:42:52 Procedure Complication : No complications 15:42:55 Vital chart was stopped 15:42:58 [facility] Findings: MVD- PCI performed (see procedure note) 15:43:00 Operative report dictated upon procedure completion. 15:43:00 See physician's report for complete and final results. 15:43:04 Report given to [facility] II. 15:43:06 Patient transfered to Med II with Stretcher. 15:43:10 Procedure ended. 15:43:10 Full Disclosure recording stopped 15:43:19 ACC-PCI Only Patient was given prescriptions, or instructed by Edgar Christina MD to start/continue the following medications upon discharge: Plavix 15:43:20 End room use (Document Last) 15:43:46 EXOSEAL 7Fr (EX700) opened to sterile field. 15:52:48 Morphine 2 mg I.V. was administered by Mino Espinoza RN; for chest pain; Verbal order read back and verified. 15:54:42 Zofran 4 mg I.V. was administered by Mino Espinoza RN; Per physician; for nausea Verbal order read back and verified. 15:57:46 Integrilin Drip (75mg/100ml) 9.4 ml/hr I.V. drip was administered by Mino Espinoza RN; for antiplatelet therapy; to run for 12 hrs Verbal order read back and verified. Intervention Summary Intervention Notes Time ActionType Lesion and Equipment Action# Pressure Duration Attributes Used 15:15:39 Inflate Prox LAD EMERGE OTW 1 8 00:10 balloon 3.5 x 15 balloon ([id number]) 15:16:06 Reinflate Prox LAD EMERGE OTW 2 10 00:10 balloon 3.5 x 15 balloon ([id number]) 15:16:35 Reinflate Prox LAD EMERGE OTW 3 12 00:10 balloon 3.5 x 15 balloon ([id number]) 15:21:44 Reinflate Prox LAD EMERGE OTW 4 13 00:10 balloon 3.5 x 15 balloon ([id number]) 15:22:12 Reinflate Prox LAD EMERGE OTW 5 12 00:10 balloon 3.5 x 15 balloon ([id number]) 15:30:37 Inflate Prox CX EMERGE OTW 1 13 00:10 balloon 3.0 x 12 balloon ([id number]) Device Usage Item Name Manufacture Quantity Catalog Number Hospital Part Current Min imal Lot# / Charge Number Stock Stock Serial# Code ACIST Acist 1 66402 898371 729731 905338 20 Syringe Medical (47219) Systems Inc ACIST Hand Acist 1 64436 677977 190920 584604 5 Control Medical (87308) Systems Inc ACIST Acist 1 33992 811472 128507 816775 5 Manifold Medical (29454) Systems Inc SHEATH 7FR Terumo 1 JYR673 428259 281527 836182 5 Bendena (MUF275) INFLATOR [facility] 1 YA0348 964299 747380 665555 15 [facility] Medical BasixCompak (XG5368) WHISPER Brewer 2 [id number] 165770 304207 162632 5 300cm guide Vascular wire (0124378TS) GUIDE 7FR Medtronic 1 [id number] 509011 201745 802659 0 EBU 3.5 catheter ([id number]) [facility] Cardinal 1 502-455 405081 490395 515[address] [facility] (502-455) TUBING High Merit 1 [id number] 253495 95077 121943 10 Pressure Medical Extension Tubing (Christina) (PC0709X) EMERGE OTW [place] 1 [id number] 779641 612916 180856 5 [id number] 3.5 x 15 Scientific balloon ([id number]) EMERGE OTW [place] 1 [id number] 667982 137699 740973 5 [id number] 3.0 x 12 Scientific balloon ([id number]) EXOSEAL 7Fr Cardinal 1 EX700 126866 271986 384076 5 (EX700) Health Signature Audit [place] Stage Time Signature Unsigned Intra-Procedure 11/11/2019 Wanda Ferreira 3:44:18 PM RT(R) Intra-Procedure 11/11/2019 Mino Espinoza RN 3:45:41 PM Intra-Procedure 11/11/2019 Wanad Ferreira 4:07:24 PM RT(R) Intra-Procedure 11/11/2019 Edgar Christina MD 4:07:43 PM Signatures Performing Physician : Signature : Edgar Christina MD Date : Time : Monitor : Wanda Ferreira RT Signature : Date : Time : Nurse : Mino Espinoza RN Signature : Date : Time : [facility] [address] [place] [address]
[~2019-11-08 21:16] MED LIST changes: +BAYER CHEWABLE81 MG PO; +LEVEMIR FL100 UNIT/1 SC
[2019-11-08 21:50] LABS: BASOPHILS 0.4 % (0-2); EOSINOPHILS 1.2 % (0-7); HEMATOCRIT 45.1 % (42.0-54.0); HEMOGLOBIN 14.6 g/dL (13.5-17.5); IMMATURE GRANULOCYTES 0.3 % (0-5); LYMPHOCYTES 5.6 % (15-50); MCH 34.5 pg (26.0-34.0); MCHC 32.4 g/dL (31.0-37.0); MCV 106.6 fL (80.0-100.0); MEAN PLATELET VOLUME 10.7 fL (7.4-10.4); MONOCYTES 8.1 % (2-11); NEUTROPHILS 84.4 % (40-80); PLATELET COUNT 201 10x3/uL (130-400); RBC 4.23 10x6/uL (4.20-6.10); RDW 15.6 % (11.5-14.5); WBC 15.9 10x3/uL (4.8-10.8)
[2019-11-08 21:57] LABS: APTT 28.9 SECONDS (22.8-39.4); INR 1.18 (0.85-1.17); PROTIME 14.9 SECONDS (11.6-15.0)
[2019-11-08 21:58] LABS: D-DIMER-QUANTITATIVE 0.54 ug/mLFEU (0.20-0.54)
[2019-11-08 22:27] LABS: ALBUMIN 3.8 g/dL (3.4-5.0); ANION GAP 22.8 mmol/L (8-16); BILIRUBIN - TOTAL 0.88 mg/dL (0.2-1.3); CALCIUM 8.2 mg/dL (8.5-10.1); CARBON DIOXIDE 19.5 mmol/L (21.0-32.0); CREATININE - SERUM 12.6 mg/dL (0.6-1.3); POTASSIUM - SERUM 4.3 mmol/L (3.5-5.1); PROTEIN - SERUM 8.3 g/dL (6.4-8.2)
[2019-11-08 22:29] LABS: TROPONIN-I 0.378 ng/mL (0.000-0.060)
[2019-11-09 00:11] VITALS: BP 132/85; BMI 35.2
--- NOTE | 2019-11-09 00:21 | NUR ---
RECEIVED REPORT FROM ROSIE GARY IN ER. ARRIVED TO FLOOR IN W/C. TRANSFERED SELF TO BED. ALERT AND ORIENTED X4. UP AD KAZ. ASSESSMENT COMPLETED AND DENIES ANY NEEDS. IV TO RIGHT HAND SL.
--- NOTE | 2019-11-09 00:43 | NUR ---
DOES NOT KNOW HIS MEDICATIONS. SAID THEY GIVE THEM TO HIM IN DIALYSIS.
[2019-11-09 04:30] VITALS: BP 132/80
[2019-11-09 07:23] LABS: EOSINOPHILS 2.6 % (0-7); HEMOGLOBIN 13.3 g/dL (13.5-17.5); IMMATURE GRANULOCYTES 0.3 % (0-5); MCH 34.1 pg (26.0-34.0); MCHC 32.4 g/dL (31.0-37.0); MCV 105.1 fL (80.0-100.0); MONOCYTES 11.4 % (2-11); NEUTROPHILS 75.7 % (40-80); PLATELET COUNT 179 10x3/uL (130-400); RDW 15.6 % (11.5-14.5)
[2019-11-09 07:29] LABS: WBC 9.7 10x3/uL (4.8-10.8)
[2019-11-09 07:40] VITALS: BP 120/87
[2019-11-09 07:53] LABS: ALBUMIN 3.5 g/dL (3.4-5.0); ANION GAP 21.1 mmol/L (8-16); BILIRUBIN - TOTAL 0.82 mg/dL (0.2-1.3); CARBON DIOXIDE 20.9 mmol/L (21.0-32.0); CREATININE - SERUM 13.6 mg/dL (0.6-1.3); MAGNESIUM - SERUM 2.1 mg/dL (1.8-2.4); PHOSPHOROUS 9.4 mg/dL (2.5-4.9); PROTEIN - SERUM 7.7 g/dL (6.4-8.2)
[2019-11-09 07:54] LABS: TROPONIN-I 0.381 ng/mL (0.000-0.060)
[2019-11-09 09:31] LABS: LDL-HDL RATIO 1.5 ratio (1.5-3.5)
[2019-11-09 10:19] VITALS: Ht 182.9 cm; Wt 111.4 kg
[2019-11-09 11:37] VITALS: BP 121/90
[2019-11-09 14:54] VITALS: BP 138/101
--- NOTE | 2019-11-09 16:55 | NUR ---
ALERT AND ORIENTED X4. CONSENTS FOR PRESS TENDER SMOKE SIGNAL SIGNED ON CHART. UP AMBULATING IN ROOM. DENIES ANY NEEDS. CONTINUE PLAN OF CARE AND SAFETY PRECAUTIONS.
--- NOTE | 2019-11-09 19:31 | NUR ---
PATIENT IS IN DIALYSIS, WHITE BOARD UPDATED.
[2019-11-09 23:58] VITALS: BP 161/108
[2019-11-10 00:24] VITALS: BP 164/112
[2019-11-10 04:23] VITALS: BP 130/88
[2019-11-10 06:31] LABS: BASOPHILS 0.6 % (0-2); HEMATOCRIT 42.2 % (42.0-54.0); HEMOGLOBIN 13.7 g/dL (13.5-17.5); IMMATURE GRANULOCYTES 0.4 % (0-5); LYMPHOCYTES 10.1 % (15-50); MCH 34.2 pg (26.0-34.0); MCHC 32.5 g/dL (31.0-37.0); MCV 105.2 fL (80.0-100.0); MEAN PLATELET VOLUME 11.2 fL (7.4-10.4); MONOCYTES 12.9 % (2-11); PLATELET COUNT 170 10x3/uL (130-400); RBC 4.01 10x6/uL (4.20-6.10); RDW 15.6 % (11.5-14.5); WBC 9.9 10x3/uL (4.8-10.8)
[2019-11-10 07:22] LABS: ALBUMIN 3.5 g/dL (3.4-5.0); ANION GAP 22.7 mmol/L (8-16); BILIRUBIN - TOTAL 0.86 mg/dL (0.2-1.3); CALCIUM 8.4 mg/dL (8.5-10.1); CARBON DIOXIDE 23.2 mmol/L (21.0-32.0); CREATININE - SERUM 12.8 mg/dL (0.6-1.3); MAGNESIUM - SERUM 2.3 mg/dL (1.8-2.4); PHOSPHOROUS 8.9 mg/dL (2.5-4.9); POTASSIUM - SERUM 3.9 mmol/L (3.5-5.1); PROTEIN - SERUM 8.2 g/dL (6.4-8.2); THYROID STIMULATING HORMONE 0.37 uIU/mL (0.36-3.74)
--- NOTE | 2019-11-10 08:00 | NUR ---
PT LAYING SIDEWAYS IN BED. ASSISTED TO SITTING POSITION REQUESTED. CALL LIGHT WITHIN REACH. BED IN LOWEST POSITION. PRE OP COMPLETE FOR PROCEDURE PER ELECTRICIAN SUBSTATION REQUEST. PT LEFT FOR PROCEDURE VIA BED. FAMILY UPDATED.
--- NOTE | 2019-11-10 08:54 | NUR ---
PT BACK FROM PROCEDURE. LAYING SUPINE, RR EVEN AND UNLABORED. 96% ON 3L NC. RESTING BUT AROUSES TO STIMULI. ON CONTINUOUS MONITORING AT THIS TIME. VSS. PT IS DIAPHORETIC. FSBS 161. WILL CONTINUE TO MONITOR.
[2019-11-10 13:19] VITALS: BP 143/99
[2019-11-10 16:56] VITALS: BP 141/104
[2019-11-10 20:17] VITALS: BP 120/89
[2019-11-11 00:24] VITALS: BP 128/86
--- NOTE | 2019-11-11 03:32 | NUR ---
I have reviewed this patient and I concur with the Shift Assessment completed by the Licensed Practical Nurse today this shift.
[2019-11-11 05:11] VITALS: BP 143/101
--- NOTE | 2019-11-11 08:12 | NUR ---
PT SITTING UP ON SIDE OF BED. RR EVEN AND UNLABORED ON 2L NC. DENIES NEEDS OR PAIN AT THIS TIME. CALL LIGHT WITHIN REACH. WILL CONTINUE TO MONITOR.
[2019-11-11 08:25] VITALS: BP 132/86
--- NOTE | 2019-11-11 09:54 | NUR ---
PT TO DIALYSIS VIA BED WITH 2L O2 NC
[2019-11-11 10:11] LABS: HEP B CORE AB TOTAL Negative (Negative); HEPATITIS C ANTIBODY 0.1 S/CO RAT (0.0-0.9)
--- NOTE | 2019-11-11 13:17 | NUR ---
Nutrition Follow-up: Eating well; 100% this AM. HD today. Diet: Renal ADA Wt: 260.1# (11/10); 259# (11/08) Labs noted (11/09): Na 135, K+ 3.9, Glu 168, Ca 8.4, PO4 8.9, Alb 3.5 Meds reviewed -MD may consider PO4 binder 2/2 hyperphosphatemia. -Monitor wt. -RD following.
--- NOTE | 2019-11-11 14:19 | MORECARE ---
CASE MANAGEMENT DISCHARGE SUMMARY PATIENT: RAE ARSHAD UNIT: [id number] ADM DATE: 11/08/19 AGE: 54 : 61 SEX: M ROOM/BED: D.2139 AUTHOR: NIC RIVERA PHYSICIAN: REFERRING PHYSICIAN: KHADRA KAUR MD DATE OF SERVICE: 11/11/19 Discharge Plan Patient Name: RAE ARSHAD Facility: [facility]:[place] : 1965 Planned Disposition: Home Anticipated Discharge Date: Discharge Date: Expected LOS: Initial Reviewer: [email or web address] Initial Review Date: 11/08/2019 Generated: 11/11/19 3:19 pm Patient Name: RAE ARSHAD Page 72632 at 1419 All edits/amendments must be made on the electronic document DICTATION DATE: 11/11/199 MANAGER ACCOUNT MANAGEMENT: TEENA 11/11/19 1419 RPT#: [id number] DC DATE: STATUS: ADM IN [facility] [address] [place] [address] END OF REPORT
--- NOTE | 2019-11-11 14:38 | MORECARE ---
CASE MANAGEMENT DISCHARGE SUMMARY PATIENT: RAE ARSHAD UNIT: [id number] ADM DATE: 11/08/19 AGE: 54 : 61 SEX: M ROOM/BED: D.2139 AUTHOR: NIC RIVERA PHYSICIAN: REFERRING PHYSICIAN: KHADRA KAUR MD DATE OF SERVICE: 11/11/19 Discharge Plan Patient Name: RAE ARSHAD [facility] [facility] 1965 Planned Disposition: Home Anticipated Discharge Date: Discharge Date: Expected LOS: Initial Reviewer: [email or web address] Initial Review Date: 11/08/2019 Generated: 11/11/19 3:37 pm DCPIA - Discharge Planning Initial Assessment Updated by [email or web address]: Janeen Burton on 11/11/19 2:36 pm * Is the patient Alert and Oriented? Yes * How many steps to enter\exit or inside your home? 0/0 * PCP [facility] * [facility] * Preadmission Environment Home Alone * ADLs Independent * Equipment Rolling Walker * List name and contact numbers for known caregivers / representatives who currently or will assist patient after discharge: PATO (MOTHER) [phone] * Verbal permission to speak to the caregivers and representatives has been obtained from the patient. Yes * Community resources currently utilized None * Additional services required to return to the preadmission environment? Yes * Can the patient safely return to the preadmission environment? Yes * Has this patient been hospitalized within the prior 30 days at any hospital? No External Providers External Provider: [facility] Next Contact Date: Service Request Date: Service Type: Resolution: Reviewer: Comments: Last DP export: 11/11/19 1:19 p Patient Name: RAE ARSHAD Page [phone] at 1438 All edits/amendments must be made on the electronic document DICTATION DATE: 11/11/197 GAS STATION CLERK: TEENA 11/11/19 143 RPT#: [id number] DC DATE: STATUS: ADM IN [place] [address] [place] [address] END OF REPORT
--- NOTE | 2019-11-11 14:40 | NUR ---
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 PT FAMILY UPDATED
--- NOTE | 2019-11-11 14:54 | MORECARE ---
CASE MANAGEMENT DISCHARGE SUMMARY PATIENT: RAE ARSHAD UNIT: [id number] ADM DATE: 11/08/19 AGE: 54 : 61 SEX: M ROOM/BED: D.6743 AUTHOR: NIC RIVERA PHYSICIAN: REFERRING PHYSICIAN: KHADRA KAUR MD DATE OF SERVICE: 11/11/19 Discharge Plan Patient Name: RAE ARSHAD Facility: [facility]:[place] : 1965 Planned Disposition: Home Anticipated Discharge Date: Discharge Date: Expected LOS: Initial Reviewer: [email or web address] Initial Review Date: 11/08/2019 Generated: 11/11/19 3:54 pm Comments DCP- Discharge Planning Updated by [email or web address]: Janeen Burton on 11/11/19 1:[address] Patient Name: RAE ARSHAD Admission Status: ER Accout number: [id number] Admission Date: 11-08-2019 : 1965 Admission Diagnosis:SHORTNESS OF BREATH Attending: KHADRA KAUR Current LOS: 3 Anticipated DC Date: Planned Disposition: Home Primary Insurance: MEDICARE A & B Discharge Planning Comments: CM met with patient to complete initial dc planning assessment. CM educated patient on the CM role and verbal consent given by patient to complete assessment. CM verified patient's address, phone number, and emergency contact phone numbers. Patient lives at home alone and is independent with his ADL's. States he has a home rolling walker to use after dialysis. States the days where he does not have dialysis he does not need an assistive device. At discharge patient plans to return home and feels this is a safe discharge. CM discussed availability of home health, rehab services, and medical equipment. Patient denied known discharge needs at this time, but is in agreement to use hh because of the frequent admits for sob. Transportation provider at discharge will be scat tyson or his brother Garfield. BRIAN signed for [facility], and any DME if need oxygen. Pt currently on 2 liters o2, and CM anticipates a walk test to assess the need for home and portable oxygen. CM spoke with Rancho at [facility] at [phone] and faxed referral. CM will continue to follow and will assist as needed with dc plans/needs. Playground Director: Janeen Burton MSN,RN,CM DCPIA - Discharge Planning Initial Assessment Updated by [email or web address]: Janeen Burton on 11/11/19 2:36 pm * Is the patient Alert and Oriented? Yes * How many steps to enter\exit or inside your home? 0/0 * PCP VINCENT * Pharmacy [facility] * Preadmission Environment Home Alone * ADLs Independent * Equipment Rolling Walker * List name and contact numbers for known caregivers / representatives who currently or will assist patient after discharge: PATO (MOTHER) [phone] * Verbal permission to speak to the caregivers and representatives has been obtained from the patient. Yes * Community resources currently utilized None * Additional services required to return to the preadmission environment? Yes * Can the patient safely return to the preadmission environment? Yes * Has this patient been hospitalized within the prior 30 days at any hospital? No Last DP export: 11/11/19 1:37 p Patient Name: RAE ARSHAD Page 48780 at 1454 All edits/amendments must be made on the electronic document DICTATION DATE: 11/11/191453 PHYSICAL THERAPY NURSE: TEENA 11/11/191453 RPT#: [id number] DC DATE: STATUS: ADM IN [facility] [address] [place] [address] END OF REPORT
--- NOTE | 2019-11-11 16:36 | NUR ---
PT RECEIVED FROM TRADER VIA BED. VSS. SITE CHECKED, LEFT GROIN WAS SWOLLEN AND HARD. PRESSURE HELD AND TRADER CALLED. FEMSTOP PLACED. SWOLLEN SITE MARKED. WILL CONTINUE TO MONITOR.
--- NOTE | 2019-11-11 18:20 | NUR ---
I have reviewed this patient and I concur with the Shift Assessment completed by the Licensed Practical Nurse today this shift.
--- NOTE | 2019-11-11 18:46 | NUR ---
PT HAS STRONG BILATERAL PEDAL PULSE; HOWEVER, TOES AND BOTTOM OF FOOT IS TURNING A PURPLE COLOR. SWELLING IS DECREASING IN LEFT GROIN. [employer]MM[facility] RELEASED FROM FEM STOP WITH NO SIGN OF SWELLING OR BLEEDING. WILL CONTINUE TO MONITOR
[2019-11-11 20:00] VITALS: BP 105/79
--- NOTE | 2019-11-11 21:16 | NUR ---
RELEASED PRESSURE FROM FEMSTOP TO LEFT GROIN, NO S/S BLEEDING NOTED.
[2019-11-12] VITALS: BP 124/85
[2019-11-12 04:00] VITALS: BP 114/89
--- NOTE | 2019-11-12 07:30 | NUR ---
REPORT RECIEVED. PT SITTING UP IN BEDSIDE CHAIR. RR EVEN AND NONLABORED ON RA. PT HAS A R HAND PIV THAT IS SL. BED LOCKED AND IN LOWEST POSITION, CALL LIGHT WITHIN REACH. WILL CTM
[2019-11-12 09:00] VITALS: BP 133/98
[2019-11-12] MEDS ORDERED: PLAVIX75 MG PO (10:10)
--- NOTE | 2019-11-12 12:31 | NUR ---
DC PAPERWORK GONE OVER AND SIGNED WITH PT. ALL QUESTIONS ANSWERED. PIV REMOVED CATH TIP FULLY INTACT. TELEMETRY REMOVED AND RETURNED TO FLOOR HELPER. PT AWAITING RIDE AT THIS TIME. WILL CTM
--- NOTE | 2019-11-12 12:32 | NUR ---
I have reviewed this patient and I concur with the Shift Assessment completed by the Licensed Practical Nurse today this shift.
--- NOTE | 2019-11-13 08:59 | MORECARE ---
CASE MANAGEMENT DISCHARGE SUMMARY PATIENT: RAE GABRIEL UNIT: [id number] ADM DATE: 11/08/19 AGE: 54 : 61 SEX: M ROOM/BED: D.5642 AUTHOR: NIC RIVERA PHYSICIAN: REFERRING PHYSICIAN: KHADRA KAUR MD DATE OF SERVICE: 11/13/19 Discharge Plan Patient Name: RAE GABRIEL Facility: [facility]:[place] : 1965 Planned Disposition: Home Anticipated Discharge Date: Discharge Date: 11/12/2019 Expected LOS: Initial Reviewer: [email or web address] Initial Review Date: 11/08/2019 Generated: 11/13/19 9:59 am DCP- Discharge Planning Updated by [email or web address]: Janeen Burton on 11/11/19 1:[address] Patient Name: RAE GABRIEL Admission Status: ER Accout number: [id number] Admission Date: 11-08-2019 : 1965 Admission Diagnosis:SHORTNESS OF BREATH Attending: KHADRA KAUR Current LOS: 3 Anticipated DC Date: Planned Disposition: Home Primary Insurance: MEDICARE A & B Discharge Planning Comments: CM met with patient to complete initial dc planning assessment. CM educated patient on the CM role and verbal consent given by patient to complete assessment. CM verified patient's address, phone number, and emergency contact phone numbers. Patient lives at home alone and is independent with his ADL's. States he has a home rolling walker to use after dialysis. States the days where he does not have dialysis he does not need an assistive device. At discharge patient plans to return home and feels this is a safe discharge. CM discussed availability of home health, rehab services, and medical equipment. Patient denied known discharge needs at this time, but is in agreement to use hh because of the frequent admits for sob. Transportation provider at discharge will be scat tyson or his brother Garfield. BRIAN signed for [facility], and any DME if need oxygen. Pt currently on 2 liters o2, and CM anticipates a walk test to assess the need for home and portable oxygen. CM spoke with Rancho at [facility] at [phone] and faxed referral. CM will continue to follow and will assist as needed with dc plans/needs. Jogger Operator: Janeen Burton MSN,RN,CM DCPIA - Discharge Planning Initial Assessment Updated by [email or web address]: Janeen Burton on 11/11/19 2:36 pm * Is the patient Alert and Oriented? Yes * How many steps to enter\exit or inside your home? 0/0 * PCP VINCENT * Pharmacy [facility] * Preadmission Environment Home Alone * ADLs Independent * Equipment Rolling Walker * List name and contact numbers for known caregivers / representatives who currently or will assist patient after discharge: PATO (MOTHER) [phone] * Verbal permission to speak to the caregivers and representatives has been obtained from the patient. Yes * Community resources currently utilized None * Additional services required to return to the preadmission environment? Yes * Can the patient safely return to the preadmission environment? Yes * Has this patient been hospitalized within the prior 30 days at any hospital? No Coverage Notice Reviewer: [email or web address] Barbara Haji Notice Issued Date-Time: 11/12/2019 13:16 Notice Type: IM Discharge Notice Notice Delivered To: Patient Relationship to Patient: Self Manager Rfid Name: Rae Gabriel Delivery Method: HAND - Hand Delivered Lianet Days: Prior Verbal Notification: Recipient Understood Notice: Yes Recipient Signature: Yes Med Rec Note Co-signed by Attending: Coverage Notice Comment: DC IMM signed/given to patient. Original to chart. Last DP export: 11/11/19 1:54 p Patient Name: RAE GABRIEL Page 65487 at 0859 All edits/amendments must be made on the electronic document DICTATION DATE: 11/13/19858 DIRECTOR INVESTOR RELATIONS: TEENA 11/13/1961 RPT#: [id number] DC DATE:11/12/19 STATUS: DIS IN [facility] [address] [place] [address] END OF REPORT
== END 2019-11-12 14:27 | disposition home or self-care (01) | DRG 250 ==
LOC: D.ER 21:16 → D.M2 22:36
PROVIDERS: Family Medicine; Internal Medicine Cardiovascular Disease; Internal Medicine Nephrology; ADMIT Internal Medicine Nephrology; ATTEND Internal Medicine Nephrology
PROC: 5A1D70Z Performance of Urinary Filtration, Intermittent, Less than 6 Hours Per Day (ICD-10-PCS; 2019-11-09)
PROC: B2111ZZ Fluoroscopy of Multiple Coronary Arteries using Low Osmolar Contrast (ICD-10-PCS; 2019-11-10)
PROC: B2151ZZ Fluoroscopy of Left Heart using Low Osmolar Contrast (ICD-10-PCS; 2019-11-10)
PROC: 4A023N7 Measurement of Cardiac Sampling and Pressure, Left Heart, Percutaneous Approach (ICD-10-PCS; 2019-11-10)
PROC: 02713ZZ Dilation of Coronary Artery, Two Arteries, Percutaneous Approach (ICD-10-PCS; principal; 2019-11-11 14:10)
DX: I21.4 Non-ST elevation (NSTEMI) myocardial infarction (principal); N18.6 End stage renal disease; I50.33 Acute on chronic diastolic (congestive) heart failure; I13.2 Hypertensive heart and chronic kidney disease with heart failure and with stage 5 chronic kidney disease, or end stage renal disease; N25.81 Secondary hyperparathyroidism of renal origin; I47.2 Ventricular tachycardia; E11.22 Type 2 diabetes mellitus with diabetic chronic kidney disease; Z99.2 Dependence on renal dialysis; E11.40 Type 2 diabetes mellitus with diabetic neuropathy, unspecified; D63.1 Anemia in chronic kidney disease; D50.9 Iron deficiency anemia, unspecified; I25.10 Atherosclerotic heart disease of native coronary artery without angina pectoris; J44.9 Chronic obstructive pulmonary disease, unspecified; I48.91 Unspecified atrial fibrillation; I08.1 Rheumatic disorders of both mitral and tricuspid valves; Z86.73 Personal history of transient ischemic attack (TIA), and cerebral infarction without residual deficits

== ENCOUNTER 2019-12-04 11:17 | Inpatient (IN) | payer MEDICARE, BC ==
[~2019-12-04] VITALS: Ht 182.9 cm; Wt 113.6 kg
[2019-12-04 11:44] VITALS: BP 113/81
--- NOTE | 2019-12-04 11:44 | NUR ---
FSBS= 91 MG/DL
[2019-12-04 12:11] LABS: BASOPHILS 1.8 % (0-2); EOSINOPHILS 5.3 % (0-7); HEMATOCRIT 43.5 % (42.0-54.0); HEMOGLOBIN 13.6 g/dL (13.5-17.5); IMMATURE GRANULOCYTES 0.3 % (0-5); LYMPHOCYTES 15.6 % (15-50); MCH 34.6 pg (26.0-34.0); MCHC 31.3 g/dL (31.0-37.0); MCV 110.7 fL (80.0-100.0); MEAN PLATELET VOLUME 11.1 fL (7.4-10.4); MONOCYTES 12.7 % (2-11); NEUTROPHILS 64.3 % (40-80); PLATELET COUNT 194 10x3/uL (130-400); RBC 3.93 10x6/uL (4.20-6.10); RDW 16.8 % (11.5-14.5); WBC 6.2 10x3/uL (4.8-10.8)
[2019-12-04 12:30] LABS: ANION GAP 10.9 mmol/L (8-16); CALCIUM 7.8 mg/dL (8.5-10.1); CARBON DIOXIDE 30.3 mmol/L (21.0-32.0); CREATININE - SERUM 5.6 mg/dL (0.6-1.3); POTASSIUM - SERUM 3.2 mmol/L (3.5-5.1)
[2019-12-04 12:52] LABS: ALBUMIN 3.7 g/dL (3.4-5.0); BILIRUBIN - TOTAL 0.86 mg/dL (0.2-1.3); PROTEIN - SERUM 7.8 g/dL (6.4-8.2)
[2019-12-04 12:58] LABS: TROPONIN-I 0.157 ng/mL (0.000-0.060)
[2019-12-04 13:30] VITALS: BP 113/83
--- NOTE | 2019-12-04 13:40 | NUR ---
BC X 2 DRAWN PER FLIGHT ATTENDANT RAMP AND ABXS STARTED
--- NOTE | 2019-12-04 14:46 | NUR ---
ATTEMPTED TO CALL REPORT NURSE UNAVAILABLE
--- NOTE | 2019-12-04 15:07 | NUR ---
REPORT CALLED TO ABDIRAHMAN CORTES
[2019-12-04 15:15] VITALS: BP 110/76
--- NOTE | 2019-12-04 15:15 | NUR ---
ADMIT TO ROOM # 2106, CONDITION STABLE
[2019-12-04 15:38] VITALS: BP 111/86; Ht 182.9 cm; Wt 113.6 kg
[2019-12-04 18:27] LABS: CKMB 2.2 U/L (0.0-3.6); CREATINE KINASE 82 UL (21-232)
[2019-12-04 18:29] LABS: TROPONIN-I 0.148 ng/mL (0.000-0.060)
--- NOTE | 2019-12-04 19:24 | NUR ---
RECIEVED UP IN ROOM AMBULATING. ALERT AND [id number] X4. LT ARM RESERVED D/T AVF. TELEMETRY IN PLACE. IV TO RT FA SL. DENIES ANY NEEDS AT THIS TIME.
[2019-12-04 20:00] VITALS: BP 115/92
[2019-12-05 01:25] LABS: HEMATOCRIT 42.6 % (42.0-54.0); HEMOGLOBIN 13.2 g/dL (13.5-17.5); MCH 34.4 pg (26.0-34.0); MCV 110.9 fL (80.0-100.0); MEAN PLATELET VOLUME 10.7 fL (7.4-10.4); PLATELET COUNT 179 10x3/uL (130-400); RBC 3.84 10x6/uL (4.20-6.10); RDW 16.9 % (11.5-14.5); WBC 6.9 10x3/uL (4.8-10.8)
[2019-12-05 01:45] LABS: BASOPHILS 2 % (0-2); EOSINOPHILS 4 % (0-7); LYMPHOCYTES 17 % (15-50); MONOCYTES 11 % (2-11); NEUTROPHILS 66 % (40-80); PLATELET ESTIMATE NORMAL
[2019-12-05 01:52] LABS: CALC OSMOLALITY 277 mosm/kg (275-300); CALCIUM 7.6 mg/dL (8.5-10.1); CARBON DIOXIDE 29.9 mmol/L (21.0-32.0); CHLORIDE - SERUM 97 mmol/L (98-107); CKMB 2.1 U/L (0.0-3.6); CREATINE KINASE 79 UL (21-232); CREATININE - SERUM 7.4 mg/dL (0.6-1.3); GLUCOSE 122 mg/dL (74-106); POTASSIUM - SERUM 2.9 mmol/L (3.5-5.1); SODIUM 135 mmol/L (136-145); UREA NITROGEN 33 mg/dL (7-18); VANCOMYCIN - RANDOM 10.6 ug/mL (10.0-20.0); eGFR NON AFRICAN AMERICAN 8 mL/min (90-120)
[2019-12-05 01:53] LABS: TROPONIN-I 0.119 ng/mL (0.000-0.060)
[2019-12-05 04:00] VITALS: BP 100/70
--- NOTE | 2019-12-05 07:15 | NUR ---
A&O, SITTING ON THE SIDE OF THE BED. NO C/O PAIN. NO S/S OF ACUTE DISTRESS NOTED. WEARS GLASSES. ON TELEMETRY 82 JUNCTIONAL. AVF TO LEFT ARM, THRILL AND BRUIT PRESENT. IV TO RIGHT FOREARM, SL. SITE PATENT WITHOUT REDNESS OR SWELLING. DENIES ANY NEEDS AT THIS TIME. CALL LIGHT IN REACH. WILL CONTINUE TO MONITOR.
[2019-12-05 09:00] VITALS: BP 105/77
[2019-12-05 15:00] VITALS: BP 94/61
--- NOTE | 2019-12-05 17:46 | NUR ---
I have reviewed this patient and I concur with the Shift Assessment completed by the Licensed Practical Nurse today this shift.
--- NOTE | 2019-12-05 18:17 | NUR ---
ALERT AND ORIENTED. RESTING IN BED WATCHING TV. NO C/O PAIN. NO S/S OF ACUTE DISTRESS NOTED. DENIES ANY NEEDS AT THIS TIME. CALL LIGHT IN REACH. WILL CONTINUE TO MONTIOR.
--- NOTE | 2019-12-05 19:30 | NUR ---
PT UP IN CHAIR, AAO X 3, RESP EVEN AND UNLABORED, NO DISTRESS NOTED, CL IN REACH.
[2019-12-05 20:00] VITALS: BP 96/75
--- NOTE | 2019-12-06 03:36 | NUR ---
PT REFUSES TO PUT TELEMETRY BACK ON AT THIS TIME.
[2019-12-06 04:00] VITALS: BP 102/66
--- NOTE | 2019-12-06 06:12 | NUR ---
I have reviewed this patient and I concur with the Shift Assessment completed by the Licensed Practical Nurse today this shift.
[2019-12-06 08:31] VITALS: BP 113/72
[2019-12-06] MEDS ORDERED: LEVOFLOXACIN500 MG PO (09:26)
[2019-12-06 09:45] LABS: HEMOGLOBIN 13.5 g/dL (13.5-17.5); IMMATURE GRANULOCYTES 0.1 % (0-5); MCH 33.9 pg (26.0-34.0); MCHC 30.7 g/dL (31.0-37.0); MCV 110.6 fL (80.0-100.0); MEAN PLATELET VOLUME 11.5 fL (7.4-10.4); MONOCYTES 11.5 % (2-11); NEUTROPHILS 72.4 % (40-80); PLATELET COUNT 198 10x3/uL (130-400); RBC 3.98 10x6/uL (4.20-6.10); RDW 16.9 % (11.5-14.5); WBC 7.3 10x3/uL (4.8-10.8)
[2019-12-06 09:55] LABS: ANION GAP 15.4 mmol/L (8-16); CALCIUM 7.3 mg/dL (8.5-10.1); CARBON DIOXIDE 27.3 mmol/L (21.0-32.0); CREATININE - SERUM 8.3 mg/dL (0.6-1.3); POTASSIUM - SERUM 3.7 mmol/L (3.5-5.1)
[2019-12-06 10:03] LABS: VANCOMYCIN - RANDOM 17.8 ug/mL (10.0-20.0)
--- NOTE | 2019-12-06 10:16 | NUR ---
PT BEING DISCHARGED TODAY. MEDS GIVEN THIS MORNING BUT EMAR NOT DOCUMENTING. PHARMACY CALLED AND WORKING ON IT. HOUSE SUP CALLED AND SUGGESTED PHARMACY CALLED FIRST.
--- NOTE | 2019-12-06 13:05 | NUR ---
DISCHARGE INSTRUCTIONS REVEIWED AND SIGNED. IV REMOVED. GEOVANY, SON, CALLED FOR PICKUP. WILL CALL FROM ER ENTRANCE WHEN HERE.
--- NOTE | 2019-12-06 18:26 | MORECARE ---
CASE MANAGEMENT DISCHARGE SUMMARY PATIENT: RAE ARSHAD UNIT: [id number] ADM DATE: 12/04/19 AGE: 54 : 61 SEX: M ROOM/BED: D.2106 AUTHOR: NIC RIVERA PHYSICIAN: REFERRING PHYSICIAN: SAGRARIO GARAY MD DATE OF SERVICE: 12/06/19 Discharge Plan Patient Name: RAE ARSHAD Facility: [facility]:[place] : 1965 Planned Disposition: Anticipated Discharge Date: Discharge Date: 12/06/2019 Expected LOS: Initial Reviewer: [email or web address] Initial Review Date: 12/04/2019 Generated: 12/06/19 7:25 pm DCPIA - Discharge Planning Initial Assessment Updated by [email or web address]: Sonia Kerr on 12/06/19 6:24 pm * Is the patient Alert and Oriented? Yes * Preadmission Environment Home with Family * ADLs Independent * Additional services required to return to the preadmission environment? No * Can the patient safely return to the preadmission environment? Yes * Has this patient been hospitalized within the prior 30 days at any hospital? Yes Patient Name: RAE ARSHAD Page [phone] at 1826 All edits/amendments must be made on the electronic document DICTATION DATE: 12/06/191824 RIDING COACH: TEENA 12/06/191824 RPT#: [id number] DC DATE:12/06/19 STATUS: DIS IN [facility] [address] [place] [address] END OF REPORT
--- NOTE | 2019-12-06 18:33 | MORECARE ---
CASE MANAGEMENT DISCHARGE SUMMARY PATIENT: RAE ARSHAD UNIT: [id number] ADM DATE: 12/04/19 AGE: 54 : 61 SEX: M ROOM/BED: D.2101 AUTHOR: NIC RIVERA PHYSICIAN: REFERRING PHYSICIAN: SAGRARIO SOTO MD DATE OF SERVICE: 12/06/19 Discharge Plan Patient Name: RAE ARSHAD Facility: [facility]:[place] : 1965 Planned Disposition: Anticipated Discharge Date: Discharge Date: 12/06/2019 Expected LOS: Initial Reviewer: [email or web address] Initial Review Date: 12/04/2019 Generated: 12/06/19 7:32 pm Comments DCP- Discharge Planning Updated by [email or web address]: Sonia Kerr on 12/06/19 5:[address] Patient Name: RAE ARSHAD Admission Status: ER Accout number: [id number] Admission Date: 12-04-2019 : 1965 Admission Diagnosis: Attending: Sagrario Soto Current LOS: 2 Anticipated DC Date: Planned Disposition: Primary Insurance: MEDICARE A & B Discharge Planning Comments: CM met with patient to complete initial dc planning assessment. CM educated patient on the CM role and verbal consent given by patient to complete assessment. CM verified patient's address, phone number, and emergency contact phone numbers. Patient lives at home alone and is independent with his ADL's. States he has a home rolling walker to use after dialysis. States the days where he does not have dialysis he does not need an assistive device. At discharge patient plans to return home and feels this is a safe discharge. CM discussed availability of home health, rehab services, and medical equipment. Patient denied known discharge needs at this time, but is in agreement to use hh because of the frequent admits for sob. Transportation provider at discharge will be scat tyson or his brother Garfield. CM received order to eval for home 02 and patient had a walk test and doesn't qualify for home 02. CM will continue to follow and will assist as needed with dc plans/needs. Home Office Representative: Sonia Kerr DCPIA - Discharge Planning Initial Assessment Updated by [id number]: Sonia Kerr on 12/06/19 6:24 pm * Is the patient Alert and Oriented? Yes * Preadmission Environment Home with Family * ADLs Independent * Additional services required to return to the preadmission environment? No * Can the patient safely return to the preadmission environment? Yes * Has this patient been hospitalized within the prior 30 days at any hospital? Yes Last DP export: 12/06/19 5:26 pm Patient Name: RAE ARSHAD Page [phone] at 1833 All edits/amendments must be made on the electronic document DICTATION DATE: 12/06/191831 BUILDING CONSTRUCTION SUPERVISOR: TEENA 12/06/191831 RPT#: [id number] DC DATE:12/06/19 STATUS: DIS IN [facility] [address] [place] [address] END OF REPORT
--- NOTE | 2019-12-07 09:25 | MORECARE ---
CASE MANAGEMENT DISCHARGE SUMMARY PATIENT: RAE ARSHAD UNIT: [id number] ADM DATE: 12/04/19 AGE: 54 : 61 SEX: M ROOM/BED: D.7277 AUTHOR: NIC RIVERA PHYSICIAN: REFERRING PHYSICIAN: SAGRARIO SOTO MD DATE OF SERVICE: 12/07/19 Discharge Plan Patient Name: RAE ARSHAD Facility: [facility]:[place] : 1965 Planned Disposition: Anticipated Discharge Date: Discharge Date: 12/06/2019 Expected LOS: Initial Reviewer: [email or web address] Initial Review Date: 12/04/2019 Generated: 12/07/19 10:24 am Comments DCP- Discharge Planning Updated by [email or web address]: Sonia Kerr on 12/06/19 5:[address] Patient Name: RAE ARSHAD Admission Status: ER Accout number: [id number] Admission Date: 12-04-2019 : 1965 Admission Diagnosis: Attending: Sagrario Soto Current LOS: 2 Anticipated DC Date: Planned Disposition: Primary Insurance: MEDICARE A & B Discharge Planning Comments: CM met with patient to complete initial dc planning assessment. CM educated patient on the CM role and verbal consent given by patient to complete assessment. CM verified patient's address, phone number, and emergency contact phone numbers. Patient lives at home alone and is independent with his ADL's. States he has a home rolling walker to use after dialysis. States the days where he does not have dialysis he does not need an assistive device. At discharge patient plans to return home and feels this is a safe discharge. CM discussed availability of home health, rehab services, and medical equipment. Patient denied known discharge needs at this time, but is in agreement to use hh because of the frequent admits for sob. Transportation provider at discharge will be scat tyson or his brother Garfield. CM received order to eval for home 02 and patient had a walk test and doesn't qualify for home 02. CM will continue to follow and will assist as needed with dc plans/needs. Customer Loyalty Representative: Sonia Kerr DCPIA - Discharge Planning Initial Assessment Updated by [email or web address]: Sonia Kerr on 12/06/19 6:24 pm * Is the patient Alert and Oriented? Yes * Preadmission Environment Home with Family * ADLs Independent * Additional services required to return to the preadmission environment? No * Can the patient safely return to the preadmission environment? Yes * Has this patient been hospitalized within the prior 30 days at any hospital? Yes Last DP export: 12/06/19 5:33 pm Patient Name: RAE ARSHAD Page 74700 at 0925 All edits/amendments must be made on the electronic document DICTATION DATE: 12/07/19923 CHIPPING MACHINE OPERATOR: DM 12/07/19923 RPT#: [id number] DC DATE:12/06/19 STATUS: DIS IN [facility] [address] [place] [address] END OF REPORT
[2019-12-08 10:11] LABS: HEP B CORE AB TOTAL Negative (Negative); HEPATITIS C ANTIBODY <0.1 S/CO RAT (0.0-0.9)
== END 2019-12-06 13:33 | disposition home or self-care (01) | DRG 70 ==
LOC: D.ER 11:17 → D.M2 13:23
PROVIDERS: Family Medicine; ADMIT Internal Medicine Nephrology; ATTEND Internal Medicine Nephrology
PROC: 5A1D70Z Performance of Urinary Filtration, Intermittent, Less than 6 Hours Per Day (ICD-10-PCS; principal; 2019-12-04)
DX: G93.41 Metabolic encephalopathy (principal); J18.9 Pneumonia, unspecified organism; N18.6 End stage renal disease; I12.0 Hypertensive chronic kidney disease with stage 5 chronic kidney disease or end stage renal disease; E11.22 Type 2 diabetes mellitus with diabetic chronic kidney disease; D63.1 Anemia in chronic kidney disease; E87.6 Hypokalemia; E83.39 Other disorders of phosphorus metabolism; Z99.2 Dependence on renal dialysis; Z86.73 Personal history of transient ischemic attack (TIA), and cerebral infarction without residual deficits

== ENCOUNTER 2019-12-08 21:46 | Inpatient (IN) | payer MEDICARE, BC ==
[~2019-12-08] VITALS: Ht 182.9 cm; Wt 104.2 kg
[~2019-12-08 21:46] MED LIST changes: +LEVOFLOXACIN500 MG PO
[2019-12-08 22:10] LABS: BASOPHILS 0.3 % (0-2); EOSINOPHILS 0.1 % (0-7); HEMATOCRIT 45.5 % (42.0-54.0); HEMOGLOBIN 14.6 g/dL (13.5-17.5); IMMATURE GRANULOCYTES 0.5 % (0-5); LYMPHOCYTES 8.2 % (15-50); MCH 34.7 pg (26.0-34.0); MCHC 32.1 g/dL (31.0-37.0); MCV 108.1 fL (80.0-100.0); MEAN PLATELET VOLUME 11.7 fL (7.4-10.4); MONOCYTES 9.6 % (2-11); NEUTROPHILS 81.3 % (40-80); PLATELET COUNT 194 10x3/uL (130-400); RBC 4.21 10x6/uL (4.20-6.10); RDW 16.7 % (11.5-14.5); WBC 8.7 10x3/uL (4.8-10.8)
[2019-12-08 22:19] LABS: APTT 37.4 SECONDS (22.8-39.4); INR 1.81 (0.85-1.17); PROTIME 20.8 SECONDS (11.6-15.0)
[2019-12-08 22:43] LABS: ALBUMIN 3.5 g/dL (3.4-5.0); ALKALINE PHOSPHATASE 70 U/L (30-120); ALT (SGPT) 17 U/L (10-68); BILIRUBIN - TOTAL 1.87 mg/dL (0.2-1.3); CALCIUM 7.4 mg/dL (8.5-10.1); CARBON DIOXIDE 15.6 mmol/L (21.0-32.0); CHLORIDE - SERUM 89 mmol/L (98-107); CKMB 3.6 U/L (0.0-3.6); CREATINE KINASE 141 UL (21-232); CREATININE - SERUM 12.7 mg/dL (0.6-1.3); PROTEIN - SERUM 8.3 g/dL (6.4-8.2); SODIUM 127 mmol/L (136-145); UREA NITROGEN 75 mg/dL (7-18); eGFR NON AFRICAN AMERICAN 4 mL/min (90-120)
[2019-12-08 22:47] LABS: CALC OSMOLALITY 276 mosm/kg (275-300); GLUCOSE 93 mg/dL (74-106); PRO BNP 106332 pg/mL (0-125)
[2019-12-08 22:49] LABS: POTASSIUM - SERUM 6.2 mmol/L (3.5-5.1); TROPONIN-I 0.102 ng/mL (0.000-0.060)
[2019-12-08 23:44] VITALS: BP 111/82
[2019-12-09] VITALS (7 sets, daily range): BP systolic 94–138; BP diastolic 74–93; BMI 32.9
[2019-12-09 05:35] LABS: ALBUMIN 3.4 g/dL (3.4-5.0); BILIRUBIN - TOTAL 1.4 mg/dL (0.2-1.3); CALCIUM 7.1 mg/dL (8.5-10.1); CARBON DIOXIDE 17.2 mmol/L (21.0-32.0); CREATININE - SERUM 13.3 mg/dL (0.6-1.3); MAGNESIUM - SERUM 2.6 mg/dL (1.8-2.4); PROTEIN - SERUM 7.8 g/dL (6.4-8.2)
[2019-12-09 05:55] LABS: BASOPHILS 0.4 % (0-2); EOSINOPHILS 0.1 % (0-7); HEMATOCRIT 43.2 % (42.0-54.0); IMMATURE GRANULOCYTES 0.2 % (0-5); LYMPHOCYTES 7.2 % (15-50); MCH 34.5 pg (26.0-34.0); MCHC 32.4 g/dL (31.0-37.0); MCV 106.4 fL (80.0-100.0); MEAN PLATELET VOLUME 12.1 fL (7.4-10.4); MONOCYTES 11.9 % (2-11); NEUTROPHILS 80.2 % (40-80); PLATELET COUNT 181 10x3/uL (130-400); RBC 4.06 10x6/uL (4.20-6.10); RDW 16.4 % (11.5-14.5); WBC 8.4 10x3/uL (4.8-10.8)
--- NOTE | 2019-12-09 06:00 | NUR ---
PATIENT UP TO RECLINING CHAIR, CALL LIGHT IN REACH. NO SIGNS OF DISTRESS NOTED
[2019-12-09 06:11] LABS: ANION GAP 28.8 mmol/L (8-16); TROPONIN-I 0.143 ng/mL (0.000-0.060)
[2019-12-09 06:14] LABS: PHOSPHOROUS 10.9 mg/dL (2.5-4.9)
--- NOTE | 2019-12-09 06:18 | NUR ---
PT PHOSPHORUS LEVEL 10.[address] RESULT [address] DIOP NOTIFED.
--- NOTE | 2019-12-09 11:30 | NUR ---
PT TO DIAYLSIS AT THIS TIME.
--- NOTE | 2019-12-09 15:06 | NUR ---
PT RETURNED FROM HD AT THIS TIME.
--- NOTE | 2019-12-09 17:30 | NUR ---
RECIEVED PT FROM ER VIA WHEELCHAIR. DENIES NEEDS OR PAIN AT THIS TIME. RR EVENA AND UNLABORED ON 2L NC. CALL LIGHT WITHIN REACH. ORIENTED TO ROOM. WILL CONTINUE TO MONTIOR.
--- NOTE | 2019-12-09 20:00 | NUR ---
PT SITTING UP ON SIDE OF BED AWAKE ALERT AND ORIENTED x4. NO SIGNS OR SYMPTOMS OF DISTRESS NOTED. RESPIRATIONS EVEN AND UNLABORED. PT ASKED FOR AIR CONDINTIONAIR TO BE TURNED OF AND BLIND TO BE CLOSED. PT HAS NO FURTHER COMPLAINTS. PT DENEIS PAIN AT THIS TIME. CALL LIGHT AND OTHER PERSONAL ITEMS WITH IN REACH. WILL CONTINUE TO MONITOR
--- NOTE | 2019-12-09 20:02 | NUR ---
BED ALARM ON AND ACTIVE. PT ENCOURAGED TO CALL FOR HELP WHEN GETTING IN AND OUT OF BED WILL CONTIUE TO MONITOR
[2019-12-10] VITALS: BP 117/83
[2019-12-10 04:00] VITALS: BP 118/87
[2019-12-10 06:58] LABS: CALCIUM 7.5 mg/dL (8.5-10.1); CARBON DIOXIDE 19.2 mmol/L (21.0-32.0); CREATININE - SERUM 11.8 mg/dL (0.6-1.3); PHOSPHOROUS 8.9 mg/dL (2.5-4.9)
[2019-12-10 07:00] LABS: ANION GAP 24.9 mmol/L (8-16); POTASSIUM - SERUM 4.1 mmol/L (3.5-5.1); TROPONIN-I 0.123 ng/mL (0.000-0.060)
[2019-12-10 07:14] LABS: BASOPHILS 1.7 % (0-2); EOSINOPHILS 2.7 % (0-7); HEMOGLOBIN 14.4 g/dL (13.5-17.5); IMMATURE GRANULOCYTES 0.2 % (0-5); LYMPHOCYTES 6.1 % (15-50); MCH 35.1 pg (26.0-34.0); MCHC 32.7 g/dL (31.0-37.0); MCV 107.3 fL (80.0-100.0); MEAN PLATELET VOLUME 11.8 fL (7.4-10.4); NEUTROPHILS 77.3 % (40-80); PLATELET COUNT 205 10x3/uL (130-400); RDW 16.9 % (11.5-14.5); WBC 8.2 10x3/uL (4.8-10.8)
--- NOTE | 2019-12-10 08:00 | NUR ---
PT SITTING UP ON SIDE OF BED. CALL LIGHT WITHIN REACH. PT IS FALLING ASLEEP SITTING UP. ASKED IF HE WANTED TO LAY DOWN AND HE STATED HE WAS FINE. CALL LIGHT WITHIN REACH. BED IN LOWEST POSITION. WILL CONTINUE TO MONITOR.
[2019-12-10 09:00] VITALS: BP 130/94
[2019-12-10 11:00] VITALS: BP 123/92
[2019-12-10 11:23] VITALS: Ht 182.9 cm; Wt 104.2 kg
--- NOTE | 2019-12-10 15:46 | MORECARE ---
CASE MANAGEMENT DISCHARGE SUMMARY PATIENT: RAE ARSHAD UNIT: [id number] ADM DATE: 12/08/19 AGE: 54 : 61 SEX: M ROOM/BED: D.2112 AUTHOR: MIGUEL,NIC PHYSICIAN: REFERRING PHYSICIAN: SAGRARIO GARAY MD DATE OF SERVICE: 12/10/19 Discharge Plan Patient Name: RAE ARSHAD Facility: [facility]:[place] : 1965 Planned Disposition: Home Anticipated Discharge Date: 12/10/19 Discharge Date: Expected LOS: 2 Initial Reviewer: [email or web address] Initial Review Date: 12/09/2019 Generated: 12/10/19 4:46 pm Comments DCP- Discharge Planning Updated by [id number]: Michelle Haji on 12/10/19 2:[address] Per Paige Sylvester, patient has HD 4 days a week. CM met with the patient regarding DC needs/plans. Patient states he is independent with his care at home.PCP: Dr. Mills. Pharmacy: [facility] [address], and [facility]. Emergency contact: Omega Garay (mother) [phone]. DME: C-Pap, shower chair, walker. patient rides the [employer] bus to [facility] on /. States that family will drive him home upon Dc. Discussed HHS, SNF, Rehab with patient, but declines at this time. CM will assist wit any DC needs/plans PRN. DCPIA - Discharge Planning Initial Assessment Updated by [email or web address]: Michelle Haji on 12/10/19 3:42 pm * Is the patient Alert and Oriented? Yes * How many steps to enter\exit or inside your home? * PCP Dr. Mills * Pharmacy [facility] * Preadmission Environment Home with Family * ADLs Independent * Equipment Bedside Commode CPAP Rolling Walker Shower Chair * Other Equipment NA * List name and contact numbers for known caregivers / representatives who currently or will assist patient after discharge: Christian Garay (mother) [phone] * Verbal permission to speak to the caregivers and representatives has been obtained from the patient. Yes * Community resources currently utilized None * Please name any agencies selected above. [facility] HD M///[facility] ransportation * Additional services required to return to the preadmission environment? No * Can the patient safely return to the preadmission environment? Yes * Has this patient been hospitalized within the prior 30 days at any hospital? No Patient Name: RAE ARSHAD Page [phone] at 1546 All edits/amendments must be made on the electronic document DICTATION DATE: 12/10/19 1546 ENGINEER TECHNICIAN: TEENA 12/10/19 1546 RPT#: [id number] DC DATE: STATUS: ADM IN [facility] [address] [place] [address] END OF REPORT
--- NOTE | 2019-12-10 18:05 | NUR ---
I have reviewed this patient and I concur with the Shift Assessment completed by the Licensed Practical Nurse today this shift.
--- NOTE | 2019-12-10 19:51 | NUR ---
PATIENT IS RESTING IS HIS CHAIR. HE IS ALERT AND ORIENTATED. HE IS ON OXYGEN VIA NASAL CANULA. HIS LUNGS HAVE COARSE CRACKLES THROUGHOUT. WE WILL CONTINUE TO MONITOR IS RESPIRATORY STATUS AND RENAL STATUS
[2019-12-10 21:11] VITALS: BP 131/94
[2019-12-11 00:32] VITALS: BP 106/78
--- NOTE | 2019-12-11 04:36 | NUR ---
PATIENT IS SLEEPING COMFORTABLY IN BED. HE DOES NOT MAKE URINE. HE HAS NOT PUT ON HIS CALL LIGHT THE WHOLE SHIFT. HE IS STILL ON 2 LITERS NASAL CANNULA, AND HE HAS COURSE CRACKLE THROUGHOUT LUNGS. HE DOES NOT HAVE TELE ON. WE WILL CONTINUE TO MONITO HIS RESPIRATORY STATUS.
[2019-12-11 04:51] VITALS: BP 121/90
[2019-12-11 05:06] LABS: CALCIUM 7.6 mg/dL (8.5-10.1); CARBON DIOXIDE 21.4 mmol/L (21.0-32.0); CREATININE - SERUM 10.3 mg/dL (0.6-1.3); PHOSPHOROUS 7.2 mg/dL (2.5-4.9)
[2019-12-11 05:12] LABS: POTASSIUM - SERUM 3.4 mmol/L (3.5-5.1)
[2019-12-11 05:16] LABS: BASOPHILS 1.1 % (0-2); EOSINOPHILS 3.3 % (0-7); HEMATOCRIT 45.7 % (42.0-54.0); HEMOGLOBIN 14.9 g/dL (13.5-17.5); IMMATURE GRANULOCYTES 0.2 % (0-5); LYMPHOCYTES 6.4 % (15-50); MCH 34.9 pg (26.0-34.0); MCHC 32.6 g/dL (31.0-37.0); MEAN PLATELET VOLUME 11.8 fL (7.4-10.4); PLATELET COUNT 187 10x3/uL (130-400); RBC 4.27 10x6/uL (4.20-6.10); RDW 17.2 % (11.5-14.5); WBC 8.3 10x3/uL (4.8-10.8)
[2019-12-11] MEDS ORDERED: CARDIZEM LA120 M1 PO (07:08)
--- NOTE | 2019-12-11 07:46 | NUR ---
ROUNDING DONE WITH PATIENT SITTING ON SIDE OF BED WITH NASAL CANNULA ON AT 2L. BILATERAL LIGHT CRACKLES HEARD THROUGHOUT LUNG FIELD. RIGHT WRIST SEEN WITH SALINE LOCK. RES. L ARM WITH AVF, + BRUIT AND THRILL. MAKES NO URINE. GLASSES ON. UP AD KAZ. NO NEEDS VOICED. CALL LIGHT IN USE.
--- NOTE | 2019-12-11 08:59 | MORECARE ---
CASE MANAGEMENT DISCHARGE SUMMARY PATIENT: RAE GABRIEL UNIT: [id number] ADM DATE: 12/08/19 AGE: 54 : 61 SEX: M ROOM/BED: D.2112 AUTHOR: NIC RIVERA PHYSICIAN: REFERRING PHYSICIAN: SAGRARIO GARAY MD DATE OF SERVICE: 12/11/19 Discharge Plan Patient Name: RAE GABRIEL Facility: [facility]:[place] : 1965 Planned Disposition: Home Anticipated Discharge Date: 12/10/19 Discharge Date: Expected LOS: 2 Initial Reviewer: [email or web address] Initial Review Date: 12/09/2019 Generated: 12/11/19 9:59 am Comments DCP- Discharge Planning Updated by [email or web address]: Michelle Haji on 12/10/19 2:[address] Per Paige Sylvester, patient has HD 4 days a week. CM met with the patient regarding DC needs/plans. Patient states he is independent with his care at home.PCP: Dr. Mills. Pharmacy: [facility], and Mail-off. Emergency contact: Omega Garay (mother) [phone]. DME: C-Pap, shower chair, walker. patient rides the [employer] bus to [facility] on /. States that family will drive him home upon Dc. Discussed HHS, SNF, Rehab with patient, but declines at this time. CM will assist wit any DC needs/plans PRN. DCPIA - Discharge Planning Initial Assessment Updated by [email or web address]: Michelle Haji on 12/10/19 3:42 pm * Is the patient Alert and Oriented? Yes * How many steps to enter\exit or inside your home? * PCP Dr. Mills * Pharmacy [facility] mail-off * Preadmission Environment Home with Family * ADLs Independent * Equipment Bedside Commode CPAP Rolling Walker Shower Chair * Other Equipment NA * List name and contact numbers for known caregivers / representatives who currently or will assist patient after discharge: Christian Garay (mother) [phone] * Verbal permission to speak to the caregivers and representatives has been obtained from the patient. Yes * Community resources currently utilized None * Please name any agencies selected above. [facility] HD M/W//[facility] [employer] * Additional services required to return to the preadmission environment? No * Can the patient safely return to the preadmission environment? Yes * Has this patient been hospitalized within the prior 30 days at any hospital? No Coverage Notice Reviewer: [id number] Haji Notice Issued Date-Time: 12/11/2019 8:55 Notice Type: Patient Choice Letter Notice Delivered To: Patient Relationship to Patient: Self Jewel Sorter Name: Rae Gabriel Delivery Method: - Lianet Days: Prior Verbal Notification: Recipient Understood Notice: Recipient Signature: Med Rec Note Co-signed by Attending: Coverage Notice Comment: Reviewer: [id number] Barbara Haji Notice Issued Date-Time: 12/11/2019 8:55 Notice Type: IM Discharge Notice Notice Delivered To: Patient Relationship to Patient: Self Jewel Sorter Name: Rae Gabriel Delivery Method: - Lianet Days: Prior Verbal Notification: Recipient Understood Notice: Recipient Signature: Med Rec Note Co-signed by Attending: Coverage Notice Comment: Last DP export: 12/10/19 2:46 pm Patient Name: RAE GABRIEL Page [id number] at 0859 All edits/amendments must be made on the electronic document DICTATION DATE: 12/11/19858 HOMICIDE SQUAD SERGEANT: TEENA 12/11/19858 RPT#: [id number] DC DATE: STATUS: ADM IN [facility] [address] [place] [address] END OF REPORT
[2019-12-11 09:00] VITALS: BP 120/91
--- NOTE | 2019-12-11 09:13 | MORECARE ---
CASE MANAGEMENT DISCHARGE SUMMARY PATIENT: RAE GABRIEL UNIT: [id number] ADM DATE: 12/08/19 AGE: 54 : 61 SEX: M ROOM/BED: D.2112 AUTHOR: MIGUEL,DOC PHYSICIAN: REFERRING PHYSICIAN: SAGRARIO GARAY MD DATE OF SERVICE: 12/11/19 Discharge Plan Patient Name: RAE GABRIEL Facility: [facility]:[place] : 1965 Planned Disposition: Home Anticipated Discharge Date: 12/10/19 Discharge Date: Expected LOS: 2 Initial Reviewer: [email or web address] Initial Review Date: 12/09/2019 Generated: 12/11/19 10:13 am Comments DCP- Discharge Planning Updated by [email or web address]: Michelle Haji on 12/11/19 8:[address] Walk test RA 95%, Exertion 77%. Patient choice for [facility]. Contacted [facility], faxed required information. Await delivery. DCP- Discharge Planning Updated by [email or web address]: Michelle Haji on 12/10/19 2:[address] Per Paige Sylvester, patient has HD 4 days a week. CM met with the patient regarding DC needs/plans. Patient states he is independent with his care at home.PCP: Dr. Mills. Pharmacy: [facility], and Mail-off. Emergency contact: Omega Garay (mother) [phone]. DME: C-Pap, shower chair, walker. patient rides the [employer] bus to [facility] on /. States that family will drive him home upon Dc. Discussed HHS, SNF, Rehab with patient, but declines at this time. CM will assist wit any DC needs/plans PRN. DCPIA - Discharge Planning Initial Assessment Updated by [email or web address]: Michelle Haji on 12/10/19 3:42 pm * Is the patient Alert and Oriented? Yes * How many steps to enter\exit or inside your home? * PCP Dr. Mills * Pharmacy [facility], [facility] mail-off * Preadmission Environment Home with Family * ADLs Independent * Equipment Bedside Commode CPAP Rolling Walker Shower Chair * Other Equipment NA * List name and contact numbers for known caregivers / representatives who currently or will assist patient after discharge: Christian Garay (mother) [phone] * Verbal permission to speak to the caregivers and representatives has been obtained from the patient. Yes * Community resources currently utilized None * Please name any agencies selected above. [facility] /// [employer] * Additional services required to return to the preadmission environment? No * Can the patient safely return to the preadmission environment? Yes * Has this patient been hospitalized within the prior 30 days at any hospital? No Coverage Notice Reviewer: [id number] Haji Notice Issued Date-Time: 12/11/2019 8:55 Notice Type: Patient Choice Letter Notice Delivered To: Patient Relationship to Patient: Self Cold Press Loader Name: Rae Gabriel Delivery Method: - Lianet Days: Prior Verbal Notification: Recipient Understood Notice: Recipient Signature: Med Rec Note Co-signed by Attending: Coverage Notice Comment: Reviewer: [id number] Haji Notice Issued Date-Time: 12/11/2019 8:55 Notice Type: IM Discharge Notice Notice Delivered To: Patient Relationship to Patient: Self Cold Press Loader Name: Rae Gabriel Delivery Method: - Lianet Days: Prior Verbal Notification: Recipient Understood Notice: Recipient Signature: Med Rec Note Co-signed by Attending: Coverage Notice Comment: Last DP export: 12/11/19 7:59 a Patient Name: RAE GABRIEL Page [id number] at 0913 All edits/amendments must be made on the electronic document DICTATION DATE: 12/11/19912 RESIDENTIAL REAL ESTATE ASSISTANT: TEENA 12/11/19912 RPT#: [id number] DC DATE: STATUS: ADM IN [facility] [address] [place] [address] END OF REPORT
--- NOTE | 2019-12-11 13:12 | NUR ---
HOME PORTABLE OXYGEN IS HERE. AWAITING DIALYSIS THEN CAN BE DISCHARGED.
--- NOTE | 2019-12-11 15:31 | NUR ---
1500-PATIENT TO DIALYSIS VIA WHEELCHAIR AND PORTABLE OXYGEN. 1530-CALL FROM DIALYSIS NURSE ABDIRAHMAN RUFFIN TO COME CHECK ON PATIENT. STATES THAT SHE FEELS HE IS IN AFIB. HE IS LAYING ON HIS LEFT SIDE, LALY FEELS HIS FISTULA AND IT FEELS IRREGULAR. PLACED ON HEART MONITOR SHOWING SR W BBB AND SR, HR IS 84. SATS IS 94-95%. SHE IS GOING TO WATCH HIM FOR A BIT ON DIALYSIS EXCHANGE.
--- NOTE | 2019-12-11 16:35 | NUR ---
PATIENT IS NOW IN SR, HR 83.
--- NOTE | 2019-12-11 17:27 | NUR ---
TRYING TO CALL FOR REPORT FROM DIALYSIS AND LINE IS BUSY. WILL TRY AGAIN.
--- NOTE | 2019-12-11 17:48 | NUR ---
RETURNS FROM DIALYSIS.
--- NOTE | 2019-12-11 18:04 | MORECARE ---
CASE MANAGEMENT DISCHARGE SUMMARY PATIENT: RAE GABRIEL UNIT: [id number] ADM DATE: 12/08/19 AGE: 54 : 61 SEX: M ROOM/BED: D.2112 AUTHOR: MIGUEL,NIC PHYSICIAN: REFERRING PHYSICIAN: SAGRARIO GARAY MD DATE OF SERVICE: 12/11/19 Discharge Plan Patient Name: RAE GABRIEL Facility: [facility]:[place] : 1965 Planned Disposition: Home Anticipated Discharge Date: 12/10/19 Discharge Date: Expected LOS: 2 Initial Reviewer: [email or web address] Initial Review Date: 12/09/2019 Generated: 12/11/19 7:03 pm Comments DCP- Discharge Planning Updated by [email or web address]: Michelle Haji on 12/10/19 2:[address] Per Paige Sylvester, patient has HD 4 days a week. CM met with the patient regarding DC needs/plans. Patient states he is independent with his care at home.PCP: Dr. Mills. Pharmacy: [facility], and Mail-[facility]. Emergency contact: Omega Garay (mother) [phone]. DME: C-Pap, shower chair, walker. patient rides the [employer] bus to [facility] on /. States that family will drive him home upon Dc. Discussed HHS, SNF, Rehab with patient, but declines at this time. CM will assist wit any DC needs/plans PRN. DCPIA - Discharge Planning Initial Assessment Updated by [email or web address]: Michelle Haji on 12/10/19 3:42 pm * Is the patient Alert and Oriented? Yes * How many steps to enter\exit or inside your home? * PCP Dr. Mills * Pharmacy [facility] mail-off * Preadmission Environment Home with Family * ADLs Independent * Equipment Bedside Commode CPAP Rolling Walker Shower Chair * Other Equipment NA * List name and contact numbers for known caregivers / representatives who currently or will assist patient after discharge: Christian Garay (mother) [phone] * Verbal permission to speak to the caregivers and representatives has been obtained from the patient. Yes * Community resources currently utilized None * Please name any agencies selected above. [facility] HD M/W/TH/[facility] [employer] * Additional services required to return to the preadmission environment? No * Can the patient safely return to the preadmission environment? Yes * Has this patient been hospitalized within the prior 30 days at any hospital? No Coverage Notice Reviewer: [id number] Haji Notice Issued Date-Time: 12/11/2019 8:55 Notice Type: Patient Choice Letter Notice Delivered To: Patient Relationship to Patient: Self Hydroponics Worker Name: Rae Gabriel Delivery Method: - Lianet Days: Prior Verbal Notification: Recipient Understood Notice: Recipient Signature: Med Rec Note Co-signed by Attending: Coverage Notice Comment: Reviewer: [id number] Barbara Haji Notice Issued Date-Time: 12/11/2019 8:55 Notice Type: IM Discharge Notice Notice Delivered To: Patient Relationship to Patient: Self Hydroponics Worker Name: Rae Gabriel Delivery Method: - Lianet Days: Prior Verbal Notification: Recipient Understood Notice: Recipient Signature: Med Rec Note Co-signed by Attending: Coverage Notice Comment: Last DP export: 12/11/19 8:13 a Patient Name: RAE GABRIEL Page [id number] at 1804 All edits/amendments must be made on the electronic document DICTATION DATE: 12/11/191802 DECKHAND: TEENA 12/11/191802 RPT#: [id number] DC DATE: STATUS: ADM IN [facility] [address] [place] [address] END OF REPORT
--- NOTE | 2019-12-11 18:50 | NUR ---
PATIENT RECIEVED DC INSTRUCTIONS. VERBALIZED UNDERSTANDING. NO QUESTIONS AT THIS TIME. IV REMOVED WITH CATH TIP INTACT. CALLED FAMILY FOR TRANSPORTATION. CALL LIGHT WITHIN REACH.
--- NOTE | 2019-12-11 19:51 | NUR ---
PT DC'D WITH O2 TANK AND DISCHARGE INSTRUCTIONS TO PRIVATE VEHICLE. VITALS STABLE. NO S/S OF DISTRESS A/O X4. PT DENIES ANY FURTHER QUESTIONS OR CONCERNS.
--- NOTE | 2019-12-14 02:37 | NUR ---
LATE ENTRY: CALCIUM GLUCONATE WAS GIVEN ON 12/09/19 AT 0044 AND WAS STOPPED AT 0144 100ML INFUSED.
== END 2019-12-11 19:52 | disposition home or self-care (01) | DRG 291 ==
LOC: D.ER 21:46 → D.EDHOLD 23:23 → D.M2 23:23
PROVIDERS: Family Medicine; Neurological Surgery; ADMIT Internal Medicine Nephrology; ATTEND Internal Medicine Nephrology
PROC: 5A1D70Z Performance of Urinary Filtration, Intermittent, Less than 6 Hours Per Day (ICD-10-PCS; principal; 2019-12-09)
DX: I13.0 Hypertensive heart and chronic kidney disease with heart failure and stage 1 through stage 4 chronic kidney disease, or unspecified chronic kidney disease (principal); J18.9 Pneumonia, unspecified organism; I50.33 Acute on chronic diastolic (congestive) heart failure; N18.6 End stage renal disease; J81.1 Chronic pulmonary edema; E11.22 Type 2 diabetes mellitus with diabetic chronic kidney disease; E87.5 Hyperkalemia; Z99.2 Dependence on renal dialysis; Z91.15 Patient's noncompliance with renal dialysis; Z86.73 Personal history of transient ischemic attack (TIA), and cerebral infarction without residual deficits